=== PATIENT | female | born 1965 | race Caucasian/White ===

== ENCOUNTER 2020-12-26 08:47 | Outpatient (REF) | payer BC, SELFPAY ==
[2020-12-26 11:05] LABS: MANUAL DIFF FLAG NO
[2020-12-26 11:07] LABS: Basophils Percent Auto 0.5 % (0-2); Eosinophils Absolute Auto 0.1 X10*3/uL (0.0-0.4); Eosinophils Percent Auto 2.3 % (0-4); Hematocrit 38.7 % (37-47); Hemoglobin 12.5 g/dl (12.0-16.0); Imm Gran Abs Auto 0.02 X10*3/uL (0.00-0.03); Imm Gran Pct Auto 0.4 % (0.0-0.4); Lymphocytes Percent Auto 18.1 % (20-40); Mean Corpuscular HGB Conc 32.3 g/dl (31.0-35.0); Mean Corpuscular Hemoglobin 27.5 pg (27.0-33.0); Mean Corpuscular Volume 85.1 fL (80-98); Mean Platelet Volume 12.6 fL (9.4-12.3); Monocytes Absolute Auto 0.4 X10*3/uL (0.1-1.2); Monocytes Percent Auto 6.3 % (2-11); Neutrophils Absolute Auto 4.1 X10*3/uL (2.0-8.3); Neutrophils Percent Auto 72.4 % (45-73); Platelet Count 118 X10*3/uL (160-400); Red Blood Count 4.55 X10*6/uL (4.20-5.50); Red Cell Distribution Width 14.3 % (11.0-16.0); White Blood Count 5.6 X10*3/uL (4.8-10.8)
[2020-12-26 11:56] LABS: Alanine Aminotransferase 27 U/L (0-31); Albumin Level 4.2 g/dL (3.5-5.0); Alkaline Phosphatase 103 U/L (39-117); Anion Gap 14 (12-20); Aspartate Amino Transferase 22 U/L (5-31); Bilirubin Total 0.4 mg/dL (0.0-1.0); Blood Urea Nitrogen 12 mg/dL (9-16); Calcium 9.2 mg/dL (8.4-10.2); Carbon Dioxide 25 mmol/L (22-29); Chloride 108 mmol/L (96-108); Cholesterol 205 mg/dL; Estimated Glomerular Filt Rate > 60; Glucose Fasting 101 mg/dL (60-99); HDL Cholesterol 54 mg/dL; LDL Cholesterol Calculated 126 mg/dl; Potassium 4.3 mmol/L (3.3-5.1); Sodium 143 mmol/L (135-145); Triglycerides 126 mg/dL
== END 2020-12-26 08:48 | disposition home or self-care (01) ==
LOC: HO.MANLDS 08:47
PROVIDERS: PCP Internal Medicine; Visit Provider Physician Assistant
DX: I10 Essential (primary) hypertension (principal)
CPT/HCPCS: 36415; 80053; 80061; 85025

== ENCOUNTER 2023-10-05 10:31 | Outpatient (REF) | payer BC, SELFPAY ==
[2023-10-05 13:17] LABS: MANUAL DIFF FLAG NO
[2023-10-05 13:38] LABS: Basophils Percent Auto 0.3 % (0-2); Eosinophils Absolute Auto 0.1 X10*3/uL (0.0-0.4); Eosinophils Percent Auto 1.2 % (0-4); Hematocrit 41.2 % (37.0-47.0); Hemoglobin 13.3 g/dl (12.0-16.0); Imm Gran Abs Auto 0.05 X10*3/uL (0.00-0.03); Imm Gran Pct Auto 0.8 % (0.0-0.4); Lymphocytes Absolute Auto 0.8 X10*3/uL (1.2-4.9); Lymphocytes Percent Auto 13.4 % (20-40); Mean Corpuscular HGB Conc 32.3 g/dl (31.0-35.0); Mean Corpuscular Hemoglobin 29.5 pg (27.0-33.0); Mean Corpuscular Volume 91.4 fL (80.0-98.0); Mean Platelet Volume 13.7 fL (9.4-12.3); Monocytes Absolute Auto 0.3 X10*3/uL (0.1-1.2); Monocytes Percent Auto 4.8 % (2-11); Neutrophils Absolute Auto 4.8 x10*3/uL (2.0-8.3); Neutrophils Percent Auto 79.5 % (45-73); Red Blood Count 4.51 X10*6/uL (4.20-5.50); Red Cell Distribution Width 14.3 % (11.0-16.0); White Blood Count 6.1 X10*3/uL (4.8-10.8)
[2023-10-05 13:43] LABS: Estimated Average Glucose 128 mg/dL; Hemoglobin A1c % 6.1 % (<6.0)
[2023-10-05 14:05] LABS: Platelet Count 87 X10*3/uL (160-400)
[2023-10-05 14:08] LABS: Appearance Urine Clear; Color Urine Yellow; Glucose Urine UA Negative (Negative); Leukocyte Esterase Urine Negative (Negative); Nitrite Urine Negative (Negative); PH 6.5 (5.0-9.0); Specific Gravity - Urine <= 1.005 (1.005-1.025); Urine Blood Negative (Negative); Urine Ketones Negative (Negative); Urine Protein Negative (Neg-Trace)
[2023-10-05 14:13] LABS: Alanine Aminotransferase 24 U/L (0-31); Albumin Level 4.2 g/dL (3.5-5.0); Alkaline Phosphatase 117 U/L (39-117); Anion Gap 10 (12-20); Aspartate Amino Transferase 22 U/L (5-31); Bilirubin Total 0.3 mg/dL (0.0-1.0); Blood Urea Nitrogen 12 mg/dL (9-16); C Reactive Protein 0.49 mg/dL (< or = 0.50); Calcium 9.7 mg/dL (8.4-10.2); Carbon Dioxide 27 mmol/L (22-29); Chloride 110 mmol/L (96-108); Estimated Glomerular Filt Rate > 60; Glucose Random 142 mg/dL (60-115); Potassium 4.4 mmol/L (3.3-5.1); Sodium 143 mmol/L (135-145); Total Protein 7.2 g/dL (6.5-8.0)
[2023-10-05 14:18] LABS: Erythrocyte Sedimentation Rate 23 MM/HR (0-20)
[2023-10-05 14:33] LABS: Free T4 (Free Thyroxine) 0.93 ng/dL (0.71-1.85); Thyroid Stimulating Hormone 1.13 uIU/mL (0.32-4.0)
[2023-10-11 18:48] LABS: Aldosterone/Renin Ratio 5.8 Ratio (0.9-28.9); Plasma Renin Activity 1.03 ng/mL/h (0.25-5.82)
== END 2023-10-05 10:32 | disposition home or self-care (01) ==
LOC: HO.MANLDS 10:31
PROVIDERS: Visit Provider Physician Assistant
DX: I16.0 Hypertensive urgency (principal)
CPT/HCPCS: 36415; 80053; 81003; 82088; 83036; 84439; 84443; 85025; 85652; 86140

== ENCOUNTER 2023-11-01 15:40 | Outpatient (REF) | payer BC, SELFPAY ==
[2023-11-01 18:06] LABS: Appearance Urine Turbid; Color Urine Yellow; Glucose Urine UA Negative (Negative); Leukocyte Esterase Urine Trace (Negative); Nitrite Urine Negative (Negative); PH 5.5 (5.0-9.0); Specific Gravity - Urine 1.025 (1.005-1.025); UMIC TRIGGER UACC YES; Urine Blood Negative (Negative); Urine Ketones Trace mg/dL (Negative); Urine Protein Negative (Neg-Trace)
[2023-11-01 18:48] LABS: Bacteria Urine 1+ (None Seen); Calcium Oxalate Crystals Urine Present; Hyaline Casts Urine 0-2 /LPF (0-2); RBC Urine 0-2 /HPF (0-2); WBC Urine 0-5 /HPF (0-5)
== END 2023-11-01 15:41 | disposition home or self-care (01) ==
LOC: HO.MANLNP 15:40
PROVIDERS: Internal Medicine; Visit Provider Physician Assistant
DX: R30.0 Dysuria (principal)
CPT/HCPCS: 81001

== ENCOUNTER 2024-03-16 13:05 | Outpatient (REF) | payer BC, SELFPAY ==
[2024-03-16 18:14] LABS: INTERNATIONAL NORM RATIO 4.7 (0.9-1.1); Prothrombin Time 55.5 SEC (10.9-12.4)
== END 2024-03-16 13:06 | disposition home or self-care (01) ==
LOC: HO.MANLDS 13:05
PROVIDERS: Visit Provider Internal Medicine
DX: D68.61 Antiphospholipid syndrome (principal)
CPT/HCPCS: 36415; 85610

== ENCOUNTER 2024-03-23 12:16 | Outpatient (REF) | payer BC, SELFPAY ==
[2024-03-23 18:22] LABS: INTERNATIONAL NORM RATIO 1.6 (0.9-1.1); Prothrombin Time 19.1 SEC (10.9-12.4)
== END 2024-03-23 12:17 | disposition home or self-care (01) ==
LOC: HO.MANLDS 12:16
PROVIDERS: Visit Provider Internal Medicine
DX: D68.61 Antiphospholipid syndrome (principal)
CPT/HCPCS: 36415; 85610

== ENCOUNTER 2024-06-19 10:26 | Outpatient (REF) | payer BC, SELFPAY ==
[2024-06-19 15:11] LABS: Urine Cytology See Pathology rpt
== END 2024-06-19 10:27 | disposition home or self-care (01) ==
LOC: HO.LNP 10:26
PROVIDERS: PCP Internal Medicine; Visit Provider Nurse Practitioner Family
DX: Z13.9 Encounter for screening, unspecified (principal); R39.9 Unspecified symptoms and signs involving the genitourinary system; N39.0 Urinary tract infection, site not specified; N39.46 Mixed incontinence
CPT/HCPCS: 51798; 81003; 88112

== ENCOUNTER 2024-06-19 10:26 | Outpatient (AMB) | payer BC, SELFPAY ==
--- NOTE | 2024-06-19 10:28 | A.OFFVIS_ITS ---
Intake Visit Reasons: recurrent UTI Intake Note: New Patient presents for initial visit for recurrent uti Urology Medications: none Blood Thinner: aspirin PVR: 62ml's Transmission Worker Required: No Accompanied by: Self / Same As Patient Allergies No Known Allergies Allergy (Verified 06/20/24 15:21) Medication List - Last Reconciled 06/20/24 by BRADY Perez-KARLA azathioprine mg PO carvedilol 3.125 mg PO BID lisinopril 40 mg PO DAILY lorazepam mg PO pyridostigmine bromide 60 mg PO TID rosuvastatin 20 mg PO BEDTIME warfarin 2.5 mg PO DAILY HPI Comments Details: Sindi is a very pleasant 59-year-old female patient of . She has a past medical history of cerebrovascular accident, depression, hypertension, MS, obesity, and TIAs. She presents to the office today as a new patient for ongoing lower urinary tract symptoms. In discussion with the patient today she reports having recently had a stroke and has noted ongoing issues with recurrent urinary tract infections as well as urinary urgency, urinary frequency, and mixed urinary incontinence. When asked she does report a previous history of 2 vaginal births and having had a partial hysterectomy approximately 20 years ago. She reports utilizing 2-3 Margarita pads per day. She otherwise denies hematuria, dysuria, foul smelling urine, changes to urinary stream, flank pain, fever, and or chills. In office urinalysis results reviewed with the patient today. PVR 62 mL. We discussed at length potential causes of lower urinary tract symptoms patient was experiencing as well as further workup and treatment options of these lower urinary tract symptoms. She currently denies any UTI like symptoms. She otherwise offers no other issues or concerns at this time. [facility] Medical History CVA (cerebral vascular accident) Depression Hypertension Myasthenia gravis Obesity, class 1 Severe obesity (BMI 35.0-39.9) with comorbidity TIA (transient ischemic attack) Review of Systems Const All systems reviewed & are unremarkable except as noted in HPI and below Physical Exam Const General: cooperative, healthy appearing, comfortable, no acute distress, well developed, alert and awake Orientation/consciousness: patient oriented x3 Limitations: no limitations HEENT Head: Yes normal to inspection, Yes normocephalic and Yes atraumatic Ears: hearing grossly normal bilaterally Eyes General: appearance normal, both eyes and all related structures Neck Neck: Yes normal visual inspection and Yes trachea midline Chest Chest palpation & inspection: normal inspection of the chest Resp Effort & Inspection: normal respiratory effort and able to speak in complete sentences Cardio Rate: regular rate GI Inspection: Yes normal to inspection General: Yes no CVA tenderness Back/Spine/Pelvis Back: no CVA tenderness Skin General skin exam: no rashes or lesions noted Neuro General: patient oriented x3 Extrem General: Yes normal to inspection Psych Appearance: grossly normal and well kempt Mental Status: mental status grossly normal Speech and movement: Normal speech and movement present and Clear speech present Affect: normal affect Attitude: cooperative Thought process: Normal thought process present Thought content: Normal thought content present Insight: Fair insight present (Psych) Judgement: Fair judgement present (Psych) Office Procedures Post Void Residual Post Residual Void Post Void Residual (PVR): 62 [id number] Void Residual by ultrasound Results AMB Urinalysis, Automated UA Leukoctes 0 Rain/uL Last Edit by [employer]trees[employer] Mishra on 06/19/24 11:09 UA Nitrite Last Edit by [employer]treescar[employer] Mishra on 06/19/24 11:09 UA Urobilinogen 0.2 mg/dL Last Edit by [employer] SilvinaMaiyet on 06/19/24 11:09 UA Protein 0 mg/dL Last Edit by [employer] on 06/19/24 11:09 UA pH 7.5 Last Edit by [employer] on 06/19/24 11:09 UA Blood 80 Naif/uL Last Edit by [employer] on 06/19/24 11:09 UA Specific [place] 1.015 Last Edit by [employer] on 06/19/24 11:09 UA Ketone Last Edit by [employer] on 06/19/24 11:09 UA Bilirubin 0 mg/dL Last Edit by [employer] on 06/19/24 11:09 UA Glucose 0 mg/dL Last Edit by Josefina Mishra on 06/19/24 11:09 Results Reviewed Results Reviewed: Laboratory Last Values Urine pH (Auto) 7.5 06/19/24 11:07 Specific [place] (Auto) 1.015 06/19/24 11:07 Urine Protein (Auto) 0 mg/dL 06/19/24 11:07 Glucose (UA)(Auto) 0 mg/dL 06/19/24 11:07 Urine Blood (Auto) 80 Naif/uL 06/19/24 11:07 Urine Bilirubin (Auto) 0 mg/dL 06/19/24 11:07 Urine Urobilinogen (Auto) 0.2 mg/dL 06/19/24 11:07 Leukocyte Esterase (Auto) 0 Rain/uL 06/19/24 11:07 Assessment & Plan Assessment & Plan (1) Lower urinary tract symptoms: Code(s): R39.9 - Unspecified symptoms and signs involving the genitourinary system Category: Medical (2) Recurrent urinary tract infection: Code(s): N39.0 - Urinary tract infection, site not specified Category: Medical (3) Urinary incontinence, mixed: Code(s): N39.46 - Mixed incontinence Category: Medical Plan In office urinalysis results reviewed with the patient today; as noted above. PVR 62 mL. Information provided regarding pelvic floor exercises. We discussed bladder triggers/irritants. We discussed at length further treatment options of lower urinary tract symptoms patient is experiencing as well as risks and benefits of these treatment options. We discussed possible near future in office cystoscopy and or urodynamics for further assessment evaluation. Patient currently denies any UTI like symptoms. Will obtain retroperitoneal ultrasound for further assessment evaluation. Will refer to pelvic floor therapy for further assessment evaluation. Discussed UTI prevention with D mannose supplement, vitamin-C, increasing fluid intake, behavioral therapy with timed voiding, perineal hygiene and postcoital voiding, and management of constipation with stool softeners and increased fiber intake. Follow-up in 1-3 months with imaging to be completed prior; or sooner with any issues, concerns, and or questions. Orders: Orders AMB Urinalysis Automated 06/19/24 Z13.9 - Encounter for screening, unspecified US retroperitoneal comp 06/19/24 N39.0 - Urinary tract infection, site not specified, R39.9 - Unspecified symptoms and signs involving the genitourinary system PT Evaluation and Treatment 06/19/24 N39.0 - Urinary tract infection, site not specified, R39.9 - Unspecified symptoms and signs involving the genitourinary system AMB Post Void Residual by ultrasound 06/19/24 Z13.9 - Encounter for screening, unspecified Urine Cytology 06/19/24 Z13.9 - Encounter for screening, unspecified Patient Instructions: The patient had an opportunity to ask questions regarding the treatment plan. All questions were answered. Physical exam, labs, and imaging were discussed and reviewed in detail. As well as risks, benefits, and discussion of treatment choices. No major barriers to understanding were identified. The patient expressed understanding and agreement with the above treatment plan. The patient was made aware they should contact our office by phone for worsening of their current condition, the appearance of new symptoms, or with any questions or concerns. Compliance is encouraged with any medications and follow up testing that is ordered. It is a privilege to be allowed the opportunity to participate in? your urological care.? Again, if you have any questions or concerns If you have any questions or concerns please do not hesitate to contact me. The office is [phone]. This note is constructed using voice recognition software. While every effort has been made to ensure accuracy correctional guard errors may have been included. Yours sincerely, ZORAN Perez Coding Level of Care Code New Pt Level 3 (70984) Diagnoses Lower urinary tract symptoms R39.9 Recurrent urinary tract infection N39.0 Urinary incontinence, mixed N39.46 CPT Codes Post Residual Void - PVR CPT Code: 97930-Vogp Void Residual by ultrasound ([id number])
== END 2024-06-19 11:14 | disposition home or self-care (01) ==
PROVIDERS: PCP Internal Medicine; Visit Provider Nurse Practitioner Family
DX: Z13.9 Encounter for screening, unspecified (principal)
CPT/HCPCS: 99203

== ENCOUNTER 2024-08-08 10:03 | Outpatient (REF) | payer BC, SELFPAY ==
--- NOTE | ~2024-08-08 | US_ITS ---
CLINICAL HISTORY: R39.9 - Unspecified symptoms and signs involving the genitourinary system US Renal Comparison: None Findings: Horseshoe kidney Right kidney normal echotexture, 12.4 cm length. Left kidney normal echotexture, 8.8 cm length. No hydronephrosis or renal mass lesion. Urinary bladder is unremarkable. Prevoid volume 183 mL. Postvoid volume 36 mL. Bilateral ureteral jets are visualized. IMPRESSION: Horseshoe kidneys without hydronephrosis. This document has been electronically signed by: Caitlin De Los Santos MD on 08/09/2024 10:39:44
--- OUTSIDE RECORDS SUMMARY | 2024-08-08 10:32 | XMS_ITS | Data Portability ---
Author Organization [facility] Service Address [address] [place] [address] Assessment Encounter Date Assessment Date Assessment LastModified by Organization Details LastModified Time 07/07/2022 07/07/2022 Patient agreed and verbally consents to this audio and video Telehealth appt via a secure platform [email or web address] Not available 07/07/2022 13:34:39 11/26/2022 11/26/2022 The patient denies little pleasure in activities they find enjoyable, feeling depressed, difficulties sleeping, feeling tired or having little energy, change in appetite, feeling guilty, overwhelmed or unmotivated. The patient denies suicidal ideation, thoughts of hurting themselves or others. Their mood is appropriate, they show good judgement and clear understanding of the conversation. They are orientated to time, place and person. They are not expressing any concerning thoughts or actions that would need further investigation and treatment for mental health. [email or web address] Not available 11/26/2022 11:07:03 05/09/2023 05/09/2023 Patient agreed and verbally consents to this audio and video Telehealth appt via a secure platform [email or web address] Not available 05/09/2023 13:59:44 Plan of Treatment Reminders Order Date Submit Date Provider Last Modified By Organization Details Last Modified Time Details Appointments FOLLOW UP 15 2024 09:30A M MIKHAIL SARKAR Not available Not available Not available Lab lipid panel, serum 2023 024 [facility], [address] [place] [address], [place], [address], 11/30/2023 09:52:29 urinalysi s complete, reflex culture 2023 024 [facility], [address] [place] [address], [address], 11/01/2023 15:26:55 CMP, serum or plasma 2022 023 [facility], [address] [place] [address], [address], 11/26/2022 11:05:15 CBC w/ auto diff 2022 023 [facility], [address] [place] [address], [address], 11/26/2022 11:05:16 lipid panel, blood 2022 023 [facility], [address] [place] [address], [address], 11/26/2022 11:05:15 vitamin D, 25-hydrox y, total, serum 2022 023 [facility], [address] [place] [address], [address], 11/26/2022 11:05:16 TSH + free T4, serum 2022 023 [facility], [address] [place] [address], [address], 11/26/2022 11:05:16 hemoglobi n A1c, QN, blood 2022 023 [facility], [address] [place] [address], [address], 11/26/2022 11:05:16 vitamin B12 + folate, serum or blood 2022 023 [facility], [address] [place] [address], [address], 11/26/2022 11:05:15 Referral physical therapist referral 2023 024 [facility], [address] [place], [address], 12/05/2023 09:08:18 gastroent erologist referral [email or web address] [place] [address] Gastroenterol ogy, [address] [place], [address], 12/24/2022 13:25:02 Procedures None recorded. Surgeries None recorded. Imaging XR, hand, 3 or more view 2023 024 [facility], [address] [place], [address], 12/02/2023 19:51:02 XR, humerus, 2 or more view 2023 024 [facility], [address] [place], [address], 12/02/2023 16:21:57 XR, shoulder, 2 or more view 2023 024 [facility], [address], [address], 12/07/2023 08:34:26 MAMMO, screening , digital, bilateral 2022 023 [facility], [address], [place], [address], 12/10/2022 09:26:43 US, echocardi ogram 2022 023 [facility], [address], [address], 12/10/2022 09:26:43 CT, coronary calcium score 2022 023 [facility], [address], [address], 12/15/2022 08:35:58 Medication Orders atorvasta tin 80 mg tablet 2023 024 [facility][id number], [address], [place], [id number], 11/30/2023 09:35:08 lisinopri l 10 mg tablet 2023 024 [facility] #98633, [address], [place], [id number], 12/12/2023 13:35:57 Bactrim DS 800 mg-160 mg tablet [address] [facility]75803, [address], [place], [id number], 11/30/2023 09:20:57 amoxicill in 875 mg-potass ium clavulana te 125 mg tablet 2022 023 [facility] #72422, [address], [place], [id number], 10/05/2023 10:02:47 Medrol (Krishan) 4 mg tablets in a dose pack 2022 023 [facility], [address], [place], [id number], 10/05/2023 10:02:55 phentermi ne 37.5 mg capsule 2022 023 [facility], [address], [place], [id number], 10/05/2023 10:03:04 topiramat e 50 mg tablet [address] [facility]81203, [address], [place], [id number], 11/30/2023 09:21:07 Zithromax Z-Krishan 250 mg tablet 2022 023 [facility] #19461, [address], [place], [id number], 11/26/2022 10:52:45 Medrol (Krishan) 4 mg tablets in a dose pack 2022 023 [facility]8570, [address], [place], [id number], 10/05/2023 10:02:55 Patient TargetsNo targets recorded. Patient InstructionsNo instructions recorded. Reason for Referral Knuckler Referral for Screening for malignant neoplasm of colon needs routine colonoscopy; overdue Referring Physician: Mary Pate, Internal Medicine, Encounter Date: 11/26/2022 Physical Therapist Referral for Myasthenia gravis transfer from at home PT/OT to outpatient PT/OT Referring Physician: Mary Pate, Internal Medicine, Encounter Date: 11/30/2023 Results Created Date Observation Date Name Description Value Unit Range Abnormal Flag Note LastModifiedBy Organization Detail LastModifiedTime 06/10/20 23 06/10/2023 MAMMO , scree alan, digit al, bilat eral No observ ation record ed. [facility] [address] [place], [address], 06/10/2023 11:30:35 06/24/19 24 06/24/2023 MAMMO , scree alan, digit al, bilat eral No observ ation record ed. [facility] [address] [place], [address], 06/25/2023 08:54:30 12/02/19 24 12/02/2023 XR, elizabeth flor, 2 or more view No observ ation record ed. [facility] [address] [facility] [address], [place], [address], 12/02/2023 15:53:18 12/02/19 24 12/02/2023 XR, humer us, 2 or more view No observ ation record ed. [facility] [address] [facility] [address], [place], [address], 12/02/2023 16:31:17 12/02/19 24 12/02/2023 XR, hand, 3 or more view No observ ation record ed. [email or web address] [address] [facility] [address], [place], [address], 12/05/2023 09:45:27 12/30/19 24 12/30/2023 MAMMO , scree alan, digit al, bilat eral No observ ation record ed. [facility] [address], [place], [address], 12/30/2023 14:02:48 01/05/20 24 12/30/2023 , carlos sadler No observ ation record ed. [facility] [address] [facility], [place], [address], 01/06/2024 12:13:59 01/05/20 24 01/05/2024 MAMMO , scree alan, digit al, bilat eral No observ ation record ed. [facility] [address] [facility] [address], [place], [address], 01/06/2024 12:14:00 01/05/20 24 01/05/2024 US, carlos t No observ ation record ed. [facility] [address] [facility] [address], [place], [address], 01/06/2024 12:14:00 01/10/20 24 01/05/2024 biops y of carlos sadler; soumya robles us, needl e core, using imagi julita joyce (PROC ) No observ ation record ed. [facility] [address] [facility] [address], [place], [address], 01/10/2024 12:25:03 Result Notes None recorded. Problems Name Problem SNOMED Code Status Onset Date Resolution Date Notes Provider Name and Address Organization Details Recorded Time Environme ntal allergy 423246018 [facility] 8 16:36:54 Obesity 886488248 [facility] 16:37:21 History of human papilloma virus infection 585123686047 102 Active 2017 [facility] 8 16:40:59 Myastheni a gravis 69718449 Active 2020 Evelyneusebio Claudio [facility] 1 09:23:22 COVID-19 931735538 Active 2020 Evelyneusebio Claudio [facility] 1 09:23:33 Overweigh t 628191029 Active 2021 MIKHAIL SARKAR [address] [place] [address], [address], [facility] 2 14:44:17 Essential hypertens ion 33268617 Active 2021 MIKHAIL SARKAR [address] [place], [address], [facility] 2 14:48:07 Acute sinusitis 90238892 Active 2022 MIKHAIL SARKAR [address] [place] [address], [address], [facility] 3 13:35:05 Dyspnea 288731929 Active 2022 MIKHAIL SARKAR [address] [place], [address], [facility] 3 11:01:25 Acute right otitis media 784692570 Active 2022 MIKHAIL SARKAR [address] [place], [address], [facility] 3 13:59:32 Panic disorder 102790738 Active 2023 MIKHAIL SARKAR [address] [place], [address], [facility] 4 10:02:38 Hypertens giselle urgency 792609900 Active 2023 MIKHAIL SARKAR [address] [place] [address], [address], [facility] 4 10:08:53 Dysuria 38317887 Active 2023 MIKHAIL SARKAR [address] [place] [address], [address], [facility] 4 15:24:06 Cerebrova scular accident 828040241 Active 2023 MIKHAIL SARKAR [address] [place] [address], [address], [facility] 4 15:24:28 Transient cerebral ischemia 009751147 Active 2023 MIKHAIL SARKAR [address] [place] [address], [address], [facility] 4 14:27:33 Pain of left hand 550230644525 103 Active 2023 MIKHAIL SARKAR [address] [place] [address], [address], [facility] 4 09:35:48 Pain in left arm 551527145 Active 2023 MIKHAIL SARKAR [address] [place] [address], [address], [facility] 4 09:36:00 Hyperlipi demia 08930087 Active 2023 MIKHAIL SARKAR [address] [place] [address], [address], [facility] 4 09:51:05 Acute urinary tract infection 100337818 Active 2023 MIKHAIL SARKAR [address] [place] [address], [address], [facility] 4 14:36:41 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 Procedures Surgical History Date Name Laterality Status Provider Name and Address Organization Details Recorded Time Partial Hysterectomy completed Jessi Rodriguez NP, S [address] [place] [address], [address], [facility] 04/28/2018 10:35:33 Imaging Results Imaging Date Name Status LastModified by [facility] Details LastModified Time 06/10/2023 MAMMO, screening, digital, bilateral completed [facility] [address] [place], [address], 06/10/2023 11:30:35 06/24/2023 MAMMO, screening, digital, bilateral completed [facility] [address] [place], [address], 06/25/2023 08:54:30 12/02/2023 XR, shoulder, 2 or more view completed [facility] [address] [facility] [address], [place], [address], 12/02/2023 15:53:18 12/02/2023 XR, humerus, 2 or more view completed [facility] [address] [facility] [address], [place], [address], 12/02/2023 16:31:17 12/02/2023 XR, hand, 3 or more view completed [email or web address] [facility] [address] [facility] [address], [place], [address], 12/05/2023 09:45:27 12/30/2023 MAMMO, screening, digital, bilateral completed [facility] [address] [place], [address], 12/30/2023 14:02:48 12/30/2023 US, breast completed [facility] [address] [place], [address], 01/06/2024 12:13:59 01/05/2024 MAMMO, screening, digital, bilateral completed [facility] [address] [facility] [address], [place], [address], 01/06/2024 12:14:00 01/05/2024 US, breast completed [facility] [address] [facility] [address], [place], [address], 01/06/2024 12:14:00 01/05/2024 biopsy of breast; percutaneous, needle core, using imaging guidance (PROC) completed [facility] [address] [facility] [address], [place], [address], 01/10/2024 12:25:03 Procedure Notes None recorded. Medical Equipment None Reported. Allergies No known drug allergies Medications Name Sig Start Date Stop Date Status Note LastModified by Organization Details LastModified Time atorvastati n 80 mg tablet TAKE 1 TABLET BY MOUTH EVERY DAY DIRECTED active Not Available Not Available No t Available carvedilol 6.25 mg tablet TAKE 1 TABLET BY MOUTH TWICE DAILY active Not Available Not Available No t Available azithromyci n 250 mg tablet TAKE 2 TABLETS (500 MG) BY ORAL ROUTE ONCE DAILY FOR 1 DAY THEN 1 TABLET (250 MG) BY ORAL ROUTE ONCE DAILY FOR 4 DAYS 11/26 completed Not Available Not Available Not Available benzonatate 200 mg capsule TAKE 1 CAPSULE BY MOUTH THREE TIMES DAILY FOR 14 DAYS 07/07 completed Not Available Not Available Not Available warfarin 7.5 mg tablet TAKE 1 TABLET BY MOUTH EVERY DAY active Not Available Not Available No t Available lisinopril 20 mg tablet TAKE 1 AND 1/2 TABLETS BY MOUTH EVERY DAY active Not Available Not Available No t Available phentermine 15 mg capsule TAKE 1 CAPSULE BY MOUTH EVERY DAY 10/04 completed Not Available Not Available Not Available warfarin 2.5 mg tablet 1 po qd 2024 active Not Available Not Available Not Avai lable topiramate 25 mg tablet TAKE 1 TABLET BY MOUTH EVERY DAY 03/03 completed Not Available Not Available Not Available azathioprin e 50 mg tablet TAKE 3 TABLETS BY MOUTH DAILY active Not Available Not Available No t Available clopidogrel 75 mg tablet TAKE 1 TABLET BY MOUTH DAILY active Not Available Not Available No t Available ciprofloxac in 500 mg tablet TAKE 1 TABLET BY MOUTH EVERY 12 HOURS FOR 7 DAYS active Not Available Not Available No t Available sulfamethox azole 800 mg-trimetho prim 160 mg tablet TAKE 1 TABLET BY MOUTH EVERY 12 HOURS FOR 7 DAYS active Not Available Not Available No t Available aspirin 81 mg tablet,reggie yed release TAKE 1 TABLET BY MOUTH DAILY active Not Available Not Available No t Available amoxicillin 500 mg tablet TAKE 2 TABLETS BY MOUTH STAT THEN TAKE 1 TABLET THREE TIMES DAILY FOR 1 WEEK 10/04 completed Not Available Not Available Not Available carvedilol 3.125 mg tablet TAKE 1 TABLET BY MOUTH TWICE DAILY. CALL IF ANY SIGNIFICA NT LIGHTHEAD EDNESS active Not Available Not Available No t Available lorazepam 0.5 mg tablet TAKE 1 TABLET BY MOUTH TWICE DAILY NEEDED 11/29 completed Not Available Not Available Not Available baclofen 10 mg tablet TAKE 1 TABLET BY MOUTH DAILY AT BEDTIME NEEDED FOR SPASM 11/29 completed Not Available Not Available Not Available cephalexin 500 mg capsule 04/28 completed Not Available Not Available Not Available pyridostigm ine bromide 60 mg tablet TAKE 1 TABLET BY MOUTH EVERY MORNING active Not Available Not Available No t Available lisinopril 10 mg tablet TAKE 1 TABLET BY MOUTH EVERY DAY 12/11 completed Not Available Not Available Not Available warfarin 5 mg tablet TAKE 1 TABLET BY MOUTH EVERY DAY AT 4 PM active Not Available Not Available No t Available methylpredn isolone 4 mg tablets in a dose pack FOLLOW PACKAGE DIRECTION S 10/04 completed Not Available Not Available Not Available lisinopril 40 mg tablet TAKE 1 TABLET BY MOUTH DAILY active Not Available Not Available No t Available phentermine 37.5 mg capsule TAKE 1 CAPSULE BY MOUTH EVERY DAY 10/04 completed Not Available Not Available Not Available amoxicillin 875 mg-potassiu m clavulanate 125 mg tablet TAKE 1 TABLET BY MOUTH EVERY 12 HOURS FOR 3 DAYS 10/04 completed Not Available Not Available Not Available cholecalcif isabelle (vitamin D3) 25 mcg (1,000 unit) capsule TAKE 1 CAPSULE BY MOUTH DAILY active Not Available Not Available No t Available rosuvastati n 20 mg tablet TAKE 1 TABLET BY MOUTH DAILY active Not Available Not Available No t Available topiramate 50 mg tablet TAKE 1 TABLET BY MOUTH EVERY DAY 11/29 completed Not Available Not Available Not Available nitrofurant oin monohydrate /macrocryst als 100 mg capsule TAKE 1 CAPSULE BY MOUTH EVERY 12 HOURS FOR 7 DAYS active Not Available Not Available No t Available multivitami n 10/31 completed Not Available Not Available Not Available Vitals Date Recorded Body height Body mass index (BMI) Body weight Oxygen saturation Oxygen saturation in Arterial blood by Pulse oximetry Heart rate Systolic blood pressure Diastolic blood pressure Provider Name and Address Organization Details Last Updated DateTime 3 152.4 cm 37.1 kg/m2 15578.5 5 g 97 % 97 % 69 /min 128 mm[Hg] 78 mm[Hg] Reyna Conn [facility] 3 10:55:53 Date Recorded Body height Body mass index (BMI) Body weight Heart rate Oxygen saturation Oxygen saturation in Arterial blood by Pulse oximetry Systolic blood pressure Diastolic blood pressure Provider Name and Address Organization Details Last Updated DateTime 4 152.4 cm 34.5 kg/m2 97591.7 7 g 84 /min 98 % 98 % 126 mm[Hg] 80 mm[Hg] Johana Camacho [facility] 4 14:58:43 Date Recorded Body height Body mass index (BMI) Body weight Heart rate Oxygen saturation Oxygen saturation in Arterial blood by Pulse oximetry Systolic blood pressure Diastolic blood pressure Provider Name and Address Organization Details Last Updated DateTime 4 152.4 cm 34.4 kg/m2 95112.2 6 g 84 /min 97 % 97 % 124 mm[Hg] 70 mm[Hg] Reyna Marx [facility] 4 09:22:43 Social History Question Answer Notes LastModified by [facility] ion Details LastModified Time Tobacco Smoking Status Never Smoker Not Available [facility] 04/22/2020 03:36:24 What Was The Date Of Your Most Recent Tobacco Screening? 11/30/2023 [email or web address] Information not available 11/30/2023 Do You Or Have You Ever Used Any Other Forms Of Tobacco Or Nicotine? No [email or web address] Information not available 11/26/2022 Sex: Unknown Functional Status None recorded. Mental Status None recorded. Family History Relationship Description Onset Age of this Age Resolved Age Notes LastModified by Organization Details LastModified Time Father Hypertensive disorder 49 ? brain aneury sm chioma Not available 04/28/2018 10:34:54 Mother Hypertensive disorder NIDDM chioma Not available 2017 10:34:54 Medical History Condition Response Coronary Artery Disease N Gout N Kidney Stones N Blood Diseases N Hyperthyroidism N Breast Cancer N Blood Transfusion N Lung Disease N Depression N COPD N Hypothyroidism N Defects or Inherited Disease Y Difficulty Swallowing N Anesthesia Complications N Anxiety Disorder Y Arthritis N Cancer Y Stroke N Bladder or Kidney Problems N High Cholesterol N Liver Disease N Fibromyalgia N Headaches Y Kidney Disease N Allergies/Hayfever Y Hospitalizations N Thyroid Problems N GI Problems N Eating Disorder N Anemia N Constipation N Diabetes N Ovarian Cancer N Seizures/Epilepsy N Tuberculosis N Congestive Heart Failure (CHF) N Eczema Y Abuse/Domestic Violence N Diverticulitis N Asthma N Reflux/GERD N Hepatitis N Heart Disease N Pulmonary Embolism N Chronic Ear Infections Y Hypertension Y Chicken Pox Y Autism Spectrum Disorder (ASD) N Gynecological History Statement/Question Response If Post Menopausal, Age at Menopause Current Control Method Hysterectom y Age at Menarche 15 Age at First Child 36 Obstetrics History GPAL:G 3 P 2 0 1 0 Type Value Full Term 2 Spontaneous 1 Total 3 Immunizations Vaccine Type Date Status Note Provider Nam e and Address Organization Details Recorded Time COVID-19 vaccine, vector-nr, rS-ChAdOx1, PF, 0.5 mL 09/22/2020 completed Amada campoverde [facility] 12/02/2020 10:20:35 Past Encounters Encounter ID Performer Location Encounter Start Date Encounter Closed Date Diagnosis/Indication Diagnosis SNOMED-CT Code Diagnosis ICD10 Code Diagnosis Note [id number] Jessi Rodriguez NP, S [facility] [address] [facility] [address] 04/28/2018 10:16:06 04/28/2018 12:51:08 Adult health examination 828415130 Z00.01 Active or passive immunization 467132213 Z23 Essential hypertension 09046403 I10 Screening procedure 2012 5006 Z13.9 [id number] MIKHAIL SARKAR [facility] [address] [facility],[place] [address] 12/09/2020 09:58:28 12/09/2020 10:49:23 Essential hypertension 48369185 I10 BP elevatedwi ll start on lisinopril and fu in a moalso needs BW done Myasthenia gravis 626701 04 G70.00 stable [id number] MIKHAIL SARKAR [facility] [address] [facility] [address],[place] [address] 01/07/2021 09:13:49 01/07/2021 09:37:52 Essential hypertension 93241414 I10 BP much improved with lisinopril will continue on the same dose for now and fu in 3 mowill see if it needs to be titrated at that time [id number] MIKHAIL SARKAR [facility] [address] [facility] [address],[place] [address] 04/08/2021 08:50:44 04/08/2021 09:31:08 Overweight 459919376 E66.3 will trial phentermin e 15 mg capsulewil l call with an update in a month to tell me her progress Essential hypertension 21929959 I10 BP much improved with lisinopril will continue on the same dose for now and fu in 3 mowill see if it needs to be titrated at that time [id number] MIKHAIL SARKAR [facility] [address] [facility], [place] [address] 06/15/2021 10:01:23 06/15/2021 14:50:08 Acute laryngitis 1205653 J04.0 increase fluids, take lozenges Otalgia 53331375 H92.03 possible referred pain Pain in throat 428520512 R07.0 take APAP or ibu PRN for pain relief and inflammati on Acute sinusitis 36031435 J01.01 will treat with abx Cough 38447742 R05.1 will treat cough [id number] MIKHAIL SARKAR [facility] [address] [facility] [place] [address] 02/05/2022 13:31:15 02/05/2022 15:23:44 Overweight 288193153 E66.3 will trial phentermin e 15 mg capsule in combo with 50 mg of topimaxwil l call with an update in a month to tell me her progress Essential hypertension 80506058 I10 BP much improved with lisinopril [id number] MIKHAIL SARKAR [facility] [address] [facility], [place] [address] 07/07/2022 09:59:55 07/07/2022 16:04:24 Acute sinusitis 94650083 J01.01 will treat with abx/medrol [id number] MIKHAIL SARKAR [facility] [address] [place] [address] [address] 11/26/2022 10:46:00 11/26/2022 11:22:06 Myasthenia gravis 21851510 G70.00 stable Adult heal examination 860306387 Z00.00 agreed to full panel lab workneurol ogy wanted it Screening for malignant neoplasm of colon 278922456 Z12.11 will print referral for patient since she didn't go last time Dyspnea [id number] R06.02 Overweight [id number] E66 .3 will trial phentermin e 15 mg capsule in combo with 50 mg of topimaxwil l call with an update in a month to tell me her progress Screening mammography [id number] Z12.31 agreed to MM; due for it [id number] MIKHAIL SARKAR [facility] [address] [facility] [address],[place] [address] 05/09/2023 09:27:32 05/09/2023 16:08:27 Acute right otitis media [id number] H65.04 will start on augmentin and medrol for possible combinatio n ear and sinus infection Acute sinusitis [id number] J01.01 will treat with abx/medrol comboconti nue on APAP for discomfort as needed [id number] MIKHAIL SARKAR [facility] [address] [facility],[place] [address] 11/01/2023 14:44:12 11/02/2023 08:46:50 Depression screening [id number] Z13.31 stable Dysuria 29425113 R30.0 will set up with recheck urine Cerebrovas cular accident [id number] I63.331 doing welldiscus sed side effects to look out for for the new medication s she is on Myasthenia gravis 578608 04 G70.00 anjelll be following with her doctor out in [place] and neuro who works with her doctor [id number] MIKHAIL SARKAR [facility] [address] [facility],[place] [address] 11/30/2023 09:14:12 11/30/2023 14:54:16 Depression screening [id number] Z13.31 stable Transient cerebral ischemia 768932177 G45.9 stableneed s refill of the atorvastat in Essential hypertension 97487451 I10 BP much improved with lisinopril Pain of left hand 364185 6601 93024 M79.642 will set up with XR's Pain in left arm 6458905 00 M79.602 will set up with XR per PT/OT Myasthenia gravis 745970 04 G70.00 john be following with her doctor out in [place] and neuro who works with her doctor waiting on placard to go through Hyperlipidemia 36709243 E78.5 Health Concerns Section Related Observation LastModified by Organization Detai ls LastModified Time None Recorded Concern Status LastModified by Organization Details LastModified Time None Recorded Advance Directives Directive None Recorded Payers Encounter Date Sequence Insurance Name Policy Number Policy Reed Covered Member ID Reed Member ID Guarantor Name 07/07/2022 1 [place] [id number] Sindi A Fernando [id number] Sindi A Fernando 11/26/2022 1 [place] [id number] Sindi A Fernando [id number] Sindi A Fernando 05/09/2023 1 [place] [id number] Sindi A Fernando [id number] Sindi A Fernando 11/01/2023 1 [place] [id number] Sindi A Fernando [id number] Sindi A Fernando 11/30/2023 1 [place] [id number] Sindi A Fernando [id number] Sindi A Fernando Notes Date Note Type Note Provider Name a nd Address Organization Details Recorded Time 07/07/2022 text/html c/o sinus/chest congestion, cough tele-med phone callpatient consents to phone call the patient is currently taking mucinexprone to sinus infection/bronchit ishad the same thing last yearneg COVID test nasal congestion, green sputum, chest congestion, laryngitis, coughno fever no chills MIKHAIL SARKAR [address] [facility], [place], [address], [facility] 07/07/2022 13:37:15 11/26/2022 text/html medication check MG: follows with neurology; wanted bw from this officewill set her up for bw and fax results to neurology adult cpe: lab work ordered, patient overdue; wanted full work up for her energy level and possible genetic conditions agreed to screening colonoscopy she is overdue (never went with prior referral) needs refill of her phentermine needs cardio work up for evaluation for dyspnea and general concern due to family hxalso due to hx of MG MIKHAIL SARKAR [address] [place], [address], [facility] 11/26/2022 11:12:21 05/09/2023 text/html c/o sick, upper resp infection telemedicine phone call apptpatient consents to phone call R ear pain radiating into the jaw and sore throatswollen glands, nasal congestion and dry nose causing nose bleeds the patient reports her son is sick, has either bronchitis or pna, lives with herhaving hard time swallowing, is painful the patient does not see any puss or white spots the patient reports that general malaise, feels run down start on abx medrol combo, probably combo of ear and sinus infection MIKHAIL SARKAR [address] [place], [address], [facility] 05/09/2023 14:03:27 11/01/2023 text/html hospital d/c patient was admitted to the ER for stroke protocolthe patient reports that she was feeling off for a few weekscalled about her high, increased her BP med told to call back with update after lab work and ended up going to the ER due to worsening symptoms and loss of function on her left side MRI indicated two previous strokes and recent on in her hugo (R) the patient has OT and PT coming to the house about twice per week has weakness on the left side of the body, currently using a walker the patient reports that she is still having some urinary symptomswill have her recheck her urine has f/u with neuro in a week as well as a neurologist her MS doctor wants her to see out in [place] the patient is otherwise doing wellworking with neuro will also send out urine for culturestill has leuks and now blood MIKHAIL SARKAR [address] [place], [address], [facility] 11/01/2023 16:01:55 11/30/2023 text/html 1 mos f/u depression screening 0doing really well TIA/CVA: the patient reports she is doing really well with PTcurrently only using the a cane instead of a walker needs refills PT suggested XRs of her entire left arm otherwise doing really well seeing the stroke specialist in [place] on 12/14/23the patient already had the neuro f/u as well from [place], adjusted some of her meds can continue the ASA and the vitamin Dthe patient breathing is good, suggested melatonin for sleep will send results to the OT MIKHAIL SARKAR [address] [place] [address], [place], [address], [facility] 11/30/2023 09:52:24 OBGyn Episode No OBEpisode recorded.
== END 2024-08-08 10:04 | disposition home or self-care (01) ==
LOC: HO.US 10:03
PROVIDERS: PCP Internal Medicine; Visit Provider Nurse Practitioner Family
DX: R39.9 Unspecified symptoms and signs involving the genitourinary system (principal); N39.0 Urinary tract infection, site not specified
CPT/HCPCS: 76770

== ENCOUNTER → 2024-08-08 10:04 | Outpatient (BNV) | payer BC, SELFPAY | PROVIDERS: PCP Internal Medicine; Visit Provider Radiology Diagnostic Radiology | DX: N39.0 Urinary tract infection, site not specified (principal); Q63.1 Lobulated, fused and horseshoe kidney | CPT/HCPCS: 76770 ==

== ENCOUNTER 2024-08-23 11:48 | Outpatient (AMB) | payer BC, SELFPAY ==
--- NOTE | 2024-08-23 11:49 | MHC.OFFVIS ---
Intake Visit Reasons: US follow up(set) Allergies No Known Allergies Allergy (Verified 06/20/24 15:21) Medication List - Last Reconciled 08/23/24 by BRADY Perez-KARLA azathioprine mg PO carvedilol 3.125 mg PO BID lisinopril 40 mg PO DAILY pyridostigmine bromide 60 mg PO TID rosuvastatin 20 mg PO BEDTIME [testosterone topical] warfarin 2.5 mg PO DAILY HPI Comments Details: Sindi is a very pleasant 59-year-old female patient of . She has a past medical history of cerebrovascular accident, depression, hypertension, MS, obesity, and TIAs. She is being followed up on today via video telehealth. Of note, patient was seen approximately 3 months ago as a new patient for ongoing lower urinary tract symptoms she had been experiencing at which time a retroperitoneal ultrasound was ordered for further assessment evaluation. These results were reviewed with the patient today. 08/14 bilateral kidneys are normal in echotexture. No hydronephrosis or renal lesions noted. Bilateral horseshoe kidneys. Urinary bladder is unremarkable. In discussion with the patient today she reports to be doing and feeling well. She reports having started her own pelvic floor exercises at home and has found this somewhat helpful however continues to await call from physical therapy to initiate in-person pelvic floor therapy. She does continue to report episodes of urinary urgency, urinary frequency, and mixed urinary incontinence. She does have a previous history of 2 vaginal births and having had a partial hysterectomy and having had a partial hysterectomy approximately 20 years ago. She reports utilizing 2-3 Margarita pads per day. She otherwise denies hematuria, dysuria, foul smelling urine, changes to urinary stream, flank pain, fever, and or chills. She discusses her upcoming appointment in November for her 1st colonoscopy. We discussed at length potential causes of lower urinary tract symptoms patient is experiencing as well as further treatment options and risks and benefits of these treatment options. She currently denies any UTI like symptoms. She otherwise offers no other issues or concerns at this time. [facility] Medical History CVA (cerebral vascular accident) Depression Hypertension Myasthenia gravis Obesity, class 1 Severe obesity (BMI 35.0-39.9) with comorbidity TIA (transient ischemic attack) Review of Systems Const All systems reviewed & are unremarkable except as noted in HPI and below Physical Exam Const General: cooperative, healthy appearing, comfortable, no acute distress, well developed, alert and awake Orientation/consciousness: oriented to person Resp Effort & Inspection: normal respiratory effort and able to speak in complete sentences Neuro General: oriented to person Psych Appearance: grossly normal and well kempt Mental Status: mental status grossly normal Speech and movement: Clear speech present Affect: normal affect Attitude: cooperative Thought process: Normal thought process present Thought content: Normal thought content present Insight: Fair insight present (Psych) Judgement: Fair judgement present (Psych) Telehealth Telehealth Telehealth Platform: Telephone Location of provider rendering services: practice address Location of patient: address on file Patient Identification confirmed using: Name, : Yes Telehealth method: video Patient verbally consented to treatment: Yes Patient verbally consented to billing insurance company: Yes Patient informed of any privacy concerns related to visit: Yes Minutes spent on Phone/Video with Pt.: 15 Results Reviewed Results Reviewed: Date of Service: 08/08/24 CLINICAL HISTORY: R39.9 - Unspecified symptoms and signs involving the genitourinary system US Renal Comparison: None Findings: Horseshoe kidney Right kidney normal echotexture, 12.4 cm length. Left kidney normal echotexture, 8.8 cm length. No hydronephrosis or renal mass lesion. Urinary bladder is unremarkable. Prevoid volume 183 mL. Postvoid volume 36 mL. Bilateral ureteral jets are visualized. IMPRESSION: Horseshoe kidneys without hydronephrosis. Assessment & Plan Assessment & Plan (1) Horseshoe kidney: Code(s): Q63.1 - Lobulated, fused and horseshoe kidney Category: Medical (2) Urinary incontinence, mixed: Code(s): N39.46 - Mixed incontinence Category: Medical (3) Recurrent urinary tract infection: Code(s): N39.0 - Urinary tract infection, site not specified Category: Medical (4) Lower urinary tract symptoms: Code(s): R39.9 - Unspecified symptoms and signs involving the genitourinary system Category: Medical Plan Recent retroperitoneal ultrasound results with the patient today; as noted above. Continue pelvic floor exercises. We discussed at length further treatment options of lower urinary tract symptoms patient is experiencing as well as risks and benefits of these treatment options. We discussed possible near future in office cystoscopy and or urodynamics for further assessment evaluation. Patient currently denies any UTI like symptoms. Information provided regarding pelvic floor therapy through physical therapy. Follow-up in 4 months with imaging to be completed prior; or sooner with any issues, concerns, and or questions. Patient Instructions: The patient had an opportunity to ask questions regarding the treatment plan. All questions were answered. Physical exam, labs, and imaging were discussed and reviewed in detail. As well as risks, benefits, and discussion of treatment choices. No major barriers to understanding were identified. The patient expressed understanding and agreement with the above treatment plan. The patient was made aware they should contact our office by phone for worsening of their current condition, the appearance of new symptoms, or with any questions or concerns. Compliance is encouraged with any medications and follow up testing that is ordered. It is a privilege to be allowed the opportunity to participate in? your urological care.? Again, if you have any questions or concerns If you have any questions or concerns please do not hesitate to contact me. The office is [phone]. This note is constructed using voice recognition software. While every effort has been made to ensure accuracy rugby league footballer errors may have been included. Yours sincerely, ZORAN Perez Coding Level of Care Code Tele Est Pt Level 3 (27709) Diagnoses Horseshoe kidney Q63.1 Urinary incontinence, mixed N39.46 Recurrent urinary tract infection N39.0 Lower urinary tract symptoms R39.9
--- OUTSIDE RECORDS SUMMARY | 2024-08-23 14:27 | XMS_ITS | Data Portability ---
Author Organization [facility] Home Service Address [address] [place] [address] Assessment Encounter Date Assessment Date Assessment LastModified [...] Organization Details Last Modified Time Details Appointments None recorded. Lab lipid panel, serum 2023 024 [facility], [address] [place] [address], [place], [address], 09:52:29 urinalysis complete, reflex culture 2023 024 [facility], [address] [place] [address], [address], 4 15:26:55 CMP, serum or plasma 2022 023 [facility], [address] [place] [address], [address], 3 11:05:15 CBC w/ auto diff 2022 023 [facility], [address] [place] [address], [address], 3 11:05:16 lipid panel, blood 2022 023 [facility], [address] [place] [address], [address], 3 11:05:15 vitamin D, 25-hydroxy , total, serum 2022 023 [facility], [address] [place] [address], [address], 3 11:05:16 TSH + free T4, serum 2022 023 [facility], [address] [place] [address], [address], 3 11:05:16 hemoglobin A1c, QN, blood 2022 023 [facility], [address] [place] [address], [address], 3 11:05:16 vitamin B12 + folate, serum or blood 2022 023 [facility], [address] [place] [address], [address], 3 11:05:15 Referral physical therapist referral 2023 024 [facility], [address] [place], [address], 4 09:08:18 gastroente rologist referral 2022 023 [email or web address] [facility], [address] [place], [address], 3 13:25:02 Procedures None recorded. Surgeries None recorded. Imaging XR, hand, 3 or more view 2023 024 [facility], [address] [place], [address], 4 19:51:02 XR, humerus, 2 or more view 2023 024 [facility], [address] [place], [address], 4 16:21:57 XR, shoulder, 2 or more view 2023 024 [facility], [address] [place], [address], 4 08:34:26 MAMMO, screening, digital, bilateral 2022 023 [facility], [address] [facility], [place], [address], 3 09:26:43 US, echocardio gram 2022 023 [facility], [address] [place], [address], 3 09:26:43 CT, coronary calcium score 2022 023 [facility], [address] [place], [address], 3 08:35:58 Medication Orders atorvastat in 80 mg tablet 2023 024 [id number], [address], [place], [id number], 4 09:35:08 lisinopril 10 mg tablet 2023 024 [facility] #54082, [address], [place], [id number], 4 13:35:57 Bactrim DS 800 mg-160 mg tablet [address] [facility] #54073, [address], [place], [id number], 4 09:20:57 amoxicilli n 875 mg-potassi um clavulanat e 125 mg tablet 2022 023 [facility] [employer] [facility] #25836, [address], [place], [id number], 4 10:02:47 Medrol (Krishan) 4 mg tablets in a dose pack 2022 023 [facility] [employer] [facility] #16189, [address], [place], [id number], 4 10:02:55 phentermin e 37.5 mg capsule 2022 023 [facility] [employer] [facility] #77410, [address], [place], [id number], 4 10:03:04 topiramate 50 mg tablet [address] [employer] [facility] #68279, [address], [place], [id number], 4 09:21:07 Zithromax Z-Krishan 250 mg tablet [address] [facility] #15727, [address], [place], [id number], 3 10:52:45 Medrol (Krishan) 4 mg tablets in a dose pack 2022 023 [facility] #30531, [address], [place], [id number], 4 10:02:55 Patient TargetsNo targets recorded. Patient InstructionsNo instructions recorded. Reason for Referral [employer] Referral for Screening for malignant neoplasm of [...] bilat eral No observ ation record ed. [facility] [address] [place], [address], 06/10/2023 11:30:35 06/24/19 24 06/24/2023 MAMMO , scree alan, digit al, bilat eral No observ ation record ed. [facility] [address] [place], [address], 06/25/2023 08:54:30 12/02/19 24 12/02/2023 XR, shonita flor, 2 or more view No observ ation record ed. [facility] [address] [facility] [address], [place], [address], 12/02/2023 15:53:18 12/02/19 24 12/02/2023 XR, cara cerda, 2 or more view No observ ation record ed. [facility] [address] [facility] [address], [place], [address], 12/02/2023 16:31:17 12/02/19 24 12/02/2023 XR, hand, 3 or more view No observ ation record ed. [email or web address] [facility] [address] [facility] [address], [place], [address], 12/05/2023 09:45:27 12/30/19 24 12/30/2023 MAMMO , scree alan, digit al, bilat eral No observ ation record ed. [facility] [address], [place], [address], 12/30/2023 14:02:48 01/05/20 24 12/30/2023 carlos CERDA No observ ation record ed. [facility] [address], [place], [address], 01/06/2024 12:13:59 01/05/20 24 01/05/2024 MAMMO , scree alan, digit al, bilat eral No observ ation record ed. [facility] [address] [facility] [address], [place], [address], 01/06/2024 12:14:00 01/05/20 24 01/05/2024 carlos CERDA No observ ation record ed. [facility] [address] [facility] [address], [place], [address], 01/06/2024 12:14:00 01/10/20 24 01/05/2024 biops y of carlos sadler; soumya robles , needl e core, using dakota joyce (PROC ) No observ ation record ed. [facility] [address] [facility] [address], [place], [address], 01/10/2024 12:25:03 08/09/19 25 08/08/2024 US, retro perit oneum , compl ete No observ ation record ed. [email or web address] [facility] (Medical Records) [address] [facility], [place], [address], 08/10/2024 08:24:33 08/14/1908/14/2024 US, breas t, unila teral , limit ed No observ ation record ed. [email or web address] [facility] [address] [facility] [address], [place], [address], 08/14/2024 16:49:18 08/17/1908/14/2024 MAMMO , scree alan, digit al, bilat eral No observ ation record ed. [email or web address] Not Available 2024 14:57:06 Result Notes None recorded. Problems Name Problem SNOMED Code Status Onset Date Resolution Date Notes Provider Name and Address Organization Details Recorded Time Environme ntal allergy 989249613 Active 2017 Evelyn campoverde [facility] 8 16:36:54 Obesity 246722023 Active 2017 Evelyn campoverde [facility] 8 16:37:21 History of human papilloma virus infection 872550779611 102 Active 2017 Evelyn campoverde [facility] 8 16:40:59 Myastheni a gravis 38263529 Active 2020 Evelyn campoverde [facility] 1 09:23:22 COVID-19 656102744 Active 2020 Evelyn campoverde [facility] 1 09:23:33 Overweigh t 442849006 Active 2021 MIKHAIL SARKAR [address] [facility], [place], [address], [facility] [place] 2 14:44:17 Essential hypertens ion 07824317 Active 2021 MIKHAIL SARKAR [address] [place] [address], [address], [facility] [place] 2 14:48:07 Acute sinusitis 70685900 Active 2022 MIKHAIL SARKAR [address] [place] [address], [address], [facility] [place] 3 13:35:05 Dyspnea 363864230 Active 2022 MIKHAIL SARKAR [address] [place] [address], [address], [facility] [place] 3 11:01:25 Acute right otitis media 019064851 Active 2022 MIKHAIL SARKAR [address] [place] [address], [address], [facility] [place] 3 13:59:32 Panic disorder 411343486 Active 2023 MIKHAIL SARKAR [address] [place] [address], [address], [facility] [place] 4 10:02:38 Hypertens giselle urgency 519990589 Active 2023 MIKHAIL SARKAR [address] [place] [address], [address], [facility] [place] 4 10:08:53 Dysuria 75850018 Active 2023 MIKHAIL SARKAR [address] [place] [address], [address], [facility] [place] 4 15:24:06 Cerebrova scular accident 697399340 Active 2023 MIKHAIL SARKAR [address] [place] [address], [address], [facility] [place] 4 15:24:28 Transient cerebral ischemia 172644723 Active 2023 MIKHAIL SARKAR [address] [place] [address], [address], [facility] [place] 4 14:27:33 Pain of left hand 547935749335 103 Active 2023 MIKHAIL SARKAR [address] [place] [address], [address], [facility] 4 09:35:48 Pain in left arm 240976178 Active 2023 MIKHAIL SARKAR [address] [place] [address], [address], [facility] [place] 4 09:36:00 Hyperlipi demia 71696247 Active 2023 MIKAHIL SARKAR [address] [place] [address], [address], [facility] 4 09:51:05 Acute urinary tract infection 705475563 Active 2023 MIKHAIL SARKAR [address] [place] [address], [address], [facility] [place] 4 14:36:41 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 Avel Henson DO [address] [place] [address], [address], [facility] 4 16:48:00 Vertigo 723413275 Active 2023 MIKHAIL SARKAR [address] [place] [address], [address], [facility] [place] 4 14:37:24 Recurrent urinary tract infection 788517579 Active 2023 Avel Henson DO [address] [place] [address], [address], [facility] [place] 4 20:55:54 Dermoid cyst of head 270519117 Active 2024 MIKHAIL SARKAR [address] [place] [address], [address], [facility] [place] 5 15:50:45 Problem Notes None recorded. Procedures Surgical History Date Name Laterality Status Provider Name and Address Organization Details Recorded Time Partial Hysterectomy completed Jessi Rodriguez, OSWALDO, S [address] [facility], [place], [address], [facility] [place] 04/28/2018 10:35:33 Imaging Results Imaging Date Name Status LastModified by Organiz ation Details LastModified Time 06/10/2023 MAMMO, screening, digital, bilateral completed [facility] [address] [facility] [facility] [place], [address], 06/10/2023 11:30:35 06/24/2023 MAMMO, screening, digital, bilateral completed [facility] [address] [facility] [place], [address], 06/25/2023 08:54:30 12/02/2023 XR, shoulder, 2 or more view completed [facility] [address] [facility] [address], [place], [address], 12/02/2023 15:53:18 12/02/2023 XR, humerus, 2 or more view completed [facility] [address] [facility] [address], [place], [address], 12/02/2023 16:31:17 12/02/2023 XR, hand, 3 or more view completed [email or web address] [facility] [address] [facility] [address], [place], [address], 12/05/2023 09:45:27 12/30/2023 MAMMO, screening, digital, bilateral completed [facility] [address] [facility] [facility], [address], 12/30/2023 14:02:48 12/30/2023 US, breast completed [facility] & [facility] [address] [place], [address], 01/06/2024 12:13:59 01/05/2024 MAMMO, screening, digital, bilateral [facility] [address] [facility] [address], [place], [address], 01/06/2024 12:14:00 01/05/2024 US, breast completed [facility] [address] [facility] [address], [place], [address], 01/06/2024 12:14:00 01/05/2024 biopsy of breast; percutaneous, needle core, using imaging guidance (PROC) completed [facility] [address] [facility] [address], [place], [address], 01/10/2024 12:25:03 08/08/2024 US, retroperitoneu m, complete completed [email or web address] [facility] (Medical Records) [address] [facility], [place], [address], 08/10/2024 08:24:33 08/14/2024 US, breast, unilateral, limited completed [email or web address] [facility] [address] [facility] [address], [place], [address], 08/14/2024 16:49:18 08/14/2024 MAMMO, screening, digital, bilateral completed [email or web address] Information not available 08/17/2024 14:57:06 Procedure Notes None recorded. Medical Equipment None [...] Available Not Available warfarin 2.5 mg tablet TAKE 1 TABLET BY MOUTH EVERY DAY 2024 active Not Available Not Available Not [...] Not Available Not Available No t Available doxycycline hyclate 100 mg tablet TAKE 1 TABLET BY MOUTH TWICE DAILY active Not Available Not Available No t Available phentermine 37.5 mg capsule TAKE 1 CAPSULE BY MOUTH EVERY DAY 10/04 completed Not Available Not Available Not Available amoxicillin 875 mg-dannihumberto bernabe clavulanate 125 mg tablet TAKE 1 TABLET [...] Updated DateTime 3 152.4 cm 37.1 kg/m2 89464.5 5 g 97 % 97 % 69 /min 128 mm[Hg] 78 mm[Hg] Reyna Marx [facility] 3 10:55:53 Date Recorded Body height Body mass index (BMI) Body weight Heart rate Oxygen saturation Oxygen saturation in Arterial blood by Pulse oximetry Systolic blood pressure Diastolic blood pressure Provider Name and Address Organization Details Last Updated DateTime 4 152.4 cm 34.5 kg/m2 75883.7 7 g 84 /min 98 % 98 % 126 mm[Hg] 80 mm[Hg] Johana Camacho [facility] 4 14:58:43 Date Recorded Body height Body mass index (BMI) Body weight Heart rate Oxygen saturation Oxygen saturation in Arterial blood by Pulse oximetry Systolic blood pressure Diastolic blood pressure Provider Name and Address Organization Details Last Updated DateTime 4 152.4 cm 34.4 kg/m2 62113.2 6 g 84 /min 97 % 97 % 124 mm[Hg] 70 mm[Hg] Reyna Marx [place] Josh [facility] 09:22:43 Social History Question Answer Notes LastModified by Organizat ion Details LastModified Time Tobacco Smoking Status Never Smoker Not Available [facility] 04/22/2020 03:36:24 What Was The Date Of Your Most Recent Tobacco Screening? 11/30/2023 [email or web address] Information not available 11/30/2023 Do You Or Have You Ever Used Any Other Forms Of Tobacco Or Nicotine? No [email or web address] Information not available 11/26/2022 Sex: Unknown Functional Status None recorded. Mental Status None recorded. Family History Relationship Description Onset Age of this Age Resolved Age Notes LastModified by Organization Details LastModified Time Father Hypertensive disorder 49 ? brain aneury sm chioma Not available 04/28/2018 10:34:54 Mother Hypertensive disorder NIDDM chioam Not available 2017 10:34:54 Medical History Condition Response Coronary Artery Disease N Gout N Kidney Stones N Blood Diseases N Hyperthyroidism N Breast Cancer N Blood Transfusion N Hypothyroidism N COPD N Depression N Lung Disease N Defects or Inherited Disease Y Difficulty [...] vector-nr, rS-ChAdOx1, PF, 0.5 mL 09/22/2020 completed [facility] 12/02/2020 10:20:35 Past Encounters Encounter ID Performer Location Encounter Start Date Encounter Closed Date Diagnosis/Indication Diagnosis SNOMED-CT Code Diagnosis ICD10 Code Diagnosis Note [id number] Jessi Rodriguez NP, S [facility] [address] [facility] [address] [address] 04/28/2018 10:16:06 04/28/2018 12:51:08 Adult health examination 748909490 Z00.01 Active or passive immunization 555771645 Z23 Essential hypertension 85382983 I10 Screening procedure 2012 5006 Z13.9 [id number] MIKHAIL SARKAR [facility] [address] [facility] [address] [address] 12/09/2020 09:58:28 12/09/2020 10:49:23 Essential hypertension 00206946 I10 BP elevatedwi ll start on lisinopril and fu in a moalso needs BW done Myasthenia gravis 137439 04 G70.00 stable [id number] MIKHAIL SARKAR [facility] [address] [facility] [address] [address] 01/07/2021 09:13:49 01/07/2021 09:37:52 Essential hypertension 36130227 I10 BP much improved with lisinopril will continue on the same dose for now and fu in 3 mowill see if it needs to be titrated at that time [id number] MIKHAIL SARKAR [facility] [address] [facility] [address] [address] 04/08/2021 08:50:44 04/08/2021 09:31:08 [facility] 865031469 E66.3 will trial phentermin e 15 mg capsulewil l call with an update in a month to tell me her progress Essential hypertension 62183346 I10 BP much improved with lisinopril will continue on the same dose for now and fu in 3 mowill see if it needs to be titrated at that time [id number] MIKHAIL SARKAR [facility] [address] [facility] [address] [address] 06/15/2021 10:01:23 06/15/2021 14:50:08 Acute laryngitis 2106199 J04.0 increase fluids, take lozenges Otalgia 42775457 H92.03 possible referred pain Pain in throat 959252904 R07.0 take APAP or ibu PRN for pain relief and inflammati on Acute sinusitis 10559220 J01.01 will treat with abx Cough 63057164 R05.1 will treat cough [id number] MIKHAIL SARKAR [facility] [address] [facility] [address] [address] 02/05/2022 13:31:15 02/05/2022 15:23:44 Overweight 812115022 E66.3 will trial phentermin e 15 mg capsule in combo with 50 mg of topimaxwil l call with an update in a month to tell me her progress Essential hypertension 51561283 I10 BP much improved with lisinopril [id number] MIKHAIL SARKAR [facility] [address] [facility] [address] 07/07/2022 09:59:55 07/07/2022 16:04:24 Acute sinusitis 19477495 J01.01 will treat with abx/medrol [id number] MIKHAIL SARKAR [facility] [address] [facility] [address] [address] 11/26/2022 10:46:00 11/26/2022 11:22:06 Myasthenia gravis 71150899 G70.00 stable Adult heal th examination 772054369 Z00.00 agreed to full panel lab workneurol deb wanted it Screening for malignant neoplasm of colon 843815157 Z12.11 will print referral for patient since she didn't go last time Dyspnea 091235788 R06.02 Overweight 521654100 E66 .3 will trial phentermin e 15 mg capsule in combo with 50 mg of topimaxwil l call with an update in a month to tell me her progress Screening mammography 24 790278 Z12.31 agreed to MM; [place] [id number] MIKHAIL SARKAR [facility] [address] [facility] [address] [address] 05/09/2023 09:27:32 05/09/2023 16:08:27 Acute right otitis media 318643659 H65.04 will start on augmentin and medrol for possible combinatio n ear and sinus infection Acute sinusitis 36956593 J01.01 will treat with abx/medrol comboconti nue on APAP for discomfort as needed [id number] MIKHAIL SARKAR [facility] [address] [facility], [place] [address] 11/01/2023 14:44:12 11/02/2023 08:46:50 Depression screening 046908620 Z13.31 stable Dysuria 26591327 R30.0 will set up with recheck urine Cerebrovas cular accident 285884407 I63.331 doing welldiscus sed side effects to look out for for the new medication s she is on Myasthenia gravis 555791 04 G70.00 stablewill be following with her doctor out in [place] and neuro who works with her doctor [id number] MIKHAIL SARKAR [facility] [address] [facility] [address] [address] 11/30/2023 09:14:12 11/30/2023 14:54:16 Depression screening 134787933 Z13.31 stable Transient cerebral ischemia 656637010 G45.9 stableneed s refill of the atorvastat in Essential hypertension 73945022 I10 BP much improved with lisinopril Pain of left hand 495204 3868 23151 M79.642 will set up with XR's Pain in left arm 9891757 00 M79.602 will set up with XR per PT/OT Myasthenia gravis 027498 04 G70.00 stablewill be following with her doctor out in [place] and neuro who works with her doctor waiting on placard to go through Hyperlipidemia 97685716 E78.5 Health Concerns Section Related Observation LastModified by Organization Detai ls LastModified Time None Recorded Concern Status LastModified by Organization Details LastModified Time None Recorded Advance Directives Directive None Recorded Payers Encounter Date Sequence Insurance Name Policy Number Policy Reed Covered Member ID Reed Member ID Guarantor Name 07/07/2022 1 [place] [id number] Sindi King [id number] Sindi King 11/26/2022 1 [place] [id number] Sindi King [id number] Sindi King 05/09/2023 1 [place] [id number] Sindi King [id number] Sindi King 11/01/2023 1 [place] [id number] Sindi King [id number] Sindi King 11/30/2023 1 [place] [id number] Sindi King [id number] Sindi King Notes Date Note Type Note Provider Name a nd Address Organization Details Recorded Time 07/07/2022 text/html c/o sinus/chest congestion, cough tele-med phone callpatient consents to phone call the patient is currently taking mucinexprone to sinus infection/bronchit ishad the same thing last yearneg COVID test nasal congestion, green sputum, chest congestion, laryngitis, coughno fever no chills MIKHAIL SARKAR [address] [place], [address], [facility] [place] 07/07/2022 13:37:15 11/26/2022 text/html medication [...] to hx of MG MIKHAIL SARKAR [address] [place], [address], [facility] [place] 11/26/2022 11:12:21 05/09/2023 text/html c/o [...] ear and sinus infection MIKHAIL SARKAR [address] [place], [address], [facility] [place] 05/09/2023 14:03:27 11/01/2023 text/html hospital [...] doctor wants her to see out in [place] the patient is otherwise doing wellworking with neuro will also send out urine for culturestill has leuks and now blood MIKHAIL SARKAR [address] [place], [address], [facility] [place] 11/01/2023 16:01:55 11/30/2023 text/html 1 mos f/u depression screening 0doing really well TIA/CVA: the patient reports she is doing really well with PTcurrently only using the a cane instead of a walker needs refills PT suggested XRs of her entire left arm otherwise doing really well seeing the stroke specialist in [place] on 12/14/23the patient already had the neuro f/u as well from [place], adjusted some of her meds can continue the ASA and the vitamin Dthe patient breathing is good, suggested melatonin for sleep will send results to the OT MIKHAIL SARKAR [address] [place], [address], [facility], [place], operated by [facility] 11/30/2023 09:52:24 OBGyn Episode No OBEpisode recorded.
== END 2024-08-23 13:13 | disposition home or self-care (01) ==
LOC: HO.HUSH 11:48
PROVIDERS: PCP Internal Medicine; Visit Provider Nurse Practitioner Family
DX: Q63.1 Lobulated, fused and horseshoe kidney (principal); N39.46 Mixed incontinence; N39.0 Urinary tract infection, site not specified; R39.9 Unspecified symptoms and signs involving the genitourinary system
CPT/HCPCS: 99213

== ENCOUNTER → 2024-08-23 11:48 | Outpatient (BNVA) | payer BC, SELFPAY | PROVIDERS: PCP Internal Medicine; Visit Provider Nurse Practitioner Family ==

== ENCOUNTER 2025-03-04 14:27 | Outpatient (REF) | payer BC, SELFPAY | END 2025-03-04 14:28 | disposition home or self-care (01) | LOC: HO.LAB 14:27 | PROVIDERS: PCP Internal Medicine; Visit Provider Nurse Practitioner Family | DX: N30.10 Interstitial cystitis (chronic) without hematuria (principal); N32.81 Overactive bladder; N39.46 Mixed incontinence; Q63.1 Lobulated, fused and horseshoe kidney; Z13.89 Encounter for screening for other disorder | CPT/HCPCS: 51798; 81003; 88112 ==

== ENCOUNTER 2025-03-04 14:27 | Outpatient (AMB) | payer BC, SELFPAY ==
--- OUTSIDE RECORDS SUMMARY | 2025-03-01 08:00 | XMS_ITS | Encounter Summary ---
Author Organization [facility] Address [address] [facility] [address] [place] [phone] Phone Care Team Providers Care Grinder Setup Operator Name Role Phone Avel Henson DO Unavailable Mary Pate Primary Care Provider [phone] Reason for Visit * Physical Therapy (Within 3 days (urgent)) - Authorized Specialty Diagnoses / Procedures Referred By Contgovind t Referred To Contact Physical Therapy Diagnoses Encounter for rehabilitation Mary Pate PA [address] [place] [address] Phone: tel: fax: [facility] [address] [place] [address] Phone: tel: Referral ID Status Reason Start Date Expiration Date V isits Requested Visits Authorized [id number] Authorized 02/22/2025 06/19/2025 100 100 Encounter Details Date Type Department Care Team (Latest Contact Info) Description 03/01/2025 8:00 AM EDT Office Visit [facility] [address] [place] [address] Mary Pate PA [address] [place] [address] Elian Horne, PT [address] [place] [address] [email or web address] Vertigo (Primary Dx) Social History Tobacco Use Types Packs/Day Years Used Date Smoking Tobacco: Never Assessed Education Answer Date Recorded Are you interested in more education? Not on jaci e 10/15/2022 Are you concerned about learning? Not on file 10/15/2022 No 10/15/2022 No 10/15/2022 Digital Access Answer Date Recorded No 11/10/2022 No 11/10/2022 Reliable internet access at home? Not on file 11/10/2022 Device with a working camera? Not on file Comments Unknown Sex and Gender Information Value Date Recorded Sex Assigned at Not on file Legal Sex Female 9:40 PM EDT Gender Identity Not on file Sexual Orientation Not on file documented as of this encounter Progress Notes * Elian Horne, PT - 03/01/2025 8:00 AM EDT Physical Therapy Evaluation PHYSICAL THERAPY INITIAL EVALUATION Subject Line: Evaluation Visit: 1 Patient Name: Sindi King Date of : 1965 Referring MD: Mary Pate PA [address] [facility] [place] [address] Evaluation Date: 03/01/2025 Diagnosis: Vertigo [R42] Visit: 1 HPI: Last week rolled over in bed and the room was spinning. Called [address] [facility]. CT scanwas negative. Got dizzy leaning forward. Was also having right side posterior ear discomfort BP 220/115 prior to going to hospital. Hasn't had any vertigo again INR were 6.7 HEARING LOSS: Tinnitus:chronic Aural Fullness: yes Hearing Loss : no RELEVANT PMH: Started taking zepbound for wt loss -stopped taking after this hospitalization Would like to refine my walking and strengthen right side more Feels stiff. Feels like she needs help with her HEP. September 2023- started walking funny and feeling weird , couldn't get out of car when she got to work,BP 185/113 when took BP. Left side numbness weakness. [facility] for a mos. At worst couldn't move left arm, couldn't walk , left leg was flaccid. Nowwalking with no device. Has afo at home- hasn't been using it Cerebrovascular accident (CVA)- had dizziness at the time APS (antiphospholipid syndrome) Myasthenia gravis without (acute) exacerbation- if I get too tired and if I don't rest I feel my body get weak - dx in 2015 (brother has it as well) Hypertensive disorder Wt gain since March- has since changed diet. Eating more vegetables. I have a blood clotting disease Functional Status: Recently started going to gym again Car [employer] in [place] Objective: See encounter report for additional details MUSCULOSKELETAL EXAM Posture: slightly forward bent Cervical AROM: normal POSTURAL VITAL SIGNS Sitting baseline 123/79, 69- after Redqy029/90- after 5 min [id number]/86 OCULOMOTOR CONTROL Spontaneous Nystagmus: No Gaze Evoked Nystagmus: No End Range Nystagmus: No Smooth Pursuit - Horizontal: normal Smooth Pursuit - Vertical: normal Saccades: normal VESTIBULAR FUNCTION Head Thrust: negative POSITIONAL TESTING Right Clover-Hallpike: right rotational and upbeating nystagmus- brisk < 30 sec (perspiring afterwards) BALANCE: Baseline stroke related balance issues (has had 2 episodes of PT for it) Patient/Caregiver Education: Symptom Monitoring Patient Level of Understanding: Good Assessment: Sindi King is a 59 y.o. female who presents to Physical Therapy with a chief complaint of vertigo. She presented to the ER last week as she has a history of stroke. CT reportedly ruled out neuro event and she started taking her anti-hypertensive meds which stabilized her BP. Exam today is consistent with right sided posterior canalisthesis. The Finn was performed and she did not exhibit nystagmus or symptoms after that. She will return next week for a reassessment and educationregarding self finn. Prognosis: Excellent OUTCOME (Orthopedics Teacher): 1.Roll over in bed/get out of bed with no dizziness or sense of instability 2.Consistently negative Hallpike test Patient Stated Goal: Resolution of vertigo PLAN Frequency and Duration: Patient will be seen 1 times per week for 4 weeks.- as needed only AUTOMOTIVE PARTS INTERPRETER maneuvers Habituation/balance ex as needed Is the Patient/Family in agreement with the Treatment plan? yes The patient/family has been informed of all evaluation findings and treatment plans and agrees to participate in Physical Therapy services and plans as outlined, including the given HEP. documented in this encounter Plan of Treatment Upcoming Encounters Date Type Department Care Team (Late st Contact Info) Description 03/08/2025 12:45 PM EDT Office Visit [facility] [address] [place] [address] Mary Pate PA [address] [facility] [place] [address] Elian Horne, PT [address] [place] [address] [email or web address] Scheduled Referrals Name Type Priority Associated Diagnoses Orde r Schedule Ambulatory referral to [facility] Physical Therapy Outpatient Referral Routine Encounter for rehabilitation Ordered: 02/22/2025 documented as of this encounter Visit Diagnoses Diagnosis Vertigo- Primary Dizziness and giddiness documented in this encounter Care Teams Grinder Setup Operator Relationship Specialty Start Date End Date Mary Pate PA [address] [place] [address] PCP - General Physician Multilith Operator 12/09/23 Avel Henson DO [address] [place] [id number] [email or web address] Insurance Assigned Provider 09/24/23 documented as of this encounter Additional Source Comments The information contained in this document represents components of the legal health record. It is not the complete legal health record.[facility]
--- NOTE | 2025-03-04 14:51 | MHC.OFFVIS ---
Intake Visit Reasons: Follow up/PVR Intake Note: patient presents today for: follow up/PVR urology medications: testosterone blood thinners: warfarin today's PVR: 58mls Digital Marketing Project Manager Required: No Accompanied by: Self / Same As Patient Allergies No Known Allergies Allergy (Verified 03/04/25 15:32) Medication List - Last Reconciled 03/04/25 by BRADY Perez- azathioprine mg PO carvedilol 3.125 mg PO BID lisinopril 40 mg PO DAILY oxybutynin chloride ER 10 mg PO DAILY 30 days pyridostigmine bromide 60 mg PO TID rosuvastatin 20 mg PO BEDTIME [testosterone topical] warfarin 2.5 mg PO DAILY HPI Comments Details: Sindi is a very pleasant 59-year-old female patient of Dr. Henson. She has a past medical history of cerebrovascular accident, depression, hypertension, MS, obesity, and TIAs. She presents to the office today for follow-up of her mixed urinary incontinence and lower urinary tract symptoms. In discussion with the patient today she continues to report episodes of urinary urgency, urinary frequency, and mixed urinary incontinence. Send she reports having tried performing pelvic floor exercises at home and has not found this helpful. She continues to utilize 2-3 Margarita pads per day. She is enquiring further intervention as she does feel lower urinary tract symptoms are bothersome. Previous workup has included a retroperitoneal ultrasound 08/14 noting bilateral kidneys are normal in echotexture. No hydronephrosis or renal lesions noted. Bilateral horseshoe kidneys. Urinary bladder is unremarkable. She does have a previous history of 2 vaginal births and having had a partial hysterectomy and having had a partial hysterectomy approximately 20 years ago. She otherwise denies hematuria, dysuria, foul smelling urine, changes to urinary stream, flank pain, fever, and or chills. We discussed at length potential causes of lower urinary tract symptoms, mixed urinary incontinence, and microscopic hematuria. We did discussed further treatment options and risks and benefits of these treatment options. Referral submitted during last office visit for pelvic floor therapy will resubmit as patient would like to attend in-person pelvic floor therapy. She otherwise offers no other issues or concerns at this time. [facility] Medical History CVA (cerebral vascular accident) Depression Hypertension Myasthenia gravis Obesity, class 1 Severe obesity (BMI 35.0-39.9) with comorbidity TIA (transient ischemic attack) Review of Systems Const All systems reviewed & are unremarkable except as noted in HPI and below Physical Exam Const General: cooperative, healthy appearing, comfortable, no acute distress, well developed, alert and awake Orientation/consciousness: oriented to person Limitations: no limitations HEENT Head: Yes normal to inspection, Yes normocephalic and Yes atraumatic Ears: hearing grossly normal bilaterally Eyes General: appearance normal, both eyes and all related structures Neck Neck: Yes normal visual inspection and Yes trachea midline Chest Chest palpation & inspection: normal inspection of the chest Resp Effort & Inspection: normal respiratory effort and able to speak in complete sentences Cardio Rate: regular rate GI Inspection: Yes normal to inspection General: Yes no CVA tenderness Back/Spine/Pelvis Back: no CVA tenderness Skin General skin exam: no rashes or lesions noted Neuro General: oriented to person Extrem General: Yes normal to inspection Psych Appearance: grossly normal and well kempt Mental Status: mental status grossly normal Speech and movement: Clear speech present Affect: normal affect Attitude: cooperative Thought process: Normal thought process present Thought content: Normal thought content present Insight: Fair insight present (Psych) Judgement: Fair judgement present (Psych) Office Procedures Post Void Residual Post Residual Void Post Void Residual (PVR): 58 10014-Tbaq Void Residual by ultrasound Results AMB Urinalysis, Automated UA Leukoctes 0 Rain/uL Last Edit by BRODIE Vergara on 03/04/25 15:16 UA Nitrite Negative Last Edit by BRODIE Vergara on 03/04/25 15:16 UA Urobilinogen 0.2 mg/dL Last Edit by BRODIE Vergara on 03/04/25 15:16 UA Protein 15 mg/dL Last Edit by BRODIE Vergara on 03/04/25 15:16 UA pH 6.0 Last Edit by BRODIE Vergara on 03/04/25 15:16 UA Blood 80 Naif/uL Last Edit by BRODIE Vergara on 03/04/25 15:16 UA Specific White Bird 1.025 Last Edit by BRODIE Vergara on 03/04/25 15:16 UA Ketone Negative Last Edit by BRODIE Vergara on 03/04/25 15:16 UA Bilirubin 0 mg/dL Last Edit by BRODIE Vergara on 03/04/25 15:16 UA Glucose 0 mg/dL Last Edit by BRODIE Vergara on 03/04/25 15:16 Results Reviewed Results Reviewed: Laboratory Last Values Urine pH (Auto) 6.0 03/04/25 15:16 Specific White Bird (Auto) 1.025 03/04/25 15:16 Urine Protein (Auto) 15 mg/dL 03/04/25 15:16 Glucose (UA)(Auto) 0 mg/dL 03/04/25 15:16 Urine Ketones (Auto) Negative 03/04/25 15:16 Urine Blood (Auto) 80 Naif/uL 03/04/25 15:16 Urine Nitrite (Auto) Negative 03/04/25 15:16 Urine Bilirubin (Auto) 0 mg/dL 03/04/25 15:16 Urine Urobilinogen (Auto) 0.2 mg/dL 03/04/25 15:16 Leukocyte Esterase (Auto) 0 Rain/uL 03/04/25 15:16 Assessment & Plan Assessment & Plan (1) Microscopic hematuria: Code(s): R31.29 - Other microscopic hematuria Category: Medical (2) Horseshoe kidney: Code(s): Q63.1 - Lobulated, fused and horseshoe kidney Category: Medical (3) Lower urinary tract symptoms: Code(s): R39.9 - Unspecified symptoms and signs involving the genitourinary system Category: Medical (4) Urinary incontinence, mixed: Code(s): N39.46 - Mixed incontinence Category: Medical (5) Recurrent urinary tract infection: Code(s): N39.0 - Urinary tract infection, site not specified Category: Medical Plan In office urinalysis results reviewed with the patient today; as noted above; will send for urine cytology. PVR 58 mLs Will resubmit for referral for in-person pelvic floor therapy. Start Myrbetriq as discussed and prescribed. We discussed at length further treatment options of lower urinary tract symptoms patient is experiencing as well as risks and benefits of these treatment options. We discussed possible near future in office cystoscopy and or urodynamics for further assessment evaluation. Follow-up in 3 months with imaging to be completed prior; or sooner with any issues, concerns, and or questions. Orders: Orders AMB Post Void Residual by ultrasound Today N39.46 - Mixed incontinence AMB Urinalysis Automated Today Z13.9 - Encounter for screening, unspecified Urine Cytology Today R31.29 - Other microscopic hematuria Medications: New mirabegron ER (Myrbetriq) 25 mg PO DAILY 30 tabs 3RF 30 days N30.10 - Interstitial cystitis (chronic) without hematuria, N32.81 - Overactive bladder, R35.1 - Nocturia, R39.15 - Urgency of urination Patient Instructions: The patient had an opportunity to ask questions regarding the treatment plan. All questions were answered. Physical exam, labs, and imaging were discussed and reviewed in detail. As well as risks, benefits, and discussion of treatment choices. No major barriers to understanding were identified. The patient expressed understanding and agreement with the above treatment plan. The patient was made aware they should contact our office by phone for worsening of their current condition, the appearance of new symptoms, or with any questions or concerns. Compliance is encouraged with any medications and follow up testing that is ordered. It is a privilege to be allowed the opportunity to participate in? your urological care.? Again, if you have any questions or concerns If you have any questions or concerns please do not hesitate to contact me. The office is [phone]. This note is constructed using voice recognition software. While every effort has been made to ensure accuracy registered medical transcriptionist errors may have been included. Yours sincerely, ZORAN Perez Coding Level of Care Code Est Pt Level 4 (81826) Diagnoses Microscopic hematuria R31.29 Horseshoe kidney Q63.1 Lower urinary tract symptoms R39.9 Urinary incontinence, mixed N39.46 Recurrent urinary tract infection N39.0 CPT Codes Post Residual Void - PVR CPT Code: 00248-Dski Void Residual by ultrasound ([id number])
--- OUTSIDE RECORDS SUMMARY | 2025-03-04 19:55 | XMS_ITS | Encounter Summary ---
Author Organization [facility] Address [address] [facility] [address] [place] [phone] Phone Care Team Providers Care Sales Order Processor Name Role Phone Avel Henson DO Unavailable Mary Pate Primary Care Provider Encounter Details Date Type Department Care Team (Late Contact Info) Description 09/21/2024 Transcribe Orders [facility] [address] [place] [address] Mary Pate PA [address] [facility] [place] [address] Social History Tobacco Use Types Packs/Day Years [...] on file documented as of this encounter Plan of Treatment Upcoming Encounters Date Type Department Care Team (Late Contact Info) Description 03/08/2025 12:45 PM EDT Office Visit [facility] [address] [place] [address] Mary Pate PA [address] [facility] [place] [address] Elian Horne, PT [address] [place] [address] [email or web address] documented as of this encounter Visit Diagnoses Not on filedocumented in this encounter Care Teams Sales Order Processor Relationship Specialty Start Date End Date Mary Pate PA [address] [facility] [place] [address] PCP - General Physician Entertainment Dancer 12/09/23 Avel Henson DO [address] [place] [id number] [email or web address] Insurance Assigned Provider 09/24/23 documented as of this encounter Additional Source Comments The information contained in this document represents components of the legal health record. It is not the complete legal health record.[facility]
--- OUTSIDE RECORDS SUMMARY | 2025-03-04 19:55 | XMS_ITS | Encounter Summary ---
Author Organization [facility] Address [address] [facility] [address] [place] [phone] Phone Care Team Providers Care Silk Screen Printer Name Role Phone Avel Henson DO Unavailable Mary Pate Primary Care Provider Encounter Details Date Type Department Care Team (Late st Contact Info) Description 09/21/2024 Ancillary Orders [facility], X-Ray - [facility] [address] [place] [address] Mary Pate PA [address] [facility] [place] [address] [place] [address] Pain in joints (Primary Dx); Pain Social History Tobacco Use Types Packs/Day Years [...] Description 03/08/2025 12:45 PM EDT Office Visit [facility] Services [address] [place] [address] Mary Pate PA [address] [address] [place] [address] Elian Horne, PT 8 [place] [address] [email or web address] documented as of this encounter Results * XR HIPS 2+ VW EA BILAT PLUS PELVIS (09/21/2024 3:31 PM EDT) Anatomical Region Laterality Modality Hip, Pelvis Computed Radiogr aphy 09/22/2024 9:53 AM EDT Impressions 09/22/2024 9:54 AM EDT Mild hip osteoarthritis bilaterally. Prominent lateral acetabular marginal spurring/bony proliferative change, left worse than right. Narrative 09/22/2024 9:54 AM EDT XR HIPS 2+ VW EA BILAT PLUS PELVIS Referring clinician's provided indication for this examination in Epic: Pain REQUESTED INDICATION: Pain COMPARISON: None FINDINGS: PELVIS: Pelvic ring intact. No displaced fracture. Degenerative changes of the lower lumbar spine, sacroiliac joints, and pubic symphysis. RIGHT HIP: Mild hip joint space narrowing. Prominent lateral acetabular spurring. LEFT HIP: Mild hip joint space narrowing. Prominent lateral acetabular bony proliferative change. Procedure Note Parmjit Rivas MD - 09/22/2024 XR HIPS 2+ VW EA BILAT PLUS PELVIS Referring clinician's provided indication for this examination in Epic:Pain REQUESTED INDICATION: Pain COMPARISON: None FINDINGS: PELVIS: Pelvic ring intact. No displaced fracture. Degenerative changes ofthe lower lumbar spine, sacroiliac joints, and pubic symphysis. RIGHT HIP: Mild hip joint space narrowing. Prominent lateral acetabularspurring. LEFT HIP: Mild hip joint space narrowing. Prominent lateral acetabularbony proliferative change. IMPRESSION: Mild hip osteoarthritis bilaterally. Prominent lateral acetabular marginal spurring/bony proliferative change,left worse than right. us Mary ELIZONDO IMG XR PELVIS Final Resul t * XR ANKLE 3 OR MORE VIEWS (LEFT) (09/21/2024 3:31 PM EDT) Anatomical Region Laterality Modality Ankle Left Computed Radiogr aphy 09/22/2024 9:51 AM EDT Impressions 09/22/2024 9:53 AM EDT Bilateral Achilles calcific enthesopathy. No acute osseous abnormality or significant degenerative change. Narrative 09/22/2024 9:53 AM EDT XR ANKLE 3 OR MORE VIEWS (RIGHT), XR ANKLE 3 OR MORE VIEWS (LEFT) Referring clinician's provided indication for this examination in Epic: Pain COMPARISON: None FINDINGS: RIGHT ANKLE: No acute fracture or dislocation. Ankle mortise symmetric. No regional soft tissue swelling. Joint spaces preserved. Thickening of the distal Achilles tendon with calcific enthesopathy. LEFT ANKLE: No acute fracture or dislocation. Ankle mortise symmetric. No regional soft tissue swelling. Joint spaces preserved. Thickening of the distal Achilles tendon with calcific enthesopathy. Procedure Note Parmjit Rivas MD - 09/22/2024 XR ANKLE 3 OR MORE VIEWS (RIGHT), XR ANKLE 3 OR MORE VIEWS (LEFT) Referring clinician's provided indication for this examination in Epic:Pain COMPARISON: None FINDINGS: RIGHT ANKLE: No acute fracture or dislocation. Ankle mortise symmetric. Noregional soft tissue swelling. Joint spaces preserved. Thickening of thedistal Achilles tendon with calcific enthesopathy. LEFT ANKLE: No acute fracture or dislocation. Ankle mortise symmetric. Noregional soft tissue swelling. Joint spaces preserved. Thickening of thedistal Achilles tendon with calcific enthesopathy. IMPRESSION: Bilateral Achilles calcific enthesopathy. No acute osseous abnormality or significant degenerative change. Mary ELIZONDO IMG XR LOWER EXTREMITY Macrina l Result * XR ANKLE 3 OR MORE VIEWS (RIGHT) (09/21/2024 3:30 PM EDT) Anatomical Region Laterality Modality Ankle Right Computed Radiogr aphy 09/22/2024 9:51 AM EDT Impressions 09/22/2024 9:53 AM EDT Bilateral Achilles calcific enthesopathy. No acute osseous abnormality or significant degenerative change. Narrative 09/22/2024 9:53 AM EDT XR ANKLE 3 OR MORE VIEWS (RIGHT), XR ANKLE 3 OR MORE VIEWS (LEFT) Referring clinician's provided indication for this examination in Epic: Pain COMPARISON: None FINDINGS: RIGHT ANKLE: No acute fracture or dislocation. Ankle mortise symmetric. No regional soft tissue swelling. Joint spaces preserved. Thickening of the distal Achilles tendon with calcific enthesopathy. LEFT ANKLE: No acute fracture or dislocation. Ankle mortise symmetric. No regional soft tissue swelling. Joint spaces preserved. Thickening of the distal Achilles tendon with calcific enthesopathy. Procedure Note Parmjit Rivas MD - 09/22/2024 XR ANKLE 3 OR MORE VIEWS (RIGHT), XR ANKLE 3 OR MORE VIEWS (LEFT) Referring clinician's provided indication for this examination in Epic:Pain COMPARISON: None FINDINGS: RIGHT ANKLE: No acute fracture or dislocation. Ankle mortise symmetric. Noregional soft tissue swelling. Joint spaces preserved. Thickening of thedistal Achilles tendon with calcific enthesopathy. LEFT ANKLE: No acute fracture or dislocation. Ankle mortise symmetric. Noregional soft tissue swelling. Joint spaces preserved. Thickening of thedistal Achilles tendon with calcific enthesopathy. IMPRESSION: Bilateral Achilles calcific enthesopathy. No acute osseous abnormality or significant degenerative change. Mary ELIZONDO IMG XR LOWER EXTREMITY Macrina l Result * XR KNEE 4 OR MORE VIEWS (BILATERAL) (09/21/2024 3:29 PM EDT) Anatomical Region Laterality Modality Knee Bilateral, Knee Right, Knee Left Computed Radiography 09/22/2024 9:49 AM EDT Impressions 09/22/2024 9:51 AM EDT Moderate to severe right knee patellofemoral osteoarthritis. Mild left knee patellofemoral degenerative change. Narrative 09/22/2024 9:51 AM EDT XR KNEE 4 OR MORE VIEWS (BILATERAL) Referring clinician's provided indication for this examination in Epic: Pain COMPARISON: None FINDINGS: RIGHT KNEE: Knee joint space narrowing with subchondral sclerosis, cystic change, and marginal osteophytes is moderate to severe in the patellofemoral compartment. Medial and lateral compartment joint spaces preserved. Small joint effusion. No acute fracture or dislocation. LEFT KNEE: Knee joint space narrowing with subchondral sclerosis and marginal osteophytes is mild in the patellofemoral compartment. Medial and lateral compartment joint spaces preserved. No joint effusion. No acute fracture or dislocation. Procedure Note Parmjit Rivas MD - 09/22/2024 XR KNEE 4 OR MORE VIEWS (BILATERAL) Referring clinician's provided indication for this examination in Epic:Pain COMPARISON: None FINDINGS: RIGHT KNEE: Knee joint space narrowing with subchondral sclerosis, cysticchange, and marginal osteophytes is moderate to severe in thepatellofemoral compartment. Medial and lateral compartment joint spacespreserved. Small joint effusion. No acute fracture or dislocation. LEFT KNEE: Knee joint space narrowing with subchondral sclerosis andmarginal osteophytes is mild in the patellofemoral compartment. Medial andlateral compartment joint spaces preserved. No joint effusion. No acutefracture or dislocation. IMPRESSION: Moderate to severe right knee patellofemoral osteoarthritis. Mild left knee patellofemoral degenerative change. Mary ELIZONDO IMG XR LOWER EXTREMITY Macrina l Result documented in this encounter Visit Diagnoses Diagnosis Pain in joints- Primary Pain in joint, multiple sites Pain Generalized pain Pain Generalized pain Pain Generalized pain Pain Generalized pain Pain in joints Pain in joint, multiple sites documented in this encounter Care Teams Silk Screen Printer Relationship Specialty Start Date End Date Mary Pate PA [address] [place] [address] [place] [address] PCP - General Physician Rubber Stamp Die Inspector 12/09/23 Avel Henson DO [address] [place] [address] [place] [address] [email or web address] Insurance Assigned Provider 09/24/23 documented as of this encounter Additional Source Comments The information contained in this document represents components of the legal health record. It is not the complete legal health record.[facility]
--- OUTSIDE RECORDS SUMMARY | 2025-03-04 19:55 | XMS_ITS | Encounter Summary ---
Author Organization [facility] Address [address] [facility] [address] [place] [phone] Phone Care Team Providers Care Certified Nurse Name Role Phone Unknown, Unknown Primary Care Provider Avel Swenson DO Unavailable Mary Pate Primary Care Provider [phone] Encounter Details Date Type Department Care Team (Late st Contact Info) Description 04/22/2017 Transcribe Orders [facility] [address] [place] [address] Forest Guido MD [address] [place] [phone] Myasthenia gravis without exacerbation (Primary Dx) Social History Tobacco Use Types Packs/Day Years Used Date Smoking Tobacco: Never Assessed Comments Unknown Sex and Gender Information Value Date Recorded Sex Assigned at Not on file Legal Sex Female 9:40 PM EDT Gender Identity Not on file Sexual Orientation Not on file documented as of this encounter Plan of Treatment Upcoming Encounters Date Type Department Care Team (Late st Contact Info) Description 03/08/2025 12:45 PM EDT Office Visit [facility] Rehabilitation Services [address] [place] [address] Mary Pate PA [address] [facility] [place] [address] Elian Horne, PT [address] [place] [address] documented as of this encounter Results * LFTs (hepatic panel) (04/22/2017 8:21 AM EDT) ALKALINE PHOSPHATASE 99 39 - 117 U/L [facility] TOTAL BILIRUBIN 0.4 0 - 1.2 mg/dL [facility] DIRECT BILIRUBIN <0.2 0 - 0.3 mg/dL [facility] Bilirubin (Indirect) NOT CALCULATED 0 - 1.5 mg/dL [facility] AST 20 0 - 37 U/L [facility] ALT 28 0 - 40 U/L [facility] TOTAL PROTEIN 6.7 6.5 - 8.0 g/dL [facility] ALBUMIN 4.1 3.9 - 4.8 g/dL [facility] GLOBULIN 2.6 1 - 4.8 g/dL [facility] A/G Ratio 1.58 1.00 - 4.80 RATIO [facility] Blood 04/22/2017 8:21 AM EDT 04/22/2017 1:53 PM EDT us Forest Guido MD LAB BLOOD ORDERABLES Edite d Result - Final [facility] [address] [place], [place] [id number] * Basic metabolic panel (04/22/2017 8:21 AM EDT) SODIUM 142 133 - 146 mmol/L [facility] CHLORIDE 103 96 - 108 mmol/L [facility] POTASSIUM 4.7 3.3 - 5.1 mmol/L [facility] CO2 30 21 - 35 mmol/L [facility] BUN 15 6 - 19 mg/dL [facility] CREATININE 0.50 0.5 - 1.5 mg/dL [facility] GLUCOSE 92 70 - 99 mg/dL [facility] CALCIUM 9.3 8.4 - 10.3 mg/dL [facility] EGFR >60 60 - 1000 mL/min/1.7 3m2 [facility] Comment:Abnormal if <60. If patient is -[place], multiply the result by 1.21. ANION GAP 14 10 - 20 mmol/L [facility] Blood 04/22/2017 8:21 AM EDT 04/22/2017 1:53 PM EDT us Forest Guido MD LAB BLOOD ORDERABLES Final Result [facility] [address] [place] [address] * CBC and differential (04/22/2017 8:21 AM EDT) WBC 4.98 3.40 - 11.20 K/uL [facility] RBC 4.34 3.80 - 4.80 M/uL [facility] HGB 12.2 12.0 - 15.0 g/dL [facility] HCT 36.9 36.0 - 46.0 % [facility] PLT 141 130 - 400 K/uL [facility] MCV 85.0 79.0 - 98.0 fL [facility] MCH 28.1 27.0 - 34.8 pg [facility] MCHC 33.1 31.5 - 36.0 g/dL [facility] RDW 13.9 10.8 - 14.6 % [facility] MPV 11.4 9.4 - 12.4 fl [facility] NRBC 0.00 /100 WBCs [facility] ABSOLUTE NRBC 0.00 K/uL [facility] DIFF METHOD Auto [facility] NEUTS 66.9 45.30 - 77.70 % [facility] LYMPHS 22.7 12.30 - 39.70 % [facility] MONOS 7.4 4.10 - 12.80 % [facility] EOS 2.0 0 - 7.2 % [facility] BASOS 0.6 0 - 2.80 % [facility] Granulocytes, immature (%) 0.4 0.0 - 0.9 % [facility] ABSOLUTE NEUTS 3.33 1.40 - 7.70 K/uL [facility] ABSOLUTE LYMPHS 1.13 0.60 - 3.20 K/uL [facility] ABSOLUTE MONOS 0.37 0.11 - 0.59 K/uL [facility] ABSOLUTE EOS 0.10 0.01 - 0.50 K/uL [facility] ABSOLUTE BASOS 0.03 0.00 - 0.08 K/uL [facility] Granulocytes, immature 0.02 0.00 - 0.05 K/uL [facility] Blood 04/22/2017 8:21 AM EDT 04/22/2017 1:53 PM EDT us Forest Guido MD LAB BLOOD ORDERABLES Final Result [facility] [address] [place] [address] documented in this encounter Visit Diagnoses Diagnosis Myasthenia gravis without exacerbation- Primary documented in this encounter Care Teams Certified Nurse Relationship Specialty Start Date End Date Unknown, Unknown, MD PCP - General 04/22/17 12/08/23 Mary Pate PA [address] [place] [address] [place] [address] PCP - General Physician Employment Adjudicator 12/09/23 Avel Henson DO [address] [place] [phone] [email or web address] Insurance Assigned Provider 09/24/23 documented as of this encounter Additional Source Comments The information contained in this document represents components of the legal health record. It is not the complete legal health record.[facility]
--- OUTSIDE RECORDS SUMMARY | 2025-03-04 19:55 | XMS_ITS | Clinical Summary ---
Author Organization [facility] Address [address] [facility] [address] [place] [address] Phone Care Team Providers Care Order Administrator Name Role Phone Avel Henson DO Unavailable Mary Pate Primary Care Provider +- [phone] Allergies No known active allergies Medications aspirin 81 MG EC tablet Take 81 mg by mouth daily. Active atorvastatin (LIPITOR) 80 MG tablet Take 80 mg by mouth daily. Active azaTHIOprine (IMURAN) 50 mg tablet Take 50 mg by mouth daily. Take 3 tablets daily Active carvedilol (COREG) 3.125 MG tablet Take 3.125 mg by mouth 2 (two) times a day with meals. Active cholecalciferol (VITAMIN D3) 25 MCG (1,000 unit) tablet Take 1,000 Units by mouth daily. Active lisinopril (PRINIVIL,ZESTR IL) 20 MG tablet Take 20 mg by mouth daily. Take 1.5 tablets daily Active pyRIDostigmine (MESTINON) 60 mg tablet Take 60 mg by mouth daily. Active rosuvastatin (CRESTOR) 20 MG tablet Take 20 mg by mouth daily. Active warfarin (COUMADIN) 7.5 MG tablet Take 7.5 mg by mouth daily. Maintenance plan:5 mg every Sun, Leah; 2.5 mg all other days Active warfarin (COUMADIN) 2.5 MG tablet Take 2.5 mg by mouth daily. Maintenance plan:5 mg every Sun, Leah; 2.5 mg all other days Active tirzepatide 2.5 mg/0.1 mL Syrg Inject 2.5 mg under the skin once a week. Active Active Problems Problem Noted Date Diagnosed Date Chronic anticoagulation 04/10/2024 TIA (transient ischemic attack) 03/26/2024 Class 1 obesity 03/26/2024 Depression 03/26/2024 Vertigo 03/19/2024 APS (antiphospholipid syndrome) 03/07/2024 Hyperlipidemia 11/30/2023 Transient ischemic attack 11/28/2023 Cerebrovascular accident (CVA) 11/01/2023 Hypertensive urgency 10/05/2023 Panic disorder 10/05/2023 Acute right otitis media 05/09/2023 Acute sinusitis 07/07/2022 Essential hypertension 02/05/2022 COVID-19 07/25/2020 Overview (03/26/2024): 07/22/20 Myasthenia gravis 07/25/2020 Encounters Date Type Department Care Team Description 03/04/2025 Telephone Anticoagulation Clinic [address] [place] [phone] Ayah Clemente RN 03/01/2025 8:00 AM EDT Office Visit [facility] Rehabilitation Services [address] [place] [address] Mary Pate PA Bell, Ross, PT Vertigo (Primary Dx) 02/22/2025 Transcribe Orders [address] [address] Mary Pate PA Encounter for rehabilitation (Primary Dx) 02/04/2025 8:15 AM EDT - 02/04/2025 11:59 PM EDT Hospital Encounter [facility] [address] [place] [address] Mary Pate PA Discharge Disposition: Home or Self Care 02/04/2025 Telephone Anticoagulation Clinic [address] [place] [address] Ayah Clemente RN INR Check (/) 01/22/2025 8:21 AM EDT - 01/22/2025 11:59 PM EDT Hospital Encounter [facility] [address] [place] [address] Mary Pate PA Discharge Disposition: Home or Self Care 01/22/2025 Telephone Anticoagulation Clinic [address] [place] [address] Ayah Clemente RN INR Check (/) 01/21/2025 Documentation Anticoagulation Clinic [address] [place] [address] Ayah Clemente RN 01/14/2025 7:39 AM EDT - 01/14/2025 11:59 PM EDT Hospital Encounter [facility] [address] [place] [address] Mary Pate PA Discharge Disposition: Home or Self Care 01/14/2025 Telephone Anticoagulation Clinic [address] [place] [phone] Ayah Clemente RN INR Check (/) 01/04/2025 10:40 AM EDT - 01/04/2025 11:59 PM EDT Hospital Encounter [facility] [address] [place] [address] Mary Pate PA Discharge Disposition: Home or Self Care 01/04/2025 Telephone Anticoagulation Clinic [address] [place] [address] Ayah Clemente RN INR Check (/) 01/04/2025 Telephone Anticoagulation Clinic [address] [place] [phone] Ayah Clemente RN 01/01/2025 8:24 AM EDT - 01/01/2025 11:59 PM EDT Hospital Encounter [facility] [address] [place] [address] Mary Pate PA Discharge Disposition: Home or Self Care 01/01/2025 Telephone Anticoagulation Clinic [address] [place] [address] Ayah Clemente RN INR Check (/) 12/27/2024 8:35 AM EDT - 12/27/2024 11:59 PM EDT Hospital Encounter [facility] [address] [place] [address] Mary Pate PA Discharge Disposition: Home or Self Care 12/27/2024 Telephone Anticoagulation Clinic [address] [place] [address] Severo Toscano, [facility] Anticoagulation; INR Check 12/20/2024 9:54 AM EDT - 12/20/2024 11:59 PM EDT Hospital Encounter [facility] [address] [place] [address] Mary Pate PA Discharge Disposition: Home or Self Care 12/20/2024 Telephone [facility] [address] [place] [address] Keyana Aguilar, INTELLIGENCE OFFICER BASIC INR Check 12/20/2024 Orders Only [facility] [address] [place] [address] Radha Mora Cerebrovascular accident (CVA); APS (antiphospholipid syndrome); Chronic anticoagulation 12/14/2024 8:06 AM EDT - 12/14/2024 11:59 PM EDT Hospital Encounter [facility] [address] [place] [address] Mary Pate PA Discharge Disposition: Home or Self Care 12/14/2024 Telephone [facility] [address] [place] [address] Keyana Aguilar, INTELLIGENCE OFFICER BASIC INR Check 12/03/2024 Telephone Anticoagulation Clinic [address] [place] [address] Ayah Clemente RN INR Check (/) from Last 3 Months Social History Tobacco Use Types Packs/Day Years [...] on file Sexual Orientation Not on file Plan of Treatment Upcoming Encounters Date Type Department Care Team (Late st Contact Info) Description 03/08/2025 12:45 PM EDT Office Visit [facility] [address] [place] [address] Mary Pate PA [address] [place] [address] [place] [address] Elian Horne, PT 8 [place] [address] [email or web address] Health Maintenance Due Date Last Done Comments Adult Td,Tdap Booster 1966 BLOOD PRESSURE 1966 DEPRESSION SCREENING 1978 SMOKING Hx and SMOKELESS TOBACCO SCREENING 1979 HEPATITIS C SCREENING 1984 HIV ONE-TIME SCREENING (18-65 YEARS) 1984 PNEUMOCOCCAL VACCINES (50+ years) (1 of 2 - PCV) 1985 ZOSTER VACCINES (1 of 2) 1985 PAP SMEAR 1987 MAMMOGRAM 2006 COLOGUARD 2011 COLONOSCOPY 2011 COLORECTAL CANCER SCREENING 2011 FIT TEST 2011 FOBT 2011 SIGMOIDOSCOPY 2011 VIRTUAL COLONOSCOPY 2011 COVID-19 VACCINE (2 - Moderna risk series) 06/08/2021 05/11/2021 INFLUENZA VACCINE (#1) 2025 ALKALINE PHOSPHATASE LEVEL 09/17/202509/17, 03/27/2019, 08/18/2018, Additional history exists CREATININE LEVEL 09/17/2025 09/17/2024, 01/2019, 08/18/2018, Additional history exists POTASSIUM LEVEL 09/17/2025 09/17/2024, 01/2019, 08/18/2018, Additional history exists HEPATITIS A VACCINES Aged Out No long er eligible based on patient's age to complete this topic HIB VACCINES Aged Out No longer eligi ble based on patient's age to complete this topic MENINGOCOCCAL VACCINES (ACWY) Aged Out No longer eligible based on patient's age to complete this topic MENINGOCOCCAL VACCINES (B) Aged Out N o longer eligible based on patient's age to complete this topic Medical Devices Not on file Procedures Procedure Name Priority Date/Time Associated Diagnosis Comments PT-INR Routine 02/04/2025 8:15 AM EDT Cerebrovascular accident (CVA) APS (antiphospholipid syndrome) Chronic anticoagulation PT-INR Routine 01/22/2025 8:22 AM EDT Cerebrovascular accident (CVA) APS (antiphospholipid syndrome) Chronic anticoagulation PT-INR Routine 01/14/2025 7:39 AM EDT Cerebrovascular accident (CVA) APS (antiphospholipid syndrome) Chronic anticoagulation PT-INR STAT 01/04/2025 11:06 AM EDT APS (antiphospholipid syndrome) Chronic anticoagulation PT-INR Routine 01/01/2025 8:24 AM EDT Cerebrovascular accident (CVA) APS (antiphospholipid syndrome) Chronic anticoagulation PT-INR Routine 12/27/2024 8:35 AM EDT Cerebrovascular accident (CVA) APS (antiphospholipid syndrome) Chronic anticoagulation PT-INR Routine 12/20/2024 9:54 AM EDT Cerebrovascular accident (CVA) APS (antiphospholipid syndrome) Chronic anticoagulation PT-INR Routine 12/14/2024 8:06 AM EDT Cerebrovascular accident (CVA) APS (antiphospholipid syndrome) Chronic anticoagulation COMPREHENSIVE METABOLIC PANEL Routine 09/17/2024 8:20 AM EDT Essential (primary) hypertension Transient cerebral ischemia, unspecified type Other fatigue from Last 3 Months or Most Recently Relevant to Health Maintenance Results * (ABNORMAL) PT-INR (02/04/2025 8:15 AM EDT) Only the most recent of8 resultswithin the time period is included. PT 33.9(H) 10.2 - 12.9 sec [facility] INR 2.7(H) 0.9 - 1.1 [facility] Comment:Therapeutic range fo r oral Vitamin K antagonists: 2.0-3.5 Blood 02/04/2025 8:15 AM EDT 02/04/2025 8:18 AM EDT us Mary ELIZONDO LAB BLOOD ORDERABLES Final Result [address] [address] * (ABNORMAL) Comprehensive metabolic panel (09/17/2024 8:20 AM EDT) SODIUM 141 133 - 146 mmol/L [facility] POTASSIUM 3.9 3.3 - 5.1 mmol/L [facility] CHLORIDE 103 96 - 108 mmol/L [facility] CO2 28 21 - 35 mmol/L [facility] BUN 17 6 - 19 mg/dL [facility] CREATININE 0.60 0.5 - 1.5 mg/dL [facility] GLUCOSE 139(H) 70 - 99 mg/dL [facility] ALBUMIN 4.6 3.9 - 4.8 g/dL [facility] TOTAL PROTEIN 7.8 6.5 - 8.0 g/dL [facility] CALCIUM 9.8 8.4 - 10.3 mg/dL [facility] ALKALINE PHOSPHATASE 99 39 - 117 U/L [facility] TOTAL BILIRUBIN 0.4 0.0 - 1.2 mg/dL [facility] AST 25 0 - 37 U/L [facility] ALT 24 0 - 40 U/L [facility] GLOBULIN 3.2 1 - 4.8 g/dL [facility] EGFR 104 >59 mL/min/1.7 3m2 [facility] Comment:Estimated glomerular filtration rate calculated using the CKD-EPI refit equation. ANION GAP 14 10 - 20 mmol/L [facility] Blood 09/17/2024 8:20 AM EDT 09/17/2024 8:23 AM EDT us Mary ELIZONDO LAB BLOOD ORDERABLES Final Result [address] [address] from Last 3 Months or Most Recently Relevant to Health Maintenance Insurance [facility] PPO EPO [facility] PPO EPO [facility] PPO EPO [facility] PPO [facility]PO [facility] PPO EPO [facility] PPO EPO [facility] PPO EPO [facility] PPO EPO [facility] PPO EPO Care Teams Order Administrator Relationship Specialty Start Date End Date Mary Pate PA [address] [place] [address] [place] [address] PCP - General Physician Poultry Offal Icer 12/09/23 Avel Henson DO [address] [place] [phone] (work) [email or web address] Insurance Assigned Provider 09/24/23 Additional Source Comments The information contained in this document represents components of the legal health record. It is not the complete legal health record.[facility]
--- OUTSIDE RECORDS SUMMARY | 2025-03-04 19:55 | XMS_ITS | Encounter Summary ---
Author Organization [facility] Address [address] [facility] [address] [place] [address] Phone Care Team Providers Care Central Sterile Technician Name Role Phone Avel Henson DO Unavailable Mary Pate Primary Care Provider [phone]- [phone] Encounter Details Date Type Department Care Team (Late st Contact Info) Description 03/04/2025 Telephone Anticoagulation Clinic [address] [place], [place] [phone] Ayah Clemente RN 30 [place] [address] [email or web address] Social History Tobacco Use Types Packs/Day Years [...] as of this encounter Progress Notes * Ayah Clemente, RN - 03/04/2025 1:15 PM EDT Phone call from Carmen. She waited in line for over an hour this morning and had to leave to go to work. She will test tomorrow. However, Carmen reported she was at [facility] over the weekend for lightheadedness. Her INR there was 6.7 and 4.5. she reported she was given vitamin k but not instructed to hold warfarin. Carmen took warfarin this morning. I have instructed her to hold warfarin tomorrow morning until after we get result. documented in this encounter Plan of Treatment Upcoming Encounters Date Type Department Care Team (Late st Contact Info) Description 03/08/2025 12:45 PM EDT Office Visit [facility] Rehabilitation Services [address] [place] [address] Mary Pate PA 6 [place] [address] Elian Horne, PT 8 [place] [address] documented as of this encounter Visit Diagnoses Diagnosis Cerebrovascular accident (CVA)- Primary APS (antiphospholipid syndrome) Primary hypercoagulable state Chronic anticoagulation Encounter for long-term (current) use of anticoagulants documented in this encounter Care Teams Central Sterile Technician Relationship Specialty Start Date End Date Mary Pate PA [address] [place] [address] PCP - General Physician Bilingual Receptionist 12/09/23 Avel Henson DO [address] [place] [phone] Insurance Assigned Provider 09/24/23 documented as of this encounter Additional Source Comments The information contained in this document represents components of the legal health record. It is not the complete legal health record.[facility]
--- OUTSIDE RECORDS SUMMARY | 2025-03-04 19:55 | XMS_ITS | Encounter Summary ---
Author Organization [facility] Address [address] [facility] [address] [place] [address] Phone Care Team Providers Care Trust Manager Name Role Phone Unknown, Unknown Primary Care Provider Avel Swenson DO Unavailable Mary Pate Primary Care Provider Encounter Details Date Type Department Care Team (Late st Contact Info) Description 06/17/2017 Transcribe Orders [facility] [address] [place] [address] Forest Guido MD [address] [place] [phone] Myasthenia gravis without exacerbation (Primary Dx) Social [...] Description 03/08/2025 12:45 PM EDT Office Visit [facility] Rehabilitation Services 8 [place] [address] Mary Pate PA [address] [place] [address] [place] [address] Elian Horne, PT 8 [place] [address] documented as of this encounter Results * (ABNORMAL) LFTs (hepatic panel) (06/17/2017 7:51 AM EST) ALKALINE PHOSPHATASE 120(H) 39 - 117 U/L [facility] TOTAL BILIRUBIN 0.4 0 - 1.2 mg/dL [facility] DIRECT BILIRUBIN <0.2 0 - 0.3 mg/dL [facility] Bilirubin (Indirect) NOT CALCULATED 0 - 1.5 mg/dL [facility] AST 22 0 - 37 U/L [facility] ALT 16 0 - 40 U/L [facility] TOTAL PROTEIN 6.6 6.5 - 8.0 g/dL [facility] ALBUMIN 3.7(L) 3.9 - 4.8 g/dL [facility] GLOBULIN 2.9 1 - 4.8 g/dL [facility] A/G Ratio 1.28 1.00 - 4.80 RATIO [facility] Blood 06/17/2017 7:51 AM EST 06/17/2017 8:54 AM EST us Forest Guido MD LAB BLOOD ORDERABLES Final Result Performing Organization Address City/State/[facility] Co de Phone Number [facility] [address] [place] [address] * Basic metabolic panel (06/17/2017 7:51 AM EST) SODIUM 137 133 - 146 mmol/L [facility] CHLORIDE 101 96 - 108 mmol/L [facility] POTASSIUM 4.7 3.3 - 5.1 mmol/L [facility] CO2 28 21 - 35 mmol/L [facility] BUN 9 6 - 19 mg/dL [facility] CREATININE 0.50 0.5 - 1.5 mg/dL [facility] GLUCOSE 89 70 - 99 mg/dL [facility] CALCIUM 8.6 8.4 - 10.3 mg/dL [facility] EGFR >60 60 - 1000 mL/min/1.7 3m2 [facility] Comment:Abnormal if <60. If patient is -Romanian, multiply the result by 1.21. ANION GAP 13 10 - 20 mmol/L [facility] Blood 06/17/2017 7:51 AM EST 06/17/2017 8:54 AM EST us Forest Guido MD LAB BLOOD ORDERABLES Final Result [facility] [address] [place] [address] * CBC and differential (06/17/2017 7:51 AM EST) WBC 6.77 3.40 - 11.20 K/uL [facility] RBC 4.32 3.80 - 4.80 M/uL [facility] HGB 12.5 12.0 - 15.0 g/dL [facility] HCT 37.1 36.0 - 46.0 % [facility] PLT 172 130 - 400 K/uL [facility] MCV 85.9 79.0 - 98.0 fL [facility] MCH 28.9 27.0 - 34.8 pg [facility] MCHC 33.7 31.5 - 36.0 g/dL [facility] RDW 14.5 10.8 - 14.6 % [facility] MPV 12.0 9.4 - 12.4 fl [facility] NRBC 0.00 /100 WBCs [facility] ABSOLUTE NRBC 0.00 K/uL [facility] DIFF METHOD Auto [facility] NEUTS 75.5 45.30 - 77.70 % [facility] LYMPHS 16.0 12.30 - 39.70 % [facility] MONOS 6.1 4.10 - 12.80 % [facility] EOS 1.2 0 - 7.2 % [facility] BASOS 0.6 0 - 2.80 % [facility] Granulocytes, immature (%) 0.6 0.0 - 0.9 % [facility] ABSOLUTE NEUTS 5.12 1.40 - 7.70 K/uL [facility] ABSOLUTE LYMPHS 1.08 0.60 - 3.20 K/uL [facility] ABSOLUTE MONOS 0.41 0.11 - 0.59 K/uL [facility] ABSOLUTE EOS 0.08 0.01 - 0.50 K/uL [facility] ABSOLUTE BASOS 0.04 0.00 - 0.08 K/uL [facility] Granulocytes, immature 0.04 0.00 - 0.05 K/uL [facility] Blood 06/17/2017 7:51 AM EST 06/17/2017 8:54 AM EST us Forest Guido MD LAB BLOOD ORDERABLES Final Result [facility] [address] [place] [address] documented in this encounter Visit Diagnoses Diagnosis Myasthenia gravis without exacerbation- Primary documented in this encounter Care Teams Trust Manager Relationship Specialty Start Date End Date Unknown, Unknown, PCP - General 04/22/17 12/08/23 Mary Pate PA [address] [place] [address] [place] [address] PCP - General Physician Supervisor Title 12/09/23 Avel Henson DO [address] [place] [address] [email or web address] Insurance Assigned Provider 09/24/23 documented as of this encounter Additional Source Comments The information contained in this document represents components of the legal health record. It is not the complete legal health record.[facility]
== END 2025-03-04 15:41 | disposition home or self-care (01) ==
LOC: HO.HUSH 14:28
PROVIDERS: PCP Internal Medicine; Visit Provider Nurse Practitioner Family
DX: R31.29 Other microscopic hematuria (principal); Q63.1 Lobulated, fused and horseshoe kidney; R39.9 Unspecified symptoms and signs involving the genitourinary system; N39.46 Mixed incontinence; N39.0 Urinary tract infection, site not specified; Z13.9 Encounter for screening, unspecified
CPT/HCPCS: 99214

== ENCOUNTER 2025-03-08 08:46 | Outpatient (REF) | payer BC, SELFPAY ==
--- OUTSIDE RECORDS SUMMARY | 2025-03-05 07:24 | XMS_ITS | Encounter Summary ---
Author Organization [facility] Address [address] [facility] [address] [place] [address] Phone Care Team Providers Care Chemical Radiation Technician Name Role Phone Avel Henson DO Unavailable Mary Pate Primary Care Provider [phone]- [phone] Encounter Details Date Type Department Care Team (Latest Contact Info) Description 03/05/2025 7:24 AM EDT - 03/05/2025 11:59 PM EDT Hospital Encounter [facility] [address] [place] [address] Mary Pate PA [address] [place] [address] Discharge Disposition: Home or Self Care Social History Tobacco Use Types Packs/Day Years [...] on file documented as of this encounter Medications at Time of Discharge aspirin 81 MG EC tablet Take 81 mg by mouth daily. atorvastatin (LIPITOR) 80 MG tablet Take 80 mg by mouth daily. azaTHIOprine (IMURAN) 50 mg tablet Take 50 mg by mouth daily. Take 3 tablets daily carvedilol (COREG) 3.125 MG tablet Take 3.125 mg by mouth 2 (two) times a day with meals. cholecalciferol (VITAMIN D3) 25 MCG (1,000 unit) tablet Take 1,000 Units by mouth daily. lisinopril (PRINIVIL,ZESTRI L) 20 MG tablet Take 20 mg by mouth daily. Take 1.5 tablets daily pyRIDostigmine (MESTINON) 60 mg tablet Take 60 mg by mouth daily. rosuvastatin (CRESTOR) 20 MG tablet Take 20 mg by mouth daily. tirzepatide 2.5 mg/0.1 mL Syrg Inject 2.5 mg under the skin once a week. warfarin (COUMADIN) 2.5 MG tablet Take 2.5 mg by mouth daily. Maintenance plan:5 mg every Sun, Leah; 2.5 mg all other days warfarin (COUMADIN) 7.5 MG tablet Take 7.5 mg by mouth daily. Maintenance plan:5 mg every Sun, Leah; 2.5 mg all other days documented as of this encounter Plan of Treatment Upcoming Encounters Date Type Department Care Team (Late st Contact Info) Description 2025 8:00 AM EDT Office Visit [facility] Rehabilitation Services 8 [place] [address] Mary Pate PA 6 [facility] [place] [address] Elian Horne, PT 8 [place] [address] [email or web address] documented as of this encounter Procedures Procedure Name Priority Date/Time Associated Diagnosis Comments PT-INR Routine 03/05/2025 7:51 AM EDT Cerebrovascular accident (CVA) APS (antiphospholipid syndrome) Chronic anticoagulation documented in this encounter Results * (ABNORMAL) PT-INR (03/05/2025 7:51 AM EDT) PT 58.2(H) 10.2 - 12.9 sec [facility] INR 4.6(H) 0.9 - 1.1 [facility] Comment:Therapeutic range fo r oral Vitamin K antagonists: 2.0-3.5 Blood 03/05/2025 7:51 AM EDT 03/05/2025 7:55 AM EDT us Mary ELIZONDO LAB BLOOD ORDERABLES Final Result [facility] [address] [place] [address] documented in this encounter Visit Diagnoses Diagnosis Cerebrovascular accident (CVA) APS (antiphospholipid syndrome) Primary hypercoagulable state Chronic anticoagulation Encounter for long-term (current) use of anticoagulants documented in this encounter Care Teams Chemical Radiation Technician Relationship Specialty Start Date End Date Mary Pate PA [address] [place] [address] [place] [phone] PCP - General Physician Chemical Engineering Intern 12/09/23 Avel Henson DO [address] [place] [address] [email or web address] Insurance Assigned Provider 09/24/23 documented as of this encounter Additional Source Comments The information contained in this document represents components of the legal health record. It is not the complete legal health record.[facility]
--- OUTSIDE RECORDS SUMMARY | 2025-03-07 07:26 | XMS_ITS | Encounter Summary ---
Author Organization [facility] Address [address] [facility] [address] [place] [address] Phone Care Team Providers Care Airplane Flight Attendant Name Role Phone Avel Henson DO Unavailable Mary Pate Primary Care Provider [phone] Encounter Details Date Type Department Care Team (Latest Contact Info) Description 03/07/2025 7:26 AM EDT - 03/07/2025 11:59 PM EDT Hospital Encounter [facility] 30 [place] [address] Mary Pate PA [address] [place] [address] Discharge Disposition: Home or Self Care Social [...] Description 2025 8:00 AM EDT Office Visit [facility] Services 8 [place] [address] Mary Pate PA 6 [facility] [place] [address] Elian Horne, PT 8 [place] [address] [email or web address] documented as of this encounter Procedures Procedure Name Priority Date/Time Associated Diagnosis Comments PT-INR Routine 03/07/2025 8:09 AM EDT Cerebrovascular accident (CVA) APS (antiphospholipid syndrome) Chronic anticoagulation documented in this encounter Results * (ABNORMAL) PT-INR (03/07/2025 8:09 AM EDT) PT 27.6(H) 10.2 - 12.9 sec [facility] INR 2.2(H) 0.9 - 1.1 [facility] Comment:Therapeutic range fo r oral Vitamin K antagonists: 2.0-3.5 Blood 03/07/2025 8:09 AM EDT 03/07/2025 8:12 AM EDT us Mary ELIZONDO LAB BLOOD ORDERABLES Final Result [facility] 30 [place] [address] documented in this encounter Visit Diagnoses Diagnosis Cerebrovascular accident (CVA) APS (antiphospholipid syndrome) Primary hypercoagulable state Chronic anticoagulation Encounter for long-term (current) use of anticoagulants documented in this encounter Care Teams Airplane Flight Attendant Relationship Specialty Start Date End Date Mary Pate PA [address] [place] [address] [place] [address] PCP - General Physician Dust Collector 12/09/23 Avel Henson DO [address] [place] [id number] [email or web address] Insurance Assigned Provider 09/24/23 documented as of this encounter Additional Source Comments The information contained in this document represents components of the legal health record. It is not the complete legal health record.[facility]
[2025-03-08 09:02] LABS: MANUAL DIFF FLAG NO
--- OUTSIDE RECORDS SUMMARY | 2025-03-08 09:25 | XMS_ITS | Encounter Summary ---
Author Organization [facility] Address [address] [facility] [address] [place] [address] Phone Care Team Providers Care Crisis Mental Health Therapist Name Role Phone Avel Henson DO Unavailable Mary Pate Primary Care Provider [phone] Encounter Details Date Type Department Care Team (Late st Contact Info) Description 09/21/2024 Ancillary Orders [facility], X-Ray - [address] [address] Mary Pate PA 6 [facility] [place] [address] Pain in joints (Primary Dx); Pain Social [...] Description 2025 8:00 AM EDT Office Visit [facility] Rehabilitation Services [address] [place] [address] Mary Pate PA [address] [place] [address] Elian Horne, PT 8 [place] [address] [email or web address] documented as of this encounter Results * [...] sites documented in this encounter Care Teams Crisis Mental Health Therapist Relationship Specialty Start Date End Date Mary Pate PA [address] [place] [address] [place] [address] PCP - General Physician Billet Assembler 12/09/23 Avel Henson DO [address] [place] [address] [place] [address] [email or web address] Insurance Assigned Provider 09/24/23 documented as of this encounter Additional Source Comments The information contained in this document represents components of the legal health record. It is not the complete legal health record.[facility]
--- OUTSIDE RECORDS SUMMARY | 2025-03-08 09:25 | XMS_ITS | Encounter Summary ---
Author Organization [facility] Address [address] [facility] [address] [place] [address] Phone Care Team Providers Care Child Development Instructor Name Role Phone Unknown, Unknown Primary Care Provider Avel Swenson DO Unavailable Mary Pate Primary Care Provider [phone] Encounter Details Date Type Department Care Team (Late st Contact Info) Description 04/22/2017 Transcribe Orders [facility] Laboratory 30 [place] [address] Forest Guido MD [address] [place] [phone] Myasthenia gravis without exacerbation (Primary Dx) Social [...] Description 2025 8:00 AM EDT Office Visit [facility] Rehabilitation Services 8 [place] [address] Mary Pate PA 6 [facility] [place] [address] Elian Horne, PT 8 [place] [address] documented as of this encounter Results * LFTs (hepatic panel) (04/22/2017 8:21 AM EDT) ALKALINE PHOSPHATASE 99 39 - 117 U/L [facility] TOTAL BILIRUBIN 0.4 0 - 1.2 mg/dL [facility] DIRECT BILIRUBIN <0.2 0 - 0.3 mg/dL [facility] Bilirubin (Indirect) NOT CALCULATED 0 - 1.5 mg/dL [facility] AST 20 0 - 37 U/L [facility] ALT 28 0 - 40 U/L [facility] TOTAL PROTEIN 6.7 6.5 - 8.0 g/dL [facility] ALBUMIN 4.1 3.9 - 4.8 g/dL [facility] GLOBULIN 2.6 1 - 4.8 g/dL [facility] A/G Ratio 1.58 1.00 - 4.80 RATIO [facility] Blood 04/22/2017 8:21 AM EDT 04/22/2017 1:53 PM EDT us Forest Guido MD LAB BLOOD ORDERABLES Edite d Result - Final [facility] 30 [place], [place] [id number] * Basic metabolic panel (04/22/2017 8:21 AM EDT) SODIUM 142 133 - 146 mmol/L [facility] CHLORIDE 103 96 - 108 mmol/L [facility] POTASSIUM 4.7 3.3 - 5.1 mmol/L [facility] CO2 30 21 - 35 mmol/L [facility] BUN 15 6 - 19 mg/dL [facility] CREATININE 0.50 0.5 - 1.5 mg/dL [facility] GLUCOSE 92 70 - 99 mg/dL [facility] CALCIUM 9.3 8.4 - 10.3 mg/dL [facility] EGFR >60 60 - 1000 mL/min/1.7 3m2 [facility] Comment:Abnormal if <60. If patient is -Lao, multiply the result by 1.21. ANION GAP 14 10 - 20 mmol/L [facility] Blood 04/22/2017 8:21 AM EDT 04/22/2017 1:53 PM EDT us Forest Guido MD LAB BLOOD ORDERABLES Final Result [facility] 30 [place] [address] * CBC and differential (04/22/2017 8:21 AM EDT) WBC 4.98 3.40 - 11.20 K/uL [facility] RBC 4.34 3.80 - 4.80 M/uL [facility] HGB 12.2 12.0 - 15.0 g/dL [facility] HCT 36.9 36.0 - 46.0 % [facility] PLT 141 130 - 400 K/uL [facility] MCV 85.0 79.0 - 98.0 fL [facility] MCH 28.1 27.0 - 34.8 pg [facility] MCHC 33.1 31.5 - 36.0 g/dL [facility] RDW 13.9 10.8 - 14.6 % [facility] MPV 11.4 9.4 - 12.4 fl [facility] NRBC 0.00 /100 WBCs [facility] ABSOLUTE NRBC 0.00 K/uL [facility] DIFF METHOD Auto [facility] NEUTS 66.9 45.30 - 77.70 % [facility] LYMPHS 22.7 12.30 - 39.70 % [facility] MONOS 7.4 4.10 - 12.80 % [facility] EOS 2.0 0 - 7.2 % [facility] BASOS 0.6 0 - 2.80 % [facility] Granulocytes, immature (%) 0.4 0.0 - 0.9 % [facility] ABSOLUTE NEUTS 3.33 1.40 - 7.70 K/uL [facility] ABSOLUTE LYMPHS 1.13 0.60 - 3.20 K/uL [facility] ABSOLUTE MONOS 0.37 0.11 - 0.59 K/uL [facility] ABSOLUTE EOS 0.10 0.01 - 0.50 K/uL [facility] ABSOLUTE BASOS 0.03 0.00 - 0.08 K/uL [facility] Granulocytes, immature 0.02 0.00 - 0.05 K/uL [facility] Blood 04/22/2017 8:21 AM EDT 04/22/2017 1:53 PM EDT us Forest Guido MD LAB BLOOD ORDERABLES Final Result [facility] 30 [place] [address] documented in this encounter Visit Diagnoses Diagnosis Myasthenia gravis without exacerbation- Primary documented in this encounter Care Teams Child Development Instructor Relationship Specialty Start Date End Date Unknown, Unknown, MD PCP - General 04/22/17 12/08/23 Mary Pate PA [address] [place] [address] [place] [address] PCP - General Physician Furnace Helper 12/09/23 Avel Henson DO [address] [place] [address] [email or web address] Insurance Assigned Provider 09/24/23 documented as of this encounter Additional Source Comments The information contained in this document represents components of the legal health record. It is not the complete legal health record.[facility]
--- OUTSIDE RECORDS SUMMARY | 2025-03-08 09:25 | XMS_ITS | Clinical Summary ---
Author Organization [facility] Address [address] [facility] [address] [place] [address] Phone Care Team Providers Care Activities Specialist Name Role Phone Avel Henson DO Unavailable Mary Pate Primary Care Provider [phone] Allergies No known active allergies Medications aspirin [...] Encounters Date Type Department Care Team Description 03/07/2025 7:26 AM EDT - 03/07/2025 11:59 PM EDT Hospital Encounter [facility] Laboratory 30 [place] [address] Mary Pate PA Discharge Disposition: Home or Self Care 03/07/2025 Telephone Anticoagulation Clinic 30 [place] [address] Ayah Clemente RN 03/05/2025 7:24 AM EDT - 03/05/2025 11:59 PM EDT Hospital Encounter [facility] Laboratory [address] [place] [address] Mary Pate PA Discharge Disposition: Home or Self Care 03/05/2025 Telephone Anticoagulation Clinic [address] [place] [address] Ayah Clemente, RN INR Check (/) 03/04/2025 Telephone Anticoagulation Clinic [address] [place] [address] Ayah Clemente, RN 03/01/2025 8:00 AM EDT Office Visit [address] [place] [address] Mary Pate PA Bell, Ross, PT Vertigo (Primary Dx) 02/22/2025 Transcribe Orders [address] [place] [address] Mary Pate PA Encounter for rehabilitation (Primary Dx) 02/04/2025 8:15 AM EDT - 02/04/2025 11:59 PM EDT Hospital Encounter [facility] [address] [place] [address] Mary Pate PA Discharge Disposition: Home or Self Care 02/04/2025 Telephone Anticoagulation Clinic [address] [place] [address] Ayah Clemente RN INR Check (/) 01/22/2025 8:21 AM EDT - 01/22/2025 11:59 PM EDT Hospital Encounter [facility] [address] [place] [address] Mary Pate PA Discharge Disposition: Home or Self Care 01/22/2025 Telephone Anticoagulation Clinic [address] [place] [address] Ayah Clemente RN INR Check (/) 01/21/2025 Documentation Anticoagulation Clinic [address] [place] [address] Ayah Clemente RN 01/14/2025 7:39 AM EDT - 01/14/2025 11:59 PM EDT Hospital Encounter [facility] [address] [place] [address] Mary Pate PA Discharge Disposition: Home or Self Care 01/14/2025 Telephone Anticoagulation Clinic [address] [place] [address] Ayah Clemente RN INR Check (/) 01/04/2025 10:40 AM EDT - 01/04/2025 11:59 PM EDT Hospital Encounter [facility] Laboratory [address] [place] [address] Mary Pate PA Discharge Disposition: Home or Self Care 01/04/2025 Telephone Anticoagulation Clinic [address] [place] [address] Ayah Clemente RN INR Check (/) 01/04/2025 Telephone Anticoagulation Clinic [address] [place] [address] Ayah Clemente RN 01/01/2025 8:24 AM EDT - 01/01/2025 11:59 PM EDT Hospital Encounter [facility] [address] [place] [address] Mary Pate PA Discharge Disposition: Home or Self Care 01/01/2025 Telephone Anticoagulation Clinic [address] [place] [address] Ayah Clemente RN INR Check (/) 12/27/2024 8:35 AM EDT - 12/27/2024 11:59 PM EDT Hospital Encounter [facility] [address] [place] [address] Mary Pate PA Discharge Disposition: Home or Self Care 12/27/2024 Telephone Anticoagulation Clinic [address] [place] [address] Severo Toscano, [facility] Anticoagulation; INR Check 12/20/2024 9:54 AM EDT - 12/20/2024 11:59 PM EDT Hospital Encounter [facility] [address] [place] [address] Mary Pate PA Discharge Disposition: Home or Self Care 12/20/2024 Telephone [facility] [address] [place] [address] Keyana Aguilar CNP INR Check 12/20/2024 Orders Only [facility] [address] [place] [address] Radha Mora Cerebrovascular accident (CVA); APS (antiphospholipid syndrome); Chronic anticoagulation 12/14/2024 8:06 AM EDT - 12/14/2024 11:59 PM EDT Hospital Encounter [facility] [address] [place] [address] Mary Pate PA Discharge Disposition: Home or Self Care 12/14/2024 Telephone [facility] [address] [facility] [address] [place] [address] Keyana Aguilar CNP INR Check from Last 3 Months Social History Tobacco [...] Description 2025 8:00 AM EDT Office Visit [facility] Rehabilitation Services 8 [place] [address] Mary Pate PA 6 [facility] [place] [address] Elian Horne, PT 8 [place] [address] [email or web address] Health Maintenance Due Date Last Done Comments [...] Additional history exists POTASSIUM LEVEL 09/17/2025 09/17/2024, 10/0 01/2019, 08/18/2018, Additional history exists HEPATITIS A [...] APS (antiphospholipid syndrome) Chronic anticoagulation PT-INR Routine 03/05/2025 7:51 AM EDT Cerebrovascular accident (CVA) APS (antiphospholipid syndrome) Chronic anticoagulation PT-INR Routine 02/04/2025 8:15 AM EDT Cerebrovascular [...] to Health Maintenance Results * (ABNORMAL) PT-INR (03/07/2025 8:09 AM EDT) Only the most recent of10 resultswithin the time period is included. PT 27.6(H) 10.2 - 12.9 sec [facility] INR 2.2(H) 0.9 - 1.1 [facility] Comment:Therapeutic range fo r oral Vitamin K antagonists: 2.0-3.5 Blood 03/07/2025 8:09 AM EDT 03/07/2025 8:12 AM EDT us Mary ELIZONDO LAB BLOOD ORDERABLES Final Result [address] [address] * (ABNORMAL) Comprehensive metabolic panel (09/17/2024 8:20 AM EDT) SODIUM 141 133 - 146 mmol/L [facility] POTASSIUM 3.9 3.3 - 5.1 mmol/L [facility] CHLORIDE 103 96 - 108 mmol/L [facility] CO2 28 21 - 35 mmol/L [facility] BUN 17 6 - 19 mg/dL [facility] CREATININE 0.60 0.5 - 1.5 mg/dL [facility] GLUCOSE 139(H) 70 - 99 mg/dL [facility] ALBUMIN 4.6 3.9 - 4.8 g/dL [facility] TOTAL PROTEIN 7.8 6.5 - 8.0 g/dL [facility] CALCIUM 9.8 8.4 - 10.3 mg/dL [facility] ALKALINE PHOSPHATASE 99 39 - 117 U/L [facility] TOTAL BILIRUBIN 0.4 0.0 - 1.2 mg/dL [facility] AST 25 0 - 37 U/L [facility] ALT 24 0 - 40 U/L [facility] GLOBULIN 3.2 1 - 4.8 g/dL [facility] EGFR 104 >59 mL/min/1.7 3m2 [facility] Comment:Estimated glomerular filtration rate calculated using the CKD-EPI refit equation. ANION GAP 14 10 - 20 mmol/L [facility] Blood 09/17/2024 8:20 AM EDT 09/17/2024 8:23 AM EDT Mary ELIZONDO LAB BLOOD ORDERABLES Final Result [facility] 30 [place] [address] from Last 3 Months or Most Recently Relevant to Health Maintenance Insurance [facility] PPO EPO [facility] PPO EPO [facility] PPO [facility]PO [facility] PPO EPO [facility] PPO EPO [facility] PPO [facility]PO [facility] PPO EPO [facility] PPO EPO [facility] PPO EPO Care Teams Activities Specialist Relationship Specialty Start Date End Date Mary Pate PA [address] [place] [address] [place] [address] PCP - General Physician Pile Driving Technician 12/09/23 Avel Henson DO [address] [place] [address] [place] [address] [email or web address] Insurance Assigned Provider 09/24/23 Additional Source Comments The information contained in this document represents components of the legal health record. It is not the complete legal health record.[facility]
--- OUTSIDE RECORDS SUMMARY | 2025-03-08 09:25 | XMS_ITS | Encounter Summary ---
Author Organization [facility] Address [address] [facility] [address] [place] [address] Phone Care Team Providers Care Learning Disabilities Resource Teacher Name Role Phone Avel Henson DO Unavailable Mary Pate Primary Care Provider Encounter Details Date Type Department Care Team (Late Contact Info) Description 09/21/2024 Transcribe Orders [facility] Laboratory 30 [place] [address] Mary Pate PA 6 [facility] [place] [address] Social History Tobacco Use Types Packs/Day Years [...] Department Care Team (Late Contact Info) Description 2025 8:00 AM EDT Office Visit [facility] Rehabilitation Services [address] [place] [address] Mary Pate PA 6 [facility] [place] [address] Elian Horne, PT 8 [place] [address] [email or web address] documented as of this encounter Visit Diagnoses Not on filedocumented in this encounter Care Teams Learning Disabilities Resource Teacher Relationship Specialty Start Date End Date Mary Pate PA 6 [facility] [place] [address] PCP - General Physician Director Export 12/09/23 Avel Henson DO [address] [place] [address] [email or web address] Insurance Assigned Provider 09/24/23 documented as of this encounter Additional Source Comments The information contained in this document represents components of the legal health record. It is not the complete legal health record.[facility]
--- OUTSIDE RECORDS SUMMARY | 2025-03-08 09:25 | XMS_ITS | Encounter Summary ---
Author Organization [facility] Address [address] [facility] [address] [place] [address] Phone Care Team Providers Care Wheel Inspector Name Role Phone Avel Henson DO Unavailable Mary Pate Primary Care Provider [phone] Encounter Details Date Type Department Care Team (Late st Contact Info) Description 03/04/2025 Telephone Anticoagulation Clinic 30 [place], [place] [phone] Ayah Clemente RN 30 [place] [address] [email or web address] Social History Tobacco Use Types Packs/Day Years [...] tomorrow. However, Carmen reported she was at [facility] over the weekend for lightheadedness. Her [...] Description 2025 8:00 AM EDT Office Visit [facility] Rehabilitation Services 8 [place] [address] Mary Pate PA 6 [place] [address] Elian Horne, PT 8 [place] [address] documented as of this encounter Visit Diagnoses Diagnosis Cerebrovascular accident (CVA)- Primary APS (antiphospholipid syndrome) Primary hypercoagulable state Chronic anticoagulation Encounter for long-term (current) use of anticoagulants documented in this encounter Care Teams Wheel Inspector Relationship Specialty Start Date End Date Mary Pate PA [address] [place] [address] PCP - General Physician Dj Instructor 12/09/23 Avel Henson DO [address] [place] [phone] Insurance Assigned Provider 09/24/23 documented as of this encounter Additional Source Comments The information contained in this document represents components of the legal health record. It is not the complete legal health record.[facility]
--- OUTSIDE RECORDS SUMMARY | 2025-03-08 09:25 | XMS_ITS | Encounter Summary ---
Author Organization [facility] Address [address] [facility] [address] [place] [address] Phone Care Team Providers Care Equipment Maintenance Superintendent Name Role Phone Unknown, Unknown Primary Care Provider Avel Swenson DO Unavailable Mary Pate Primary Care Provider Encounter Details Date Type Department Care Team (Late st Contact Info) Description 06/17/2017 Transcribe Orders [facility] [address] [place] [address] Forest Guido MD [address] [place] [address] [phone] Myasthenia gravis without exacerbation (Primary Dx) Social [...] Description 2025 8:00 AM EDT Office Visit [facility] 8 [place] [address] Mary Pate PA [address] [place] [address] [place] [address] Elian Horne, PT 8 [place] [address] documented as of this encounter Results * (ABNORMAL) LFTs (hepatic panel) (06/17/2017 7:51 AM EST) ALKALINE PHOSPHATASE 120(H) 39 - 117 U/L [facility] TOTAL BILIRUBIN 0.4 0 - 1.2 mg/dL [facility] DIRECT BILIRUBIN <0.2 0 - 0.3 mg/dL [facility] Bilirubin (Indirect) NOT CALCULATED 0 - 1.5 mg/dL [facility] AST 22 0 - 37 U/L [facility] ALT 16 0 - 40 U/L [facility] TOTAL PROTEIN 6.6 6.5 - 8.0 g/dL [facility] ALBUMIN 3.7(L) 3.9 - 4.8 g/dL [facility] GLOBULIN 2.9 1 - 4.8 g/dL [facility] A/G Ratio 1.28 1.00 - 4.80 RATIO [facility] Blood 06/17/2017 7:51 AM EST 06/17/2017 8:54 AM EST us Forest Guido MD LAB BLOOD ORDERABLES Final Result Performing Organization Address City/State/[facility] Co de Phone Number [facility] [address] [place] [address] * Basic metabolic panel (06/17/2017 7:51 AM EST) SODIUM 137 133 - 146 mmol/L [facility] CHLORIDE 101 96 - 108 mmol/L [facility] POTASSIUM 4.7 3.3 - 5.1 mmol/L [facility] CO2 28 21 - 35 mmol/L [facility] BUN 9 6 - 19 mg/dL [facility] CREATININE 0.50 0.5 - 1.5 mg/dL [facility] GLUCOSE 89 70 - 99 mg/dL [facility] CALCIUM 8.6 8.4 - 10.3 mg/dL [facility] EGFR >60 60 - 1000 mL/min/1.7 3m2 [facility] Comment:Abnormal if <60. If patient is -Tristanian, multiply the result by 1.21. ANION GAP 13 10 - 20 mmol/L [facility] Blood 06/17/2017 7:51 AM EST 06/17/2017 8:54 AM EST us Forest Guido MD LAB BLOOD ORDERABLES Final Result [facility] [address] [place] [address] * CBC and differential (06/17/2017 7:51 AM EST) WBC 6.77 3.40 - 11.20 K/uL [facility] RBC 4.32 3.80 - 4.80 M/uL [facility] HGB 12.5 12.0 - 15.0 g/dL [facility] HCT 37.1 36.0 - 46.0 % [facility] PLT 172 130 - 400 K/uL [facility] MCV 85.9 79.0 - 98.0 fL [facility] MCH 28.9 27.0 - 34.8 pg [facility] MCHC 33.7 31.5 - 36.0 g/dL [facility] RDW 14.5 10.8 - 14.6 % [facility] MPV 12.0 9.4 - 12.4 fl [facility] NRBC 0.00 /100 WBCs [facility] ABSOLUTE NRBC 0.00 K/uL [facility] DIFF METHOD Auto [facility] NEUTS 75.5 45.30 - 77.70 % [facility] LYMPHS 16.0 12.30 - 39.70 % [facility] MONOS 6.1 4.10 - 12.80 % [facility] EOS 1.2 0 - 7.2 % [facility] BASOS 0.6 0 - 2.80 % [facility] Granulocytes, immature (%) 0.6 0.0 - 0.9 % [facility] ABSOLUTE NEUTS 5.12 1.40 - 7.70 K/uL [facility] ABSOLUTE LYMPHS 1.08 0.60 - 3.20 K/uL [facility] ABSOLUTE MONOS 0.41 0.11 - 0.59 K/uL [facility] ABSOLUTE EOS 0.08 0.01 - 0.50 K/uL [facility] ABSOLUTE BASOS 0.04 0.00 - 0.08 K/uL [facility] Granulocytes, immature 0.04 0.00 - 0.05 K/uL [facility] Blood 06/17/2017 7:51 AM EST 06/17/2017 8:54 AM EST us Forest Guido MD LAB BLOOD ORDERABLES Final Result [facility] [address] [place] [address] documented in this encounter Visit Diagnoses Diagnosis Myasthenia gravis without exacerbation- Primary documented in this encounter Care Teams Equipment Maintenance Superintendent Relationship Specialty Start Date End Date Unknown, Unknown, PCP - General 04/22/17 12/08/23 Mary Pate PA [address] [place] [address] [place] [address] PCP - General Physician Botany Teacher 12/09/23 Avel Henson DO [address] [place] [address] [email or web address] Insurance Assigned Provider 09/24/23 documented as of this encounter Additional Source Comments The information contained in this document represents components of the legal health record. It is not the complete legal health record.[facility]
--- OUTSIDE RECORDS SUMMARY | 2025-03-08 09:25 | XMS_ITS | Encounter Summary ---
Author Organization [facility] Address [address] [facility] [address] [place] [address] Phone Care Team Providers Care Coin Machine Assembler Name Role Phone Avel Henson DO Unavailable Mary Pate Primary Care Provider [phone]- [phone] Reason for Visit * Reason Onset Date Comments INR Check 03/05/2025 Encounter Details Date Type Department Care Team (Late st Contact Info) Description 03/05/2025 Telephone Anticoagulation Clinic [address] [place] [address] Ayah Clemente, RN 30 [place] [address] INR Check (/) Social History Tobacco Use Types Packs/Day Years [...] Progress Notes * Ayah Clemente, RN - 03/05/2025 10:21 AM EDT INR result received from [facility] Lab. To recap: Carmen reported yesterday she was at [facility] with elevated INRs. She did receive vitamin k. She was not told to hold warfarin when she was discharged, so she did take it yesterday. INR is still elevated, 4.6. I will hold the warfarin x 3 doses. Next test 03/07/25. Carmen will bring her warfarin with her on 03/07/25 to work in case she will be resuming it. Instructions reviewed with Carmen by phone. She repeated them back to me correctly. Carmen also reported she has been told to stop Zepbound. documented in this encounter Plan of Treatment Upcoming Encounters Date Type Department Care Team (Late st Contact Info) Description 2025 8:00 AM EDT Office Visit [facility] Rehabilitation Services [address] [place] [address] Mary Pate PA 6 [place] [address] Elian Horne, MICHELINE 8 [place] [address] [email or web address] Scheduled Orders Name Type Priority Associated Diagnoses Orde r Schedule PT-INR Lab Routine Cerebrovascular accident (CVA) APS (antiphospholipid syndrome) Chronic anticoagulation Weekly for 55 Occurrences starting 03/05/2025 until 03/05/2026 documented as of this encounter Visit Diagnoses Diagnosis Cerebrovascular accident (CVA)- Primary APS (antiphospholipid syndrome) Primary hypercoagulable state Chronic anticoagulation Encounter for long-term (current) use of anticoagulants documented in this encounter Care Teams Coin Machine Assembler Relationship Specialty Start Date End Date Mary Pate PA [address] [facility] [place] [address] PCP - General Physician Local Truck Driver 12/09/23 Avel Henson DO [address] [place] [address] [place] [address] Insurance Assigned Provider 09/24/23 documented as of this encounter Additional Source Comments The information contained in this document represents components of the legal health record. It is not the complete legal health record.[facility]
--- OUTSIDE RECORDS SUMMARY | 2025-03-08 09:25 | XMS_ITS | Encounter Summary ---
Author Organization [facility] Address [address] [facility] [address] [place] [address] Phone Care Team Providers Care Dry Kiln Loader Name Role Phone Avel Henson DO Unavailable Mary Pate Primary Care Provider [phone] Encounter Details Date Type Department Care Team (Late st Contact Info) Description 03/07/2025 Telephone Anticoagulation Clinic [address] [place] [address] Ayah Clemente RN 30 [place] [address] [email or web address] Social History Tobacco Use Types Packs/Day Years [...] Progress Notes * Ayah Clemente, RN - 03/07/2025 11:55 AM EDT INR result received from [facility] lab is in range at 2.2. Phone call to Carmen. She had no issues with elevated INR. Carmen will resume warfarin today at 30mg/week. Next test in 10 days. Instructions reviewed with Carmen. She wrote them down and repeated them back to me correctly. 03/07/2025 Anticoagulation Monitoring INR Goal 2.0-3.0 Assoc. INR Date 03/07/2025 Associated INR 2.2 Pt. deviation No Tuesday dose 5 mg Tuesday dose 2.5 mg Tuesday dose 5 mg Tuesday dose 5 mg dose 5 mg Tuesday dose 2.5 mg Tuesday dose 5 mg Weekly dose PRESCRIBED 30 mg Return date 03/18/2025 Visit Report documented in this encounter Plan of Treatment Upcoming Encounters Date Type Department Care Team (Late st Contact Info) Description 2025 8:00 AM EDT Office Visit [facility] Rehabilitation Services 8 [place] [address] Mary Pate PA 6 [place] [address] Elian Horne, PT 8 [place] [address] [email or web address] documented as of this encounter Visit Diagnoses Diagnosis Cerebrovascular accident (CVA)- Primary APS (antiphospholipid syndrome) Primary hypercoagulable state Chronic anticoagulation Encounter for long-term (current) use of anticoagulants documented in this encounter Care Teams Dry Kiln Loader Relationship Specialty Start Date End Date Mary Pate PA 6 [place] [address] PCP - General Physician Financial Risk Manager 12/09/23 Avel Henson DO [address] [place] [address] [email or web address] Insurance Assigned Provider 09/24/23 documented as of this encounter Additional Source Comments The information contained in this document represents components of the legal health record. It is not the complete legal health record.[facility]
[2025-03-08 09:41] LABS: Hematocrit 38.5 % (37.0-47.0); Hemoglobin 12.7 g/dl (12.0-16.0); Imm Gran Abs Auto 0.03 X10*3/uL (0.00-0.03); Imm Gran Pct Auto 0.6 % (0.0-0.4); Lymphocytes Absolute Auto 0.8 X10*3/uL (1.2-4.9); Mean Corpuscular HGB Conc 33.0 g/dl (31.0-35.0); Mean Corpuscular Hemoglobin 27.8 pg (27.0-33.0); Mean Corpuscular Volume 84.2 fL (80.0-98.0); NRBC Abs Auto 0.020 X10*3/uL (0.0-0.012); NRBC Pct Auto 0.4 /100WBC (0.0-0.2); Red Blood Count 4.57 X10*6/uL (4.20-5.50); White Blood Count 5.4 X10*3/uL (4.8-10.8)
[2025-03-08 09:45] LABS: Platelet Count 75 X10*3/uL (160-400)
[2025-03-08 10:18] LABS: Hemoglobin A1C 153.1156 umol/L; Total Hemoglobin (HGBA1C) 3415.1623 umol/L
[2025-03-08 10:20] LABS: Alanine Aminotransferase 26 U/L (0-31); Albumin Level 4.4 g/dL (3.5-5.0); Alkaline Phosphatase 78 U/L (39-117); Anion Gap 12 (12-20); Aspartate Amino Transferase 22 U/L (5-31); Blood Urea Nitrogen 12 mg/dL (9-16); Calcium 9.3 mg/dL (8.4-10.2); Carbon Dioxide 28 mmol/L (22-29); Chloride 108 mmol/L (96-108); Estimated Glomerular Filt Rate > 60; Iron 75 mcg/dL (30-160); Percent Iron Saturation 28 % (15-50); Potassium 3.9 mmol/L (3.3-5.1); Sodium 144 mmol/L (135-145); Total Iron Binding Capacity 265 mcg/dL (228-428); Total Protein 7.0 g/dL (6.5-8.0); Unsaturated Iron Binding 190 ug/dL
[2025-03-08 10:38] LABS: Ferritin 151 ng/mL (10-250)
[2025-03-08 10:53] LABS: Folate 15.5 ng/mL (> or = 4.0); Vitamin B12 > 2000 pg/mL (200-900)
== END 2025-03-08 08:47 | disposition home or self-care (01) ==
LOC: HO.LAB 08:46
PROVIDERS: PCP Physician Assistant; Visit Provider Physician Assistant
DX: G70.00 Myasthenia gravis without (acute) exacerbation (principal); R53.83 Other fatigue; Z13.1 Encounter for screening for diabetes mellitus
CPT/HCPCS: 36415; 80053; 82306; 82607; 82728; 82746; 83036; 83540; 84443; 85025; 85652; 86140

== ENCOUNTER 2025-04-10 07:13 | Outpatient (REF) | payer BC, SELFPAY ==
--- OUTSIDE RECORDS SUMMARY | 2025-04-10 07:17 | XMS_ITS | Encounter Summary ---
Author Organization [facility] Address [address] [place] [address] Phone Care Team Providers Care Financial Specialist Name Role Phone Unknown, Unknown Primary Care Provider Avel Swenson DO Unavailable Mary Pate Primary Care Provider [phone] Ayah Clemente RN Unavailable [phone] Encounter Details Date Type Department Care Team (Late st Contact Info) Description 06/17/2017 Transcribe Orders [facility] [address] [place] [address] Forest Guido MD [address] [place] [phone] Myasthenia gravis without exacerbation (Primary Dx) Social [...] Care Team (Late st Contact Info) Description 04/19/2025 10:00 AM EDT Office Visit [facility] 10 [place], [place] [phone] Unknown, Unknown, Mary Wilkinson, DOCTOR NATUROPATHIC [address] [place], [place] [phone] documented as of this encounter Results * (ABNORMAL) LFTs (hepatic panel) (06/17/2017 7:51 AM EST) ALKALINE PHOSPHATASE 120(H) 39 - 117 U/L [facility] TOTAL BILIRUBIN 0.4 0 - 1.2 mg/dL [facility] DIRECT BILIRUBIN <0.2 0 - 0.3 mg/dL [facility] Bilirubin (Indirect) NOT CALCULATED 0 - 1.5 mg/dL [facility] AST 22 0 - 37 U/L [facility] ALT 16 0 - 40 U/L [facility] TOTAL PROTEIN 6.6 6.5 - 8.0 g/dL [facility] ALBUMIN 3.7(L) 3.9 - 4.8 g/dL [facility] GLOBULIN 2.9 1 - 4.8 g/dL [facility] A/G Ratio 1.28 1.00 - 4.80 RATIO [facility] Blood 06/17/2017 7:51 AM EST 06/17/2017 8:54 AM EST us Forest Guido MD LAB BLOOD ORDERABLES Final Result Performing Organization Address City/State/[facility] Co de Phone Number [address] [address] * Basic metabolic panel (06/17/2017 7:51 AM EST) SODIUM 137 133 - 146 mmol/L [facility] CHLORIDE 101 96 - 108 mmol/L [facility] POTASSIUM 4.7 3.3 - 5.1 mmol/L [facility] CO2 28 21 - 35 mmol/L [facility] BUN 9 6 - 19 mg/dL [facility] CREATININE 0.50 0.5 - 1.5 mg/dL [facility] GLUCOSE 89 70 - 99 mg/dL [facility] CALCIUM 8.6 8.4 - 10.3 mg/dL [facility] EGFR >60 60 - 1000 mL/min/1.7 3m2 [facility] Comment:Abnormal if <60. If patient is -Danish, multiply the result by 1.21. ANION GAP 13 10 - 20 mmol/L [facility] Blood 06/17/2017 7:51 AM EST 06/17/2017 8:54 AM EST us Forest Guido MD LAB BLOOD ORDERABLES Final Result [facility] [address] [place] [address] * CBC and differential (06/17/2017 7:51 AM EST) WBC 6.77 3.40 - 11.20 K/uL [facility] RBC 4.32 3.80 - 4.80 M/uL [facility] HGB 12.5 12.0 - 15.0 g/dL [facility] HCT 37.1 36.0 - 46.0 % [facility] PLT 172 130 - 400 K/uL [facility] MCV 85.9 79.0 - 98.0 fL [facility] MCH 28.9 27.0 - 34.8 pg [facility] MCHC 33.7 31.5 - 36.0 g/dL [facility] RDW 14.5 10.8 - 14.6 % [facility] MPV 12.0 9.4 - 12.4 fl [facility] NRBC 0.00 /100 WBCs [facility] ABSOLUTE NRBC 0.00 K/uL [facility] DIFF METHOD Auto [facility] NEUTS 75.5 45.30 - 77.70 % [facility] LYMPHS 16.0 12.30 - 39.70 % [facility] MONOS 6.1 4.10 - 12.80 % [facility] EOS 1.2 0 - 7.2 % [facility] BASOS 0.6 0 - 2.80 % [facility] Granulocytes, immature (%) 0.6 0.0 - 0.9 % [facility] ABSOLUTE NEUTS 5.12 1.40 - 7.70 K/uL [facility] ABSOLUTE LYMPHS 1.08 0.60 - 3.20 K/uL [facility] ABSOLUTE MONOS 0.41 0.11 - 0.59 K/uL [facility] ABSOLUTE EOS 0.08 0.01 - 0.50 K/uL [facility] ABSOLUTE BASOS 0.04 0.00 - 0.08 K/uL [facility] Granulocytes, immature 0.04 0.00 - 0.05 K/uL [facility] Blood 06/17/2017 7:51 AM EST 06/17/2017 8:54 AM EST us Forest Guido MD LAB BLOOD ORDERABLES Final Result [facility] [address] [place] [address] documented in this encounter Visit Diagnoses Diagnosis Myasthenia gravis without exacerbation- Primary documented in this encounter Care Teams Financial Specialist Relationship Specialty Start Date End Date Unknown, Unknown, MD PCP - General 04/22/17 12/08/23 Mary Pate PA 6 [facility] [place] [address] PCP - General Physician Web Content Writer 12/09/23 Avel Henson DO [address] [facility] [place] [address] [email or web address] Insurance Assigned Provider 09/24/23 Ayah Clemente RN 30 [place] [address] Registered Nurse 03/19/25 documented as of this encounter Additional Source Comments The information contained in this document represents components of the legal health record. It is not the complete legal health record.[facility]
--- OUTSIDE RECORDS SUMMARY | 2025-04-10 07:17 | XMS_ITS | Clinical Summary ---
Author Organization [facility] Address [address] [address] Phone Care Team Providers Care Student Assistant Name Role Phone Avel Henson DO Unavailable Mary Pate Primary Care Provider [phone] Ayah Clemente RN Unavailable [phone] Allergies No known active allergies Medications aspirin [...] Encounters Date Type Department Care Team Description 03/21/2025 Transcribe Orders Anticoagulation Clinic [address] [place] [address] Ayah Clemente RN CVA (cerebral vascular accident) (Primary Dx); APS (antiphospholipid syndrome); Chronic anticoagulation 03/19/2025 7:21 AM EDT - 03/19/2025 11:59 PM EDT Hospital Encounter [facility] [address] [place] [address] Mary Pate PA Discharge Disposition: Home or Self Care 03/19/2025 Telephone Anticoagulation Clinic [address] [place] [address] Ayah Clemente RN INR Check (/) 03/07/2025 7:26 AM EDT - 03/07/2025 11:59 PM EDT Hospital Encounter [facility] [address] [place] [address] Mary Pate PA Discharge Disposition: Home or Self Care 03/07/2025 Telephone Anticoagulation Clinic [address] [place] [address] Ayah Clemente RN 03/05/2025 7:24 AM EDT - 03/05/2025 11:59 PM EDT Hospital Encounter [facility] [address] [place] [address] Mary Pate PA Discharge Disposition: Home or Self Care 03/05/2025 Telephone Anticoagulation Clinic [address] [place] [address] Ayah Clemente RN INR Check (/) 03/04/2025 Telephone Anticoagulation Clinic [address] [place] [address] Ayah Clemente, SONNY 03/01/2025 8:00 AM EDT Office Visit [facility] Rehabilitation Services [address] [place] [address] Mary Pate PA Bell, Ross, PT Vertigo (Primary Dx) 02/22/2025 Transcribe Orders [address] [address] Mary Pate PA Encounter for rehabilitation (Primary Dx) 02/04/2025 8:15 AM EDT - 02/04/2025 11:59 PM EDT Hospital Encounter [facility] [address] [place] [address] Mary Pate PA Discharge Disposition: Home or Self Care 02/04/2025 Telephone Anticoagulation Clinic [address] [place] [address] Ayah Clemente RN INR Check (/) 01/22/2025 8:21 AM EDT - 01/22/2025 11:59 PM EDT Hospital Encounter [facility] [address] [place] [address] Mary Pate PA Discharge Disposition: Home or Self Care 01/22/2025 Telephone Anticoagulation Clinic [address] [place] [address] Ayah Clemente, RN INR Check (/) 01/21/2025 Documentation Anticoagulation Clinic [address] [place] [address] Ayah Clemente, SONNY 01/14/2025 7:39 AM EDT - 01/14/2025 11:59 PM EDT Hospital Encounter [facility] [address] [place] [address] Mary Juan PA Discharge Disposition: Home or Self Care 01/14/2025 Telephone Anticoagulation Clinic [address] [place] [address] Ayah Clemente, RN INR Check (/) from Last 3 [...] Description 04/19/2025 10:00 AM EDT Office Visit [facility] Gastroenterology Clinic [address] [place] [address] Unknown, Unknown, Mary Wilkinson, BREAKER UP MACHINE OPERATOR 10 [place] [address] [email or web address] Health Maintenance Due Date Last Done Comments [...] FOBT 2011 SIGMOIDOSCOPY 2011 VIRTUAL COLONOSCOPY 2011 RSV VACCINE (1 - Risk 50-74 years 1-dose series) 2016 COVID-19 VACCINE (2 - Moderna risk series) [...] Priority Date/Time Associated Diagnosis Comments PT-INR Routine 03/19/2025 7:24 AM EDT Cerebrovascular accident (CVA) APS (antiphospholipid syndrome) Chronic anticoagulation PT-INR Routine 03/07/2025 8:09 AM EDT Cerebrovascular [...] to Health Maintenance Results * (ABNORMAL) PT-INR (03/19/2025 7:24 AM EDT) Only the most recent of6 resultswithin the time period is included. PT 33.2(H) 10.2 - 12.9 sec [facility] INR 2.7(H) 0.9 - 1.1 [facility] Comment:Therapeutic range fo r oral Vitamin K antagonists: 2.0-3.5 Blood 03/19/2025 7:24 AM EDT 03/19/2025 7:26 AM EDT us Mary ELIZONDO LAB BLOOD ORDERABLES Final Result [address] [address] * (ABNORMAL) Comprehensive metabolic panel (09/17/2024 8:20 AM EDT) SODIUM 141 133 - 146 mmol/L [facility] POTASSIUM 3.9 3.3 - 5.1 mmol/L [facility] CHLORIDE 103 96 - 108 mmol/L [facility] CO2 28 21 - 35 mmol/L [facility] BUN 17 6 - 19 mg/dL [facility] CREATININE 0.60 0.5 - 1.5 mg/dL [facility] GLUCOSE 139(H) 70 - 99 mg/dL [facility] ALBUMIN 4.6 3.9 - 4.8 g/dL [facility] TOTAL PROTEIN 7.8 6.5 - 8.0 g/dL [facility] CALCIUM 9.8 8.4 - 10.3 mg/dL [facility] ALKALINE PHOSPHATASE 99 39 - 117 U/L [facility] TOTAL BILIRUBIN 0.4 0.0 - 1.2 mg/dL [facility] AST 25 0 - 37 U/L [facility] ALT 24 0 - 40 U/L [facility] GLOBULIN 3.2 1 - 4.8 g/dL [facility] EGFR 104 >59 mL/min/1.7 3m2 [facility] Comment:Estimated glomerular filtration rate calculated using the CKD-EPI refit equation. ANION GAP 14 10 - 20 mmol/L [facility] Blood 09/17/2024 8:20 AM EDT 09/17/2024 8:23 AM EDT us Mary ELIZONDO LAB BLOOD ORDERABLES Final Result [facility] [address] [place] [address] from Last 3 Months or Most Recently Relevant to Health Maintenance Insurance [facility] PPO EPO [facility] PPO EPO [employer] PPO EPO DARIEN [facility] PPO EPO DARIEN [facility] PPO EPO [employer]AR[employer] [facility] PPO EPO Member Subscriber Plan / Payer (Ef fective 2018-Present) Name:Sindi King Relation to Subscriber:Self Name:Sindi King Payer ID:[id number] ([facility]) Type:PPO Address: [address] [place] [address] [facility] PPO EPO [facility] PPO EPO Member Subscriber Plan / Payer (Ef fective 2018-Present) Name:Sindi King Relation to Subscriber:Self Name:Sindi King Payer ID:[id number] ([facility]) Type:PPO Address: [address] [place] [address] [employer] [facility] PPO EPO Care Teams Student Assistant Relationship Specialty Start Date End Date Mary Pate PA [address] [facility] [place] [address] PCP - General Physician Office Support Associate 12/09/23 Avel Henson DO [address] [facility] [place] [address] [email or web address] Insurance Assigned Provider 09/24/23 Ayah Clemente, RN 30 [place] [address] [email or web address] Registered Nurse 03/19/25 Additional Source Comments The information contained in this document represents components of the legal health record. It is not the complete legal health record.[facility]
--- OUTSIDE RECORDS SUMMARY | 2025-04-10 07:17 | XMS_ITS | Encounter Summary ---
Author Organization [facility] Address [address] [facility] [address] [place] [address] Phone Care Team Providers Care Primary Care Nurse Practitioner Name Role Phone Avel Henson DO Unavailable Mary Pate Primary Care Provider Ayah Clemente RN Unavailable [phone] Encounter Details Date Type Department Care Team (Late st Contact Info) Description 09/21/2024 Ancillary Orders [facility], X-Ray - [facility] [address] [place] [address] Mary Pate PA [address] [place], [place] [phone] Pain in joints (Primary Dx); Pain Social [...] Description 04/19/2025 10:00 AM EDT Office Visit [facility] Gastroenterology Clinic [address] [place] [address] Unknown, Unknown, Mary Wilkinson, DATA WAREHOUSE SPECIALIST 10 [place] [address] [email or web address] documented as of this encounter Results * [...] marginal spurring/bony proliferative change,left worse than right. Mary ELIZONDO IMG XR PELVIS Final Resul [...] sites documented in this encounter Care Teams Primary Care Nurse Practitioner Relationship Specialty Start Date End Date Mary Pate PA 6 [facility] [place] [address] PCP - General Physician Orthopedic Physician Assistant 12/09/23 Avel Henson DO [address] [facility] [place] [address] [email or web address] Insurance Assigned Provider 09/24/23 Ayah Clemente, RN 30 [place] [address] Registered Nurse 03/19/25 documented as of this encounter Additional Source Comments The information contained in this document represents components of the legal health record. It is not the complete legal health record.[facility]
--- OUTSIDE RECORDS SUMMARY | 2025-04-10 07:17 | XMS_ITS | Encounter Summary ---
Author Organization [facility] Address [address] [facility] [address] [place] [phone] Phone Care Team Providers Care Yarn Mercerizer Operator Name Role Phone Avel Henson DO Unavailable Mary Pate Primary Care Provider [phone] Ayah Clemente RN Unavailable [phone] Encounter Details Date Type Department Care Team (Late st Contact Info) Description 09/21/2024 Transcribe Orders [facility] [address] [place] [address] Mary Pate PA [address] [place] [address] Social History Tobacco Use Types Packs/Day Years [...] Department Care Team (Late Contact Info) Description 04/19/2025 10:00 AM EDT Office Visit [facility] [address] [place] [address] Unknown, Unknown, Mary Wilkinson, KATIE [address] [place] [id number] [email or web address] documented as of this encounter Visit Diagnoses Not on filedocumented in this encounter Care Teams Yarn Mercerizer Operator Relationship Specialty Start Date End Date Mary Pate PA [address] [place] [address] [place] [address] PCP - General Physician Excavating Supervisor 12/09/23 Avel Henson DO [address] [place] [id number] Insurance Assigned Provider 09/24/23 Ayah Clemente, RN [address] [place] [id number] Registered Nurse 03/19/25 documented as of this encounter Additional Source Comments The information contained in this document represents components of the legal health record. It is not the complete legal health record.[facility]
--- OUTSIDE RECORDS SUMMARY | 2025-04-10 07:17 | XMS_ITS | Data Portability ---
Author Organization [facility], Telehealth Patient Home Address [address] [place] [address] Assessment Encounter Date Assessment Date Assessment LastModified by Organization Details LastModified Time 05/09/2023 05/09/2023 Patient agreed and verbally consents to this audio and video Telehealth appt via a secure platform [email or web address] Not available 05/09/2023 13:59:44 Plan of Treatment Reminders Order Date Submit Date Provider Last Modified By Organization Details Last Modified Time Details Appointments None recorded. Lab CMP, serum or plasma 2024 025 [facility], [address] [place] [address], [address], 5 12:06:55 CBC w/ auto diff 2024 025 [facility], [address] [place] [address], [address], 5 11:16:15 ESR (erythrocy te sedimentat ion rate), blood 2024 025 [facility], [address] [place] [address], [place], [address], 5 11:16:16 C-reactive protein, quantitati ve, serum or plasma 2024 025 [facility], [address] [place] [address], [address], 5 11:16:15 vitamin D, 25-hydroxy , total, serum 2024 025 [facility], [address] [place] [address], [address], 5 11:16:16 vitamin B12 + folate, serum or blood 2024 025 [facility], [address] [place] [address], [address], 5 11:16:16 iron + TIBC + ferritin, serum 2024 025 [facility], [address] [place] [address], [address], 5 11:16:15 TSH + free T4, serum 2024 025 [facility], [address] [place] [address], [address], 5 11:16:16 hemoglobin A1c, QN, blood 2024 025 [facility], [address] [place] [address], [address], 5 11:16:16 urinalysis complete, reflex culture 2024 025 [facility], [place], [address], 5 18:52:05 estradiol, serum 2024 025 [facility], [place], [address], 5 09:44:30 lh + FSH, serum 2024 025 [facility], [place], [address], 5 10:22:57 progestero ne, serum 2024 025 [facility], [place], [address], 5 10:22:57 prolactin, serum 2024 [facility], [place], [address], 5 10:22:57 testostero ne, total, serum 2024 [facility], [place], [address], 5 10:22:57 rf (rheumatoi d factor), serum 2024 [facility], [place], [address], 5 10:22:58 ESR (erythrocy te sedimentat ion rate), blood 2024 [facility], [place], [address], 5 10:22:58 JIA (antinucle ar antibodies ) screen, serum 2024 [facility], [place], [address], 5 16:49:22 C-reactive protein, quantitati ve, serum or plasma 2024 025 [facility], [place], [address], 5 10:22:57 uric acid, serum or plasma 2024 025 [facility], [place], [address], 5 10:22:57 ccp (cyclic citrullina dony peptide) igg, serum 2024 025 [facility], [place], [address], 5 12:08:57 lyme disease igg+igm, serum, reflex western blot 2024 025 [facility], [place], [address], 5 13:44:38 dsDNA Ab, serum 2024 025 [facility], [place], [address], 5 15:51:47 sjogren antibody panel (ssa, ssb, ro, la), serum 2024 025 [facility], [place], [address], 5 14:53:16 lipid panel, serum 2023 024 [facility], [address] [place] [address], [place], [address], 4 09:52:29 urinalysis complete, reflex culture 2023 024 [facility], [address] [place] [address], [place], [address], 4 15:26:55 Referral otolaryngo logist referral 2024 025 [facility], [address] [place] [address], [address], 5 08:52:09 physical therapist referral 2023 024 [facility], [address] [place], [address], 4 09:08:18 Procedures None recorded. Surgeries None recorded. Imaging XR, hip + pelvis, bilateral 2024 025 [facility], [address] [place] [address], [address], 5 10:01:43 XR, ankle, 3 or more view 2024 025 [facility], [address] [place] [address], [address], 5 09:40:40 XR, knee, 3 view 2024 025 [facility], [address] [place] [address], [address], 5 09:56:54 XR, ankle, 3 or more view 2024 025 [facility], [address] [place] [address], [address], 5 09:40:20 XR, hand, 3 or more view 2023 024 [facility], [address] [place], [address], 4 19:51:02 XR, humerus, 2 or more view 2023 024 [facility], [address] [place], [address], 4 16:21:57 XR, shoulder, 2 or more view 2023 024 [facility], [address] [place], [address], 4 08:34:26 Medication Orders Zepbound 2.5 mg/0.5 mL subcutaneo us pen injector 2024 025 [facility]959, [address] [place] [address], [id number], 5 16:23:45 atorvastat in 80 mg tablet 2023 025 [facility]20241, [address] [place], [place], [id number], 5 10:22:44 lisinopril 10 mg tablet 2023 024 [facility]29653, [address] [place], [place], [id number], 4 13:35:57 Bactrim DS 800 mg-160 mg tablet 2023 024 [facility] #51135, [address] [place], [place], [id number], 5 10:22:47 amoxicilli n 875 mg-potassi um clavulanat e 125 mg tablet 2022 023 [facility] #56449, [address] [place], [place], [id number], 4 10:02:47 Medrol (Krishan) 4 mg tablets in a dose pack 2022 023 [facility] #78134, [address] [place], [place], [id number], 4 10:02:55 Patient TargetsNo targets recorded. Patient InstructionsNo instructions recorded. 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 [facility] [place] [address] [place], [address], 06/10/2023 11:30:35 06/24/19 24 06/24/2023 MAMMO , scree alan, digit al, bilat eral No observ ation record ed. [facility] [place] [address] [place], [address], 06/25/2023 08:54:30 12/02/19 24 12/02/2023 XR, shoul flor, 2 or more view No observ ation record ed. [facility] [address] [facility] [address], [place], [address], 09/21/2024 10:09:43 12/02/19 24 12/02/2023 XR, humer us, 2 or more view No observ ation record ed. [facility] [address] [facility] [address], [place], [address], 09/21/2024 10:09:43 12/02/19 24 12/02/2023 XR, hand, 3 or more view No observ ation record ed. [facility] [address] [facility] [address], [place], [address], 09/21/2024 10:09:43 12/30/19 24 12/30/2023 MAMMO , scree alan, digit al, bilat eral No observ ation record ed. [facility] [place] [address] [place], [address], 09/21/2024 10:09:43 01/05/20 24 12/30/2023 US, breas t No observ ation record ed. [facility] [address], [place], [address], 09/21/2024 10:09:43 01/05/20 24 01/05/2024 MAMMO , scree alan, digit al, bilat eral No observ ation record ed. [facility] [address] [facility] [address], [place], [address], 09/21/2024 10:09:43 01/05/20 24 01/05/2024 US, brekrzysztof t No observ ation record ed. [facility] [address] [facility] [address], [place], [address], 09/21/2024 10:09:43 01/10/20 24 01/05/2024 biops y of carlos sadler; soumya robles us, needl e core, using imagi ng helen nce (PROC ) No observ ation record ed. [facility] [address] [facility] [address], [place], [address], 09/21/2024 10:09:43 08/09/19 25 08/08/2024 US, retro perit oneum , compl ete No observ ation record ed. [facility] (Medical Records) [address] [facility], [place], [address], 09/21/2024 10:09:42 08/14/19 25 08/14/2024 US, breas t, unila teral , limit ed No observ ation record ed. [facility] [address] [facility] [address], [place], [address], 09/21/2024 10:09:42 08/17/19 25 08/14/2024 MAMMO , scree alan, digit al, bilat eral No observ ation record ed. [facility] Not Available 2024 10:09:42 09/23/19 25 09/21/2024 XR, knee, 3 view No observ ation record ed. [address], [address], 09/24/2024 10:09:04 09/23/19 25 09/21/2024 XR, ankle , 3 or more view No observ ation record ed. [facility] [address] [place] [address], [address], 09/24/2024 10:09:04 09/23/19 25 09/21/2024 XR, ankle , 3 or more view No observ ation record ed. [facility] [address] [place] [address], [address], 09/24/2024 10:09:04 09/23/19 25 09/21/2024 XR, hip + pelvi s, bilat eral No observ ation record ed. [address], [address], 09/24/2024 10:09:05 Result Notes None recorded. Problems Name Problem SNOMED Code Status Onset Date Resolution Date Notes Provider Name and Address Organization Details Recorded Time Environme ntal allergy 157904567 Active 2017 Evelyn campoverde [facility] 8 16:36:54 Obesity 932847156 Active 2017 Evelyn campovrede [facility] 8 16:37:21 History of human papilloma virus infection 247237762253 102 Active 2017 Evelyn campoverde [facility] 8 16:40:59 Myastheni a gravis 53632897 Active 2020 Evelyn campoverde [facility] 09:23:22 COVID-19 757320462 Active 2020 Evelyn campoverde [facility] 09:23:33 Overweigh t 081872656 Active 2021 MIKHAIL SARKAR [address] [place] [address], [address], [facility] 2 14:44:17 Essential hypertens ion 30073658 Active 2021 MIKHAIL SARKAR [address] [place] [address], [address], [facility] 2 14:48:07 Acute sinusitis 48736938 Active 2022 MIKHAIL SARKAR [address] [place] [address], [address], [facility] 3 13:35:05 Dyspnea 799082508 Active 2022 MIKHAIL SARKAR [address] [place] [address], [address], [facility] 3 11:01:25 Acute right otitis media 741954547 Active 2022 MIKHAIL SARKAR [address] [place] [address], [address], [facility] 3 13:59:32 Panic disorder 004047418 Active 2023 MIKHAIL SARKAR [address] [place] [address], [address], [facility] 4 10:02:38 Hypertens giselle urgency 005300687 Active 2023 MIKHAIL SARKAR [address] [place] [address], [address], [facility] 4 10:08:53 Dysuria 10359583 Active 2023 MIKHAIL SARKAR [address] [place] [address], [address], [facility] 4 15:24:06 Cerebrova scular accident 900643872 Active 2023 MIKHAIL SARKAR [address] [place] [address], [address], [facility] 4 15:24:28 Transient cerebral ischemia 549060521 Active 2023 MIKHAIL SARKAR [address] [place] [address], [address], [facility] 4 14:27:33 Pain of left hand 618244815513 103 Active 2023 MIKHAIL SARKAR [address] [place] [address], [address], [facility] 4 09:35:48 Pain in left arm 296192203 Active 2023 MIKHAIL SARKAR [address] [place] [address], [address], [facility] 4 09:36:00 Hyperlipi demia 88534442 Active 2023 MIKHAIL SARKAR [address] [place] [address], [address], [facility] 4 09:51:05 Acute urinary tract infection 553069237 Active 2023 MIKHAIL SARKAR [address] [place] [address], [address], [facility] 4 14:36:41 Antiphosp holipid syndrome 48683785 Active 2023 Avel Henson DO [address] [place] [address], [address], [facility] 4 16:48:00 Vertigo 535853514 Active 2023 MIKHAIL SARKAR [address] [place] [address], [address], [facility] 5 14:00:55 Recurrent urinary tract infection 533414773 Active 2023 Avel Henson, [address] [place] [address], [address], [facility] 4 20:55:54 Dermoid cyst of head 873132335 Active 2024 MIKHAIL SARKAR [address] [place], [address], [facility] 5 15:50:45 Fatigue 70100700 Active 2024 MIKHAIL SARKAR [address] [place], [address], [facility] 5 11:08:48 Pain of multiple joints 31783633 Active 2024 MIKHAIL SARKAR [address] [place], [address], [facility] 5 10:11:48 Menopause Active 2024 MIKHAIL SARKAR [address] [place] [address], [address], [facility] 5 10:14:36 Biju hematuria 207664638 Active 2024 MIKHAIL SARKAR [address] [place] [address], [address], [facility] 5 10:27:05 Osteoarth ritis of knee 199566963 Active 2024 MIKHAIL SARKAR [address] [place] [address], [address], [facility] 5 10:09:33 Anti-nucl ear factor detected 637481940 Active 2024 MIKHAIL SARKAR [address] [place], [address], [facility] 5 09:25:44 Otalgia of right ear 3781027531 Active 2024 MIKHAIL SARKAR [address] [place], [address], [facility] 5 15:28:16 Chronic pansinusi tis 92827065 Active 2024 MIKHAIL SARKAR [address] [place], [address], [facility] 5 11:07:05 Mixed hyperlipi demia 513475332 Active 2024 MIKHAIL SARKAR [address] [place], [address], [facility] 5 14:07:21 Impaired fasting glycemia 225776591 Active 2024 MIKHAIL SARKAR [address] [place], [address], [facility] 5 15:32:12 Problem Notes None recorded. Procedures Surgical History Date Name Laterality Status Provider Name and Address Organization Details Recorded Time Partial Hysterectomy completed Jessi Rodriguez NP, [address] [place], [address], [facility] 04/28/2018 10:35:33 Imaging Results None recorded. Procedure Notes None recorded. Medical Equipment None Reported. Allergies No known drug allergies Medications Name Sig Start Date Stop Date Status Note LastModified by Organization Details LastModified Time Prescriptio n - Prior Authorizati on Request active Not Available Not Available N ot Available atorvastati n 80 mg tablet TAKE 1 TABLET BY MOUTH EVERY DAY DIRECTED 09/21 completed Not Available Not Available Not Available carvedilol 6.25 mg tablet TAKE 1 [...] AND 1/2 TABLETS BY MOUTH EVERY DAY 03/04 completed Not Available Not Available Not Available phentermine 15 mg capsule TAKE 1 CAPSULE BY MOUTH EVERY DAY 10/04 completed Not Available Not Available Not Available warfarin 2.5 mg tablet TAKE 1 TABLET BY MOUTH EVERY DAY active Not Available Not Available No t Available topiramate 25 mg tablet TAKE 1 TABLET [...] MOUTH EVERY 12 HOURS FOR 7 DAYS 09/21 completed Not Available Not Available Not Available sulfamethox azole 800 mg-trimetho prim 160 mg tablet TAKE 1 TABLET BY MOUTH EVERY 12 HOURS FOR 7 DAYS 09/21 completed Not Available Not Available Not Available aspirin 81 mg tablet,reggie yed release [...] TAKE 1 TABLET BY MOUTH TWICE DAILY 09/21 completed Not Available Not Available Not Available phentermine 37.5 mg capsule TAKE 1 [...] MOUTH EVERY 12 HOURS FOR 7 DAYS 03/04 completed Not Available Not Available Not Available multivitami n 10/31 completed Not Available Not Available Not Available Zepbound 5 mg/0.5 mL subcutaneou s pen injector ADMINISTE R 5 MG UNDER THE SKIN EVERY WEEK 03/04 completed Not Available Not Available Not Available Zepbound 2.5 mg/0.5 mL subcutaneou s pen injector ADMINISTE R 2.5 MG UNDER THE SKIN EVERY WEEK active Not Available Not Available No t Available Vitals Date Recorded Body height Body mass index (BMI) Body weight Provider Name and Address Organization Details Last Updated DateTime 09/21/2024 152.4 cm 34.4 kg/m2 11003.26 g Reyna Marx [facility] 09/21/2024 10:07:16 Date Recorded Body height Body mass index (BMI) Body weight Heart rate Oxygen saturation Oxygen saturation in Arterial blood by Pulse oximetry Systolic And Diastolic Provider Name and Address Organization Details Last Updated DateTime 4 152.4 cm 34.5 kg/m2 84709.7 7 g 84 /min 98 % 98 % 126/80 mm[Hg] Johana Camacho [facility] 4 14:58:43 Date Recorded Body height Body mass index (BMI) Body weight Heart rate Oxygen saturation Oxygen saturation in Arterial blood by Pulse oximetry Systolic And Diastolic Provider Name and Address Organization Details Last Updated DateTime 4 152.4 cm 34.4 kg/m2 47621.2 6 g 84 /min 97 % 97 % 124/70 mm[Hg] Reyna Marx [facility] 4 09:22:43 Date Recorded Body height Body mass index (BMI) Body weight Heart rate Oxygen saturation Oxygen saturation in Arterial blood by Pulse oximetry Systolic And Diastolic Provider Name and Address Organization Details Last Updated DateTime 5 152.4 cm 34.4 kg/m2 64096.2 6 g 80 /min 99 % 99 % 124/80 mm[Hg] [facility] 5 10:47:35 Social History Question Answer Notes LastModified by Organizat ion Details LastModified Time Tobacco Smoking Status Never Smoker Not Available [facility] 04/22/2020 03:36:24 What Was The Date Of Your Most Recent Tobacco Screening? 03/04/2025 [email or web address] Information not available 03/04/2025 Sex: Unknown Functional Status Question Answer Note LastModified by Organization D etails LastModified Time Do you or have you ever used any other forms of tobacco or nicotine? No [email or web address] Information not available 11/26/2022 Mental Status None recorded. Family History Relationship [...] Cancer N Blood Transfusion N Hypothyroidism N Lung Disease N COPD N Depression N Defects or Inherited Disease Y Difficulty Swallowing N Anesthesia Complications N Anxiety Disorder Y Arthritis N Cancer Y Stroke N Bladder or Kidney Problems N High Cholesterol N Liver Disease N Fibromyalgia N Headaches Y Kidney Disease N Allergies/Hayfever Y Hospitalizations N Thyroid Problems N GI Problems N Eating Disorder N Anemia N Constipation N Ovarian Cancer N Diabetes N Seizures/Epilepsy N Tuberculosis N Congestive Heart Failure (CHF) N Eczema Y Diverticulitis N Abuse/Domestic Violence N Asthma N Reflux/GERD N Hepatitis N [...] rS-ChAdOx1, PF, 0.5 mL 09/22/2020 completed Amada Noel [facility] [place], [facility] 12/02/2020 10:20:35 Past Encounters Encounter ID Performer Location Encounter Start Date Encounter Closed Date Diagnosis/Indication Diagnosis SNOMED-CT Code Diagnosis ICD10 Code Diagnosis IMO Codes Diagnosis Note [id number] Avel Henson [facility] [address] [facility],[place] [address] 04/28/2018 10:16:06 04/28/2018 12:51:08 Adult health examination 130498180 Z00.01 Active or passive immunization 630994899 Z23 Essential hypertension 89621184 I10 Screening procedure 2012 5006 Z13.9 [id number] Avel Henson [facility] [address] [facility],[place] [address] 12/09/2020 09:58:28 12/09/2020 10:49:23 Essential hypertension 05118513 I10 BP elevatedwi ll start on lisinopril and fu in a moalso needs BW done Myasthenia gravis 171740 04 G70.00 stable [id number] Avel Henson [address],[place] [address] 01/07/2021 09:13:49 01/07/2021 09:37:52 Essential hypertension 90873841 I10 BP much improved with lisinopril will continue on the same dose for now and fu in 3 mowill see if it needs to be titrated at that time [id number] Avel Henson [facility] [address] [facility],[place] [address] 04/08/2021 08:50:44 04/08/2021 09:31:08 Overweight 572072656 E66.3 will trial phentermin e 15 mg capsulewil l call with an update in a month to tell me her progress Essential hypertension 29186747 I10 BP much improved with lisinopril will continue on the same dose for now and fu in 3 mowill see if it needs to be titrated at that time [id number] Avel Henson [facility] [address] [facility],[place] [address] 06/15/2021 10:01:23 06/15/2021 14:50:08 Acute laryngitis 6764683 J04.0 increase fluids, take lozenges Otalgia 02901662 H92.03 possible referred pain Pain in throat 478657269 R07.0 take APAP or ibu PRN for pain relief and inflammati on Acute sinusitis 87109466 J01.01 will treat with abx Cough 03691990 R05.1 will treat cough [id number] MIKHAIL SARKAR [facility] [address] [facility] [address] [address] 02/05/2022 13:31:15 02/05/2022 15:23:44 Overweight 529147798 E66.3 will trial phentermin e 15 mg capsule in combo with 50 mg of topimaxwil l call with an update in a month to tell me her progress Essential hypertension 86531097 I10 BP much improved with lisinopril [id number] Avel Henson [facility] [address] [facility] [address] [address] 07/07/2022 09:59:55 07/07/2022 16:04:24 Acute sinusitis 79608182 J01.01 will treat with abx/medrol [id number] Avel Henson [facility] [address] [facility] [address] 11/26/2022 10:46:00 11/26/2022 11:22:06 Myasthenia gravis 52027154 G70.00 stable Adult heal th examination 891799338 Z00.00 agreed to full panel lab workneurol oguna wanted it Screening for malignant neoplasm of colon 376041267 Z12.11 will print referral for patient since she didn't go last time Dyspnea 301077063 R06.02 Overweight 833835331 E66 .3 will trial phentermin e 15 mg capsule in combo with 50 mg of topimaxwil l call with an update in a month to tell me her progress Screening mammography 24 369313 Z12.31 agreed to MM; due for it [id number] Avel Henson [facility] [address] [facility] [address] [address] 05/09/2023 09:27:32 05/09/2023 16:08:27 Acute right otitis media 609172292 H65.04 will start on augmentin and medrol for possible combinatio n ear and sinus infection Acute sinusitis 21847031 J01.01 will treat with abx/medrol comboconti nue on APAP for discomfort as needed [id number] Avel Henson [facility] [address] [facility],[place] [address] 11/01/2023 14:44:12 11/02/2023 08:46:50 Depression screening 578143018 Z13.31 stable Dysuria 29122081 R30.0 will set up with recheck urine Cerebrovas cular accident 838654627 I63.331 doing welldiscus sed side effects to look out for for the new medication s she is on Myasthenia gravis 399696 04 G70.00 john be following with her doctor out in [place] and neuro who works with her doctor [id number] Avel Henson [facility] Internal Medicine [address] [facility] [address] [place] [address] 11/30/2023 09:14:12 11/30/2023 14:54:16 Depression screening [id number] Z13.31 stable Transient cerebral ischemia 900509255 G45.9 stableneed s refill of the atorvastat in Essential hypertension 99288377 I10 BP much improved with lisinopril Pain of left hand 668329 5218 39554 M79.642 will set up with XR's Pain in left arm 1672402 00 M79.602 will set up with XR per PT/OT Myasthenia gravis 097313 04 G70.00 john be following with her doctor out in [place] and neuro who works with her doctor waiting on placard to go through Hyperlipidemia 21890832 E78.5 [id number] Avel Henson [facility] Internal Medicine [address] [facility] [address],[place] [address] 09/21/2024 10:00:28 09/21/2024 10:36:53 Pain of multiple joints 78158087 M25.50 ? psoriatic arthritis vs RA Antiphosph olipid syndrome 79863990 D68.61 stable Menopause 726927665 N95. 1 recheck levels Body mass index 30+ - obesity 150197560 Z68.34 trial zepbound Biju hematuria 64519600 5 R31.0 will set up with urine Myasthenia gravis 118975 04 G70.00 john be following with her doctor out in [place] and neuro who works with her doctor waiting on placard to go through Obesity 584498258 E66.9 Transient cerebral ischemia 466114429 G45.9 stableneed s [place] the atorvastat in [id number] Avel Henson DO [facility] Internal Medicine [address] [facility] [address],[place] [address] 03/04/2025 10:30:42 03/04/2025 16:16:23 Essential hypertension 48848416 I10 BP much improved with lisinopril restarting Hypertensive urgency 443 374637 I16.0 resolved, BP is stable Antiphosph olipid syndrome 05774450 D68.61 stable Myasthenia gravis 405268 04 G70.00 stable Chronic pansinusitis 888 41301 J32.4 2468 change ENT to [place] per pt Fatigue 46594635 R53.83 [id number] will set up with lab work Health Concerns Section Related Observation LastModified by Organization Detai ls LastModified Time None Recorded Concern Status LastModified by Organization Details LastModified Time None Recorded Advance Directives Directive None Recorded Payers Insurance Date Sequence Insurance Name Policy Number Policy Reed Covered Member ID Reed Member ID Guarantor Name 03/01/2025 1 AUGIE (PPO) [id number] Sindi King [id number] Sindi King 09/21/2024 1 [employer] (POS) Sindi King [id number] Sindi King Notes Date Note Type Note Provider Name a nd Address Organization Details Recorded Time 05/09/2023 text/html ROS as noted in the HPI c/o sick, upper resp infection telemedicine phone [...] ear and sinus infection MIKHAIL SARKAR [address] [place], [address], [facility] Internal Medicine 05/09/2023 14:03:27 11/01/2023 text/html ROS as noted in the HPI hospital d/c patient was admitted to the [...] previous strokes and recent on in her huog (R) the patient has OT and PT [...] doctor wants her to see out in [place] the patient is otherwise doing wellworking with neuro will also send out urine for culturestill has leuks and now blood MIKHAIL SARKAR [address] [place], [address], [facility] 11/01/2023 16:01:55 11/30/2023 text/html ROS as noted in the HPI 1 mos f/u depression screening 0doing really well TIA/CVA: the patient reports she is doing really well with PTcurrently only using the a cane instead of a walker needs refills PT suggested XRs of her entire left arm otherwise doing really well seeing the stroke specialist in [place] on 12/14/23the patient already had the neuro f/u as well from [place], adjusted some of her meds can continue the ASA and the vitamin Dthe patient breathing is good, suggested melatonin for sleep will send results to the OT MIKHAIL SARKAR [address] [place], [address], [facility] 11/30/2023 09:52:24 09/21/2024 text/html ROS as noted in the HPI c/o muscle pain multiple joint pain: the patient reports sig joint painmostly in ankles, hips, joints bilaterallyhx of psoriasis, recommended rheum referral by hem, not sure if they placed a referral for her recommended additional work up for the patient will rheum markersand XR, hasn't had any XRs done recentlyneed imaging as well to determine if she has sig OA vs immune arthritis the 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 management specialist, started her on T gel, recommended hormone screeningthe patient reports that she feels fatigued and more joint pain which can also be symptoms additional from menopause also vit d def, will have pt start 2000 units with calcium will try to see if the zepbound will be covered under obesity, HTN having blood in her urine from [facility]; wanted repeat urine to check for continue hematuria f/u after work up MIKHAIL SARKAR [address] [place], [address], [facility] Medicine 09/21/2024 12:23:55 03/04/2025 text/html ROS as noted in the HPI hospital d/c the patient with hx of MG was admitted for observation and treatment of uncontrolled hypertension (hypertensive emergency) and r/o TIA the patient noted her BP had been running high, ran out of her prescription of lisinopril and did not get around to refilling it she developed acute onset severe dizziness and headache her INR on check (pt currently on warfarin) was supra-therapeutic at 6.5patient goes to the coumadin clinic weekly for assessment and adjustment of her warfarin dosing (? lisinopril causes hyperkalemia, abscence of it in her system may have caused the increase in warfarin in her system if her dose wasn't adjusted due to this; unsure of the coumadin clinic was aware of the d/c of medication by the patient) CT head and brain was negative, no acute findings, patient admitted for observation and f/u MRI brain, though the patient was stable on the next day due to re-initiation of lisinopril (40 mg QD PO) and the MRI was cancelled patient discharged stable, symptoms resolved completely with restarting her BP medication the patient and I discussed her hospital stayhas been taking her med as prescribed set up with lab work for patient for recheck levels has uro appt todayhas neuro appt already for routine appts MIKHAIL SARKAR [address] [place] [address], [place], [address], [facility] 03/04/2025 11:14:06 OBGyn Episode No OBEpisode recorded.
--- OUTSIDE RECORDS SUMMARY | 2025-04-10 07:17 | XMS_ITS | Encounter Summary ---
Author Organization [facility] Address [address] [place] [address] Phone Care Team Providers Care Curator [employer]icultural [employer] Name Role Phone Unknown, Unknown Primary Care Provider Avel Swenson DO Unavailable Mary Pate Primary Care Provider [phone] Ayah Clemente RN Unavailable [phone] Encounter Details Date Type Department Care Team (Late st Contact Info) Description 04/22/2017 Transcribe Orders [facility] [address] [place] [address] Forest Guido MD [address] [place] [phone] Myasthenia gravis without exacerbation (Primary Dx) [...] Description 04/19/2025 10:00 AM EDT Office Visit [facility] Gastroenterology Clinic [address] [place] [address] [phone] Unknown, Unknown, Mary Wilkinson, WANIGAN CLERK [address] [place], [place] [phone] documented as of this encounter Results * LFTs (hepatic panel) (04/22/2017 8:21 AM EDT) ALKALINE PHOSPHATASE 99 39 - 117 U/L [facility] TOTAL BILIRUBIN 0.4 0 - 1.2 mg/dL [facility] DIRECT BILIRUBIN <0.2 0 - 0.3 mg/dL [facility] Bilirubin (Indirect) NOT CALCULATED 0 - 1.5 mg/dL [facility] AST 20 0 - 37 U/L [facility] ALT 28 0 - 40 U/L [facility] TOTAL PROTEIN 6.7 6.5 - 8.0 g/dL [facility] ALBUMIN 4.1 3.9 - 4.8 g/dL [facility] GLOBULIN 2.6 1 - 4.8 g/dL [facility] A/G Ratio 1.58 1.00 - 4.[address] [facility] Blood 04/22/2017 8:21 AM EDT 04/22/2017 1:53 PM EDT us Forest Guido MD LAB BLOOD ORDERABLES Edite d Result - Final [address] [address] * Basic metabolic panel (04/22/2017 8:21 AM EDT) SODIUM 142 133 - 146 mmol/L [facility] CHLORIDE 103 96 - 108 mmol/L [facility] POTASSIUM 4.7 3.3 - 5.1 mmol/L [facility] CO2 30 21 - 35 mmol/L [facility] BUN 15 6 - 19 mg/dL [facility] CREATININE 0.50 0.5 - 1.5 mg/dL [facility] GLUCOSE 92 70 - 99 mg/dL [facility] CALCIUM 9.3 8.4 - 10.3 mg/dL [facility] EGFR >60 60 - 1000 mL/min/1.[address] [facility] Comment:Abnormal if <60. If patient is -Niuean, multiply the result by 1.21. ANION GAP 14 10 - 20 mmol/L [facility] Blood 04/22/2017 8:21 AM EDT 04/22/2017 1:53 PM EDT us Forest Guido MD LAB BLOOD ORDERABLES Final Result [facility] [address] [place] [address] * CBC and differential (04/22/2017 8:21 AM EDT) WBC 4.98 3.40 - 11.20 K/uL [facility] RBC 4.34 3.80 - 4.80 M/uL [facility] HGB 12.2 12.0 - 15.0 g/dL [facility] HCT 36.9 36.0 - 46.0 % [facility] PLT 141 130 - 400 K/uL [facility] MCV 85.0 79.0 - 98.[address] [facility] MCH 28.1 27.0 - 34.[address] [facility] MCHC 33.1 31.5 - 36.0 g/dL [facility] RDW 13.9 10.8 - 14.6 % [facility] MPV 11.4 9.4 - 12.[address] [facility] NRBC 0.00 /[address] [facility] ABSOLUTE NRBC 0.00 K/uL [facility] DIFF METHOD Auto [facility] NEUTS 66.9 45.30 - 77.70 % [facility] LYMPHS 22.7 12.30 - 39.70 % [facility] MONOS 7.4 4.10 - 12.80 % [facility] EOS 2.0 0 - 7.2 % [facility] BASOS 0.6 0 - 2.80 % [facility] Granulocytes, immature (%) 0.4 0.0 - 0.9 % [facility] ABSOLUTE NEUTS 3.33 1.40 - 7.70 K/uL [facility] ABSOLUTE LYMPHS 1.13 0.60 - 3.20 K/uL [facility] ABSOLUTE MONOS 0.37 0.11 - 0.59 K/uL [facility] ABSOLUTE EOS 0.10 0.01 - 0.50 K/uL [facility] ABSOLUTE BASOS 0.03 0.00 - 0.08 K/uL [facility] Granulocytes, immature 0.02 0.00 - 0.05 K/uL [facility] Blood 04/22/2017 8:21 AM EDT 04/22/2017 1:53 PM EDT us Forest Guido MD LAB BLOOD ORDERABLES Final Result [facility] [address] [place] [address] documented in this encounter Visit Diagnoses Diagnosis Myasthenia gravis without exacerbation- Primary documented in this encounter Care Teams Curator [employer]icultural [employer] Relationship Specialty Start Date End Date Unknown, Unknown, MD PCP - General 04/22/17 12/08/23 Mary Pate PA [address] [place] [address] [place] [address] PCP - General Physician Senior Coldfusion Developer 12/09/23 Avel Henson DO [address] [place] [address] [email or web address] Insurance Assigned Provider 09/24/23 Ayah Clemente RN [address] [place] [address] Registered Nurse 03/19/25 documented as of this encounter Additional Source Comments The information contained in this document represents components of the legal health record. It is not the complete legal health record.[facility]
[2025-04-10 08:49] LABS: Alanine Aminotransferase 24 U/L (0-31); Albumin Level 4.5 g/dL (3.5-5.0); Alkaline Phosphatase 87 U/L (39-117); Anion Gap 11 (12-20); Aspartate Amino Transferase 22 U/L (5-31); Blood Urea Nitrogen 17 mg/dL (9-16); Calcium 9.1 mg/dL (8.4-10.2); Carbon Dioxide 26 mmol/L (22-29); Chloride 110 mmol/L (96-108); Estimated Glomerular Filt Rate > 60; Potassium 4.2 mmol/L (3.3-5.1); Sodium 143 mmol/L (135-145); Total Protein 7.1 g/dL (6.5-8.0)
== END 2025-04-10 07:14 | disposition home or self-care (01) ==
LOC: HO.LAB 07:13
PROVIDERS: PCP Internal Medicine; Visit Provider Physician Assistant
DX: R73.01 Impaired fasting glucose (principal)
CPT/HCPCS: 36415; 80053; 83036

== ENCOUNTER 2025-05-17 07:15 | Outpatient (REF) | payer BC, SELFPAY ==
--- OUTSIDE RECORDS SUMMARY | 2025-05-17 07:17 | XMS_ITS | Encounter Summary ---
Author Organization [facility] Address [address] [facility] [address] [place] [address] Phone Care Team Providers Care Analysis Mgr Name Role Phone Avel Henson DO Unavailable Mary Pate Primary Care Provider Ayah Clemente RN Unavailable [phone] Encounter Details Date Type Department Care Team (Late Contact Info) Description 09/21/2024 Transcribe Orders [facility] Phleb Main [address] [place] [address] Mary Pate PA [address] [place], [place] [id number] Social History Tobacco Use Types Packs/Day Years [...] Department Care Team (Late Contact Info) Description 06/07/2025 10:00 AM EST Office Visit [facility] Rheumatology [address] [place] [address] Ondina Barbour MD [address] [facility], [address] [place] [address] 06/19/2025 3:15 PM EST Evaluation [facility] Otolaryngology [address] [facility]2 [place] [address] Dianna Dhillon, AuD [address] [place] [address] [email or web address] 07/29/2025 1:30 PM EST Office Visit [facility] Gastroenterology Clinic [address] [place] [address] Mary Mcnally CNP [address] [place] [address] Scheduled Procedures Name Priority Associated Diagnoses Date/Ti me COLONOSCOPY Abnormal bowel habits documented as of this encounter Visit Diagnoses Not on filedocumented in this encounter Care Teams Analysis Mgr Relationship Specialty Start Date End Date Mary Pate PA [address] [place] [address] [place] [address] PCP - General Physician Staff Internist Office Based Only 12/09/23 Avel Henson DO [address] [place] [address] [place] [address] Insurance Assigned Provider 09/24/23 Ayah Clemente, RN [address] [place] [address] Registered Nurse 03/19/25 documented as of this encounter Additional Source Comments The information contained in this document represents components of the legal health record. It is not the complete legal health record.[facility]
--- OUTSIDE RECORDS SUMMARY | 2025-05-17 07:17 | XMS_ITS | Clinical Summary ---
Author Organization [facility] Address [address] [place] [address] Phone Care Team Providers Care Mobile Marketing Specialist Name Role Phone Avel Henson DO Unavailable Mary Pate Primary Care Provider [phone] Ayah Clemente RN Unavailable [phone] Allergies No known active allergies Medications atorvastatin (LIPITOR) 80 MG tablet Take 80 mg by mouth daily. Active azaTHIOprine (IMURAN) 50 mg tablet Take 50 mg by mouth daily. Take 3 tablets daily Active carvedilol (COREG) 3.125 MG tablet Take 3.125 mg by mouth 2 (two) times a day with meals. Active cholecalcifero l (VITAMIN D3) 25 MCG (1,000 unit) tablet Take 1,000 Units by mouth daily. Active lisinopril (PRINIVIL,ZEST RIL) 20 MG tablet Take 20 mg by [...] under the skin once a week. Active rosuvastatin (CRESTOR) 5 MG tablet Take 5 mg by mouth daily. Active bisacodyl (DULCOLAX) 5 mg Tab tablet Take 4 tablets at once per prep instructions 4 tablet 04/19/20 Active aspirin 81 MG EC tablet Take 81 mg by mouth daily. 025 Discontinu ed(No longer taking) polyethylene glycol (GOLYTELY) 236-22.74-6.74 -5.86 gram solution Take 4,000 mL by mouth once for 1 dose. 1 mL 04/19/20 25 025 Active Problems Problem Noted Date Diagnosed Date [...] Encounters Date Type Department Care Team Description 05/02/2025 Documentation Anticoagulation Clinic [address] [place] [address] Ayah Clemente RN INR Check 05/01/2025 Telephone [facility] Anti Coag Clinic [address] [place] [address] [place] [address] Ayah Clemente RN 04/19/2025 10:00 AM EDT Office Visit [facility] Gastroenterology Clinic [address] [place] [address] [phone] Unknown, Unknown, Mary Wilkinson CNP Abnormal bowel habits (Primary Dx); Rectal bleeding; Anticoagulated 04/19/2025 Telephone [facility] Gastroenterology Clinic [address] [place] [address] [phone] Blanca Koch MA Lovenox bridge 04/18/2025 6:55 AM EDT - 04/18/2025 11:59 PM EDT Hospital Encounter [facility] Main [address] [place] [address] Mary Pate PA Discharge Disposition: Home or Self Care 04/18/2025 Telephone Anticoagulation Clinic [address] [place] [address] Ayah Clemente, SONNY INR Check (/) 04/17/2025 Telephone [facility] Anti Coag Clinic [address] [place] [address] [place] [address] Ayah Clemente RN 04/16/2025 Telephone Anticoagulation Clinic [address] [place] [address] Ayah Clemente RN 03/21/2025 Transcribe Orders Anticoagulation Clinic [address] [place] [address] Ayah Clemente, RN CVA (cerebral vascular accident) (Primary Dx); APS (antiphospholipid syndrome); Chronic anticoagulation 03/19/2025 7:21 AM EDT - 03/19/2025 11:59 PM EDT Hospital Encounter [facility] Main [address] [place] [address] Mary Pate PA Discharge Disposition: Home or Self Care 03/19/2025 Telephone Anticoagulation Clinic [address] [place] [address] Ayah Clemente, RN INR Check (/) 03/07/2025 7:26 AM EDT - 03/07/2025 11:59 PM EDT Hospital Encounter [facility] Main [address] [place] [address] Mary Pate PA Discharge Disposition: Home or Self Care 03/07/2025 Telephone Anticoagulation Clinic [address] [place] [address] Ayah Clemente RN 03/05/2025 7:24 AM EDT - 03/05/2025 11:59 PM EDT Hospital Encounter [facility] Phle[facility] Main [address] [place] [address] Mary Pate PA Discharge Disposition: Home or Self Care 03/05/2025 Telephone Anticoagulation Clinic 30 [place] [address] Ayah Clemente, RN INR Check (/) 03/04/2025 Telephone Anticoagulation Clinic [address] [place] [address] Ayah Clemente RN 03/01/2025 8:00 AM EDT Office Visit [facility] Rehabilitation Services [address] [place] [address] Mary Pate PA Bell, Ross, PT Vertigo (Primary Dx) 02/22/2025 Transcribe Orders [facility] [address] [place] [address] Mary Pate PA Encounter for rehabilitation (Primary Dx) from Last 3 Months Social History Tobacco Use Types Packs/Day Years Used Date Smoking Tobacco: Never Smokeless Tobacco: Never Tobacco Cessation:Counseling Given: Not Answered Education Answer Date Recorded Are you interested [...] on file Sexual Orientation Not on file Last Filed Vital Signs Vital Sign Reading Time Taken Comments Blood Pressure 103/74 04/19/2025 9:41 AM EDT Pulse - - Temperature - - Respiratory Rate - - Oxygen Saturation - - Inhaled Oxygen Concentration - - Weight 90.7 kg (200 lb) 04/19/2025 9:41 AM EDT Height 152.4 cm (5') 04/19/2025 9:41 AM EDT Body Mass Index 39.06 04/19/2025 9:41 AM EDT Plan of Treatment Upcoming Encounters Date Type Department Care Team (Late st Contact Info) Description 06/07/2025 10:00 AM EST Office Visit [facility] Rheumatology [address] [place] [address] Ondina Barbour MD [address] [facility], [address] [place] [address] 06/19/2025 3:15 PM EST Evaluation [facility] Otolaryngology [address] [facility]2 [place] [address] Dianna Dhillon, Richar 75 [place] [address] [email or web address] 07/29/2025 1:30 PM EST Office Visit [facility] Gastroenterology Clinic [address] [place] [address] Mary Mcnally, KATIE 10 [place] [address] [email or web address] Scheduled Procedures Name Priority Associated Diagnoses Date/Ti me COLONOSCOPY Abnormal bowel habits Health Maintenance Due Date Last Done Comments Adult Td,Tdap Booster 1966 DEPRESSION SCREENING 1978 HEPATITIS C SCREENING 1984 HIV ONE-TIME SCREENING [...] 09/17/2025 09/17/2024, 01/2019, 08/18/2018, Additional history exists BLOOD PRESSURE 10/17/2025 04/19/2025 SCREENING FOR DIABETES 09/18/2027 09/17/2024, 2018 SMOKING STATUS SCREENING (Once After 26 Yrs) Completed 04/19/2025 HEPATITIS A VACCINES Aged Out No long er eligible based on patient's age to complete this topic HIB VACCINES Aged Out No longer eligi ble based on patient's age to complete this topic IPV VACCINES Aged Out No longer eligi ble based on patient's age to complete this topic MENINGOCOCCAL VACCINES (ACWY) Aged Out No longer eligible based on patient's age to complete this topic MENINGOCOCCAL VACCINES (B) Aged Out N o longer eligible based on patient's age to complete this topic Medical Devices Not on file Procedures Procedure Name Priority Date/Time Associated Diagnosis Comments PT-INR Routine 05/02/2025 7:09 AM EST Cerebrovascular accident (CVA) APS (antiphospholipid syndrome) Chronic anticoagulation PT-INR Routine 04/18/2025 7:04 AM EDT Cerebrovascular accident (CVA) APS (antiphospholipid syndrome) Chronic anticoagulation PT-INR Routine 03/19/2025 7:24 AM EDT Cerebrovascular accident (CVA) APS (antiphospholipid syndrome) Chronic anticoagulation PT-INR Routine 03/07/2025 8:09 AM EDT Cerebrovascular accident (CVA) APS (antiphospholipid syndrome) Chronic anticoagulation PT-INR Routine 03/05/2025 7:51 AM EDT Cerebrovascular accident (CVA) APS (antiphospholipid syndrome) Chronic anticoagulation COMPREHENSIVE METABOLIC PANEL (CMP) Routine 09/17/2024 8:20 AM EDT Essential (primary) hypertension Transient cerebral ischemia, unspecified type Other fatigue from Last 3 Months or Most Recently Relevant to Health Maintenance Results * (ABNORMAL) PT-INR (05/02/2025 7:09 AM EST) Only the most recent of5 resultswithin the time period is included. PT 27.7(H) 10.0 - 13.0 sec 05/02/2025 8:34 AM EST [facility] INR 2.2(H) 0.9 - 1.1 05/02/2025 8:34 AM EST [facility] Comment:Therapeutic Range 2. 0 - 3.5 Blood 05/02/2025 7:09 AM EST 05/02/2025 7:44 AM EST us Mary ELIZONDO LAB BLOOD BKR ORDERABLES Fi nal Result [address] [address] * (ABNORMAL) Comprehensive metabolic panel (09/17/2024 8:20 AM EDT) SODIUM 141 133 - 146 mmol/L [facility] POTASSIUM 3.9 3.3 - 5.1 mmol/L [facility] CHLORIDE 103 96 - 108 mmol/L [facility] CO2 28 21 - 35 mmol/L [facility] BUN 17 6 - 19 mg/dL [facility] CREATININE 0.60 0.5 - 1.5 mg/dL [facility] GLUCOSE 139(H) 70 - 99 mg/dL [facility] ALBUMIN 4.6 3.9 - 4.8 g/dL [facility] TOTAL PROTEIN 7.8 6.5 - 8.0 g/dL [facility] CALCIUM 9.8 8.4 - 10.3 mg/dL [facility] ALKALINE PHOSPHATASE 99 39 - 117 U/L [facility] TOTAL BILIRUBIN 0.4 0.0 - 1.2 mg/dL [facility] AST 25 0 - 37 U/L [facility] ALT 24 0 - 40 U/L [facility] GLOBULIN 3.2 1 - 4.8 g/dL [facility] EGFR 104 >59 mL/min/1.7 3m2 [facility] Comment:Estimated glomerular filtration rate calculated using the CKD-EPI refit equation. ANION GAP 14 10 - 20 mmol/L [facility] Blood 09/17/2024 8:20 AM EDT 09/17/2024 8:23 AM EDT Mary ELIZONDO LAB BLOOD BKR ORDERABLES Fi nal Result [facility] [address] [place] [address] from Last 3 Months or Most Recently Relevant to Health Maintenance Insurance [facility] PPO EPO [facility] PPO EPO [facility] PPO [facility]PO [facility] PPO EPO [facility] PPO EPO [facility] PPO [facility]PO [facility] PPO EPO [facility] PPO EPO [facility] PPO EPO Care Teams Mobile Marketing Specialist Relationship Specialty Start Date End Date Mary Pate PA [address] [facility] [place] [address] PCP - General Physician Child Support Agent 12/09/23 Avel Henson DO [address] [place] [address] [place] [address] [email or web address] Insurance Assigned Provider 09/24/23 Ayah Clemente, RN [address] [place] [address] Registered Nurse 03/19/25 Additional Source Comments The information contained in this document represents components of the legal health record. It is not the complete legal health record.[facility]
--- OUTSIDE RECORDS SUMMARY | 2025-05-17 07:17 | XMS_ITS | Encounter Summary ---
Author Organization [facility] Address [address] [facility] [address] [place] [address] Phone Care Team Providers Care Dinkey Operator Name Role Phone Unknown, Unknown Primary Care Provider Avel Swenson DO Unavailable Mary Pate Primary Care Provider Ayah Clemente RN Unavailable [phone] Encounter Details Date Type Department Care Team (Late st Contact Info) Description 06/17/2017 Transcribe Orders [address] [address] Forest Guido MD [address] [place] [id number] Myasthenia gravis without exacerbation (Primary Dx) [...] Visit [facility] Rheumatology [address] [place] [address] Ondina Barbour MD [address] [facility], [address] [place], [place] [id number] 06/19/2025 3:15 PM EST Evaluation [facility] Otolaryngology [address] [facility] [address] [place] [address] Dianna Dhillon AuD [address] [place] [address] [email or web address] 07/29/2025 1:30 PM EST Office Visit [facility] Gastroenterology Clinic 10 [place] [address] Mary Mcnally, FRONT END DEVELOPER DESIGNER 10 [place] [address] [email or web address] Scheduled Procedures Name Priority Associated Diagnoses Date/Ti me COLONOSCOPY Abnormal bowel habits documented as of this encounter Results * (ABNORMAL) LFTs (hepatic panel) (06/17/2017 7:51 AM EST) ALKALINE PHOSPHATASE 120(H) 39 - 117 U/L [facility] TOTAL BILIRUBIN 0.4 0 - 1.2 mg/dL [facility] DIRECT BILIRUBIN <0.2 0 - 0.3 mg/dL [facility] Bilirubin (Indirect) NOT CALCULATED 0 - 1.5 mg/dL [facility] AST 22 0 - 37 U/L [facility] ALT 16 0 - 40 U/L [facility] TOTAL PROTEIN 6.6 6.5 - 8.0 g/dL [facility] ALBUMIN 3.7(L) 3.9 - 4.8 g/dL [facility] GLOBULIN 2.9 1 - 4.8 g/dL [facility] A/G Ratio 1.28 1.00 - 4.80 RATIO [facility] Blood 06/17/2017 7:51 AM EST 06/17/2017 8:54 AM EST us Forest Guido MD LAB BLOOD BKR ORDERABLES F inal Result [facility] [address] [place] [address] * Basic metabolic panel (06/17/2017 7:51 AM EST) SODIUM 137 133 - 146 mmol/L [facility] CHLORIDE 101 96 - 108 mmol/L [facility] POTASSIUM 4.7 3.3 - 5.1 mmol/L [facility] CO2 28 21 - 35 mmol/L [facility] BUN 9 6 - 19 mg/dL [facility] CREATININE 0.50 0.5 - 1.5 mg/dL [facility] GLUCOSE 89 70 - 99 mg/dL [facility] CALCIUM 8.6 8.4 - 10.3 mg/dL [facility] EGFR >60 60 - 1000 mL/min/1.7 3m2 [facility] Comment:Abnormal if <60. If patient is -Puerto Rican, multiply the result by 1.21. ANION GAP 13 10 - 20 mmol/L [facility] Blood 06/17/2017 7:51 AM EST 06/17/2017 8:54 AM EST us Forest Guido MD LAB BLOOD BKR ORDERABLES F inal Result [facility] [address] [place], [place] [id number] * CBC and differential (06/17/2017 7:51 AM EST) WBC 6.77 3.40 - 11.20 K/uL [facility] RBC 4.32 3.80 - 4.80 M/uL [facility] HGB 12.5 12.0 - 15.0 g/dL [facility] HCT 37.1 36.0 - 46.0 % [facility] PLT 172 130 - 400 K/uL [facility] MCV 85.9 79.0 - 98.0 fL [facility] MCH 28.9 27.0 - 34.8 pg [facility] MCHC 33.7 31.5 - 36.0 g/dL [facility] RDW 14.5 10.8 - 14.6 % [facility] MPV 12.0 9.4 - 12.4 fl [facility] NRBC 0.00 /100 WBCs [facility] ABSOLUTE NRBC 0.00 K/uL [facility] DIFF METHOD Auto [facility] NEUTS 75.5 45.30 - 77.70 % [facility] LYMPHS 16.0 12.30 - 39.70 % [facility] MONOS 6.1 4.10 - 12.80 % [facility] EOS 1.2 0 - 7.2 % [facility] BASOS 0.6 0 - 2.80 % [facility] Granulocytes, immature (%) 0.6 0.0 - 0.9 % [facility] ABSOLUTE NEUTS 5.12 1.40 - 7.70 K/uL [facility] ABSOLUTE LYMPHS 1.08 0.60 - 3.20 K/uL [facility] ABSOLUTE MONOS 0.41 0.11 - 0.59 K/uL [facility] ABSOLUTE EOS 0.08 0.01 - 0.50 K/uL [facility] ABSOLUTE BASOS 0.04 0.00 - 0.08 K/uL [facility] Granulocytes, immature 0.04 0.00 - 0.05 K/uL [facility] Blood 06/17/2017 7:51 AM EST 06/17/2017 8:54 AM EST us Forest Guido MD LAB BLOOD BKR ORDERABLES F inal Result Performing Organization Address City/State/[facility] Co de Phone Number [facility] [address] [place] [address] documented in this encounter Visit Diagnoses Diagnosis Myasthenia gravis without exacerbation- Primary documented in this encounter Care Teams Dinkey Operator Relationship Specialty Start Date End Date Unknown, Unknown, MD PCP - General 04/22/17 12/08/23 Mary Pate PA [address] [place] [address] [place] [address] PCP - General Physician Metallurgical Specialist 12/09/23 Avel Henson DO [address] [place] [address] [email or web address] Insurance Assigned Provider 09/24/23 Ayah Clemente, RN [address] [place] [address] Registered Nurse 03/19/25 documented as of this encounter Additional Source Comments The information contained in this document represents components of the legal health record. It is not the complete legal health record.[facility]
--- OUTSIDE RECORDS SUMMARY | 2025-05-17 07:17 | XMS_ITS | Continuity of Care Document ---
Author Organization [facility] Address [address] [facility] [place] [address] [place] [address] Assessment No assessment recorded. Plan of Treatment Reminders Order Date Submit Date Provider Last Modified By Organization Details Last Modified Time Details Appointments None recorded. Lab CMP, serum or plasma 2024 025 [facility], [address] [place] [address], [address], 5 12:06:55 CBC w/ auto diff 2024 025 [facility], [address] [place] [address], [address], 5 11:16:15 ESR (erythrocy te sedimentat ion rate), blood 2024 025 [facility], [address] [place] [address], [address], 5 11:16:16 C-reactive protein, quantitati ve, serum or plasma 2024 025 [facility], [address] [place] [address], [address], 5 11:16:15 vitamin D, 25-hydroxy , total, serum 2024 025 [facility], [address] [place] [address], [address], 5 11:16:16 vitamin B12 + folate, serum or blood 2024 025 [facility], [address] [place] [address], [address], 5 11:16:16 iron + TIBC + ferritin, serum 2024 025 [facility], [address] [place] [address], [address], 5 11:16:15 TSH + free T4, serum 2024 025 [facility], [address] [place] [address], [address], 5 11:16:16 hemoglobin A1c, QN, blood 2024 025 [facility], [address] [place] [address], [address], 5 11:16:16 Referral otolaryngo logist referral 2024 025 [facility], [address] [place] [address], [address], 08:52:09 Procedures None recorded. Surgeries None recorded. Imaging None recorded. Medication Orders None recorded. Patient TargetsNo targets recorded. Patient InstructionsNo instructions recorded. 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 [email or web address] [facility] Internal Medicine [address] [facility] [address], [place], [address], 04/22/2025 10:34:13 Result Notes None recorded. Problems Name Problem SNOMED Code Status Onset Date Resolution Date Notes Provider Name and Address Organization Details Recorded Time Environme ntal allergy 754917297 [facility] 8 16:36:54 Obesity 080622022 Active 2017 Evelyn campoverde [facility] 8 16:37:21 History of human papilloma virus infection 783810505876 102 Active 2017 [facility] 8 16:40:59 Myastheni a gravis 34680449 Active 2020 [facility] 1 09:23:22 COVID-19 969621611 Active 2020 [facility] 1 09:23:33 Overweigh t 922590396 Active 2021 MIKHAIL SARKAR [address] [place] [address], [address], [facility] 2 14:44:17 Essential hypertens ion 52051654 Active 2021 MIKHAIL SARKAR [address] [place], [address], [facility] [place] 2 14:48:07 Acute sinusitis 67571775 Active 2022 MIKHAIL SARKAR [address] [place], [address], [facility] [place] 3 13:35:05 Dyspnea 650772972 Active 2022 MIKHAIL SARKAR [address] [place], [address], [facility] [place] 3 11:01:25 Acute right otitis media 202911532 Active 2022 MIKHAIL SARKAR [address] [place] [address], [address], [facility] [place] 3 13:59:32 Panic disorder 952843865 Active 2023 MIKHAIL SARKAR [address] [place] [address], [address], [facility] [place] 4 10:02:38 Hypertens giselle urgency 395820892 Active 2023 MIKHAIL SARKAR [address] [place] [address], [address], [facility] [place] 4 10:08:53 Dysuria 31478330 Active 2023 MIKHAIL SARKAR [address] [place] [address], [address], [facility] [place] 4 15:24:06 Cerebrova scular accident 160657772 Active 2023 MIKHAIL SARKAR [address] [place] [address], [address], [facility] [place] 4 15:24:28 Transient cerebral ischemia 513109184 Active 2023 MIKHAIL SARKAR [address] [place] [address], [address], [facility] [place] 4 14:27:33 Pain of left hand 399857234133 103 Active 2023 MIKHAIL SARKAR [address] [place] [address], [address], [facility] [place] 4 09:35:48 Pain in left arm 676049775 Active 2023 MIKHAIL SARKAR [address] [place] [address], [address], [facility] [place] 4 09:36:00 Hyperlipi demia 51632315 Active 2023 MIKHAIL SARKAR [address] [place] [address], [address], [facility] [place] 4 09:51:05 Acute urinary tract infection 371040198 Active 2023 MIKHAIL SARKAR [address] [place], [address], [facility] [place] 4 14:36:41 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 2023 Avel Henson, DO [address] [place] [address], [address], [facility] [place] 4 16:48:00 Vertigo 801449073 Active 2023 MIKHAIL SARKAR [address] [place] [address], [address], [facility] [place] 5 14:00:55 Recurrent urinary tract infection 260086497 Active 2023 Avel Henson, DO [address] [place] [address], [address], [facility] [place] 4 20:55:54 Dermoid cyst of head 872789426 Active 2024 MIKHAIL SARKAR [address] [place] [address], [address], [facility] [place] 5 15:50:45 Fatigue 47099869 Active 2024 MIKHAIL SARKAR [address] [place] [address], [address], [facility] [place] 5 11:08:48 Pain of multiple joints 81579679 Active 2024 MIKHAIL SARKAR [address] [place] [address], [address], [facility] [place] 5 10:11:48 Menopause Active 2024 MIKHAIL SARKAR [address] [place] [address], [address], [facility] [place] 5 10:14:36 Biju hematuria 038176868 Active 2024 MIKHAIL SARKAR [address] [place] [address], [address], [facility] [place] 5 10:27:05 Osteoarth ritis of knee 178616126 Active 2024 MIKHAIL SARKAR [address] [place] [address], [address], [facility] [place] 5 10:09:33 Anti-nucl ear factor detected 714671854 Active 2024 MIKHAIL SARKAR [address] [place] [address], [address], [facility] [place] 5 09:25:44 Otalgia of right ear 5233931689 Active 2024 MIKHAIL SARKAR [address] [place] [address], [address], [facility] [place] 5 15:28:16 Chronic pansinusi tis 33466589 Active 2024 MIKHAIL SARKAR [address] [place] [address], [address], [facility] [place] 5 11:07:05 Mixed hyperlipi demia 950354460 Active 2024 MIKHAIL SARKAR [address] [place] [address], [address], [facility] [place] 08:31:15 Impaired fasting glycemia 587374769 Active 2024 MIKHAIL SARKAR [address] [place] [address], [address], [facility] [place] 5 15:32:12 Atypical chest pain 401348690 Active 2024 MIKHAIL SARKAR [address] [place] [address], [address], [facility] [place] 5 08:32:15 Pain of right knee joint 106361071345 100 Active 2024 MIKHAIL SARKAR [address] [place] [address], [address], [facility] [place] 5 12:45:38 Problem Notes None recorded. Procedures Surgical History Date Name Laterality Status Provider Name and Address Organization Details Recorded Time Partial Hysterectomy completed Jessi oRdriguez NP, S [address] [facility], [place], [address], [facility] [place] 04/28/2018 10:35:33 Imaging Results None [...] Not Available Not Available Not Avai lable lisinopril 20 mg tablet TAKE 1 AND [...] BY MOUTH EVERY DAY AT 4 PM 2024 active Not Available Not Available Not Avai lable methylpredn isolone 4 mg tablets in a [...] (BMI) Body weight Heart rate Oxygen saturation Systolic And Diastolic Provider Name and Address Organization Details Last Updated DateTime 152.4 cm 34.4 kg/m2 86391.2 6 g 80 /min 99 % 124/80 mm[Hg] [facility] 5 10:47:35 Social History Question Answer Notes LastModified by Organizat ion Details LastModified Time Tobacco Smoking Status Never Smoker Not Available [facility]/22/2020 03:36:24 What Was The Date Of Your Most Recent Tobacco Screening? 03/04/2025 [email or web address] Information not available 03/04/2025 Sex: Unknown Functional Status Question Answer Note LastModified by Organization D etails LastModified Time Do you or have you ever used any other forms of tobacco or nicotine? No [email or web address] Information not available 11/26/2022 Mental Status None [...] N High Cholesterol N Liver Disease N Headaches Y Fibromyalgia N Kidney Disease N Allergies/Hayfever Y Hospitalizations N [...] PF, 0.5 mL 09/22/[address] [facility] Internal Medicine 12/02/2020 10:20:35 Past Encounters Encounter ID Performer Location Encounter Start Date Encounter Closed Date Diagnosis/Indication Diagnosis SNOMED-CT Code Diagnosis ICD10 Code Diagnosis IMO Codes Diagnosis Note [id number] Avel Henson DO [facility] Internal Medicine [address] [facility],[place] [address] 03/04/2025 10:30:42 03/04/2025 16:16:23 Essential hypertension 82414581 I10 BP much improved with lisinopril restarting Hypertensive urgency 443 897122 I16.0 resolved, BP is stable Antiphosph olipid syndrome 95349028 D68.61 stable Myasthenia gravis 326559 04 G70.00 stable Chronic pansinusitis 888 41234 J32.4 2468 change ENT to [place] per pt Fatigue 72494449 R53.83 [id number] will set up with lab work Health Concerns Section Related Observation LastModified by Organization Detai ls LastModified Time None Recorded Concern Status LastModified by Organization Details LastModified Time None Recorded Payers Encounter Date Sequence Insurance Name Policy Number Policy Reed Covered Member ID Reed Member ID Guarantor Name 03/04/2025 1 AUGIE (PPO) [id number] Sindi King [id number] Sindi King Notes Date Note Type Note Provider Name a nd Address Organization Details Recorded Time 03/04/2025 text/html [facility] with hx of [...] appt already for routine appts MIKHAIL SARKAR [address] [facility], [place], [address], [place] [facility] 03/04/2025 11:14:06 OBGyn Episode No OBEpisode recorded.
--- OUTSIDE RECORDS SUMMARY | 2025-05-17 07:17 | XMS_ITS | Encounter Summary ---
Author Organization [facility] Address [address] [facility] [address] [place] [address] Phone Care Team Providers Care Fha Underwriter Name Role Phone Avel Henson DO Unavailable Mary Pate Primary Care Provider Ayah Clemente RN Unavailable [phone] Encounter Details Date Type Department Care Team (Late st Contact Info) Description 09/21/2024 Ancillary Orders [facility], X-Ray - [facility] [address] [place] [address] Mary Pate PA [address] [place], [place] [phone] Pain in joints (Primary Dx); Pain Social [...] Description 06/07/2025 10:00 AM EST Office Visit [facility] Rheumatology [address] [place] [address] Ondina Barbour MD [address] [facility], [address] [place] [address] 06/19/2025 3:15 PM EST Evaluation [facility] Otolaryngology [address] [facility] [address] [place] [address] MiamiDianna, AuD [address] [place] [address] [email or web address] 07/29/2025 1:30 PM EST Office Visit [facility] Gastroenterology Clinic [address] [place] [address] Mary Mcnally CNP [address] [place] [address] [email or web address] Scheduled Procedures Name Priority Associated Diagnoses Date/Ti [...] clinician's provided indication for this examination in [facility]:Pain REQUESTED INDICATION: Pain COMPARISON: None FINDINGS: PELVIS: [...] acute osseous abnormality or significant degenerative change. us Mary ELIZONDO IMG XR LOWER EXTREMITY Macrina [...] clinician's provided indication for this examination in [facility]:Pain COMPARISON: None FINDINGS: RIGHT KNEE: Knee joint [...] sites documented in this encounter Care Teams Fha Underwriter Relationship Specialty Start Date End Date Mary Pate PA [address] [place] [address] [place] [address] PCP - General Physician Child Care Worker 12/09/23 Avel Henson DO [address] [place] [address] Insurance Assigned Provider 09/24/23 Ayah Clemente, SONNY [address] [place] [address] Registered Nurse 03/19/25 documented as of this encounter Additional Source Comments The information contained in this document represents components of the legal health record. It is not the complete legal health record.[facility]
--- OUTSIDE RECORDS SUMMARY | 2025-05-17 07:17 | XMS_ITS | Data Portability ---
Author Organization [facility], Telehealth Patient Home Address [address] [place] [address] Assessment Encounter Date Assessment Date Assessment LastModified by Organization Details LastModified Time 05/09/2023 05/09/2023 Patient agreed and verbally consents to this audio and video Telehealth appt via a secure platform [email or web address] Not available 05/09/2023 13:59:44 Plan of Treatment Reminders Order Date Submit Date Provider Last Modified By Organization Details Last Modified Time Details Appointments None recorded. Lab CMP, serum or plasma 2024 025 [facility], [address] [place] [address], [address], 5 12:06:55 CBC w/ auto diff 2024 025 [facility], [address] [place] [address], [address], 5 11:16:15 ESR (erythrocy te sedimentat ion rate), blood 2024 025 [facility], [address] [place] [address], [place], [address], 5 11:16:16 C-reactive protein, quantitati ve, serum or plasma 2024 025 [facility], [address] [place] [address], [address], 5 11:16:15 vitamin D, 25-hydroxy , total, serum 2024 025 [facility], [address] [place] [address], [address], 5 11:16:16 vitamin B12 + folate, serum or blood 2024 025 [facility], [address] [place] [address], [address], 5 11:16:16 iron + TIBC + ferritin, serum 2024 025 [facility], [address] [place] [address], [address], 5 11:16:15 TSH + free T4, serum 2024 025 [facility], [address] [place] [address], [address], 5 11:16:16 hemoglobin A1c, QN, blood 2024 025 [facility], [address] [place] [address], [address], 5 11:16:16 urinalysis complete, reflex culture 2024 025 [facility], [place], [address], 5 18:52:05 estradiol, serum 2024 025 [facility], [place], [address], 5 09:44:30 lh + FSH, serum 2024 025 [email or web address], [place], [address], 5 10:22:57 progestero ne, serum 2024 025 [facility], [place], [address], 5 10:22:57 prolactin, serum 2024 [facility], [place], [address], 5 10:22:57 testostero ne, total, serum 2024 [facility], [place], [address], 5 10:22:57 rf (rheumatoi d factor), serum 2024 [facility], [place], [address], 5 10:22:58 ESR (erythrocy te sedimentat ion rate), blood 2024 [facility], [place], [address], 5 10:22:58 JIA (antinucle ar antibodies ) screen, serum 2024 [email or web address], [place], [address], 5 16:49:22 C-reactive protein, quantitati ve, serum or plasma 2024 025 [facility], [place], [address], 5 10:22:57 uric acid, serum or plasma 2024 025 [facility], [place], [address], 5 10:22:57 ccp (cyclic citrullina dony peptide) igg, serum 2024 025 [facility], [place], [address], 5 12:08:57 lyme disease igg+igm, serum, reflex western blot 2024 025 [facility], [place], [address], 5 13:44:38 dsDNA Ab, serum 2024 025 [facility], [place], [address], 5 15:51:47 sjogren antibody panel (ssa, ssb, ro, la), serum 2024 025 [facility], [place], [address], 5 14:53:16 lipid panel, serum 2023 024 [facility], [address] [place] [address], [place], [address], 4 09:52:29 urinalysis complete, reflex culture 2023 024 [facility], [address] [place] [address], [place], [address], 4 15:26:55 Referral otolaryngo logist referral 2024 025 [facility], [address] [place] [address], [address], 5 08:52:09 physical therapist referral 2023 024 [facility], [address] [place], [address], 4 09:08:18 Procedures None recorded. Surgeries None recorded. Imaging XR, hip + pelvis, bilateral 2024 025 [facility], [address] [place] [address], [address], 5 10:01:43 XR, ankle, 3 or more view 2024 025 [facility], [address] [place] [address], [address], 5 09:40:40 XR, knee, 3 view 2024 025 [facility], [address] [place] [address], [address], 5 09:56:54 XR, ankle, 3 or more view 2024 025 [facility], [address] [place] [address], [address], 5 09:40:20 XR, hand, 3 or more view 2023 024 [facility], [address] [place], [address], 4 19:51:02 XR, humerus, 2 or more view 2023 024 [facility], [address] [place], [address], 4 16:21:57 XR, shoulder, 2 or more view 2023 024 [facility], [address] [place], [address], 4 08:34:26 Medication Orders Zepbound 2.5 mg/0.5 mL subcutaneo us pen injector 2024 025 [facility], [address] [place] [address], [id number], 5 16:23:45 atorvastat in 80 mg tablet 2023 025 [facility]61573, [address], [place], [id number], 5 10:22:44 lisinopril 10 mg tablet 2023 024 [facility]12772, [address], [place], [id number], 4 13:35:57 Bactrim DS 800 mg-160 mg tablet 2023 024 [facility] #77173, [address], [place], [id number], 5 10:22:47 amoxicilli n 875 mg-potassi um clavulanat e 125 mg tablet 2022 023 [facility] #45753, [address], [place], [id number], 4 10:02:47 Medrol (Krishan) 4 mg tablets in a dose pack 2022 023 [facility] #82927, [address], [place], [id number], 4 10:02:55 Patient TargetsNo targets recorded. Patient InstructionsNo instructions recorded. 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 [facility] [address] [place], [address], 06/10/2023 11:30:35 06/24/19 24 06/24/2023 MAMMO , scree alan, digit al, bilat eral No observ ation record ed. [facility] [address] [place], [address], 06/25/2023 08:54:30 12/02/19 24 12/02/2023 XR, shoul flor, 2 or more view No observ ation record ed. [facility] [address], [place], [address], 09/21/2024 10:09:43 12/02/19 24 12/02/2023 XR, humer us, 2 or more view No observ ation record ed. [facility] [address] [facility] [address], [place], [address], 09/21/2024 10:09:43 12/02/19 24 12/02/2023 XR, hand, 3 or more view No observ ation record ed. [facility] [address] [facility] [address], [place], [address], 09/21/2024 10:09:43 12/30/19 24 12/30/2023 MAMMO , scree alan, digit al, bilat eral No observ ation record ed. [facility] [address] [place], [address], 09/21/2024 10:09:43 01/05/20 24 12/30/2023 US, breas t No observ ation record ed. [facility] [address], [place], [address], 09/21/2024 10:09:43 01/05/20 24 01/05/2024 MAMMO , scree alan, digit al, bilat eral No observ ation record ed. [facility] [address] [facility] [address], [place], [address], 09/21/2024 10:09:43 01/05/20 24 01/05/2024 US, brekrzysztof t No observ ation record ed. [facility] [address], [place], [address], 09/21/2024 10:09:43 01/10/20 24 01/05/2024 biops y of carlos sadler; soumya robles us, needl e core, using imagi ng helen nce (PROC ) No observ ation record ed. [facility] [address] [facility] [address], [place], [address], 09/21/2024 10:09:43 08/09/19 25 08/08/2024 US, retro perit oneum , compl ete No observ ation record ed. [facility] (Medical Records) [address] [facility], [place], [address], 09/21/2024 10:09:42 08/14/19 25 08/14/2024 US, breas t, unila teral , limit ed No observ ation record ed. [facility] [address] [facility] [address], [place], [address], 09/21/2024 10:09:42 08/17/19 25 08/14/2024 MAMMO , scree alan, digit al, bilat eral No observ ation record ed. [email or web address] Not Available 2024 10:09:42 09/23/19 25 09/21/2024 XR, knee, 3 view No observ ation record ed. [address], [address], 09/24/2024 10:09:04 09/23/19 25 09/21/2024 XR, ankle , 3 or more view No observ ation record ed. [facility] [address] [place] [address], [address], 09/24/2024 10:09:04 09/23/19 25 09/21/2024 XR, ankle , 3 or more view No observ ation record ed. [facility] [address] [place] [address], [address], 09/24/2024 10:09:04 09/23/19 25 09/21/2024 XR, hip + pelvi s, bilat eral No observ ation record ed. [address], [address], 09/24/2024 10:09:05 04/19/2004/18/2025 CT, heart , w/o contr ast, w/ coron roland calci um score No observ ation record ed. [email or web address] [facility] [address] [facility] [address], [place], [address], 04/22/2025 10:34:13 Result Notes None recorded. Problems Name Problem SNOMED Code Status Onset Date Resolution Date Notes Provider Name and Address Organization Details Recorded Time Environme ntal allergy 316699579 Active 2017 Evelyn campoverde [facility] 8 16:36:54 Obesity 204114062 Active 2017 Evelyn campoverde [facility] 8 16:37:21 History of human papilloma virus infection 384416790781 102 Active 2017 Evelyn campoverde [facility] 8 16:40:59 Myastheni a gravis 59859915 Active 2020 Evelyn Guallpajae gilles, [facility] 1 09:23:22 COVID-19 370160570 Active 2020 Evelyn Guallpaildefonsostephen campoverde, [facility] 1 09:23:33 Overweigh t 485577004 Active 2021 MIKHAIL SARKAR [address] [place], [address], [facility] 2 14:44:17 Essential hypertens ion 02901742 Active 2021 MIKHAIL SARKAR [address] [place], [address], [facility] 2 14:48:07 Acute sinusitis 97402621 Active 2022 MIKHAIL SARKAR [address] [place], [address], [facility] 3 13:35:05 Dyspnea 421461513 Active 2022 MIKHAIL SARKAR [address] [place], [address], [facility] 3 11:01:25 Acute right otitis media 161154934 Active 2022 MIKHAIL SARKAR [address] [place], [address], [facility] 3 13:59:32 Panic disorder 410537161 Active 2023 MIKHAIL SARKAR [address] [place], [address], [facility] 4 10:02:38 Hypertens giselle urgency 849961345 Active 2023 MIKHAIL SARKAR [address] [place], [address], [facility] 4 10:08:53 Dysuria 32403900 Active 2023 MIKHAIL SARKAR [address] [place], [address], [facility] 4 15:24:06 Cerebrova scular accident 416566865 Active 2023 MIKHAIL SARKAR [address] [place] [address], [address], [facility] 4 15:24:28 Transient cerebral ischemia 822372463 Active 2023 MIKHAIL SARKAR [address] [place] [address], [address], [facility] 4 14:27:33 Pain of left hand 573205491185 103 Active 2023 MIKHAIL SARKAR [address] [place] [address], [address], [facility] 4 09:35:48 Pain in left arm 430882749 Active 2023 MIKHAIL SARKAR [address] [place] [address], [address], [facility] 4 09:36:00 Hyperlipi demia 24850694 Active 2023 MIKHAIL SARKAR [address] [place] [address], [address], [facility] 4 09:51:05 Acute urinary tract infection 243299034 Active 2023 MIKHAIL SARKAR [address] [place] [address], [address], 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 4 16:48:00 Vertigo 871366949 Active 2023 MIKHAIL SARKAR [address] [place] [address], [address], [facility] 5 14:00:55 Recurrent urinary tract infection 399424981 Active 2023 Avel Henson, [address] [place], [address], [facility] 4 20:55:54 Dermoid cyst of head 608751953 Active 2024 MIKHAIL SARKAR [address] [place] [address], [address], [facility] 5 15:50:45 Fatigue 59243140 Active 2024 MIKHAIL SARKAR [address] [place] [address], [address], [facility] 5 11:08:48 Pain of multiple joints 39512431 Active 2024 MIKHAIL SARKAR [address] [place] [address], [address], [facility] 5 10:11:48 Menopause Active 2024 MIKHAIL SARKAR [address] [place] [address], [address], [facility] 5 10:14:36 Biju hematuria 775081783 Active 2024 MIKHAIL SARKAR [address] [place] [address], [address], [facility] 5 10:27:05 Osteoarth ritis of knee 072101028 Active 2024 MIKHAIL SARKAR [address] [place] [address], [address], [facility] 5 10:09:33 Anti-nucl ear factor detected 487000667 Active 2024 MIKHAIL SARKAR [address] [place] [address], [address], [facility] 5 09:25:44 Otalgia of right ear 5667753516 Active 2024 MIKHAIL SARKAR [address] [place] [address], [address], [facility] 5 15:28:16 Chronic pansinusi tis 50414752 Active 2024 MIKHAIL SARKAR [address] [place], [address], [facility] 5 11:07:05 Mixed hyperlipi demia 112502137 Active 2024 MIKHAIL SARKAR [address] [place] [address], [address], [facility] 5 08:31:15 Impaired fasting glycemia 391278987 Active 2024 MIKHAIL SARKAR [address] [place] [address], [address], [facility] 5 15:32:12 Atypical chest pain 378509663 Active 2024 MIKHAIL SARKAR [address] [place] [address], [address], [facility] 5 08:32:15 Pain of right knee joint 062364758084 100 Active 2024 MIKHAIL SARKAR [address] [place] [address], [address], [facility] 5 12:45:38 Problem Notes None recorded. Procedures Surgical History Date Name Laterality Status Provider Name and Address Organization Details Recorded Time Partial Hysterectomy completed Jessi Rodriguez NP, S [address] [place] [address], [address], [facility] 04/28/2018 10:35:33 Imaging Results [...] Updated DateTime 09/21/2024 152.4 cm 34.4 kg/m2 65194.26 g [facility] 09/21/2024 10:07:16 Date Recorded Body height Body mass index (BMI) Body weight Heart rate Oxygen saturation Systolic And Diastolic Provider Name and Address Organization Details Last Updated DateTime 4 152.4 cm 34.5 kg/m2 38329.7 7 g 84 /min 98 % 126/80 mm[Hg] Johana Camacho [facility] 4 14:58:43 Date Recorded Body height Body mass index (BMI) Body weight Heart rate Oxygen saturation Systolic And Diastolic Provider Name and Address Organization Details Last Updated DateTime 4 152.4 cm 34.4 kg/m2 83033.2 6 g 84 /min 97 % 124/70 mm[Hg] Reyna Francisco J [facility] 4 09:22:43 Date Recorded Body height Body mass index (BMI) Body weight Heart rate Oxygen saturation Systolic And Diastolic Provider Name and Address Organization Details Last Updated DateTime 5 152.4 cm 34.4 kg/m2 47139.2 6 g 80 /min 99 % 124/80 mm[Hg] Reynaolu Avendanomond [facility] 5 10:47:35 Social History Question Answer Notes LastModified by Organizat ion Details LastModified Time Tobacco Smoking Status Never Smoker Not Available [facility] 04/22/2020 03:36:24 What Was The Date Of Your Most Recent Tobacco Screening? 03/04/2025 Information not available 03/04/2025 Sex: Unknown Functional Status Question Answer Note LastModified by Organization D etails LastModified Time Do you or have you ever used any other forms of tobacco or nicotine? No [email or web address] Information not available 11/26/2022 Mental Status None recorded. Family History Relationship Description Onset Age of this Age Resolved Age Notes LastModified by Organization Details LastModified Time Father Hypertensive disorder 49 ? brain aneury sm chioma Not available 04/28/2018 10:34:54 Mother Hypertensive disorder NIDDM chioma Not available 2017 10:34:54 Medical History Condition Response Coronary Artery Disease N Gout N Blood Diseases N Kidney Stones N Hyperthyroidism N Blood Transfusion N Breast Cancer N Depression N COPD N Hypothyroidism N Lung Disease N Defects or Inherited [...] N Heart Disease N Pulmonary Embolism N Hypertension Y Chronic Ear Infections Y Chicken Pox Y Autism Spectrum Disorder [...] PF, 0.5 mL 09/22/2020 completed Amada Noel [facility] 12/02/2020 10:20:35 Past Encounters Encounter ID Performer Location Encounter Start Date Encounter Closed Date Diagnosis/Indication Diagnosis SNOMED-CT Code Diagnosis ICD10 Code Diagnosis IMO Codes Diagnosis Note [id number] Avel Henson [facility] [address] [facility] [place] [address] 04/28/2018 10:16:06 04/28/2018 12:51:08 Adult health examination 587252124 Z00.01 Active or passive immunization 718807577 Z23 Essential hypertension 11381674 I10 Screening procedure 2012 5006 Z13.9 [id number] Avel Henson [facility] [address] [facility] [place] [address] 12/09/2020 09:58:28 12/09/2020 10:49:23 Essential hypertension 94568390 I10 BP elevatedwi ll start on lisinopril and fu in a moalso needs BW done Myasthenia gravis 405448 04 G70.00 stable [id number] Avel Henson [facility] [address] [facility], [place] [address] 01/07/2021 09:13:49 01/07/2021 09:37:52 Essential hypertension 84750223 I10 BP much improved with lisinopril will continue on the same dose for now and fu in 3 mowill see if it needs to be titrated at that time [id number] Avel Henson DO [facility] [address] [facility] [address] 04/08/2021 08:50:44 04/08/2021 09:31:08 Overweight 011788430 E66.3 will trial phentermin e 15 mg capsulewil l call with an update in a month to tell me her progress Essential hypertension 43827763 I10 BP much improved with lisinopril will continue on the same dose for now and fu in 3 mowill see if it needs to be titrated at that time [id number] Avel Henson DO [facility] [address] [facility] [address] 06/15/2021 10:01:23 06/15/2021 14:50:08 Acute laryngitis 9731587 J04.0 increase fluids, take lozenges Otalgia 97512439 H92.03 possible referred pain Pain in throat 844770375 R07.0 take APAP or ibu PRN for pain relief and inflammati on Acute sinusitis 10181721 J01.01 will treat with abx Cough 98750992 R05.1 will treat cough [id number] MIKHAIL SARKAR [facility] [address] [facility] [address] 02/05/2022 13:31:15 02/05/2022 15:23:44 Overweight 917327384 E66.3 will trial phentermin e 15 mg capsule in combo with 50 mg of topimaxwil l call with an update in a month to tell me her progress Essential hypertension 54635053 I10 BP much improved with lisinopril [id number] Avel Henson DO [facility] [address] [facility] [address] 07/07/2022 09:59:55 07/07/2022 16:04:24 Acute sinusitis 25544076 J01.01 will treat with abx/medrol [id number] Avel Henson [facility] [address] [facility] [address] [address] 11/26/2022 10:46:00 11/26/2022 11:22:06 Myasthenia gravis 42423619 G70.00 stable Adult heal th examination 027781396 Z00.00 agreed to full panel lab workneurol deb wanted it Screening for malignant neoplasm of colon 261718229 Z12.11 will print referral for patient since she didn't go last time Dyspnea 588100562 R06.02 Overweight 134214848 E66 .3 will trial phentermin e 15 mg capsule in combo with 50 mg of topimaxwil l call with an update in a month to tell me her progress Screening mammography 24 623324 Z12.31 agreed to MM; due for it [id number] Avel Henson [facility] [address] [facility] [address] 05/09/2023 09:27:32 05/09/2023 16:08:27 Acute right otitis media 888251147 H65.04 will start on augmentin and medrol for possible combinatio n ear and sinus infection Acute sinusitis 28173835 J01.01 will treat with abx/medrol comboconti nue on APAP for discomfort as needed [id number] Avel Henson [facility] [address] [facility] [address] 11/01/2023 14:44:12 11/02/2023 08:46:50 Depression screening 357805346 Z13.31 stable Dysuria 62303704 R30.0 will set up with recheck urine Cerebrovas cular accident 206809608 I63.331 doing welldiscus sed side effects to look out for for the new medication s she is on Myasthenia gravis 327338 04 G70.00 stablewill be following with her doctor out in [place] and neuro who works with her doctor [id number] Avel Henson [facility] [address] [facility] [address],[place] [address] 11/30/2023 09:14:12 11/30/2023 14:54:16 Depression screening 371356681 Z13.31 stable Transient cerebral ischemia 438214990 G45.9 stableneed s refill of the atorvastat in Essential hypertension 09022593 I10 BP much improved with lisinopril Pain of left hand 053877 4295 97766 M79.642 will set up with XR's Pain in left arm 1045385 00 M79.602 will set up with XR per PT/OT Myasthenia gravis 825664 04 G70.00 john be following with her doctor out in [place] and neuro who works with her doctor waiting on placard to go through Hyperlipidemia 16205367 E78.5 [id number] Avel Henson [facility] Medicine [address] [facility],[place] [address] 09/21/2024 10:00:28 09/21/2024 10:36:53 Pain of multiple joints 87924599 M25.50 ? psoriatic arthritis vs RA Antiphosph olipid syndrome 29273055 D68.61 stable Menopause 331629330 N95. 1 recheck levels Body mass index 30+ - obesity 260255788 Z68.34 trial zepbound Biju hematuria 90194216 5 R31.0 will set up with urine Myasthenia gravis 730828 04 G70.00 john be following with her doctor out in [place] and neuro who works with her doctor waiting on placard to go through Obesity 418160224 E66.9 Transient cerebral ischemia 035308430 G45.9 stableneed s [place] the ator[place] in 170088 Avel Henson [facility] Internal Medicine [address] [facility],[place] [address] 03/04/2025 10:30:42 03/04/2025 16:16:23 Essential hypertension 30791573 I10 BP much improved with lisinopril restarting Hypertensive urgency 443 103747 I16.0 resolved, BP is stable Antiphosph olipid syndrome 22116458 D68.61 stable Myasthenia gravis 087663 04 G70.00 stable Chronic pansinusitis 888 08167 J32.4 2468 change ENT to [place] per pt Fatigue 65112065 R53.83 [id number] will set up with lab work Health Concerns Section Related Observation LastModified by Organization Detai ls LastModified Time None Recorded Concern Status LastModified by Organization Details LastModified Time None Recorded Advance Directives Directive None Recorded Payers Insurance Date Sequence Insurance Name Policy Number Policy Reed Covered Member ID Reed Member ID Guarantor Name 03/01/2025 1 [place] [id number] Sindi iKng [id number] Sindi King 09/21/2024 1 [employer] (POS) Sindi King [id number] Sindi King Notes Date Note Type Note Provider Name a nd Address Organization Details Recorded Time 05/09/2023 text/html ROS as noted in the [facility] c/o sick, upper resp infection telemedicine phone [...] of ear and sinus infection MIKHAIL SARKAR [address] [place] [address], [place], [address], [facility] 05/09/2023 14:03:27 11/01/2023 text/html ROS [...] doctor wants her to see out in [place] the patient is otherwise doing wellworking with neuro will also send out urine for culturestill has leuks and now blood MIKHAIL SARKAR [address] [place], [address], [facility] 11/01/2023 16:01:55 11/30/2023 text/html ROS as noted in the HPI 1 mos f/u depression screening 0doing really well TIA/CVA: the patient reports she is doing really well with PTcurrently only using the a cane instead of a walker needs refills PT suggested XRs of her entire left arm otherwise doing really well seeing the stroke specialist in [place] on 12/14/23the patient already had the neuro f/u as well from [place], adjusted some of her meds can continue the ASA and the vitamin Dthe patient breathing is good, suggested melatonin for sleep will send results to the OT MIKHAIL SARKAR [address] [place], [address], [facility] 11/30/2023 09:52:24 09/21/2024 text/html [...] vs immune arthritis the patient did see mixer diamond powder, started her on T gel, recommended hormone screeningthe patient reports that she feels fatigued and more joint pain which can also be symptoms additional from menopause also vit d def, will have pt start 2000 units with calcium will try to see if the zepbound will be covered under obesity, HTN having blood in her urine from [employer]; wanted repeat urine to check for continue hematuria f/u after work up MKIHAIL SARKAR [address] [place], [address], [facility] 09/21/2024 12:23:55 03/04/2025 text/html [...] already for routine appts MIKHAIL SARKAR [address] [facility], [place], [address], [facility] 03/04/2025 11:14:06 OBGyn Episode No OBEpisode recorded.
--- OUTSIDE RECORDS SUMMARY | 2025-05-17 07:17 | XMS_ITS | Encounter Summary ---
Author Organization [facility] Address [address] [facility] [address] [place] [address] Phone Care Team Providers Care Flight Teacher Name Role Phone Unknown, Unknown Primary Care Provider Avel Swenson DO Unavailable Mary Pate Primary Care Provider [phone] Ayah Clemente RN Unavailable [phone] Encounter Details Date Type Department Care Team (Late st Contact Info) Description 04/22/2017 Transcribe Orders [facility] Lab Main 30 [place] [address] Forest Guido MD [address] [place] [id number] Myasthenia gravis without exacerbation (Primary Dx) [...] 06/07/2025 10:00 AM EST Office Visit [facility] Rheumatology 22 [place] [address] Ondina Barbour MD [address] [facility], [address] [place], [place] [phone] 06/19/2025 3:[address] [facility] Otolaryngology [address] [facility] ASB2-2 [place] [address] Dianna Dhillon AuD 75 [place] [address] [email or web address] 07/29/2025 1:30 PM EST Office Visit [facility] Gastroenterology Clinic 10 [place] [address] Mary Mcnally, KATIE 10 [place] [address] [email or web address] Scheduled Procedures Name Priority Associated Diagnoses Date/Ti me COLONOSCOPY Abnormal bowel habits documented as of this encounter Results * LFTs (hepatic panel) (04/22/2017 8:21 AM EDT) ALKALINE PHOSPHATASE 99 39 - 117 U/L [facility] TOTAL BILIRUBIN 0.4 0 - 1.2 mg/dL [facility] DIRECT BILIRUBIN <0.2 0 - 0.3 mg/dL [facility] Bilirubin (Indirect) NOT CALCULATED 0 - 1.5 mg/dL [facility] AST 20 0 - 37 U/L [facility] ALT 28 0 - 40 U/L [facility] TOTAL PROTEIN 6.7 6.5 - 8.0 g/dL [facility] ALBUMIN 4.1 3.9 - 4.8 g/dL [facility] GLOBULIN 2.6 1 - 4.8 g/dL [facility] A/G Ratio 1.58 1.00 - 4.80 RATIO [facility] Blood 04/22/2017 8:21 AM EDT 04/22/2017 1:53 PM EDT us Forest Guido MD LAB BLOOD BKR ORDERABLES E dited Result - Final [facility] [address] [place] [address] * Basic metabolic panel (04/22/2017 8:21 AM EDT) SODIUM 142 133 - 146 mmol/L [facility] CHLORIDE 103 96 - 108 mmol/L [facility] POTASSIUM 4.7 3.3 - 5.1 mmol/L [facility] CO2 30 21 - 35 mmol/L [facility] BUN 15 6 - 19 mg/dL [facility] CREATININE 0.50 0.5 - 1.5 mg/dL [facility] GLUCOSE 92 70 - 99 mg/dL [facility] CALCIUM 9.3 8.4 - 10.3 mg/dL [facility] EGFR >60 60 - 1000 mL/min/1.7 3m2 [facility] Comment:Abnormal if <60. If patient is -Norwegian, multiply the result by 1.21. ANION GAP 14 10 - 20 mmol/L [facility] Blood 04/22/2017 8:21 AM EDT 04/22/2017 1:53 PM EDT us Forest Guido MD LAB BLOOD BKR ORDERABLES F inal Result [facility] [address] [place], [place] [id number] * CBC and differential (04/22/2017 8:21 AM EDT) WBC 4.98 3.40 - 11.20 K/uL [facility] RBC 4.34 3.80 - 4.80 M/uL [facility] HGB 12.2 12.0 - 15.0 g/dL [facility] HCT 36.9 36.0 - 46.0 % [facility] PLT 141 130 - 400 K/uL [facility] MCV 85.0 79.0 - 98.0 fL [facility] MCH 28.1 27.0 - 34.8 pg [facility] MCHC 33.1 31.5 - 36.0 g/dL [facility] RDW 13.9 10.8 - 14.6 % [facility] MPV 11.4 9.4 - 12.4 [facility] NRBC 0.00 /100 WBCs [facility] ABSOLUTE NRBC 0.00 K/uL [facility] DIFF METHOD Auto [facility] NEUTS 66.9 45.30 - 77.70 % [facility] LYMPHS 22.7 12.30 - 39.70 % [facility] MONOS 7.4 4.10 - 12.80 % [facility] EOS 2.0 0 - 7.2 % [facility] BASOS 0.6 0 - 2.80 % [facility] Granulocytes, immature (%) 0.4 0.0 - 0.9 % [facility] ABSOLUTE NEUTS 3.33 1.40 - 7.70 K/uL [facility] ABSOLUTE LYMPHS 1.13 0.60 - 3.20 K/uL [facility] ABSOLUTE MONOS 0.37 0.11 - 0.59 K/uL [facility] ABSOLUTE EOS 0.10 0.01 - 0.50 K/uL [facility] ABSOLUTE BASOS 0.03 0.00 - 0.08 K/uL [facility] Granulocytes, immature 0.02 0.00 - 0.05 K/uL [facility] Blood 04/22/2017 8:21 AM EDT 04/22/2017 1:53 PM EDT us Forest Guido MD LAB BLOOD BKR ORDERABLES F inal Result Performing Organization Address City/State/[facility] Co de Phone Number [facility] [address] [place] [address] documented in this encounter Visit Diagnoses Diagnosis Myasthenia gravis without exacerbation- Primary documented in this encounter Care Teams Flight Teacher Relationship Specialty Start Date End Date Unknown, Unknown, MD PCP - General 04/22/17 12/08/23 Mary Pate PA [address] [place] [address] [place] [address] PCP - General Physician Heat Treating Operator 12/09/23 Avel Henson DO [address] [place] [address] [email or web address] Insurance Assigned Provider 09/24/23 Ayah Clemente RN 30 [place] [address] Registered Nurse 03/19/25 documented as of this encounter Additional Source Comments The information contained in this document represents components of the legal health record. It is not the complete legal health record.[facility]
[2025-05-22 21:33] LABS: Cortisol, Free 0.44 mcg/dL
== END 2025-05-17 07:16 | disposition home or self-care (01) ==
LOC: HO.LAB 07:15
PROVIDERS: Visit Provider Physician Assistant
DX: R53.83 Other fatigue (principal)
CPT/HCPCS: 36415; 82530

== ENCOUNTER 2025-05-20 09:07 | Outpatient (REF) | payer BC, SELFPAY ==
--- NOTE | ~2025-05-20 | US_ITS ---
CLINICAL HISTORY: N39.0 - Urinary tract infection, site not specified Ultrasound kidneys. COMPARISON: US renal dated 08/08/24 at 10:37 EST Technique: Real time sonographic imaging, including color-flow imaging, was performed by the salesperson florist supplies. Multiple security representative static images were saved for review. FINDINGS: Horseshoe kidney. Right renal moiety: Cortical medullary differentiation is maintained. Normal color flow by Doppler. No calculus or focal parenchymal abnormality identified. No hydronephrosis. Right moiety size: 13.0 x 4.0 x 5.6 cm Left kidney: Cortical medullary differentiation is maintained. Normal color flow by Doppler. No calculus or focal parenchymal abnormality identified. No hydronephrosis. Left renal moiety: 10.3 x 4.8 x 6.6 cm The urinary bladder is unremarkable. Ureteral jets were visualized bilaterally. Prevoid volume: 172 mL Postvoid volume: 40 mL IMPRESSION: 1. No evidence of renal obstruction. 2. Horseshoe kidney. This document has been electronically signed by: Mohinder Herrera MD on 05/20/2025 14:13:09
--- OUTSIDE RECORDS SUMMARY | 2025-05-20 10:37 | XMS_ITS | Encounter Summary ---
Author Organization [facility] Address [address] [facility] [address] [place] [address] Phone Care Team Providers Care Director Of Retail Operations Name Role Phone Unknown, Unknown Primary Care Provider Avel Swenson DO Unavailable Mary Pate Primary Care Provider [phone] Ayah Clemente RN Unavailable [phone] Encounter Details Date Type Department Care Team (Late st Contact Info) Description 04/22/2017 Transcribe Orders [facility] Lab Main 30 [place] [address] Forest Guido MD [address] [place] [phone] Myasthenia gravis without exacerbation (Primary Dx) [...] 06/07/2025 10:00 AM EST Office Visit [facility] Rheumatology 22 [place] [address] Ondina Barbour MD 22 [facility], [address] [place], [place] [phone] 06/19/2025 3:15 PM EST Evaluation [facility] Otolaryngology 45 [facility] ASB2-2 [place] [address] Dianna Dhillon AuD 75 [place] [address] [email or web address] 07/29/2025 1:30 PM EST Office Visit [facility] Gastroenterology Clinic 10 [place] [address] Mary Mcnally, KATIE 10 [place] [address] [email or web address] Scheduled Procedures Name Priority Associated Diagnoses Date/Ti me COLONOSCOPY Abnormal bowel habits documented as of this encounter Results * LFTs (hepatic panel) (04/22/2017 8:21 AM EDT) ALKALINE PHOSPHATASE 99 39 - 117 U/L [facility] TOTAL BILIRUBIN 0.4 0 - 1.2 mg/dL [facility] DIRECT BILIRUBIN <0.2 0 - 0.3 mg/dL [facility] Bilirubin (Indirect) NOT CALCULATED 0 - 1.5 mg/dL [facility] AST 20 0 - 37 U/L [facility] ALT 28 0 - 40 U/L [facility] TOTAL PROTEIN 6.7 6.5 - 8.0 g/dL [facility] ALBUMIN 4.1 3.9 - 4.8 g/dL [facility] GLOBULIN 2.6 1 - 4.8 g/dL [facility] A/G Ratio 1.58 1.00 - 4.80 RATIO [facility] Blood 04/22/2017 8:21 AM EDT 04/22/2017 1:53 PM EDT us Forest Guido MD LAB BLOOD BKR ORDERABLES E dited Result - Final [facility] [address] [place] [address] * Basic metabolic panel (04/22/2017 8:21 AM EDT) SODIUM 142 133 - 146 mmol/L [facility] CHLORIDE 103 96 - 108 mmol/L [facility] POTASSIUM 4.7 3.3 - 5.1 mmol/L [facility] CO2 30 21 - 35 mmol/L [facility] BUN 15 6 - 19 mg/dL [facility] CREATININE 0.50 0.5 - 1.5 mg/dL [facility] GLUCOSE 92 70 - 99 mg/dL [facility] CALCIUM 9.3 8.4 - 10.3 mg/dL [facility] EGFR >60 60 - 1000 mL/min/1.7 3m2 [facility] Comment:Abnormal if <60. If patient is -Mongolian, multiply the result by 1.21. ANION GAP 14 10 - 20 mmol/L [facility] Blood 04/22/2017 8:21 AM EDT 04/22/2017 1:53 PM EDT us Forest Guido MD LAB BLOOD BKR ORDERABLES F inal Result [facility] [address] [place], [place] [id number] * CBC and differential (04/22/2017 8:21 AM EDT) WBC 4.98 3.40 - 11.20 K/uL [facility] RBC 4.34 3.80 - 4.80 M/uL [facility] HGB 12.2 12.0 - 15.0 g/dL [facility] HCT 36.9 36.0 - 46.0 % [facility] PLT 141 130 - 400 K/uL [facility] MCV 85.0 79.0 - 98.0 fL [facility] MCH 28.1 27.0 - 34.8 pg [facility] MCHC 33.1 31.5 - 36.0 g/dL [facility] RDW 13.9 10.8 - 14.6 % [facility] MPV 11.4 9.4 - 12.4 [facility] NRBC 0.00 /100 WBCs [facility] ABSOLUTE NRBC 0.00 K/uL [facility] DIFF METHOD Auto [facility] NEUTS 66.9 45.30 - 77.70 % [facility] LYMPHS 22.7 12.30 - 39.70 % [facility] MONOS 7.4 4.10 - 12.80 % [facility] EOS 2.0 0 - 7.2 % [facility] BASOS 0.6 0 - 2.80 % [facility] Granulocytes, immature (%) 0.4 0.0 - 0.9 % [facility] ABSOLUTE NEUTS 3.33 1.40 - 7.70 K/uL [facility] ABSOLUTE LYMPHS 1.13 0.60 - 3.20 K/uL [facility] ABSOLUTE MONOS 0.37 0.11 - 0.59 K/uL [facility] ABSOLUTE EOS 0.10 0.01 - 0.50 K/uL [facility] ABSOLUTE BASOS 0.03 0.00 - 0.08 K/uL [facility] Granulocytes, immature 0.02 0.00 - 0.05 K/uL [facility] Blood 04/22/2017 8:21 AM EDT 04/22/2017 1:53 PM EDT us Forest Guido MD LAB BLOOD BKR ORDERABLES F inal Result Performing Organization Address City/State/[facility] Co de Phone Number [facility] [address] [place] [address] documented in this encounter Visit Diagnoses Diagnosis Myasthenia gravis without exacerbation- Primary documented in this encounter Care Teams Director Of Retail Operations Relationship Specialty Start Date End Date Unknown, Unknown, MD PCP - General 04/22/17 12/08/23 Mary Pate PA [address] [place] [address] [place] [address] PCP - General Physician Strategy Execution Consultant 12/09/23 Avel Henson DO [address] [place] [address] [email or web address] Insurance Assigned Provider 09/24/23 Ayah Clemente RN 30 [place] [address] Registered Nurse 03/19/25 documented as of this encounter Additional Source Comments The information contained in this document represents components of the legal health record. It is not the complete legal health record.[facility]
--- OUTSIDE RECORDS SUMMARY | 2025-05-20 10:37 | XMS_ITS | Encounter Summary ---
Author Organization [facility] Address [address] [facility] [address] [place] [address] Phone Care Team Providers Care Swamper Name Role Phone Avel Henson DO Unavailable Mary Pate Primary Care Provider Ayah Clemente RN Unavailable [phone] Encounter Details Date Type Department Care Team (Late st Contact Info) Description 09/21/2024 Ancillary Orders [facility], X-Ray - [facility] 30 [place] [address] Mary Pate PA [address] [place], [place] [id number] Pain in joints (Primary Dx); Pain Social [...] Description 06/07/2025 10:00 AM EST Office Visit [facility] Rheumatology [address] [place] [address] Ondina Barbour MD [address] [facility], [address] [place] [address] 06/19/2025 3:15 PM EST Evaluation [facility] Otolaryngology 45 [facility] ASB2-2 [place] [address] [place] SpringsDianna, AuD 75 [place] [address] [email or web address] 07/29/2025 1:30 PM EST Office Visit [facility] Gastroenterology Clinic [address] [place] [address] Mary Mcnally CNP 10 [place] [address] [email or web address] Scheduled Procedures Name Priority Associated Diagnoses [...] clinician's provided indication for this examination in [facility]:Pain REQUESTED INDICATION: Pain COMPARISON: None FINDINGS: PELVIS: [...] clinician's provided indication for this examination in [facility]:Pain COMPARISON: None FINDINGS: RIGHT KNEE: Knee joint [...] sites documented in this encounter Care Teams Swamper Relationship Specialty Start Date End Date Mary Pate PA [address] [place] [address] [place] [address] PCP - General Physician Credit Risk Manager 12/09/23 Avel Henson DO [address] [place] [phone] Insurance Assigned Provider 09/24/23 Ayah Clemente, SONNY 30 [place] [address] Registered Nurse 03/19/25 documented as of this encounter Additional Source Comments The information contained in this document represents components of the legal health record. It is not the complete legal health record.[facility]
--- OUTSIDE RECORDS SUMMARY | 2025-05-20 10:37 | XMS_ITS | Clinical Summary ---
Author Organization [facility] Address [address] [place] [address] Phone Care Team Providers Care Floor Specialist Name Role Phone Avel Henson DO Unavailable Mary Pate Primary Care Provider [phone] Ayah Clemente RN Unavailable [phone] Allergies No known active allergies Medications atorvastatin [...] at once per prep instructions 4 tablet Active Active Problems Problem Noted Date Diagnosed [...] Care Team Description 05/02/2025 Documentation Anticoagulation Clinic [address] [place] [address] Ayah Clemente, RN INR Check 05/01/[address] [facility] Anti Coag Clinic [address] [place] [address] [place] [address] Ayah Clemente, RN 04/19/2025 10:00 AM EDT Office Visit [facility] Gastroenterology Clinic [address] [place] [address] Unknown, Unknown, Mary Wilkinson CNP Abnormal bowel habits (Primary Dx); Rectal bleeding; Anticoagulated 04/19/2025 Telephone [facility] Gastroenterology Clinic [address] [place] [address] Blanca Koch MA Lovenox bridge 04/18/2025 6:55 AM EDT - 04/18/2025 11:59 PM EDT Hospital Encounter [facility] Phleb [address] [address] Mary Pate PA Discharge Disposition: Home or Self Care 04/18/2025 Telephone Anticoagulation Clinic [address] [place] [address] Ayah Clemente, RN INR Check (/) 04/17/2025 Telephone [facility] Anti Coag Clinic [address] [place] [address] [place] [address] Ayah Clemente, SONNY 04/16/2025 Telephone Anticoagulation Clinic [address] [place] [address] Ayah Clemente RN 03/21/2025 Transcribe Orders [facility]tico[facility] [address] [place] [address] Ayah Clemente RN CVA (cerebral vascular accident) (Primary Dx); APS (antiphospholipid syndrome); Chronic anticoagulation 03/19/2025 7:21 AM EDT - 03/19/2025 11:59 PM EDT Hospital Encounter [facility] Phleb Main [address] [place] [address] Mary Pate PA Discharge Disposition: Home or Self Care 03/19/2025 Telephone Anticoagulation Clinic [address] [place] [address] Ayah Clemente RN INR Check (/) 03/07/2025 7:26 AM EDT - 03/07/2025 11:59 PM EDT Hospital Encounter [facility] Phleb Main [address] [place] [address] Mary Pate PA Discharge Disposition: Home or Self Care 03/07/2025 Telephone Anticoagulation Clinic [address] [place] [address] Ayah Clemente RN 03/05/2025 7:24 AM EDT - 03/05/2025 11:59 PM EDT Hospital Encounter [facility] Phleb Main [address] [place] [address] Mary Pate PA Discharge Disposition: Home or Self Care 03/05/2025 Telephone Anticoagulation Clinic [address] [place] [address] Ayah Clemente, RN INR Check (/) 03/04/2025 Telephone Anticoagulation Clinic [address] [place] [address] Ayah Clemente RN 03/01/2025 8:00 AM EDT Office Visit [facility] Services [address] [place] [address] Mary Pate PA Bell, Ross, PT Vertigo (Primary Dx) 02/22/2025 Transcribe Orders [facility] Services [address] [place] [address] Mary Pate PA Encounter for rehabilitation (Primary [...] Description 06/07/2025 10:00 AM EST Office Visit [facility] Rheumatology [address] [place] [address] Ondina Barbour MD [address] [facility], [address] [place] [address] 06/19/2025 3:15 PM EST Evaluation [facility] Otolaryngology 45 [facility] ASB2-2 [place] [address] Dianna Dhillon AuD 75 [place] [address] [email or web address] 07/29/2025 1:30 PM EST Office Visit [facility] Gastroenterology Clinic 10 [place] [address] Mary Mcnally, GREEN CHAIN MARKER 10 [place] [address] Scheduled Procedures Name Priority Associated Diagnoses Date/Ti [...] Additional history exists POTASSIUM LEVEL 09/17/2025 09/17/2024, 1001/2019, 08/18/2018, Additional history exists BLOOD PRESSURE 10/17/2025 [...] - 13.0 sec 05/02/2025 8:34 AM EST [facility] INR 2.2(H) 0.9 - 1.1 05/02/2025 8:34 AM EST [facility] Comment:Therapeutic Range 2. 0 - 3.5 Blood 05/02/2025 7:09 AM EST 05/02/2025 7:44 AM EST us Mary ELIZONDO LAB BLOOD BKR ORDERABLES Fi nal Result [address] [address] * (ABNORMAL) Comprehensive metabolic panel (09/17/2024 8:20 AM EDT) SODIUM 141 133 - 146 mmol/L [facility] POTASSIUM 3.9 3.3 - 5.1 mmol/L [facility] CHLORIDE 103 96 - 108 mmol/L [facility] CO2 28 21 - 35 mmol/L [facility] BUN 17 6 - 19 mg/dL [facility] CREATININE 0.60 0.5 - 1.5 mg/dL [facility] GLUCOSE 139(H) 70 - 99 mg/dL [facility] ALBUMIN 4.6 3.9 - 4.8 g/dL [facility] TOTAL PROTEIN 7.8 6.5 - 8.0 g/dL [facility] CALCIUM 9.8 8.4 - 10.3 mg/dL [facility] ALKALINE PHOSPHATASE 99 39 - 117 U/L [facility] TOTAL BILIRUBIN 0.4 0.0 - 1.2 mg/dL [facility] AST 25 0 - 37 U/L [facility] ALT 24 0 - 40 U/L [facility] GLOBULIN 3.2 1 - 4.8 g/dL [facility] EGFR 104 >59 mL/min/1.7 3m2 [facility] Comment:Estimated glomerular filtration rate calculated using the CKD-EPI refit equation. ANION GAP 14 10 - 20 mmol/L [facility] Blood 09/17/2024 8:20 AM EDT 09/17/2024 8:23 AM EDT us Mary ELIZONDO LAB BLOOD BKR ORDERABLES Fi nal Result [address] [address] from Last 3 Months or Most Recently Relevant to Health Maintenance Insurance [facility] PPO EPO [facility] PPO EPO [facility]PO EPO [facility]PO EPO [facility]PO EPO [facility]PO EPO [facility] PPO EPO [facility] PPO EPO [facility] PPO EPO Care Teams Floor Specialist Relationship Specialty Start Date End Date Mary Pate PA [address] [place] [address] [place] [address] PCP - General Physician Nurse Transition 12/09/23 Avel Henson DO [address] [place] [address] [email or web address] Insurance Assigned Provider 09/24/23 Ayah Clemente, RN 30 [place] [address] [email or web address] Registered Nurse 03/19/25 Additional Source Comments The information contained in this document represents components of the legal health record. It is not the complete legal health record.[facility]
--- OUTSIDE RECORDS SUMMARY | 2025-05-20 10:37 | XMS_ITS | Encounter Summary ---
Author Organization [facility] Address [address] [facility] [address] [place] [address] Phone Care Team Providers Care Motor Assembler Name Role Phone Avel Henson DO Unavailable Mary Pate Primary Care Provider [phone] Ayah Clemente RN Unavailable [phone] Encounter Details Date Type Department Care Team (Late Contact Info) Description 09/21/2024 Transcribe Orders [facility] Phleb Main [address] [place] [address] Mary Pate PA [address] [place], [place] [id number] Social History Tobacco Use Types Packs/Day Years [...] Visit [facility] Rheumatology [address] [place] [address] Ondina Barbour MD [address] [facility], [address] [place] [address] 06/19/2025 3:15 PM EST Evaluation [facility] Otolaryngology 45 [facility]2 [place] [address] Dianna Dhillon, AuD [address] [place] [address] [email or web address] 07/29/2025 1:30 PM EST Office Visit [facility] Gastroenterology Clinic 10 [place] [address] Mary Mcnally CNP 10 [place] [address] Scheduled Procedures Name Priority Associated Diagnoses Date/Ti me COLONOSCOPY Abnormal bowel habits documented as of this encounter Visit Diagnoses Not on filedocumented in this encounter Care Teams Motor Assembler Relationship Specialty Start Date End Date Mary Pate PA [address] [place] [address] [place] [address] PCP - General Physician Bronc Breaker 12/09/23 Avel Henson DO [address] [place] [address] [place] [address] Insurance Assigned Provider 09/24/23 Ayah Clemente, RN 30 [place] [address] Registered Nurse 03/19/25 documented as of this encounter Additional Source Comments The information contained in this document represents components of the legal health record. It is not the complete legal health record.[facility]
--- OUTSIDE RECORDS SUMMARY | 2025-05-20 10:37 | XMS_ITS | Encounter Summary ---
Author Organization [facility] Address [address] [facility] [address] [place] [address] Phone Care Team Providers Care Dock Operator Name Role Phone Unknown, Unknown Primary Care Provider Avel Swenson DO Unavailable Mary Pate Primary Care Provider [phone] Ayah Clemente RN Unavailable [phone] Encounter Details Date Type Department Care Team (Late st Contact Info) Description 06/17/2017 Transcribe Orders [address] [address] Forest Guido MD [address] [place] [phone] Myasthenia gravis without exacerbation (Primary Dx) [...] Visit [facility] Rheumatology [address] [place] [address] Ondina Barbour MD 22 [facility], [address] [place], [place] [phone] 06/19/2025 3:15 PM EST Evaluation [facility] Otolaryngology 45 [facility] [address] [place] [address] Dianna Dhillon AuD 75 [place] [address] [email or web address] 07/29/2025 1:30 PM EST Office Visit [facility] Gastroenterology Clinic 10 [place] [address] Mary Mcnally, GLOBAL SALES DIRECTOR 10 [place] [address] [email or web address] Scheduled Procedures Name Priority Associated Diagnoses Date/Ti me COLONOSCOPY Abnormal bowel habits documented as of this encounter Results * (ABNORMAL) LFTs (hepatic panel) (06/17/2017 7:51 AM EST) ALKALINE PHOSPHATASE 120(H) 39 - 117 U/L [facility] TOTAL BILIRUBIN 0.4 0 - 1.2 mg/dL [facility] DIRECT BILIRUBIN <0.2 0 - 0.3 mg/dL [facility] Bilirubin (Indirect) NOT CALCULATED 0 - 1.5 mg/dL [facility] AST 22 0 - 37 U/L [facility] ALT 16 0 - 40 U/L [facility] TOTAL PROTEIN 6.6 6.5 - 8.0 g/dL [facility] ALBUMIN 3.7(L) 3.9 - 4.8 g/dL [facility] GLOBULIN 2.9 1 - 4.8 g/dL [facility] A/G Ratio 1.28 1.00 - 4.80 RATIO [facility] Blood 06/17/2017 7:51 AM EST 06/17/2017 8:54 AM EST us Forest Guido MD LAB BLOOD BKR ORDERABLES F inal Result [facility] [address] [place] [address] * Basic metabolic panel (06/17/2017 7:51 AM EST) SODIUM 137 133 - 146 mmol/L [facility] CHLORIDE 101 96 - 108 mmol/L [facility] POTASSIUM 4.7 3.3 - 5.1 mmol/L [facility] CO2 28 21 - 35 mmol/L [facility] BUN 9 6 - 19 mg/dL [facility] CREATININE 0.50 0.5 - 1.5 mg/dL [facility] GLUCOSE 89 70 - 99 mg/dL [facility] CALCIUM 8.6 8.4 - 10.3 mg/dL [facility] EGFR >60 60 - 1000 mL/min/1.7 3m2 [facility] Comment:Abnormal if <60. If patient is -[place], multiply the result by 1.21. ANION GAP 13 10 - 20 mmol/L [facility] Blood 06/17/2017 7:51 AM EST 06/17/2017 8:54 AM EST us Forest Guido MD LAB BLOOD BKR ORDERABLES F inal Result [facility] [address] [place], [place] [id number] * CBC and differential (06/17/2017 7:51 AM EST) WBC 6.77 3.40 - 11.20 K/uL [facility] RBC 4.32 3.80 - 4.80 M/uL [facility] HGB 12.5 12.0 - 15.0 g/dL [facility] HCT 37.1 36.0 - 46.0 % [facility] PLT 172 130 - 400 K/uL [facility] MCV 85.9 79.0 - 98.0 fL [facility] MCH 28.9 27.0 - 34.8 pg [facility] MCHC 33.7 31.5 - 36.0 g/dL [facility] RDW 14.5 10.8 - 14.6 % [facility] MPV 12.0 9.4 - 12.4 fl [facility] NRBC 0.00 /100 WBCs [facility] ABSOLUTE NRBC 0.00 K/uL [facility] DIFF METHOD Auto [facility] NEUTS 75.5 45.30 - 77.70 % [facility] LYMPHS 16.0 12.30 - 39.70 % [facility] MONOS 6.1 4.10 - 12.80 % [facility] EOS 1.2 0 - 7.2 % [facility] BASOS 0.6 0 - 2.80 % [facility] Granulocytes, immature (%) 0.6 0.0 - 0.9 % [facility] ABSOLUTE NEUTS 5.12 1.40 - 7.70 K/uL [facility] ABSOLUTE LYMPHS 1.08 0.60 - 3.20 K/uL [facility] ABSOLUTE MONOS 0.41 0.11 - 0.59 K/uL [facility] ABSOLUTE EOS 0.08 0.01 - 0.50 K/uL [facility] ABSOLUTE BASOS 0.04 0.00 - 0.08 K/uL [facility] Granulocytes, immature 0.04 0.00 - 0.05 K/uL [facility] Blood 06/17/2017 7:51 AM EST 06/17/2017 8:54 AM EST us Forest Guido MD LAB BLOOD BKR ORDERABLES F inal Result Performing Organization Address City/State/[facility] Co de Phone Number [facility] [address] [place] [address] documented in this encounter Visit Diagnoses Diagnosis Myasthenia gravis without exacerbation- Primary documented in this encounter Care Teams Dock Operator Relationship Specialty Start Date End Date Unknown, Unknown, MD PCP - General 04/22/17 12/08/23 Mary Pate PA [address] [place] [address] [place] [address] PCP - General Physician Copy Reader 12/09/23 Avel Henson DO [address] [place] [address] [email or web address] Insurance Assigned Provider 09/24/23 Ayah Clemente, RN [address] [place] [address] Registered Nurse 03/19/25 documented as of this encounter Additional Source Comments The information contained in this document represents components of the legal health record. It is not the complete legal health record.[facility]
--- OUTSIDE RECORDS SUMMARY | 2025-05-20 10:37 | XMS_ITS | Continuity of Care Document ---
Author Organization [facility] Address [address] [facility] [place] [address] [place] [address] Assessment No assessment recorded. Plan of Treatment Reminders Order Date Submit Date Provider Last Modified By Organization Details Last Modified Time Details Appointments None recorded. Lab CMP, serum or plasma 2024 025 [facility], [address] [place] [address], [address], 5 12:06:55 CBC w/ auto diff 2024 025 [facility], [address] [place] [address], [address], 5 11:16:15 ESR (erythrocy te sedimentat ion rate), blood 2024 025 [facility], [address] [place] [address], [address], 5 11:16:16 C-reactive protein, quantitati ve, serum or plasma 2024 025 [facility], [address] [place] [address], [address], 5 11:16:15 vitamin D, 25-hydroxy , total, serum 2024 025 [facility], [address] [place] [address], [address], 5 11:16:16 vitamin B12 + folate, serum or blood 2024 025 [facility], [address] [place] [address], [address], 5 11:16:16 iron + TIBC + ferritin, serum 2024 025 [facility], [address] [place] [address], [address], 5 11:16:15 TSH + free T4, serum 2024 025 [facility], [address] [place] [address], [address], 5 11:16:16 hemoglobin A1c, QN, blood 2024 025 [facility], [address] [place] [address], [address], 5 11:16:16 Referral otolaryngo logist referral 2024 025 [facility], [address] [place] [address], [address], 08:52:09 Procedures None recorded. Surgeries None recorded. Imaging None recorded. Medication Orders None recorded. Patient TargetsNo targets recorded. Patient InstructionsNo instructions recorded. 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 [email or web address] [facility] Internal Medicine [address] [facility] [address], [place], [address], 04/22/2025 10:34:13 Result Notes None recorded. Problems Name Problem SNOMED Code Status Onset Date Resolution Date Notes Provider Name and Address Organization Details Recorded Time Environme ntal allergy 958538218 [facility] 8 16:36:54 Obesity 864936738 Active 2017 Evelyn campoverde [facility] 8 16:37:21 History of human papilloma virus infection 177757597089 102 [facility] 2017 [facility] 16:40:59 Myastheni a gravis 79821489 Active 2020 [facility] 1 09:23:22 COVID-19 874454399 Active 2020 [facility] 1 09:23:33 Overweigh t 383783124 Active 2021 MIKHAIL SARKAR [address] [place] [address], [address], [facility] 2 14:44:17 Essential hypertens ion 60543395 Active 2021 MIKHAIL SARKAR [address] [place], [address], [facility] Internal [facility] 2 14:48:07 Acute sinusitis 37155556 Active 2022 MIKHAIL SARKAR [address] [place], [address], [facility] 3 13:35:05 Dyspnea 240869374 Active 2022 MIKHAIL SARKAR [address] [place], [address], [facility] 3 11:01:25 Acute right otitis media 657113099 Active 2022 MIKHAIL SARKAR [address] [place] [address], [address], [facility] 3 13:59:32 Panic disorder 521115347 Active 2023 MIKHAIL SARKAR [address] [place] [address], [address], [facility] 4 10:02:38 Hypertens giselle urgency 382793582 Active 2023 MIKHAIL SARKAR [address] [place] [address], [address], [facility] 4 10:08:53 Dysuria 89469262 Active 2023 MIKHAIL SARKAR [address] [place] [address], [address], [facility] 4 15:24:06 Cerebrova scular accident 849151154 Active 2023 MIKHAIL SARKAR [address] [place] [address], [address], [facility] 4 15:24:28 Transient cerebral ischemia 094044135 Active 2023 MIKHAIL SARKAR [address] [place] [address], [address], [facility] 4 14:27:33 Pain of left hand 821191155513 103 Active 2023 MIKHAIL SARKAR [address] [place] [address], [address], [facility] 4 09:35:48 Pain in left arm 286097593 Active 2023 MIKHAIL SARKAR [address] [place] [address], [address], [facility] 4 09:36:00 Hyperlipi demia 18908867 Active 2023 MIKHAIL SARKAR [address] [place] [address], [address], [facility] 4 09:51:05 Acute urinary tract infection 138912415 Active 2023 MIKHAIL SARKAR [address] [place], [address], [facility] 4 14:36:41 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 Avel Henson, DO [address] [place] [address], [address], [facility] 4 16:48:00 Vertigo 183529886 Active 2023 MIKHAIL SARKAR [address] [place] [address], [address], [facility] 5 14:00:55 Recurrent urinary tract infection 123553594 Active 2023 Avel Henson, DO [address] [place] [address], [address], [facility] 4 20:55:54 Dermoid cyst of head 023907847 Active 2024 MIKHAIL SARKAR [address] [place] [address], [address], [facility] 5 15:50:45 Fatigue 00954059 Active 2024 MIKHAIL SARKAR [address] [place] [address], [address], [facility] 5 11:08:48 Pain of multiple joints 23307299 Active 2024 MIKHAIL SARKAR [address] [place] [address], [address], [facility] 5 10:11:48 Menopause Active 2024 MIKHAIL SARKAR [address] [place] [address], [address], [facility] 5 10:14:36 Biju hematuria 590563514 Active 2024 MIKHAIL SARKAR [address] [place] [address], [address], [facility] 5 10:27:05 Osteoarth ritis of knee 702089654 Active 2024 MIKHAIL SARKAR [address] [place] [address], [address], [facility] 5 10:09:33 Anti-nucl ear factor detected 438142387 Active 2024 MIKHAIL SARKAR [address] [place] [address], [address], [facility] 5 09:25:44 Otalgia of right ear 0617559731 Active 2024 MIKHAIL SARKAR [address] [place] [address], [address], [facility] 5 15:28:16 Chronic pansinusi tis 19343235 Active 2024 MIKHAIL SARKAR [address] [place] [address], [address], [facility] 5 11:07:05 Mixed hyperlipi demia 009607747 Active 2024 MIKHAIL SARKAR [address] [place] [address], [address], [facility] 08:31:15 Impaired fasting glycemia 169907245 Active 2024 MIKHAIL SARKAR [address] [place] [address], [address], [facility] 5 15:32:12 Atypical chest pain 810866746 Active 2024 MIKHAIL SARKAR [address] [place] [address], [address], [facility] 5 08:32:15 Pain of right knee joint 038574768444 100 Active 2024 MIKHAIL SARKAR [address] [place] [address], [address], [facility] 5 12:45:38 Problem Notes None recorded. Procedures Surgical History Date Name Laterality Status Provider Name and Address Organization Details Recorded Time Partial Hysterectomy completed Jessi Rodriguez NP, [address] [facility], [place], [address], [facility] 04/28/2018 10:35:33 Imaging Results [...] Last Updated DateTime 152.4 cm 34.4 kg/m2 49709.2 6 g 80 /min 99 % 124/80 mm[Hg] [facility] 5 10:47:35 Social History Question Answer Notes LastModified by Organizat ion Details LastModified Time Tobacco Smoking Status Never Smoker Not [facility]2020 03:36:24 What Was The Date Of Your Most Recent Tobacco Screening? 03/04/2025 [email or web address] Information not available 03/04/2025 Sex: Unknown Functional Status Question Answer Note LastModified by Organization D etails LastModified Time Do you or have you ever used any other forms of tobacco or nicotine? No [email or web address] Information not available 11/26/2022 Mental Status None [...] PF, 0.5 mL 09/22/2020 completed Amada campoverde [facility] 12/02/2020 10:20:35 Past Encounters Encounter ID Performer Location Encounter Start Date Encounter Closed Date Diagnosis/Indication Diagnosis SNOMED-CT Code Diagnosis ICD10 Code Diagnosis IMO Codes Diagnosis Note [id number] Avel Henson DO [facility] Internal [facility] [address] [facility],[place] [address] 03/04/2025 10:30:42 03/04/2025 16:16:23 Essential hypertension 22042349 I10 BP much improved with lisinopril restarting Hypertensive urgency 443 216549 I16.0 resolved, BP is stable Antiphosph olipid syndrome 42831934 D68.61 stable Myasthenia gravis 802055 04 G70.00 stable Chronic pansinusitis 888 59289 J32.4 2468 change ENT to [place] per pt Fatigue 70209598 R53.83 [id number] will set up with lab work Health Concerns Section Related Observation LastModified by Organization Detai ls LastModified Time None Recorded Concern Status LastModified by Organization Details LastModified Time None Recorded Payers Encounter Date Sequence Insurance Name Policy Number Policy Reed Covered Member ID Reed Member ID Guarantor Name 03/04/2025 1 AUGIE (PPO) [id number] Sindi King [id number] Sindi King Notes Date Note Type Note Provider Name a nd Address Organization Details Recorded Time 03/04/2025 text/html ROS as noted in the [facility] hospital d/c the patient with hx [...] already for routine appts MIKHAIL SARKAR [address] [facility], [place], [address], [place] [facility] 03/04/2025 11:14:06 OBGyn Episode No OBEpisode recorded.
--- OUTSIDE RECORDS SUMMARY | 2025-05-20 10:37 | XMS_ITS | Data Portability ---
Author Organization [facility], Telehealth Patient Home Address [address] [place] [address] Assessment Encounter Date Assessment Date Assessment LastModified [...] CMP, serum or plasma 2024 025 [facility], [address] [place] [address], [address], 5 12:06:55 CBC w/ auto diff 2024 025 [facility], [address] [place] [address], [address], 5 11:16:15 ESR (erythrocy te sedimentat ion rate), blood 2024 025 [facility], [address] [place] [address], [place], [address], 5 11:16:16 C-reactive protein, quantitati ve, serum or plasma 2024 025 [facility], [address] [place] [address], [address], 5 11:16:15 vitamin D, 25-hydroxy , total, serum 2024 025 [facility], [address] [place] [address], [address], 5 11:16:16 vitamin B12 + folate, serum or blood 2024 025 [facility], [address] [place] [address], [address], 5 11:16:16 iron + TIBC + ferritin, serum 2024 025 [facility], [address] [place] [address], [address], 5 11:16:15 TSH + free T4, serum 2024 025 [facility], [address] [place] [address], [address], 5 11:16:16 hemoglobin A1c, QN, blood 2024 025 [facility], [address] [place] [address], [address], 5 11:16:16 urinalysis complete, reflex culture 2024 025 [facility], [place], [address], 5 18:52:05 estradiol, serum 2024 025 [facility], [place], [address], 5 09:44:30 lh + FSH, serum 2024 025 [facility], [place], [address], 5 10:22:57 progestero ne, serum 2024 025 [facility], [place], [address], 5 10:22:57 prolactin, serum 2024 [facility], [place], [address], 5 10:22:57 testostero ne, total, serum 2024 [facility], [place], [address], 5 10:22:57 rf (rheumatoi d factor), serum 2024 [facility], [place], [address], 5 10:22:58 ESR (erythrocy te sedimentat ion rate), blood 2024 [facility], [place], [address], 5 10:22:58 JIA (antinucle ar antibodies ) screen, serum 2024 [facility], [place], [address], 5 16:49:22 C-reactive protein, quantitati ve, serum or plasma 2024 025 [facility], [place], [address], 5 10:22:57 uric acid, serum or plasma 2024 025 [facility], [place], [address], 5 10:22:57 ccp (cyclic citrullina dony peptide) igg, serum 2024 025 [facility], [place], [address], 5 12:08:57 lyme disease igg+igm, serum, reflex western blot 2024 025 [facility], [place], [address], 5 13:44:38 dsDNA Ab, serum 2024 025 [facility], [place], [address], 5 15:51:47 sjogren antibody panel (ssa, ssb, ro, la), serum 2024 025 [facility], [place], [address], 5 14:53:16 lipid panel, serum 2023 024 [facility], [address] [place] [address], [place], [address], 4 09:52:29 urinalysis complete, reflex culture 2023 024 [facility], [address] [place] [address], [place], [address], 4 15:26:55 Referral otolaryngo logist referral 2024 025 [facility], [address] [place] [address], [address], 5 08:52:09 physical therapist referral 2023 024 [facility], [address] [place], [address], 4 09:08:18 Procedures None recorded. Surgeries None recorded. Imaging XR, hip + pelvis, bilateral 2024 025 [facility], [address] [place] [address], [address], 5 10:01:43 XR, ankle, 3 or more view 2024 025 [facility], [address] [place] [address], [address], 5 09:40:40 XR, knee, 3 view 2024 025 [facility], [address] [place] [address], [address], 5 09:56:54 XR, ankle, 3 or more view 2024 025 [facility], [address] [place] [address], [address], 5 09:40:20 XR, hand, 3 or more view 2023 024 [facility], [address] [place], [address], 4 19:51:02 XR, humerus, 2 or more view 2023 024 [facility], [address] [place], [address], 4 16:21:57 XR, shoulder, 2 or more view 2023 024 [facility], [address] [place], [address], 4 08:34:26 Medication Orders Zepbound 2.5 mg/0.5 mL subcutaneo us pen injector 2024 025 [id number], [address] [place] [address], [id number], 5 16:23:45 atorvastat in 80 mg tablet 2023 025 [facility][id number], [address] [place], [place], [id number], 5 10:22:44 lisinopril 10 mg tablet 2023 024 [facility]13093, [address] [place], [place], [id number], 4 13:35:57 Bactrim DS 800 mg-160 mg tablet 2023 024 [facility]53845, [address] [place], [place], [id number], 5 10:22:47 amoxicilli n 875 mg-potassi um clavulanat e 125 mg tablet 2022 023 [facility], [address] [place], [place], [id number], 4 10:02:47 Medrol (Krishan) 4 mg tablets in a dose pack 2022 023 [facility], [address] [place], [place], [id number], 4 10:02:55 Patient TargetsNo targets recorded. Patient InstructionsNo instructions recorded. Reason for Referral Physical Therapist Referral for Myasthenia gravis transfer from at home PT/OT to outpatient PT/OT Referring Physician: Mary Pate, Internal Medicine, Encounter Date: 11/30/2023 Sales Department Supervisor Referral fo r Chronic pansinusitis hx of MG with chronic sinusititis Referring Physician: Mary Pate, Internal Medicine, Encounter Date: 03/04/2025 Results Created Date Observation Date Name Description Value Unit Range Abnormal Flag Note LastModifiedBy Organization Detail LastModifiedTime 06/10/20 23 06/10/2023 MAMMO , scree alan, digit al, bilat eral No observ ation record ed. [facility] [place] [address] [place], [address], 06/10/2023 11:30:35 06/24/19 24 06/24/2023 MAMMO , scree alan, digit al, bilat eral No observ ation record ed. [facility] [place] [address] [place], [address], 06/25/2023 08:54:30 12/02/19 24 12/02/2023 XR, shoul flor, 2 or more view No observ ation record ed. [facility] [address] [facility] [address], [place], [address], 09/21/2024 10:09:43 12/02/19 24 12/02/2023 XR, humer us, 2 or more view No observ ation record ed. [facility] [address] [facility] [address], [place], [address], 09/21/2024 10:09:43 12/02/19 24 12/02/2023 XR, hand, 3 or more view No observ ation record ed. [facility] [address] [facility] [address], [place], [address], 09/21/2024 10:09:43 12/30/19 24 12/30/2023 MAMMO , scree alan, digit al, bilat eral No observ ation record ed. [facility] [place] [address] [place], [address], 09/21/2024 10:09:43 01/05/20 24 12/30/2023 US, breas t No observ ation record ed. [facility] [address], [place], [address], 09/21/2024 10:09:43 01/05/20 24 01/05/2024 MAMMO , scree alan, digit al, bilat eral No observ ation record ed. [facility] [address] [facility] [address], [place], [address], 09/21/2024 10:09:43 01/05/20 24 01/05/2024 US, brekrzysztof t No observ ation record ed. [facility] [address] [facility] [address], [place], [address], 09/21/2024 10:09:43 01/10/20 24 01/05/2024 biops y of carlos sadler; soumya robles us, needl e core, using imagi ng helen nce (PROC ) No observ ation record ed. [facility] [address] [facility] [address], [place], [address], 09/21/2024 10:09:43 08/09/19 25 08/08/2024 US, retro perit oneum , compl ete No observ ation record ed. [facility] (Medical Records) [address] [facility], [place], [address], 09/21/2024 10:09:42 08/14/19 25 08/14/2024 US, breas t, unila teral , limit ed No observ ation record ed. [facility] [address] [facility] [address], [place], [address], 09/21/2024 10:09:42 08/17/19 25 08/14/2024 MAMMO , scree alan, digit al, bilat eral No observ ation record ed. [facility] Not Available 2024 10:09:42 09/23/19 25 09/21/2024 XR, knee, 3 view No observ ation record ed. [address], [address], 09/24/2024 10:09:04 09/23/19 25 09/21/2024 XR, ankle , 3 or more view No observ ation record ed. [facility] [address] [place] [address], [address], 09/24/2024 10:09:04 09/23/19 25 09/21/2024 XR, ankle , 3 or more view No observ ation record ed. [facility] [address] [place] [address], [address], 09/24/2024 10:09:04 09/23/19 25 09/21/2024 XR, hip + pelvi s, bilat eral No observ ation record ed. [address], [address], 09/24/2024 10:09:05 04/19/2004/18/2025 CT, heart , w/o contr ast, w/ coron roland calci um score No observ ation record ed. [email or web address] [facility] [address] [facility] [address], [place], [address], 04/22/2025 10:34:13 Result Notes None recorded. Problems Name Problem SNOMED Code Status Onset Date Resolution Date Notes Provider Name and Address Organization Details Recorded Time Environme ntal allergy 390876381 Active 2017 Evelyn campoverde [facility] 8 16:36:54 Obesity 838581172 Active 2017 Evelyn campoverde [facility] 8 16:37:21 History of human papilloma virus infection 773421459203 102 Active 2017 Evelyn campoverde [facility] 8 16:40:59 Myastheni a gravis 32243541 Active 2020 Evelyn Guallpajae gilles, [facility] Internal [facility] 1 09:23:22 COVID-19 939955312 Active 2020 Evelyn Guallpaildefonsostephen campoverde, [facility] 1 09:23:33 Overweigh t 724967606 Active 2021 MIKHAIL SARKAR [address] [place], [address], [facility] 2 14:44:17 Essential hypertens ion 25071267 Active 2021 MIKHAIL SARKAR [address] [place], [address], [facility] 2 14:48:07 Acute sinusitis 86190205 Active 2022 MIKHAIL SARKAR [address] [place], [address], [facility] 3 13:35:05 Dyspnea 758011173 Active 2022 MIKHAIL SARKAR [address] [place], [address], [facility] 3 11:01:25 Acute right otitis media 338211323 Active 2022 MIKHAIL SARKAR [address] [place], [address], [facility] 3 13:59:32 Panic disorder 023115330 Active 2023 MIKHAIL SARKAR [address] [place], [address], [facility] 4 10:02:38 Hypertens giselle urgency 417325719 Active 2023 MIKHAIL SARKAR [address] [place], [address], [facility] 4 10:08:53 Dysuria 07551373 Active 2023 MIKHAIL SARKAR [address] [place], [address], [facility] 4 15:24:06 Cerebrova scular accident 861627367 Active 2023 MIKHAIL SARKAR [address] [place] [address], [address], [facility] 4 15:24:28 Transient cerebral ischemia 595341649 Active 2023 MIKHAIL SARKAR [address] [place] [address], [address], [facility] 4 14:27:33 Pain of left hand 840666138150 103 Active 2023 MIKHAIL SARKAR [address] [place] [address], [address], [facility] 4 09:35:48 Pain in left arm 918738188 Active 2023 MIKHAIL SARKAR [address] [place] [address], [address], [facility] 4 09:36:00 Hyperlipi demia 49711715 Active 2023 MIKHAIL SARKAR [address] [place] [address], [address], [facility] 4 09:51:05 Acute urinary tract infection 398993700 Active 2023 MIKHAIL SARKAR [address] [place] [address], [address], [facility] 4 14:36:41 Antiphosp holipid syndrome 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 Active 2023 Avel Henson DO [address] [place] [address], [address], [facility] 4 16:48:00 Vertigo 793642228 Active 2023 MIKHAIL SARKAR [address] [place] [address], [address], [facility] 5 14:00:55 Recurrent urinary tract infection 746266398 Active 2023 Avel Henson, [address] [place], [address], [facility] 4 20:55:54 Dermoid cyst of head 720879836 Active 2024 MIKHAIL SARKAR [address] [place] [address], [address], [facility] 5 15:50:45 Fatigue 52013048 Active 2024 MIKHAIL SARKAR [address] [place] [address], [address], [facility] 5 11:08:48 Pain of multiple joints 15998968 Active 2024 MIKHAIL SARKAR [address] [place] [address], [address], [facility] 5 10:11:48 Menopause Active 2024 MIKHAIL SARKAR [address] [place] [address], [address], [facility] 5 10:14:36 Biju hematuria 573478486 Active 2024 MIKHAIL SARKAR [address] [place] [address], [address], [facility] 5 10:27:05 Osteoarth ritis of knee 184321614 Active 2024 MIKHAIL SARKAR [address] [place] [address], [address], [facility] 5 10:09:33 Anti-nucl ear factor detected 949658615 Active 2024 MIKHAIL SARKAR [address] [place] [address], [address], [facility] 5 09:25:44 Otalgia of right ear 6241460076 Active 2024 MIKHAIL SARKAR [address] [place] [address], [address], [facility] 5 15:28:16 Chronic pansinusi tis 63934801 Active 2024 MIKHAIL SARKAR [address] [place], [address], [facility] 5 11:07:05 Mixed hyperlipi demia 007707599 Active 2024 MIKHAIL SARKAR [address] [place] [address], [address], [facility] 5 08:31:15 Impaired fasting glycemia 795790245 Active 2024 MIKHAIL SARKAR [address] [place] [address], [address], [facility] 5 15:32:12 Atypical chest pain 210889381 Active 2024 MIKHAIL SARKAR [address] [place] [address], [address], [facility] 5 08:32:15 Pain of right knee joint 911648876903 100 Active 2024 MIKHAIL SARKAR [address] [place] [address], [address], [facility] 5 12:45:38 Problem Notes None recorded. Procedures Surgical History Date Name Laterality Status Provider Name and Address Organization Details Recorded Time Partial Hysterectomy completed Jessi Rodriguez NP, [address] [place] [address], [address], [facility] 04/28/2018 10:35:33 Imaging Results [...] Updated DateTime 09/21/2024 152.4 cm 34.4 kg/m2 75949.26 g [facility] 09/21/2024 10:07:16 Date Recorded Body height Body mass index (BMI) Body weight Heart rate Oxygen saturation Systolic And Diastolic Provider Name and Address Organization Details Last Updated DateTime 4 152.4 cm 34.5 kg/m2 41324.7 7 g 84 /min 98 % 126/80 mm[Hg] Johana Camacho [facility] 4 14:58:43 Date Recorded Body height Body mass index (BMI) Body weight Heart rate Oxygen saturation Systolic And Diastolic Provider Name and Address Organization Details Last Updated DateTime 4 152.4 cm 34.4 kg/m2 52842.2 6 g 84 /min 97 % 124/70 mm[Hg] Reyna Francisco J [facility] 4 09:22:43 Date Recorded Body height Body mass index (BMI) Body weight Heart rate Oxygen saturation Systolic And Diastolic Provider Name and Address Organization Details Last Updated DateTime 5 152.4 cm 34.4 kg/m2 43266.2 6 g 80 /min 99 % 124/80 mm[Hg] Reynaolu Avendanomond [facility] 5 10:47:35 Social History Question Answer Notes LastModified by Organizat ion Details LastModified Time Tobacco Smoking Status Never Smoker Not Available [facility] 04/22/2020 03:36:24 What Was The Date Of Your Most Recent Tobacco Screening? 03/04/2025 [email or web address] Information not available 03/04/2025 Sex: Unknown Functional Status Question Answer Note LastModified by Organization D etails LastModified Time Do you or have you ever used any other forms of tobacco or nicotine? No Information not available 11/26/2022 Mental Status None [...] PF, 0.5 mL 09/22/[address] [facility] 12/02/2020 10:20:35 Past Encounters Encounter ID Performer Location Encounter Start Date Encounter Closed Date Diagnosis/Indication Diagnosis SNOMED-CT Code Diagnosis ICD10 Code Diagnosis IMO Codes Diagnosis Note [id number] Avel Henson [facility] [address] [facility], [place] [address] 04/28/2018 10:16:06 04/28/2018 12:51:08 Adult health examination 735804683 Z00.01 Active or passive immunization 988077419 Z23 Essential hypertension 38507647 I10 Screening procedure 2012 5006 Z13.9 [id number] Avel Henson [facility] [address] [facility], [place] [address] 12/09/2020 09:58:28 12/09/2020 10:49:23 Essential hypertension 62343574 I10 BP elevatedwi ll start on lisinopril and fu in a moalso needs BW done Myasthenia gravis 070120 04 G70.00 stable [id number] Avel Henson [facility] [address] [facility], [facility] [place] [address] 01/07/2021 09:13:49 01/07/2021 09:37:52 Essential hypertension 62691904 I10 BP much improved with lisinopril will continue on the same dose for now and fu in 3 mowill see if it needs to be titrated at that time [id number] Avel Henson DO [facility] [address] [facility],[place] [address] 04/08/2021 08:50:44 04/08/2021 09:31:08 Overweight 607959952 E66.3 will trial phentermin e 15 mg capsulewil l call with an update in a month to tell me her progress Essential hypertension 85501771 I10 BP much improved with lisinopril will continue on the same dose for now and fu in 3 mowill see if it needs to be titrated at that time [id number] Avel Henson DO [facility] [address] [facility],[place] [address] 06/15/2021 10:01:23 06/15/2021 14:50:08 Acute laryngitis 3168081 J04.0 increase fluids, take lozenges Otalgia 49150415 H92.03 possible referred pain Pain in throat 826806757 R07.0 take APAP or ibu PRN for pain relief and inflammati on Acute sinusitis 69453369 J01.01 will treat with abx Cough 38554819 R05.1 will treat cough [id number] MIKHIAL SARKAR [facility] [address] [facility] [place] [address] 02/05/2022 13:31:15 02/05/2022 15:23:44 Overweight 946465203 E66.3 will trial phentermin e 15 mg capsule in combo with 50 mg of topimaxwil l call with an update in a month to tell me her progress Essential hypertension 11424268 I10 BP much improved with lisinopril [id number] Avel Henson DO [facility] [address] [facility],[place] [address] 07/07/2022 09:59:55 07/07/2022 16:04:24 Acute sinusitis 29532433 J01.01 will treat with abx/medrol [id number] Avel Henson [facility] [address] [facility] [address] [address] 11/26/2022 10:46:00 11/26/2022 11:22:06 Myasthenia gravis 62698279 G70.00 stable Adult heal th examination 130383219 Z00.00 agreed to full panel lab workneurol deb wanted it Screening for malignant neoplasm of colon 561932986 Z12.11 will print referral for patient since she didn't go last time Dyspnea 139395711 R06.02 Overweight 682140771 E66 .3 will trial phentermin e 15 mg capsule in combo with 50 mg of topimaxwil l call with an update in a month to tell me her progress Screening mammography 24 736048 Z12.31 agreed to MM; [place] it [id number] Avel Henson [facility] [address] [facility],[place] [address] 05/09/2023 09:27:32 05/09/2023 16:08:27 Acute right otitis media 113650706 H65.04 will start on augmentin and medrol for possible combinatio n ear and sinus infection Acute sinusitis 56501305 J01.01 will treat with abx/medrol comboconti nue on APAP for discomfort as needed [id number] Avel Henson [facility] [address] [facility],[place] [address] 11/01/2023 14:44:12 11/02/2023 08:46:50 Depression screening 403351849 Z13.31 stable Dysuria 69263049 R30.0 will set up with recheck urine Cerebrovas cular accident 046025730 I63.331 doing welldiscus sed side effects to look out for for the new medication s she is on Myasthenia gravis 635438 04 G70.00 stablewill be following with her doctor out in [place] and neuro who works with her doctor [id number] Avel Henson [facility] [address] [facility] [address],[place] [address] 11/30/2023 09:14:12 11/30/2023 14:54:16 Depression screening 953188586 Z13.31 stable Transient cerebral ischemia 156835788 G45.9 stableneed s refill of the atorvastat in Essential hypertension 74983958 I10 BP much improved with lisinopril Pain of left hand 279342 4083 75239 M79.642 will set up with XR's Pain in left arm 9937511 00 M79.602 will set up with XR per PT/OT Myasthenia gravis 886158 04 G70.00 john be following with her doctor out in [place] and neuro who works with her doctor waiting on placard to go through Hyperlipidemia 60963660 E78.5 [id number] Avel Henson [facility] [address] [facility],[place] [address] 09/21/2024 10:00:28 09/21/2024 10:36:53 Pain of multiple joints 79707022 M25.50 ? psoriatic arthritis vs RA Antiphosph olipid syndrome 34611632 D68.61 stable Menopause 375566489 N95. 1 recheck levels Body mass index 30+ - obesity 731078603 Z68.34 trial zepbound Biju hematuria 69738161 5 R31.0 will set up with urine Myasthenia gravis 638932 04 G70.00 john be following with her doctor out in [place] and neuro who works with her doctor waiting on placard to go through Obesity 043697568 E66.9 Transient cerebral ischemia 323000855 G45.9 stableneed s ref[place] the atorvastat in [id number] Avel Henson [facility] [address] [facility],[place] [address] 03/04/2025 10:30:42 03/04/2025 16:16:23 Essential hypertension 81270795 I10 BP much improved with lisinopril restarting Hypertensive urgency 443 752480 I16.0 resolved, BP is stable Antiphosph olipid syndrome 17808271 D68.61 stable Myasthenia gravis 650723 04 G70.00 stable Chronic pansinusitis 888 65731 J32.4 2468 change ENT to [place] per pt Fatigue 28259858 R53.83 0753884 will set up with lab work Health Concerns Section Related Observation LastModified by Organization Detai ls LastModified Time None Recorded Concern Status LastModified by Organization Details LastModified Time None Recorded Advance Directives Directive None Recorded Payers Insurance Date Sequence Insurance Name Policy Number Policy Reed Covered Member ID Reed Member ID Guarantor Name 03/01/2025 1 [place] [id number] Sindi King [id number] Sindi King 09/21/2024 1 [employer] (POS) Sindi King [id number] Sindi King Notes Date Note Type Note Provider Name a nd Address Organization Details Recorded Time 05/09/2023 text/html ROS as noted in the [facility] c/o sick, upper resp infection telemedicine [...] of ear and sinus infection MIKHAIL SARKAR [address] [place] [address], [place], [phone], [facility] 05/09/2023 14:03:27 11/01/2023 [...] doctor wants her to see out in [place] the patient is otherwise doing wellworking with neuro will also send out urine for culturestill has leuks and now blood MIKHAIL SARKAR [address] [place], [phone], [facility] 11/01/2023 16:01:55 11/30/2023 text/html ROS as noted in the HPI 1 mos f/u depression screening 0doing really well TIA/CVA: the patient reports she is doing really well with PTcurrently only using the a cane instead of a walker needs refills PT suggested XRs of her entire left arm otherwise doing really well seeing the stroke specialist in [place] on 12/14/23the patient already had the neuro f/u as well from [place], adjusted some of her meds can continue the ASA and the vitamin Dthe patient breathing is good, suggested melatonin for sleep will send results to the OT MIKHAIL SARKAR [address] [place], [phone], [facility] 11/30/2023 09:52:24 09/21/2024 text/html [...] vs immune arthritis the patient did see weekday babysitter, started her on T gel, recommended hormone screeningthe patient reports that she feels fatigued and more joint pain which can also be symptoms additional from menopause also vit d def, will have pt start 2000 units with calcium will try to see if the zepbound will be covered under obesity, HTN having blood in her urine from [facility]; wanted repeat urine to check for continue hematuria f/u after work up MIKHAIL SARKAR [address] [place], [phone], [facility] 09/21/2024 12:23:55 03/04/2025 text/html [...] already for routine appts MIKHAIL SARKAR [address] [facility], [place], [phone], [facility] 03/04/2025 11:14:06 OBGyn Episode No OBEpisode recorded.
== END 2025-05-20 09:08 | disposition home or self-care (01) ==
LOC: HO.US 09:07
PROVIDERS: PCP Internal Medicine; Visit Provider Nurse Practitioner Family
DX: N39.46 Mixed incontinence (principal); N39.0 Urinary tract infection, site not specified; R39.9 Unspecified symptoms and signs involving the genitourinary system; R31.29 Other microscopic hematuria; Q63.1 Lobulated, fused and horseshoe kidney
CPT/HCPCS: 76770

== ENCOUNTER → 2025-05-20 09:11 | Outpatient (BNV) | payer BC, SELFPAY | PROVIDERS: PCP Internal Medicine; Visit Provider Radiology Diagnostic Radiology | DX: N39.0 Urinary tract infection, site not specified (principal); Q63.1 Lobulated, fused and horseshoe kidney | CPT/HCPCS: 76770 ==

== ENCOUNTER 2025-05-30 15:09 | Outpatient (AMB) | payer BC, SELFPAY ==
--- OUTSIDE RECORDS SUMMARY | 2025-05-26 23:59 | XMS_ITS | Continuity of Care Document ---
Author Organization [facility] Address [address] [place] [address]- Care Team Providers Care Investigations Chief Name Role Phone Avel Henson DO [place] [facility] [phone] Encounter [facility] Date(s): 04/26/25 - 05/26/[address] [address] Encounter Type: Triage Allergies, Adverse Reactions, Alerts No Known Medication Allergies Substance Criticality Severity Reaction Reaction Severity Status aspirin Resolved Medications azaTHIOprine 50 mg oral tablet 150 mg, 3, tablet, By Mouth, Daily, # 90 tablet, Refills 0, Tot. Refills 0, Maintenance, 10/28/23 10:27:00 AM EDT, Route to Pharmacy Electronically, [facility] #[id number], Partial fill upon patient request if the prescription is for a schedule II opioid drug., 155, cm, 10/28/23 7:38:00 EDT, Height, 80.2, kg, 10/08/23 18:24:00 EDT, Dry Weight Start Date: 10/28/23 Status: Ordered Medication Dispense Status: Completed Quantity: 90.0 Unit: tablet Total Allowed Fills: 1 Fills Dispensed: 0 carvedilol 6.25 mg oral tablet 6.25 mg, 1, tablet, By Mouth, 2 times a day, # 60 tablet, Refills 3, Tot. Refills 3, Maintenance, 01/15/25 4:28:00 PM EDT, Route to Pharmacy Electronically, [facility] #[id number], Partial fill upon patient request if the prescription is for a schedule II opioid drug., 155.6, cm, 11/14/24 14:59:00 EDT, Height, 91.5, kg, 09/17/24 10:43:00 EDT, Dry Weight Start Date: 01/15/25 Status: Ordered Medication Dispense Status: Completed Quantity: 60.0 Unit: tablet Total Allowed Fills: 4 Fills Dispensed: 0 cholecalciferol 1000 intl units oral capsule 1 capsule = 25 mcg, By Mouth, Daily, # 30 capsule, 0 Refills, Maintenance, 10/28/23 10:28:00 AM EDT,Capsule, [facility] #[id number], Partial fill upon patient request if the prescription is for a schedule II opioid drug., 155, cm, 10/28/23 7:38:00 EDT, Height, 80.2, kg, 10/08/23 18:24:00 EDT, Dry Weight Start Date: 10/28/23 Stop Date: 11/27/23 Status: Ordered Medication Dispense Status: Completed Quantity: 30.0 Unit: capsule Total Allowed Fills: 1 Fills Dispensed: 0 lisinopril 40 mg oral tablet 1 tablet, By Mouth, Daily, # 30 tablet, 11 Refills, Maintenance, 02/19/25 11:02:00 AM EDT, [facility] #[id number], 153, cm, 02/19/25 7:25:00 EDT, Height, 86, kg, 02/18/25 18:18:00 EDT, Dry Weight Start Date: 02/19/25 Stop Date: 02/14/26 Status: Ordered Medication Dispense Status: Completed Quantity: 30.0 Unit: tablet Total Allowed Fills: 12 Fills Dispensed: 0 pyridostigmine 60 mg oral tablet 60 mg, 1, tablet, By Mouth, Daily in AM, # 30 tablet, Refills 0, Tot. Refills 0, Maintenance, 10/28/23 10:28:00 AM EDT, Route to Pharmacy Electronically, [facility] #[id number], Partial fill uponpatient request if the prescription is for a schedule II opioid drug., 155, cm, 10/28/23 7:38:00 EDT, Height, 80.2, kg, 10/08/23 18:24:00 EDT, Dry Weight Start Date: 10/28/23 Status: Ordered Medication Dispense Status: Completed Quantity: 30.0 Unit: tablet Total Allowed Fills: 1 Fills Dispensed: 0 rosuvastatin 20 mg oral tablet 1 tablet = 20 mg, By Mouth, Daily, # 90 tablet, 3 Refills, Maintenance, 01/15/25 4:28:00 PM EDT, Tablet, [facility] #[id number], Partial fill upon patient request if the prescription is for a schedule II opioid drug., 155.6, cm, 11/14/24 14:59:00 EDT, Height, 91.5, kg, 09/17/24 10:43:00 EDT, Dry Weight Start Date: 01/15/25 Status: Ordered Medication Dispense Status: Completed Quantity: 90.0 Unit: tablet Total Allowed Fills: 4 Fills Dispensed: 0 Vitamin B6, B12 and Folate oral tablet 1 tablet, By Mouth, Daily, 0 Refills, Maintenance, 02/13/24 11:29:00 AM EDT, Partial fill upon patient request if the prescription is for a schedule II opioid drug. Start Date: 02/13/24 Status: Ordered Medication Dispense Status: Completed Total Allowed Fills: 1 Fills Dispensed: 0 warfarin 1 mg oral tablet 1 tablet = 1 mg, By Mouth, Daily, 0 Refills, Maintenance, 05/10/24 7:54:00 AM EST, Partial fill upon patient request if the prescription is for a schedule II opioid drug. Start Date: 05/10/24 Status: Ordered Medication Dispense Status: Completed Total Allowed Fills: 1 Fills Dispensed: 0 Zepbound Pen 5 mg/0.5 mL subcutaneous solution 0 Refills, Maintenance, 11/14/24 2:59:00 PM EDT, Partial fill upon patient request if the prescription is for a schedule II opioid drug. Start Date: 11/14/24 Status: Ordered Medication Dispense Status: Completed Total Allowed Fills: 1 Fills Dispensed: 0 Problem List Condition Confirmation Course Effective Dates Status H ealth Status Informant Antiphospholipid syndrome Confirmed 03/07/24 Active CVA (cerebrovascular accident) Confirmed Active Depression Confirmed Active Hyperlipidemia Confirmed 11/30/23 Active Hypertension Confirmed Active Long-term current use of anticoagulant Confirmed 04/10/24 Active Myasthenia gravis Confirmed Active Panic disorder Confirmed 10/05/23 Active Reduced libido Confirmed Active Severe obesity (BMI 35.0-39.9) with comorbidity Confirmed Active TIA (transient ischemic attack) Confirmed Active Urinary incontinence Confirmed Active Vertigo Confirmed 03/19/24 Active Social History Social History Type Response Smoking Status Never (less than 100 in lifetime) entered on: 10/05/23 Sexual Orientation Self described orien tation: ; Straight or heterosexual Sex Sex Representation Female (finding) Patient Care team information Care Team Personnel Name: Avel Henson DO Position: Reference Physician Member Role: PCP Address: [address] [place] [address] Internal Medicine [place], [place] [address] Telecom: Care Team Related Persons Name: СВЕТЛАНА BERG Name: CATARINA BERG Insurance Providers Guarantor name: ESTHER [facility] Information #: 1 Payer: [employer] CROSS PPO Payer Identifier: NA Member Number: [id number] Group Number: [id number] Subscriber Identifier: NA Relationship to Subscriber: self Coverage Type: NA Coverage Verification Date: NA Telecom: NA Address:
--- NOTE | 2025-05-30 15:38 | MHC.OFFVIS ---
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 Henson. She has a past medical history of cerebrovascular accident, depression, hypertension, MS, obesity, and TIAs. She presents to the office today for follow-up of her mixed urinary incontinence and lower urinary tract symptoms. In discussion with the patient today she reports having recently followed up with Cardiology earlier today in his had medication adjustment due to her ongoing hypertension. We did discuss potential for worsening hypertension in relation to Myrbetriq. We did discuss discontinuation of Myrbetriq at this time. She reports she will be undergoing sleep study for further assessment evaluation of potential sleep apnea. She also discusses having scheduled her initial pelvic floor therapy appointment here at [facility] for June 11. Most recent retroperitoneal ultrasound results reviewed with the patient today 06/13 horseshoe kidneys. No evidence of renal obstruction or renal calculi. No hydronephrosis noted bilaterally. The urinary bladder is unremarkable. She does continue to experience episodes of mixed urinary incontinence. We did review in office urinalysis results. We did discuss proteinuria as well as microscopic hematuria. We discussed previous urine cytology results: Urine Cytology: 07/14 & 03/14 Negative for high-grade urothelial carcinoma. She does have a previous history of 2 vaginal births and having had a partial hysterectomy approximately 20 years ago. She otherwise denies gross/visible hematuria, dysuria, foul smelling urine, changes to urinary stream, flank pain, fever, and or chills. We discussed at length potential causes of lower urinary tract symptoms, mixed urinary incontinence, and microscopic hematuria. We did discussed further treatment options and risks and benefits of these treatment options. She denies any previous history of workplace chemical exposure and or smoking history. She otherwise offers no other issues or concerns at this time. [facility] Medical History CVA (cerebral vascular accident) Depression Hypertension Myasthenia gravis Obesity, class 1 Severe obesity (BMI 35.0-39.9) with comorbidity TIA (transient ischemic attack) Review of Systems Const All systems reviewed & are unremarkable except as noted in HPI and below Physical Exam Const General: cooperative, healthy appearing, comfortable, no acute distress, well developed, alert and awake Orientation/consciousness: oriented to person Limitations: no limitations HEENT Head: Yes normal to inspection, Yes normocephalic and Yes atraumatic Ears: hearing grossly normal bilaterally Eyes General: appearance normal, both eyes and all related structures Neck Neck: Yes normal visual inspection and Yes trachea midline Chest Chest palpation & inspection: normal inspection of the chest Resp Effort & Inspection: normal respiratory effort and able to speak in complete sentences Cardio Rate: regular rate GI Inspection: Yes normal to inspection General: Yes no CVA tenderness Back/Spine/Pelvis Back: no CVA tenderness Skin General skin exam: no rashes or lesions noted Neuro General: oriented to person Extrem General: Yes normal to inspection Psych Appearance: grossly normal and well kempt Mental Status: mental status grossly normal Speech and movement: Clear speech present Affect: normal affect Attitude: cooperative Thought process: Normal thought process present Thought content: Normal thought content present Insight: Fair insight present (Psych) Judgement: Fair judgement present (Psych) Results AMB Urinalysis, Automated UA Leukoctes 0 Rain/uL Last Edit by BRODIE Mata on 05/30/25 16:17 UA Nitrite Negative Last Edit by BRODIE Mata on 05/30/25 16:17 UA Urobilinogen 0.2 mg/dL Last Edit by BRODIE Mtaa on 05/30/25 16:17 UA Protein 100 mg/dL Last Edit by BRODIE Mata on 05/30/25 16:17 UA pH 5.5 Last Edit by BRODIE Mata on 05/30/25 16:17 UA Blood 80 Naif/uL Last Edit by BRODIE Mata on 05/30/25 16:17 UA Specific [place] 1.025 Last Edit by BRODIE Mata on 05/30/25 16:17 UA Ketone Negative Last Edit by BRODIE Mata on 05/30/25 16:17 UA Bilirubin 0 mg/dL Last Edit by BRODIE Mata on 05/30/25 16:17 UA Glucose 0 mg/dL Last Edit by BRODIE Mata on 05/30/25 16:17 Results Reviewed Results Reviewed: Laboratory Last Values Urine pH (Auto) 5.5 05/30/25 16:16 Specific [place] (Auto) 1.025 05/30/25 16:16 Urine Protein (Auto) 100 mg/dL 05/30/25 16:16 Glucose (UA)(Auto) 0 mg/dL 05/30/25 16:16 Urine Ketones (Auto) Negative 05/30/25 16:16 Urine Blood (Auto) 80 Naif/uL 05/30/25 16:16 Urine Nitrite (Auto) Negative 05/30/25 16:16 Urine Bilirubin (Auto) 0 mg/dL 05/30/25 16:16 Urine Urobilinogen (Auto) 0.2 mg/dL 05/30/25 16:16 Leukocyte Esterase (Auto) 0 Rain/uL 05/30/25 16:16 Date of Service: 05/20/25 Procedure(s): US retroperitoneal comp FINDINGS: Horseshoe kidney. Right renal moiety: Cortical medullary differentiation is maintained. Normal color flow by Doppler. No calculus or focal parenchymal abnormality identified. No hydronephrosis. Right moiety size: 13.0 x 4.0 x 5.6 cm Left kidney: Cortical medullary differentiation is maintained. Normal color flow by Doppler. No calculus or focal parenchymal abnormality identified. No hydronephrosis. Left renal moiety: 10.3 x 4.8 x 6.6 cm The urinary bladder is unremarkable. Ureteral jets were visualized bilaterally. Prevoid volume: 172 mL Postvoid volume: 40 mL IMPRESSION: 1. No evidence of renal obstruction. 2. Horseshoe kidney. Assessment & Plan Assessment & Plan (1) Proteinuria: Code(s): R80.9 - Proteinuria, unspecified Category: Medical (2) Microscopic hematuria: Code(s): R31.29 - Other microscopic hematuria Category: Medical (3) Horseshoe kidney: Code(s): Q63.1 - Lobulated, fused and horseshoe kidney Category: Medical (4) Lower urinary tract symptoms: Code(s): R39.9 - Unspecified symptoms and signs involving the genitourinary system Category: Medical (5) Urinary incontinence, mixed: Code(s): N39.46 - Mixed incontinence Category: Medical Plan In office urinalysis results reviewed with the patient today; as noted above; will send for urine cytology. We did review potential causes of mixed urinary incontinence, proteinuria, and microscopic hematuria. Will refer to Nephrology for further assessment evaluation. Stop Myrbetriq. Start VESIcare as discussed and prescribed. Will reassess mixed urinary incontinence status post completion of pelvic floor therapy. Most recent retroperitoneal ultrasound results reviewed with the patient today; as noted above. Will continue with surveillance monitoring at this time. We did discussed potential near future in office cystoscopy and or urodynamics for further assessment evaluation. All questions were answered. Follow-up in 3 months with [facility]; or sooner with any issues, concerns, and or questions. Orders: Orders Urine Cytology Today R31.29 - Other microscopic hematuria AMB Urinalysis Automated Today Z13.9 - Encounter for screening, unspecified Referrals Nephrology Referral R80.9 - Proteinuria, unspecified Medications: New solifenacin (Vesicare) 5 mg PO DAILY 30 tabs 3RF 30 days Discontinued mirabegron ER (Myrbetriq) Discontinued Reason: Doctor's Order 25 mg PO DAILY 30 days 30 tabs 3RF N30.10 - Interstitial cystitis (chronic) without hematuria, N32.81 - Overactive bladder, R35.1 - Nocturia, R39.15 - Urgency of urination Patient Instructions: The patient had an opportunity to ask questions regarding the treatment plan. All questions were answered. Physical exam, labs, and imaging were discussed and reviewed in detail. As well as risks, benefits, and discussion of treatment choices. No major barriers to understanding were identified. The patient expressed understanding and agreement with the above treatment plan. The patient was made aware they should contact our office by phone for worsening of their current condition, the appearance of new symptoms, or with any questions or concerns. Compliance is encouraged with any medications and follow up testing that is ordered. It is a privilege to be allowed the opportunity to participate in? your urological care.? Again, if you have any questions or concerns If you have any questions or concerns please do not hesitate to contact me. The office is [phone]. This note is constructed using voice recognition software. 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 Yours sincerely, ZORAN Perez Coding Level of Care Code Est Pt Level 4 (15928) Diagnoses Proteinuria R80.9 Microscopic hematuria R31.29 Horseshoe kidney Q63.1 Lower urinary tract symptoms R39.9 Urinary incontinence, mixed N39.46
--- OUTSIDE RECORDS SUMMARY | 2025-05-30 22:42 | XMS_ITS | Continuity of Care Document ---
Author Organization [facility], [facility] Address [address] [place] [address] [place] [address] Assessment No assessment recorded. Plan of Treatment Reminders Order Date Submit Date Provider Last Modified By Organization Details Last Modified Time Details Appointments None recorded. Lab CMP, serum or plasma 2024 025 [facility], [address] [place] [address], [id number], 5 12:06:55 CBC w/ auto diff 2024 025 [facility], [address] [place] [address], [address], 5 11:16:15 ESR (erythrocy te sedimentat ion rate), blood 2024 025 [facility], [address] [place] [address], [address], 5 11:16:16 C-reactive protein, quantitati ve, serum or plasma 2024 025 [facility], [address] [place] [address], [address], 5 11:16:15 vitamin D, 25-hydroxy , total, serum 2024 025 [facility], [address] [place] [address], [address], 5 11:16:16 vitamin B12 + folate, serum or blood 2024 025 [facility], [address] [place] [address], [address], 5 11:16:16 iron + TIBC + ferritin, serum 2024 025 [facility], [address] [place] [address], [address], 5 11:16:15 TSH + free T4, serum 2024 025 [facility], [address] [place] [address], [address], 5 11:16:16 hemoglobin A1c, QN, blood 2024 025 [facility], [address] [place] [address], [address], 5 11:16:16 Referral otolaryngo logist referral 2024 025 [facility], [address] [place] [address], [address], 08:52:09 Procedures None recorded. Surgeries None recorded. Imaging None recorded. Medication Orders None recorded. Patient TargetsNo targets recorded. Patient InstructionsNo instructions recorded. 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 [email or web address] [facility] [address], [place], [address], 04/22/2025 10:34:13 05/20/20 25 05/20/2025 [place], stephanie er No observ ation record ed. [facility] (Medical Records) [address] [place], [address], 05/20/2025 15:08:01 Result Notes None recorded. Problems Name Problem SNOMED Code Status Onset Date Resolution Date Notes Provider Name and Address Organization Details Recorded Time Environme ntal allergy 376167062 Active 2017 Evelyn campoverde [facility] 8 16:36:54 Obesity 874128662 Active 2017 Evelyn campoverde [facility] 8 16:37:21 History of human papilloma virus infection 008265341952 102 Active 2017 Evelyn campoverde [facility] 8 16:40:59 Myastheni a gravis 87739182 [facility] 1 09:23:22 COVID-19 863660907 Active 2020 [facility] 1 09:23:33 Overweigh t 438372453 Active 2021 MIKHAIL SARKAR [address] [place], [address], [facility] 2 14:44:17 Essential hypertens ion 57604826 Active 2021 MIKHAIL SARKAR [address] [place], [address], [facility] 2 14:48:07 Acute sinusitis 42526125 Active 2022 MIKHAIL SARKAR [address] [place], [address], [facility] 3 13:35:05 Dyspnea 315554233 Active 2022 MIKHAIL SARKAR [address] [place], [address], [facility] 3 11:01:25 Acute right otitis media 503051801 Active 2022 MIKHAIL SARKAR [address] [place], [address], [facility] 3 13:59:32 Panic disorder 792392823 Active 2023 MIKHAIL SARKAR [address] [place] [address], [address], [facility] 4 10:02:38 Hypertens giselle urgency 637595675 Active 2023 MIKHAIL SARKAR [address] [place] [address], [address], [facility] 4 10:08:53 Dysuria 92308664 Active 2023 MIKHAIL SARKAR [address] [place] [address], [address], [facility] 4 15:24:06 Cerebrova scular accident 335925017 Active 2023 MIKHAIL SARKAR [address] [place] [address], [address], [facility] 4 15:24:28 Transient cerebral ischemia 755931856 Active 2023 MIKHAIL SARKAR [address] [place] [address], [address], [facility] 4 14:27:33 Pain of left hand 997948597119 103 Active 2023 MIKHAIL SARKAR [address] [place] [address], [address], [facility] 4 09:35:48 Pain in left arm 032643706 Active 2023 MIKHAIL SARKAR [address] [place] [address], [address], [facility] 4 09:36:00 Hyperlipi demia 16998780 Active 2023 MIKHAIL SARKAR [address] [place] [address], [address], [facility] 4 09:51:05 Acute urinary tract infection 997623401 Active 2023 MIKHAIL SARAKR [address] [place] [address], [address], [facility] 4 14:36:41 Antiphosp holipid syndrome 10222340 Active 2023 Avel Henson DO [address] [place] [address], [address], [facility] 4 16:48:00 Vertigo 857997677 Active 2023 MIKHAIL SARKAR [address] [place] [address], [address], [facility] 5 14:00:55 Recurrent urinary tract infection 093809838 Active 2023 Avel Henson, DO [address] [place] [address], [address], [facility] 4 20:55:54 Dermoid cyst of head 044250000 Active 2024 MIKHAIL SARKAR [address] [place] [address], [address], [facility] 5 15:50:45 Fatigue 72607394 Active 2024 MIKHAIL SARKAR [address] [place] [address], [address], [facility] 5 11:08:48 Pain of multiple joints 91196660 Active 2024 MIKHAIL SARKAR [address] [place] [address], [address], [facility] 5 10:11:48 Menopause Active 2024 MIKHAIL SARKAR [address] [place] [address], [address], [facility] 5 10:14:36 Biju hematuria 132692645 Active 2024 MIKHAIL SARKAR [address] [place] [address], [address], [facility] 5 10:27:05 Osteoarth ritis of knee 471331726 Active 2024 MIKHAIL SARKAR [address] [place] [address], [address], [facility] 5 10:09:33 Anti-nucl ear factor detected 902217190 Active 2024 MIKHAIL SARKAR [address] [place] [address], [address], [facility] 5 09:25:44 Otalgia of right ear 0618691095 Active 2024 MIKHAIL SARKAR [address] [place] [address], [address], [facility] 5 15:28:16 Chronic pansinusi tis 38462400 Active 2024 MIKHAIL SARKAR [address] [place] [address], [address], [facility] 5 11:07:05 Mixed hyperlipi demia 389132316 Active 2024 MIKHAIL SARKAR [address] [place] [address], [address], [facility] 5 08:31:15 Impaired fasting glycemia 712809493 Active 2024 MIKHAIL SARKAR [address] [place] [address], [address], [facility] 5 15:32:12 Atypical chest pain 357653899 Active 2024 MIKHAIL SARKAR [address] [place] [address], [address], [facility] 5 08:32:15 Pain of right knee joint 578625907835 100 Active 2024 MIKHAIL SARKAR [address] [place], [address], [facility] 12:45:38 Problem Notes None recorded. Procedures Surgical History Date Name Laterality Status Provider Name and Address Organization Details Recorded Time Partial Hysterectomy completed Jessi Rodriguez NP, [address] [place], [address], [facility] 04/28/2018 10:35:33 Imaging Results None [...] Updated DateTime 5 152.4 cm 34.4 kg/m2 68091.2 6 g 80 /min 99 % 124/80 mm[Hg] [facility] 5 10:47:35 Social History Question Answer Notes LastModified by Organizat ion Details LastModified Time Tobacco Smoking Status Never Smoker Not Available [facility] 04/22/2020 03:36:24 What Was The Date Of Your Most Recent Tobacco Screening? 03/04/2025 Information not available 03/04/2025 Sex: Unknown Functional Status Question Answer Note LastModified by Organization D etails LastModified Time Do you or have you ever used any other forms of tobacco or nicotine? No [email or web address] Information not available 11/26/2022 Mental Status None [...] PF, 0.5 mL 09/22/2020 completed Amada Noel [facility] 12/02/2020 10:20:35 Past Encounters Encounter ID Performer Location Encounter Start Date Encounter Closed Date Diagnosis/Indication Diagnosis SNOMED-CT Code Diagnosis ICD10 Code Diagnosis IMO Codes Diagnosis Note [id number] Avel Henson [facility] [address],[place] [address] 03/04/2025 10:30:42 03/04/2025 16:16:23 Essential hypertension 40285858 I10 BP much improved with lisinopril restarting Hypertensive urgency 443 983129 I16.0 resolved, BP is stable Antiphosph olipid syndrome 60829378 D68.61 stable Myasthenia gravis 349822 04 G70.00 stable Chronic pansinusitis 888 20107 J32.4 2468 change ENT to [place] per pt Fatigue 89336523 R53.83 [id number] will set up with lab work Health Concerns Section Related Observation LastModified by Organization Detai ls LastModified Time None Recorded Concern Status LastModified by Organization Details LastModified Time None Recorded Payers Encounter Date Sequence Insurance Name Policy Number Policy Reed Covered Member ID Reed Member ID Guarantor Name 03/04/2025 1 AUGIE (PPO) [id number] Sindi King [id number] Sindi King Notes Date Note Type Note Provider Name a nd Address Organization Details Recorded Time 03/04/2025 text/html ROS as noted in the [facility] hospital d/c the patient with [...] appt already for routine appts MIKHAIL SARKAR [address] [place] [address], [place], [address], [facility] 03/04/2025 11:14:06 OBGyn Episode No OBEpisode recorded.
--- OUTSIDE RECORDS SUMMARY | 2025-05-30 22:42 | XMS_ITS | Encounter Summary ---
Author Organization [facility] Address [address] [place] [address] Phone Care Team Providers Care Patient Transportation Driver Name Role Phone Unknown, Unknown Primary Care Provider Avel Swenson DO Unavailable Mary Pate Primary Care Provider [phone] Ayah Clemente RN Unavailable [phone] Encounter Details Date Type Department Care Team (Late st Contact Info) Description 04/22/2017 Transcribe Orders [facility] Main [address] [place] [address] Forest Guido MD [address] [place] [address] Myasthenia gravis without exacerbation (Primary Dx) [...] 06/07/2025 10:00 AM EST Office Visit [facility]ology [address] [place] [address] Ondina Barbour MD [address], [address] [place], [place] [id number] 06/19/2025 3:15 PM EST Evaluation [facility] Otolaryngology [address] [place] [address] Dianna Dhillon AuD [address] [place] [address] [email or web address] 07/29/2025 1:30 PM EST Office Visit [facility] [address] [place] [address] Mary Mcnally, KATIE [address] [place] [address] [email or web address] Scheduled Procedures Name Priority Associated Diagnoses Date/Ti me COLONOSCOPY Abnormal bowel habits documented as of this encounter Results * LFTs (hepatic panel) (04/22/2017 8:21 AM EDT) ALKALINE PHOSPHATASE 99 39 - 117 U/L [facility] TOTAL BILIRUBIN 0.4 0 - 1.2 mg/dL [facility] DIRECT BILIRUBIN <0.2 0 - 0.3 mg/dL [facility] Bilirubin (Indirect) NOT CALCULATED 0 - 1.5 mg/dL [facility] AST 20 0 - 37 U/L [facility] ALT 28 0 - 40 U/L [facility] TOTAL PROTEIN 6.7 6.5 - 8.0 g/dL [facility] ALBUMIN 4.1 3.9 - 4.8 g/dL [facility] GLOBULIN 2.6 1 - 4.8 g/dL [facility] A/G Ratio 1.58 1.00 - 4.80 RATIO [facility] Blood 04/22/2017 8:21 AM EDT 04/22/2017 1:53 PM EDT us Forest Guido MD LAB BLOOD BKR ORDERABLES E dited Result - Final [facility] [address] [place] [address] * Basic metabolic panel (04/22/2017 8:21 AM EDT) SODIUM 142 133 - 146 mmol/L [facility] CHLORIDE 103 96 - 108 mmol/L [facility] POTASSIUM 4.7 3.3 - 5.1 mmol/L [facility] CO2 30 21 - 35 mmol/L [facility] BUN 15 6 - 19 mg/dL [facility] CREATININE 0.50 0.5 - 1.5 mg/dL [facility] GLUCOSE 92 70 - 99 mg/dL [facility] CALCIUM 9.3 8.4 - 10.3 mg/dL [facility] EGFR >60 60 - 1000 mL/min/1.7 3m2 [facility] Comment:Abnormal if <60. If patient is -[place], multiply the result by 1.21. ANION GAP 14 10 - 20 mmol/L [facility] Blood 04/22/2017 8:21 AM EDT 04/22/2017 1:53 PM EDT us Forest Guido MD LAB BLOOD BKR ORDERABLES F inal Result [facility] [address] [place], [place] [id number] * CBC and differential (04/22/2017 8:21 AM EDT) WBC 4.98 3.40 - 11.20 K/uL [facility] RBC 4.34 3.80 - 4.80 M/uL [facility] HGB 12.2 12.0 - 15.0 g/dL [facility] HCT 36.9 36.0 - 46.0 % [facility] PLT 141 130 - 400 K/uL [facility] MCV 85.0 79.0 - 98.0 fL [facility] MCH 28.1 27.0 - 34.8 pg [facility] MCHC 33.1 31.5 - 36.0 g/dL [facility] RDW 13.9 10.8 - 14.6 % [facility] MPV 11.4 9.4 - 12.4 [facility] NRBC 0.00 /100 WBCs [facility] ABSOLUTE NRBC 0.00 K/uL [facility] DIFF METHOD Auto [facility] NEUTS 66.9 45.30 - 77.70 % [facility] LYMPHS 22.7 12.30 - 39.70 % [facility] MONOS 7.4 4.10 - 12.80 % [facility] EOS 2.0 0 - 7.2 % [facility] BASOS 0.6 0 - 2.80 % [facility] Granulocytes, immature (%) 0.4 0.0 - 0.9 % [facility] ABSOLUTE NEUTS 3.33 1.40 - 7.70 K/uL [facility] ABSOLUTE LYMPHS 1.13 0.60 - 3.20 K/uL [facility] ABSOLUTE MONOS 0.37 0.11 - 0.59 K/uL [facility] ABSOLUTE EOS 0.10 0.01 - 0.50 K/uL [facility] ABSOLUTE BASOS 0.03 0.00 - 0.08 K/uL [facility] Granulocytes, immature 0.02 0.00 - 0.05 K/uL [facility] Blood 04/22/2017 8:21 AM EDT 04/22/2017 1:53 PM EDT us Forest Guido MD LAB BLOOD BKR ORDERABLES F inal Result Performing Organization Address City/State/[facility] Co de Phone Number [facility] [address] [place] [address] documented in this encounter Visit Diagnoses Diagnosis Myasthenia gravis without exacerbation- Primary documented in this encounter Care Teams Patient Transportation Driver Relationship Specialty Start Date End Date Unknown, Unknown, MD PCP - General 04/22/17 12/08/23 Mary Pate PA [address] [place] [address] [place] [address] PCP - General Physician Learning Facilitator 12/09/23 Avel Henson DO [address] [place] [phone] [email or web address] Insurance Assigned Provider 09/24/23 Ayah Clemente RN [address] [place] [address] Registered Nurse 03/19/25 documented as of this encounter Additional Source Comments The information contained in this document represents components of the legal health record. It is not the complete legal health record.[facility]
--- OUTSIDE RECORDS SUMMARY | 2025-05-30 22:42 | XMS_ITS | Data Portability ---
Author Organization [facility], Telehealth Patient Home Address [address] [place] [address] Assessment Encounter Date Assessment Date Assessment LastModified by Organization Details LastModified Time 05/09/2023 05/09/2023 Patient agreed and verbally consents to this audio and video Telehealth appt via a secure platform [email or web address] Not available 05/09/2023 13:59:44 Plan of Treatment Reminders Order Date Submit Date Provider Last Modified By Organization Details Last Modified Time Details Appointments None recorded. Lab CMP, serum or plasma 2024 025 [facility], [address] [place] [address], [address], 5 12:06:55 CBC w/ auto diff 2024 025 [facility], [address] [place] [address], [address], 5 11:16:15 ESR (erythrocy te sedimentat ion rate), blood 2024 025 [facility], [address] [place] [address], [place], [address], 5 11:16:16 C-reactive protein, quantitati ve, serum or plasma 2024 025 [facility], [address] [place] [address], [address], 5 11:16:15 vitamin D, 25-hydroxy , total, serum 2024 025 [facility], [address] [place] [address], [address], 5 11:16:16 vitamin B12 + folate, serum or blood 2024 025 [facility], [address] [place] [address], [address], 5 11:16:16 iron + TIBC + ferritin, serum 2024 025 [facility], [address] [place] [address], [address], 5 11:16:15 TSH + free T4, serum 2024 025 [facility], [address] [place] [address], [address], 5 11:16:16 hemoglobin A1c, QN, blood 2024 025 [facility], [address] [place] [address], [address], 5 11:16:16 urinalysis complete, reflex culture 2024 025 [facility], [place], [address], 5 18:52:05 estradiol, serum 2024 025 [facility], [place], [address], 5 09:44:30 lh + FSH, serum 2024 025 [facility] [employer] [facility], [place], [address], 5 10:22:57 progestero ne, serum 2024 025 [facility], [place], [address], 5 10:22:57 prolactin, serum 2024 [facility], [place], [address], 5 10:22:57 testostero ne, total, serum 2024 [facility], [place], [address], 5 10:22:57 rf (rheumatoi d factor), serum 2024 [facility], [place], [address], 5 10:22:58 ESR (erythrocy te sedimentat ion rate), blood 2024 [facility], [place], [address], 5 10:22:58 JIA (antinucle ar antibodies ) screen, serum 2024 [facility] [employer], [place], [address], 5 16:49:22 C-reactive protein, quantitati ve, serum or plasma 2024 025 [facility], [place], [address], 5 10:22:57 uric acid, serum or plasma 2024 025 [facility], [place], [address], 5 10:22:57 ccp (cyclic citrullina dony peptide) igg, serum 2024 025 [facility], [place], [address], 5 12:08:57 lyme disease igg+igm, serum, reflex western blot 2024 025 [facility], [place], [address], 5 13:44:38 dsDNA Ab, serum 2024 025 [facility], [place], [address], 5 15:51:47 sjogren antibody panel (ssa, ssb, ro, la), serum 2024 025 [facility], [place], [address], 5 14:53:16 lipid panel, serum 2023 024 [facility], [address] [place] [address], [place], [address], 4 09:52:29 urinalysis complete, reflex culture 2023 024 [facility], [address] [place] [address], [place], [address], 4 15:26:55 Referral otolaryngo logist referral [address] [facility], [address] [place] [address], [address], 5 08:52:09 physical therapist referral 2023 024 [facility], [address] [place], [address], 4 09:08:18 Procedures None recorded. Surgeries None recorded. Imaging XR, hip + pelvis, bilateral 2024 025 [facility], [address] [place] [address], [address], 5 10:01:43 XR, ankle, 3 or more view 2024 025 [facility], [address] [place] [address], [address], 5 09:40:40 XR, knee, 3 view 2024 025 [facility], [address] [place] [address], [address], 5 09:56:54 XR, ankle, 3 or more view 2024 025 [facility], [address] [place] [address], [address], 5 09:40:20 XR, hand, 3 or more view 2023 024 [facility], [address] [place], [address], 4 19:51:02 XR, humerus, 2 or more view 2023 024 [facility], [address] [place], [address], 4 16:21:57 XR, shoulder, 2 or more view 2023 024 [facility], [address] [place], [address], 4 08:34:26 Medication Orders Zepbound 2.5 mg/0.5 mL subcutaneo us pen injector 2024 025 [facility], [address] [place] [address], [id number], 5 16:23:45 atorvastat in 80 mg tablet [address] [facility]13765, [address] [place], [place], [id number], 5 10:22:44 lisinopril 10 mg tablet 2023 024 [facility]26690, [address] [place], [place], [id number], 4 13:35:57 Bactrim DS 800 mg-160 mg tablet 2023 024 [facility] #09405, [address] [place], [place], [id number], 5 10:22:47 amoxicilli n 875 mg-potassi um clavulanat e 125 mg tablet 2022 023 [facility] #25780, [address] [place], [place], [id number], 4 10:02:47 Medrol (Krishan) 4 mg tablets in a dose pack 2022 023 [facility] #37392, [address] [place], [place], [id number], 4 10:02:55 Patient TargetsNo targets recorded. Patient InstructionsNo instructions recorded. Reason for Referral Physical Therapist Referral for Myasthenia gravis transfer from at home PT/OT to outpatient PT/OT Referring Physician: Mary Pate, Internal Medicine, Encounter Date: 11/30/2023 Mica Miner Blasting Referral fo r Chronic pansinusitis hx of MG with chronic sinusititis Referring Physician: Mary Pate, Internal Medicine, Encounter Date: 03/04/2025 Results Created Date Observation Date Name Description Value Unit Range Abnormal Flag Note LastModifiedBy Organization Detail LastModifiedTime 06/10/20 23 06/10/2023 MAMMO , scree alan, digit al, bilat eral No observ ation record ed. [facility] [place] [address] [place], [address], 06/10/2023 11:30:35 06/24/19 24 06/24/2023 MAMMO , scree alan, digit al, bilat eral No observ ation record ed. [facility] [place] [address] [place], [address], 06/25/2023 08:54:30 12/02/19 24 12/02/2023 XR, shoul flor, 2 or more view No observ ation record ed. [facility] Internal Medicine [address] [facility] [address], [place], [address], 09/21/2024 10:09:43 12/02/19 24 12/02/2023 XR, humer us, 2 or more view No observ ation record ed. [facility]3] Internal Medicine [address] [facility] [address], [place], [address], 09/21/2024 10:09:43 12/02/19 24 12/02/2023 XR, hand, 3 or more view No observ ation record ed. [facility]3] Internal Medicine [address] [facility] [address], [place], [address], 09/21/2024 10:09:43 12/30/19 24 12/30/2023 MAMMO , scree alan, digit al, bilat eral No observ ation record ed. [facility] [place] [address] [place], [address], 09/21/2024 10:09:43 01/05/20 24 12/30/2023 US, breas t No observ ation record ed. [facility] [address], [place], [address], 09/21/2024 10:09:43 01/05/20 24 01/05/2024 MAMMO , scree alan, digit al, bilat eral No observ ation record ed. [facility]3] Internal Medicine [address] [facility] [address], [place], [address], 09/21/2024 10:09:43 01/05/20 24 01/05/2024 US, brekrzysztof t No observ ation record ed. [facility]3] Internal Medicine [address] [facility] [address], [place], [address], 09/21/2024 10:09:43 01/10/20 24 01/05/2024 biops y of carlos sadler; soumya robles us, needl e core, using imagi ng helen nce (PROC ) No observ ation record ed. [facility]3] Internal Medicine [address] [facility] [address], [place], [address], 09/21/2024 10:09:43 08/09/19 25 08/08/2024 US, retro perit oneum , compl ete No observ ation record ed. [facility] (Medical Records) [address] [facility], [place], [address], 09/21/2024 10:09:42 08/14/19 25 08/14/2024 US, breas t, unila teral , limit ed No observ ation record ed. [facility]3] Internal Medicine [address] [facility] [address], [place], [address], 09/21/2024 10:09:42 08/17/19 25 08/14/2024 MAMMO , scree alan, digit al, bilat eral No observ ation record ed. [facility] Not Available 2024 10:09:42 09/23/19 25 09/21/2024 XR, knee, 3 view No observ ation record ed. [address], [address], 09/24/2024 10:09:04 09/23/19 25 09/21/2024 XR, ankle , 3 or more view No observ ation record ed. [facility] [address] [place], [address], 09/24/2024 10:09:04 09/23/19 25 09/21/2024 XR, ankle , 3 or more view No observ ation record ed. [facility] [address] [place], [address], 09/24/2024 10:09:04 09/23/19 25 09/21/2024 XR, hip + pelvi s, bilat eral No observ ation record ed. [facility] [address] [place], [address], 09/24/2024 10:09:05 04/19/20 25 04/18/2025 CT, heart , w/o contr ast, w/ coron roland calci um score No observ ation record ed. [email or web address] [facility] [address] [facility] [address], [place], [address], 04/22/2025 10:34:13 05/20/20 25 05/20/2025 US, bladd er No observ ation record ed. [facility] (Medical Records) [address] [place], [address], 05/20/2025 15:08:01 Result Notes None recorded. Problems Name Problem SNOMED Code Status Onset Date Resolution Date Notes Provider Name and Address Organization Details Recorded Time Environme ntal allergy 346088054 Active 2017 Evelyn campoverde [place] - [facility] 8 16:36:54 Obesity 029820575 Active 2017 Evelyn campoverde [facility] 8 16:37:21 History of human papilloma virus infection 385813766938 102 Active 2017 Evelyn campoverde [facility] 8 16:40:59 Myastheni a gravis 00529824 Active 2020 Evelyn campoverde [facility] 1 09:23:22 COVID-19 355269125 [facility] 1 09:23:33 Overweigh t 861829163 Active 2021 MIKHAIL SARKAR [address] [place] [address], [address], [facility] 2 14:44:17 Essential hypertens ion 06635220 Active 2021 MIKHAIL SARKAR [address] [place] [address], [address], [facility] 2 14:48:07 Acute sinusitis 26197587 Active 2022 MIKHAIL SARKAR [address] [place] [address], [address], [facility] 3 13:35:05 Dyspnea 148209661 Active 2022 MIKHAIL SARKAR [address] [place] [address], [address], [facility] 3 11:01:25 Acute right otitis media 428052952 Active 2022 MIKHAIL SARKAR [address] [place] [address], [address], [facility] 3 13:59:32 Panic disorder 397096932 Active 2023 MIKHAIL SARKAR [address] [place] [address], [address], [facility] 4 10:02:38 Hypertens giselle urgency 032957564 Active 2023 MIKHAIL SARKAR [address] [place], [address], [facility] 4 10:08:53 Dysuria 22307293 Active 2023 MIKHAIL SARKAR [address] [place], [address], [facility] 4 15:24:06 Cerebrova scular accident 337971460 Active 2023 MIKHAIL SARKAR [address] [place], [address], [facility] 4 15:24:28 Transient cerebral ischemia 093774340 Active 2023 MIKHAIL SARKAR [address] [place] [address], [address], [facility] 4 14:27:33 Pain of left hand 224630054324 103 Active 2023 MIKHAIL SARKAR [address] [place] [address], [address], [facility] 4 09:35:48 Pain in left arm 607878701 Active 2023 MIKHAIL SARKAR [address] [place] [address], [address], [facility] 4 09:36:00 Hyperlipi demia 57632541 Active 2023 MIKHAIL SARKAR [address] [place] [address], [address], [facility] 4 09:51:05 Acute urinary tract infection 794164314 Active 2023 MIKHAIL SARKAR [address] [place] [address], [address], [facility] 4 14:36:41 Antiphosp holipid syndrome 99891997 Active 2023 Avel Henson, [address] [place] [address], [address], [facility] 4 16:48:00 Vertigo 341241813 Active 2023 MIKHAIL SARKAR [address] [place] [address], [address], [facility] 5 14:00:55 Recurrent urinary tract infection 133662334 Active 2023 Avel Henson, DO [address] [place], [address], [facility] 4 20:55:54 Dermoid cyst of head 080055917 Active 2024 MIKHAIL SARKAR [address] [place] [address], [address], [facility] 5 15:50:45 Fatigue 64244246 Active 2024 MIKHAIL SARKAR [address] [place] [address], [address], [facility] 5 11:08:48 Pain of multiple joints 12619018 Active 2024 MIKHAIL SARKAR [address] [place] [address], [address], [facility] 5 10:11:48 Menopause Active 2024 MIKHAIL SARKAR [address] [place] [address], [address], [facility] 5 10:14:36 Biju hematuria 596761089 Active 2024 MIKHAIL SARKAR [address] [place] [address], [address], [facility] 5 10:27:05 Osteoarth ritis of knee 251860589 Active 2024 MIKHAIL SARKAR [address] [place] [address], [address], [facility] 5 10:09:33 Anti-nucl ear factor detected 926900936 Active 2024 MIKHAIL SARKAR [address] [place] [address], [address], [facility] 5 09:25:44 Otalgia of right ear 9787575286 Active 2024 MIKHAIL SARKAR [address] [place] [address], [address], [facility] 5 15:28:16 Chronic pansinusi tis 75787268 Active 2024 MIKHAIL SARKAR [address] [place] [address], [address], [facility] 5 11:07:05 Mixed hyperlipi demia 616729568 Active 2024 MIKHAIL SARKAR [address] [place] [address], [address], [facility] 5 08:31:15 Impaired fasting glycemia 098891455 Active 2024 MIKHAIL SARKAR [address] [place] [address], [address], [facility] 5 15:32:12 Atypical chest pain 171156596 Active 2024 MIKHAIL SARKAR [address] [place] [address], [address], [facility] 5 08:32:15 Pain of right knee joint 158626057026 100 Active 2024 MIKHAIL SARKAR [address] [place] [address], [address], [facility] 5 12:45:38 Problem Notes None recorded. Procedures Surgical History Date Name Laterality Status Provider Name and Address Organization Details Recorded Time Partial Hysterectomy completed Jessi Rodriguez NP, [address] [place] [address], [address], [facility] 04/28/2018 10:35:33 Imaging Results [...] Updated DateTime 09/21/2024 152.4 cm 34.4 kg/m2 11785.26 g Reyna Marx [facility] 09/21/2024 10:07:16 Date Recorded Body height Body mass index (BMI) Body weight Heart rate Oxygen saturation Systolic And Diastolic Provider Name and Address Organization Details Last Updated DateTime 4 152.4 cm 34.5 kg/m2 25387.7 7 g 84 /min 98 % 126/80 mm[Hg] Johana Camacho [facility] 4 14:58:43 Date Recorded Body height Body mass index (BMI) Body weight Heart rate Oxygen saturation Systolic And Diastolic Provider Name and Address Organization Details Last Updated DateTime 4 152.4 cm 34.4 kg/m2 63685.2 6 g 84 /min 97 % 124/70 mm[Hg] Reyna Marx [facility] 4 09:22:43 Date Recorded Body height Body mass index (BMI) Body weight Heart rate Oxygen saturation Systolic And Diastolic Provider Name and Address Organization Details Last Updated DateTime 5 152.4 cm 34.4 kg/m2 91907.2 6 g 80 /min 99 % 124/80 mm[Hg] Reynaolu Avednanomond [facility] 5 10:47:35 Social History Question Answer Notes LastModified by Organizat ion Details LastModified Time Tobacco Smoking Status Never Smoker Not Available [facility] 04/22/2020 03:36:24 What Was The Date Of Your Most Recent Tobacco Screening? 03/04/2025 [email or web address] Information not available 03/04/2025 Sex: Unknown Functional Status Question Answer Note LastModified by Organization D etails LastModified Time Do you or have you ever used any other forms of tobacco or nicotine? No [email or web address] Information not available 11/26/2022 Mental Status None recorded. Family History Relationship Description Onset Age of this Age Resolved Age Notes LastModified by Organization Details LastModified Time Father Hypertensive disorder 49 ? brain aneury robert bedolla Not available 04/28/2018 10:34:54 Mother Hypertensive disorder [...] PF, 0.5 mL 09/22/2020 completed Amada Noel [facility] 12/02/2020 10:20:35 Past Encounters Encounter ID Performer Location Encounter Start Date Encounter Closed Date Diagnosis/Indication Diagnosis SNOMED-CT Code Diagnosis ICD10 Code Diagnosis IMO Codes Diagnosis Note [id number] Avel Henson [facility] [address] [place] [address] 04/28/2018 10:16:06 04/28/2018 12:51:08 Adult health examination 678660307 Z00.01 Active or passive immunization 328567851 Z23 Essential hypertension 83017430 I10 Screening procedure 2012 5006 Z13.9 [id number] Avel Henson [facility] [address] [place] [address] 12/09/2020 09:58:28 12/09/2020 10:49:23 Essential hypertension 05176295 I10 BP elevatedwi ll start on lisinopril and fu in a moalso needs BW done Myasthenia gravis 050498 04 G70.00 stable [id number] Avel Henson [facility] [address] [facility] [address] [address] 01/07/2021 09:13:49 01/07/2021 09:37:52 Essential hypertension 96816670 I10 BP much improved with lisinopril will continue on the same dose for now and fu in 3 mowill see if it needs to be titrated at that time [id number] Avel Henson DO [facility] [address] [facility] [address] [place] [address] 04/08/2021 08:50:44 04/08/2021 09:31:08 Overweight 719249745 E66.3 will trial phentermin e 15 mg capsulewil l call with an update in a month to tell me her progress Essential hypertension 38780079 I10 BP much improved with lisinopril will continue on the same dose for now and fu in 3 mowill see if it needs to be titrated at that time [id number] Avel Henson DO [facility] [address] [facility] [address] [place] [address] 06/15/2021 10:01:23 06/15/2021 14:50:08 Acute laryngitis 5407159 J04.0 increase fluids, take lozenges Otalgia 66931605 H92.03 possible referred pain Pain in throat 583186722 R07.0 take APAP or ibu PRN for pain relief and inflammati on Acute sinusitis 91027584 J01.01 will treat with abx Cough 53264521 R05.1 will treat cough [id number] MIKHAIL SARKAR [facility] [address] [facility] [address] [place] [address] 02/05/2022 13:31:15 02/05/2022 15:23:44 Overweight 320907992 E66.3 will trial phentermin e 15 mg capsule in combo with 50 mg of topimaxwil l call with an update in a month to tell me her progress Essential hypertension 08349269 I10 BP much improved with lisinopril [id number] Avel Henson DO [facility] [address] [facility] [address] [place] [address] 07/07/2022 09:59:55 07/07/2022 16:04:24 Acute sinusitis 31059771 J01.01 will treat with abx/medrol [id number] Avel Henson [facility] [address] [facility] [address] 11/26/2022 10:46:00 11/26/2022 11:22:06 Myasthenia gravis 34968909 G70.00 stable Adult heal th examination 529831935 Z00.00 agreed to full panel lab workneurol deb wanted it Screening for malignant neoplasm of colon 393886551 Z12.11 will print referral for patient since she didn't go last time Dyspnea 067432518 R06.02 Overweight 534364744 E66 .3 will trial phentermin e 15 mg capsule in combo with 50 mg of topimaxwil l call with an update in a month to tell me her progress Screening mammography 24 736685 Z12.31 agreed to MM; due for it [id number] Avel Henson [facility] [address] [facility],[place] [address] 05/09/2023 09:27:32 05/09/2023 16:08:27 Acute right otitis media 254760860 H65.04 will start on augmentin and medrol for possible combinatio n ear and sinus infection Acute sinusitis 39004077 J01.01 will treat with abx/medrol comboconti nue on APAP for discomfort as needed [id number] Avel Henson [facility] [address] [facility] [address] 11/01/2023 14:44:12 11/02/2023 08:46:50 Depression screening 329225637 Z13.31 stable Dysuria 24013410 R30.0 will set up with recheck urine Cerebrovas cular accident 886583027 I63.331 doing welldiscus sed side effects to look out for for the new medication s she is on Myasthenia gravis 029990 04 G70.00 john be following with her doctor out in [place] and neuro who works with her doctor [id number] Avel Henson DO [facility] [address] [facility] [address] [place], [place] [address] 11/30/2023 09:14:12 11/30/2023 14:54:16 Depression screening 910444145 Z13.31 stable Transient cerebral ischemia 148065378 G45.9 stableneed s refill of the atorvastat in Essential hypertension 85631410 I10 BP much improved with lisinopril Pain of left hand 317246 0735 49892 M79.642 will set up with XR's Pain in left arm 5174562 00 M79.602 will set up with XR per PT/OT Myasthenia gravis 359711 04 G70.00 john be following with her doctor out in [place] and neuro who works with her doctor waiting on placard to go through Hyperlipidemia [id number] E78.5 [id number] Avel Henson DO [facility] Internal Medicine [address] [facility] [place], [employer] [place] [address] 09/21/2024 10:00:28 09/21/2024 10:36:53 Pain of multiple joints 99505343 M25.50 ? psoriatic arthritis vs RA Antiphosph olipid syndrome 55980205 D68.61 stable Menopause [id number] N95. 1 recheck levels Body mass index 30+ - obesity 097920600 Z68.34 trial zepbound Biju hematuria [id number] 5 R31.0 will set up with urine Myasthenia gravis 830084 04 G70.00 john be following with her doctor out in [place] and neuro who works with her doctor waiting on placard to go through Obesity [id number] E66.9 Transient cerebral ischemia [id number] G45.9 stableneed s [place] the at[place] in [id number] Avel Henson DO [facility] Internal Medicine [address] [facility] [place], [place] [address] 03/04/2025 10:30:42 03/04/2025 16:16:23 Essential hypertension 48627614 I10 BP much improved with lisinopril restarting Hypertensive urgency 443 160470 I16.0 resolved, BP is stable Antiphosph olipid syndrome 39820159 D68.61 stable Myasthenia gravis 316659 04 G70.00 stable Chronic pansinusitis 888 60340 J32.4 2468 change ENT to [place] per pt Fatigue 00089744 R53.83 [id number] will set up with lab work Health Concerns Section Related Observation LastModified by Organization Detai ls LastModified Time None Recorded Concern Status LastModified by Organization Details LastModified Time None Recorded Advance Directives Directive None Recorded Payers Insurance Date Sequence Insurance Name Policy Number Policy Reed Covered Member ID Reed Member ID Guarantor Name 03/01/2025 1 [place] [id number] Sindi King [id number] Sindi King 09/21/2024 1 [employer] (POS) Sindi King [id number] Sindi King Notes Date Note Type Note Provider Name a nd Address Organization Details Recorded Time 05/09/2023 text/html ROS as noted in the [facility] c/o sick, upper resp infection telemedicine [...] of ear and sinus infection MIKHAIL SARKAR [address] [place] [address], [place], [address], [facility] 05/09/2023 14:03:27 11/01/2023 text/html ROS [...] doctor wants her to see out in [place] the patient is otherwise doing wellworking with neuro will also send out urine for culturestill has leuks and now blood MIKHAIL SARKAR [address] [place], [address], [facility] Internal Medicine 11/01/2023 16:01:55 11/30/2023 text/html ROS as noted in the HPI 1 mos f/u depression screening 0doing really well TIA/CVA: the patient reports she is doing really well with PTcurrently only using the a cane instead of a walker needs refills PT suggested XRs of her entire left arm otherwise doing really well seeing the stroke specialist in [place] on 12/14/23the patient already had the neuro f/u as well from [place], adjusted some of her meds can continue the ASA and the vitamin Dthe patient breathing is good, suggested melatonin for sleep will send results to the OT MIKHAIL SARKAR [address] [place], [address], [facility] Internal Medicine 11/30/2023 09:52:24 09/21/2024 text/html [...] vs immune arthritis the patient did see agriculture inspector, started her on T gel, recommended hormone screeningthe patient reports that she feels fatigued and more joint pain which can also be symptoms additional from menopause also vit d def, will have pt start 2000 units with calcium will try to see if the zepbound will be covered under obesity, HTN having blood in her urine from TRAM OPERATOR; wanted repeat urine to check for continue hematuria f/u after work up MIKHAIL SARKAR [address] [place], [address], [facility] Internal Medicine 09/21/2024 12:23:55 03/04/2025 text/html ROS as noted in the [facility] hospital d/c the patient with hx [...] appt already for routine appts MIKHAIL SARKAR [address] [place] [address], [place], [address], [place] [facility] Internal Medicine 03/04/2025 11:14:06 OBGyn Episode No OBEpisode recorded.
--- OUTSIDE RECORDS SUMMARY | 2025-05-30 22:42 | XMS_ITS | Clinical Summary ---
Author Organization [facility] Address [address] [place] [address] Phone Care Team Providers Care Cartography Supervisor Name Role Phone Avel Henson DO Unavailable Mary Pate Primary Care Provider [phone] Ayah Clemente RN Unavailable [phone] Allergies No known active allergies Medications atorvastatin [...] 1,000 Units by mouth daily. Active lisinopril (PRINIVIL,ZESTRI L) 20 MG tablet Take [...] once per prep instructions 4 tablet 04/19/20 25 Active enoxaparin (LOVENOX) 100 mg/mL Syrg subcutaneous syringe Inject 1 mL (100 mg total) under the skin every 12 (twelve) hours for 7 doses. As directed by [facility] Anticoagulation Management Service. PT/INR is managed by [facility] Anticoagulation Management Services [place] ([facility]) Office hours: Tuesday through Tuesday, 8a-430p. Email: [email or web address] [facility] ([facility]) Office hours: Tuesday through Tue, 830a-5p Email: [email or web address] [facility] ([employer]) Office hours: Tuesday through 8-4 Email [email or web address] For critical PT/INR results after hours please contact the after hours service for @PCP@ 7 mL 05/30/20 25 025 Active Active Problems Problem Noted Date Diagnosed Date longterm (current) use of anticoagulants 2024 Chronic anticoagulation 04/10/2024 TIA (transient ischemic attack) 03/26/2024 Class 1 obesity 03/26/2024 Depression 03/26/2024 Vertigo 03/19/2024 APS (antiphospholipid syndrome) 03/07/2024 Hyperlipidemia 11/30/2023 Transient ischemic attack 11/28/2023 Cerebrovascular accident (CVA) 11/01/2023 Hypertensive urgency 10/05/2023 Panic disorder 10/05/2023 Acute right otitis media 05/09/2023 Acute sinusitis 07/07/2022 Essential hypertension 02/05/2022 COVID-19 07/25/2020 Overview (03/26/2024): 07/22/20 Myasthenia gravis 07/25/2020 Encounters Date Type Department Care Team Description 05/30/2025 Telephone Anticoagulation Clinic [address] [place] [address] Ayah Clemente, RN INR Check; Subtherapeutic INR-unexpected 05/28/2025 Telephone Anticoagulation Clinic [address] [place] [address] Ayah Clemente, RN 05/23/2025 Telephone Anticoagulation Clinic [address] [place] [address] Ayah Clemente, RN 05/02/2025 Documentation Anticoagulation Clinic [address] [place] [address] Ayah Clemente, RN INR Check 05/01/2025 Telephone [facility] [address] [place] [address] [place] [address] Ayah Clemente, RN 04/19/2025 10:00 AM EDT Office Visit [facility] [address] [place] [address] Unknown, Unknown, Mary Wilkinson, KATIE Abnormal bowel habits (Primary Dx); Rectal bleeding; Anticoagulated 04/19/2025 Telephone [facility] [address] [place] [address] Blanca Koch MA Lovenox bridge 04/18/2025 6:55 AM EDT - 04/18/2025 11:59 PM EDT Hospital Encounter [facility]b [address] [address] Mary Pate PA Discharge Disposition: Home or Self Care 04/18/2025 Telephone Anticoagulation Clinic [address] [place] [address] Ayah Clemente, RN INR Check (/) 04/17/2025 Telephone [facility] [address] [place] [address] [place] [address] Ayah Clemente, RN 04/16/2025 Telephone Anticoagulation Clinic [address] [place] [address] Ayah Clemente, RN 03/21/2025 Transcribe Orders Anticoagulation Clinic [address] [place] [address] Ayah Clemente RN CVA (cerebral vascular accident) (Primary Dx); APS (antiphospholipid syndrome); Chronic anticoagulation 03/19/2025 7:21 AM EDT - 03/19/2025 11:59 PM EDT Hospital Encounter [facility] Main [address] [place] [address] Mary Pate PA Discharge Disposition: Home or Self Care 03/19/2025 Telephone Anticoagulation Clinic [address] [place] [address] Ayah Clemente RN INR Check (/) 03/07/2025 7:26 AM EDT - 03/07/2025 11:59 PM EDT Hospital Encounter [facility] Main [address] [place] [address] Mary Pate PA Discharge Disposition: Home or Self Care 03/07/2025 Telephone Anticoagulation Clinic [address] [place] [address] Ayah Clemente RN 03/05/2025 7:24 AM EDT - 03/05/2025 11:59 PM EDT Hospital Encounter [facility] Main [address] [place] [address] Mary Pate PA Discharge Disposition: Home or Self Care 03/05/2025 Telephone Anticoagulation Clinic [address] [place] [address] Ayah Clemente RN INR Check (/) 03/04/2025 Telephone Anticoagulation Clinic [address] [place] [address] Ayah Clemente RN 03/01/2025 8:00 AM EDT Office Visit [facility] [address] [place] [address] Mary Pate PA [place], [place], PT Vertigo (Primary Dx) from Last 3 Months Social [...] Description 06/07/2025 10:00 AM EST Office Visit [facility] Rheumatology [address] [place] [address] Ondina Barbour MD [address] [facility], [address] [place] [address] [email or web address] 06/19/2025 3:15 PM EST Evaluation [facility] Otolaryngology [address] [facility] [place] [address] Dianna Dhillon, Richar [address] [place] [address] [email or web address] 07/29/2025 1:30 PM EST Office Visit [facility] [address] [place] [address] Mary Mcnally CNP 10 [place] [address] [email or web address] Scheduled Procedures Name Priority Associated Diagnoses Date/Ti [...] 09/17/2024, 10/0 01/2019, 08/18/2018, Additional history exists BLOOD PRESSURE [...] Priority Date/Time Associated Diagnosis Comments PT-INR Routine 05/30/2025 7:35 AM EST Cerebrovascular accident (CVA) APS (antiphospholipid syndrome) Chronic anticoagulation PT-INR Routine 05/02/2025 7:09 AM EST Cerebrovascular [...] to Health Maintenance Results * (ABNORMAL) PT-INR (05/30/2025 7:35 AM EST) Only the most recent of6 resultswithin the time period is included. PT 13.5(H) 10.0 - 13.0 sec 05/30/2025 11:44 AM EST [facility] INR 1.1 0.9 - 1.1 05/30/2025 11:44 AM EST [facility] Comment:Therapeutic Range 2. 0 - 3.5 Blood (Blood) Venipuncture / Unknown 05/30/2025 7:35 AM EST 05/30/2025 7:35 AM EST us Mary ELIZONDO LAB BLOOD BKR ORDERABLES Fi nal Result [facility] [address] [place] [address] * (ABNORMAL) Comprehensive metabolic panel (09/17/2024 8:20 AM EDT) SODIUM 141 133 - 146 mmol/L [facility] POTASSIUM 3.9 3.3 - 5.1 mmol/L [facility] CHLORIDE 103 96 - 108 mmol/L [facility] CO2 28 21 - 35 mmol/L [facility] BUN 17 6 - 19 mg/dL [facility] CREATININE 0.60 0.5 - 1.5 mg/dL [facility] GLUCOSE 139(H) 70 - 99 mg/dL [facility] ALBUMIN 4.6 3.9 - 4.8 g/dL [facility] TOTAL PROTEIN 7.8 6.5 - 8.0 g/dL [facility] CALCIUM 9.8 8.4 - 10.3 mg/dL [facility] ALKALINE PHOSPHATASE 99 39 - 117 U/L [facility] TOTAL BILIRUBIN 0.4 0.0 - 1.2 mg/dL [facility] AST 25 0 - 37 U/L [facility] ALT 24 0 - 40 U/L [facility] GLOBULIN 3.2 1 - 4.8 g/dL [facility] EGFR 104 >59 mL/min/1.7 3m2 [facility] Comment:Estimated glomerular filtration rate calculated using the CKD-EPI refit equation. ANION GAP 14 10 - 20 mmol/L [facility] Blood 09/17/2024 8:20 AM EDT 09/17/2024 8:23 AM EDT us Mary ELIZONDO LAB BLOOD BKR ORDERABLES Fi nal Result [facility] [address] [place] [address] from Last 3 Months or Most Recently Relevant to Health Maintenance Insurance [facility] PPO EPO [facility] PPO EPO [facility] PPO EPO [facility] [place] [address] [facility] PPO EPO [facility] PPO [facility]PO [facility] PPO EPO [facility] PPO EPO [facility] PPO EPO Care Teams Cartography Supervisor Relationship Specialty Start Date End Date Mary Pate PA [address] [place] [phone] PCP - General Physician Lead Simulation Modeling Engineer 12/09/23 Avel Henson DO [address] [place] [address] Insurance Assigned Provider 09/24/23 Ayah Clemente, RN [address] [place] [address] Registered Nurse 03/19/25 Additional Source Comments The information contained in this document represents components of the legal health record. It is not the complete legal health record.[facility]
--- OUTSIDE RECORDS SUMMARY | 2025-05-30 22:42 | XMS_ITS | Encounter Summary ---
Author Organization [facility] Address [address] [facility] [address] [place] [address] Phone Care Team Providers Care Mortgage Processor Name Role Phone Avel Henson DO Unavailable Mary Pate Primary Care Provider Ayah Clemente RN Unavailable [phone] Encounter Details Date Type Department Care Team (Late Contact Info) Description 09/21/2024 Transcribe Orders [facility] Ph[facility] Main [address] [place] [address] Mary Pate PA [address] [place], [place] [phone] Social History Tobacco Use Types Packs/Day Years [...] Visit [facility] Rheumatology [address] [place] [address] Ondina Barbour MD 22 [facility], [address] [place] [address] 06/19/2025 3:15 PM EST Evaluation [facility] Otolaryngology [address] [facility] [place] [address] Dianna Dhillon, AuD [address] [place] [address] [email or web address] 07/29/2025 1:30 PM EST Office Visit [facility] Gastroenterology Clinic 10 [place] [address] Mary Mcnally CNP 10 [place] [address] Scheduled Procedures Name Priority Associated Diagnoses Date/Ti me COLONOSCOPY Abnormal bowel habits documented as of this encounter Visit Diagnoses Not on filedocumented in this encounter Care Teams Mortgage Processor Relationship Specialty Start Date End Date Mary Pate PA [address] [place] [address] [place] [address] PCP - General Physician Director Ship 12/09/23 Avel Henson DO [address] [place] [address] [place] [address] Insurance Assigned Provider 09/24/23 Ayah Clemente, RN [address] [place] [address] Registered Nurse 03/19/25 documented as of this encounter Additional Source Comments The information contained in this document represents components of the legal health record. It is not the complete legal health record.[facility]
--- OUTSIDE RECORDS SUMMARY | 2025-05-30 22:42 | XMS_ITS | Encounter Summary ---
Author Organization [facility] Address [address] [place] [address] Phone Care Team Providers Care Therapist Radiation Name Role Phone Avel Henson DO Unavailable Mary Pate Primary Care Provider [phone] Ayah Clemente RN Unavailable [phone] Reason for Visit * Reason Comments INR Check Subtherapeutic INR-unexpected Encounter Details Date Type Department Care Team (Late st Contact Info) Description 05/30/2025 Telephone Anticoagulation Clinic [address] [place] [address] Ayah Clemente RN [address] [place] [address] [email or web address] INR Check; Subtherapeutic INR-unexpected Social History Tobacco Use Types Packs/Day Years Used Date Smoking Tobacco: Never Smokeless Tobacco: Never Education Answer Date Recorded Are you interested [...] on file documented as of this encounter Patient Instructions * Patient Instructions* Margarita Lopez, WHITE SHOE EXAMINER - 05/30/2025 3:17 PM EST Images from the original note were not included. Important INR Result and Next Steps Dear Sindi King, We have received your recent INR test results, which indicate a lower than expected level. Your INRis INR Date Value Ref Range Status 05/30/2025 1.1 0.9 - 1.1 Final Comment: Therapeutic Range 2.0 - 3.5 . Your INR goal is 2.0-3.0 This means your blood is thicker than desired, and we need to adjust your medication. Dosing Instructions: Please begin Lovenox 100 mg every twelve hours this evening. Last dose of Lovenox Tuesday. Please follow Warfarin dosing as outlined in the calendar below. We will need a repeat INR on Tuesday06/03/25. After that period, we will reassess your dosing. We???d like to emphasize the importance of keeping your INR within the target range to reduce the risk of blood clots. When the INR is too low, the blood is more prone to clotting, which can lead to serious health conditions. Below are some guerrero points on why maintaining your target INR is essential: Blood Clots: Low INR levels can increase the risk of developing blood clots in the veins and arteries. Pulmonary Embolism (PE): Clots that form in the legs or other areas can travel to the lungs, causing a potentially life-threatening condition known as a pulmonary embolism. Stroke: If a clot reaches the brain, it can block blood flow, leading to a stroke, which can cause long-term disability or other serious complications. Thromboembolism: Clots can travel through the bloodstream and block blood vessels in critical areas, posing significant health risks. Heart Attack (WA): In certain cases, blood clots in the arteries can lead to a myocardial infarction, or heart attack. Below are situations where seeking immediate medical attention is necessary: Swelling or pain in the legs, especially if it occurs in only one leg (this could be a symptom of deep vein thrombosis). Shortness of breath, chest pain, or a fast heart rate (these may indicate a pulmonary embolism). Sudden or severe headache, difficulty speaking, weakness, or numbness on one side of the body (these are signs of a stroke). If you have any questions or concerns, feel free to reach out. Safety Reminders: Please reply or call our office if you: Have not been taking warfarin as instructed. Start, stop or change how you taking any other medications (including prescription or over the counter). Have any changes in your health including illness, urgent doctor's appointments, visits to the hospital. Have any changes in your daily routines such as diet and how much alcohol you drink. Have any major medical or dental procedures scheduled that require a change in how you take your warfarin. Thank you! Margarita Lopez CNP PT/INR is managed by [facility] Anticoagulation Management Services [place] ([facility]) Office hours: Tuesday through Tuesday, 8a-430p. Email: [email or web address] [facility] ([facility]) Office hours: Tuesday through Tue, 830a-5p Email: [email or web address] [place] ([employer]) Office hours: Tuesday through 8-4 Email For critical PT/INR results after hours please contact the after hours service for Mary Pate PA May 2025 Details Sun Tue Sat 1 2 3 4 5 6 7 8 9 10 11 1.1 7.5 mg See details 12 5 mg 13 5 mg 14 5 mg 15 5 mg 16 17 18 19 20 21 22 23 24 25 26 27 28 29 30 31 Date Details 05/30 This INR check INR: 1.1 Therapeutic Range 2.0 - 3.5 Date of next INR: 06/03/2025 How to take your warfarin dose To take: 5 mg Take 1 of the 5 mg tablets. To take: 7.5 mg Take 1 of the 2.5 mg tablets and 1 of the 5 mg tablets. * Attachments The following attachments cannot be sent through Care Everywhere. * Enoxaparin (Lovenox) ([place]) * How to Give Yourself an Anticoagulant (Blood Thinner) Shot: Video ([place]alian) documented in this encounter Progress Notes * Margarita Lopez CNP - 05/30/2025 2:42 PM EST Indication: CVA, APLS Lab Results Component Value Date PTINR 1.1 05/30/2025 PTINR 2.2 (H) 05/02/2025 PTINR 3.9 (H) 04/18/2025 PTINR 2.7 (H) 03/19/2025 PTINR 2.2 (H) 03/07/2025 Weight History as of 04/19/25 Weight 90.7 kg (200 lb) Lab Results Component Value Date CRE 0.60 09/17/2024 Estimated Creatinine Clearance: 101 mL/min (based on SCr of 0.6 mg/dL). Given indication and how low INR is she should bridge until she become therapeutic again. Lovenox dose will be 100 mg every 12 hours beginning this evening unitl Tuesday evening. She will need to testTuesday morning to see if Lovenox can be discontinued. Margarita Lopez CNP * Ayah Clemente RN - 05/30/2025 12:52 PM EST Venous INR is 1.2. Phone call with Carmen. We could not pinpoint a reason for low INR. She has not missed any doses of warfarin. She has Hx reviewed. Warfarin: 7.5 mg today, 5 mg 05/31/25 (boost) then 2.5 mg every Tue, Tue; 5 mg all other days. Next INR 06/03/25. Chart forwarded to NS AMS COMMUNICATION ANALYST for review. Detailed findings, dosing and next appt date is per AMS flowsheets. All questions were answered. Confirmed instructions with teach back & agrees with plan. Patient has been educated and verbalizes understanding of the following: the indication for anticoagulation the importance of adherence to medication dose, schedule laboratory testing per clinician instruction potential food/medication interactions clotting risks associated with their disease state bleeding risks associated with anticoagulants to call the office or after hours service with any questions or concerns INR Source: [facility] lab Ayah Clemente RN documented in this encounter Plan of Treatment Upcoming Encounters Date Type Department Care Team (Late st Contact Info) Description 06/07/2025 10:00 AM EST Office Visit [facility] Rheumatology [address] [place] [address] Ondina Barbour MD [address] [facility], [address] [place] [address] 06/19/2025 3:[address] [facility] Otolaryngology [address] [place], [place] [address] [place] [address] Dianna Dhillon AuD [address] [place] [address] [email or web address] 07/29/2025 1:30 PM EST Office Visit [facility] [address] [place] [address] Mary Mcnally CNP [address] [place] [address] [email or web address] Scheduled Procedures Name Priority Associated Diagnoses Date/Ti me COLONOSCOPY Abnormal bowel habits documented as of this encounter Visit Diagnoses Diagnosis correction (current) use of anticoagulants- Primary Long-term (current) use of anticoagulants Cerebrovascular accident (CVA) APS (antiphospholipid syndrome) Primary hypercoagulable state documented in this encounter Care Teams Therapist Radiation Relationship Specialty Start Date End Date Mary Pate PA [address] [facility] [place] [address] PCP - General Physician Senior Java Software Developer 12/09/23 Avel Henson DO [address] [facility] [place] [address] [place] [address] [email or web address] Insurance Assigned Provider 09/24/23 Ayah Clemente, RN [address] [place] [address] [email or web address] Registered Nurse 03/19/25 documented as of this encounter Additional Source Comments The information contained in this document represents components of the legal health record. It is not the complete legal health record.[facility]
--- OUTSIDE RECORDS SUMMARY | 2025-05-30 22:42 | XMS_ITS | Encounter Summary ---
Author Organization [facility] Address [address] [place] [address] [place] [address] Phone Care Team Providers Care Oil Dispatcher Name Role Phone Avel Henson DO Unavailable Mary Pate Primary Care Provider [phone] Ayah Clemente RN Unavailable [phone] Encounter Details Date Type Department Care Team (Late st Contact Info) Description 05/28/2025 Telephone Anticoagulation Clinic 30 [place], [place] [phone] Ayah Clemente RN 30 [place] [address] Social History Tobacco Use Types Packs/Day Years [...] of this encounter Progress Notes * Ayah Clemente RN - 05/28/2025 2:45 PM EST Phone call to Carmen reminding her to have INR testing done. Voice message left. documented in this encounter Plan of Treatment Upcoming Encounters Date Type Department Care Team (Late st Contact Info) Description 06/07/2025 10:00 AM EST Office Visit [facility] Rheumatology 22 [place] [address] Ondina Barbour MD 22 [facility], [address] [place] [address] 06/19/2025 3:15 PM EST Evaluation [facility] Otolaryngology 45 [facility]2-2 [place] [address] Dianna Dhillon AuD 75 [place] [address] [email or web address] 07/29/2025 1:30 PM EST Office Visit [facility] Gastroenterology Clinic [address] [place] [address] Mary Mcnally CNP [address] [place] [address] [email or web address] Scheduled Procedures Name Priority Associated Diagnoses Date/Ti me COLONOSCOPY Abnormal bowel habits documented as of this encounter Visit Diagnoses Not on filedocumented in this encounter Care Teams Oil Dispatcher Relationship Specialty Start Date End Date Mary Pate PA [address] [place] [place] [address] [place] [address] PCP - General Physician Surgical Lead 12/09/23 Avel Henson DO [address] [place] [address] [place] [address] [email or web address] Insurance Assigned Provider 09/24/23 Ayah Clemente RN 30 [place] [address] Registered Nurse 03/19/25 documented as of this encounter Additional Source Comments The information contained in this document represents components of the legal health record. It is not the complete legal health record.[facility]
--- OUTSIDE RECORDS SUMMARY | 2025-05-30 22:42 | XMS_ITS | Encounter Summary ---
Author Organization [facility] Address [address] [facility] [address] [place] [address] Phone Care Team Providers Care Information Lead Name Role Phone Unknown, Unknown Primary Care Provider Avel Swenson DO Unavailable Mary Pate Primary Care Provider [phone] Ayah Clemente RN Unavailable [phone] Encounter Details Date Type Department Care Team (Late st Contact Info) Description 06/17/2017 Transcribe Orders [address] [address] Forest Guido MD [address] [place] [id number] Myasthenia gravis without exacerbation (Primary Dx) [...] Visit [facility] Rheumatology [address] [place] [address] Ondina Barbour MD 22 [facility], [address] [place], [place] [phone] 06/19/2025 3:15 PM EST Evaluation [facility] Otolaryngology 45 [facility] ASB2-2 [place] [address] Dianna Dhillon AuD 75 [place] [address] [email or web address] 07/29/2025 1:30 PM EST Office Visit [facility] Gastroenterology Clinic 10 [place] [address] Mary Mcnally, [employer] 10 [place] [address] [email or web address] Scheduled Procedures Name Priority Associated Diagnoses Date/Ti me COLONOSCOPY Abnormal bowel habits documented as of this encounter Results * (ABNORMAL) LFTs (hepatic panel) (06/17/2017 7:51 AM EST) ALKALINE PHOSPHATASE 120(H) 39 - 117 U/L [facility] TOTAL BILIRUBIN 0.4 0 - 1.2 mg/dL [facility] DIRECT BILIRUBIN <0.2 0 - 0.3 mg/dL [facility] Bilirubin (Indirect) NOT CALCULATED 0 - 1.5 mg/dL [facility] AST 22 0 - 37 U/L [facility] ALT 16 0 - 40 U/L [facility] TOTAL PROTEIN 6.6 6.5 - 8.0 g/dL [facility] ALBUMIN 3.7(L) 3.9 - 4.8 g/dL [facility] GLOBULIN 2.9 1 - 4.8 g/dL [facility] A/G Ratio 1.28 1.00 - 4.80 RATIO [facility] Blood 06/17/2017 7:51 AM EST 06/17/2017 8:54 AM EST us Forest Guido MD LAB BLOOD BKR ORDERABLES F inal Result [facility] [address] [place] [address] * Basic metabolic panel (06/17/2017 7:51 AM EST) SODIUM 137 133 - 146 mmol/L [facility] CHLORIDE 101 96 - 108 mmol/L [facility] POTASSIUM 4.7 3.3 - 5.1 mmol/L [facility] CO2 28 21 - 35 mmol/L [facility] BUN 9 6 - 19 mg/dL [facility] CREATININE 0.50 0.5 - 1.5 mg/dL [facility] GLUCOSE 89 70 - 99 mg/dL [facility] CALCIUM 8.6 8.4 - 10.3 mg/dL [facility] EGFR >60 60 - 1000 mL/min/1.7 3m2 [facility] Comment:Abnormal if <60. If patient is -Polish, multiply the result by 1.21. ANION GAP 13 10 - 20 mmol/L [facility] Blood 06/17/2017 7:51 AM EST 06/17/2017 8:54 AM EST us Forest Guido MD LAB BLOOD BKR ORDERABLES F inal Result [facility] [address] [place], [place] [id number] * CBC and differential (06/17/2017 7:51 AM EST) WBC 6.77 3.40 - 11.20 K/uL [facility] RBC 4.32 3.80 - 4.80 M/uL [facility] HGB 12.5 12.0 - 15.0 g/dL [facility] HCT 37.1 36.0 - 46.0 % [facility] PLT 172 130 - 400 K/uL [facility] MCV 85.9 79.0 - 98.0 fL [facility] MCH 28.9 27.0 - 34.8 pg [facility] MCHC 33.7 31.5 - 36.0 g/dL [facility] RDW 14.5 10.8 - 14.6 % [facility] MPV 12.0 9.4 - 12.4 fl [facility] NRBC 0.00 /100 WBCs [facility] ABSOLUTE NRBC 0.00 K/uL [facility] DIFF METHOD Auto [facility] NEUTS 75.5 45.30 - 77.70 % [facility] LYMPHS 16.0 12.30 - 39.70 % [facility] MONOS 6.1 4.10 - 12.80 % [facility] EOS 1.2 0 - 7.2 % [facility] BASOS 0.6 0 - 2.80 % [facility] Granulocytes, immature (%) 0.6 0.0 - 0.9 % [facility] ABSOLUTE NEUTS 5.12 1.40 - 7.70 K/uL [facility] ABSOLUTE LYMPHS 1.08 0.60 - 3.20 K/uL [facility] ABSOLUTE MONOS 0.41 0.11 - 0.59 K/uL [facility] ABSOLUTE EOS 0.08 0.01 - 0.50 K/uL [facility] ABSOLUTE BASOS 0.04 0.00 - 0.08 K/uL [facility] Granulocytes, immature 0.04 0.00 - 0.05 K/uL [facility] Blood 06/17/2017 7:51 AM EST 06/17/2017 8:54 AM EST us Forest Guido MD LAB BLOOD BKR ORDERABLES F inal Result Performing Organization Address City/State/[facility] Co de Phone Number [facility] [address] [place] [address] documented in this encounter Visit Diagnoses Diagnosis Myasthenia gravis without exacerbation- Primary documented in this encounter Care Teams Information Lead Relationship Specialty Start Date End Date Unknown, Unknown, MD PCP - General 04/22/17 12/08/23 Mary Pate PA [address] [place] [address] [place] [address] PCP - General Physician Public Policy Manager 12/09/23 Avel Henson DO [address] [place] [address] [email or web address] Insurance Assigned Provider 09/24/23 Ayah Clemente, RN [address] [place] [address] Registered Nurse 03/19/25 documented as of this encounter Additional Source Comments The information contained in this document represents components of the legal health record. It is not the complete legal health record.[facility]
--- OUTSIDE RECORDS SUMMARY | 2025-05-30 22:42 | XMS_ITS | Encounter Summary ---
Author Organization [facility] Address [address] [facility] [address] [place] [address] Phone Care Team Providers Care Director Of Online Merchandising Name Role Phone Avel Henson DO Unavailable Mary Pate Primary Care Provider Ayah Clemente RN Unavailable [phone] Encounter Details Date Type Department Care Team (Late st Contact Info) Description 09/21/2024 Ancillary Orders [facility], X-Ray - [facility] 30 [place] [address] Mary Pate PA [address] [place], [place] [phone] Pain in joints (Primary Dx); Pain Social [...] Description 06/07/2025 10:00 AM EST Office Visit [facility] Rheumatology [address] [place] [address] Ondina Barbour MD 22 [facility], [address] [place] [address] 06/19/2025 3:15 PM EST Evaluation [facility] Otolaryngology 45 [facility] ASB2-2 [place] [address] MemphisDianna, AuD 75 [place] [address] [email or web address] 07/29/2025 1:30 PM EST Office Visit [facility] Gastroenterology Clinic [address] [place] [address] Mary Mcnally CNP 10 [place] [address] [email or web address] Scheduled Procedures Name Priority Associated [...] clinician's provided indication for this examination in [facility]:Pain REQUESTED INDICATION: Pain COMPARISON: None FINDINGS: PELVIS: [...] clinician's provided indication for this examination in [facility]:Pain COMPARISON: None FINDINGS: RIGHT KNEE: Knee joint [...] sites documented in this encounter Care Teams Director Of Online Merchandising Relationship Specialty Start Date End Date Mary Pate PA [address] [place] [address] [place] [address] PCP - General Physician Top Lifter 12/09/23 Avel Henson DO [address] [place] [address] Insurance Assigned Provider 09/24/23 Ayah Clemente, SONNY [address] [place] [address] Registered Nurse 03/19/25 documented as of this encounter Additional Source Comments The information contained in this document represents components of the legal health record. It is not the complete legal health record.[facility]
== END 2025-05-30 16:28 | disposition home or self-care (01) ==
LOC: HO.HUSH 15:10
PROVIDERS: PCP Internal Medicine; Visit Provider Nurse Practitioner Family
DX: R80.9 Proteinuria, unspecified (principal); R31.29 Other microscopic hematuria; Q63.1 Lobulated, fused and horseshoe kidney; R39.9 Unspecified symptoms and signs involving the genitourinary system; N39.46 Mixed incontinence; Z13.9 Encounter for screening, unspecified
CPT/HCPCS: 99214

== ENCOUNTER 2025-05-30 15:09 | Outpatient (REF) | payer BC, SELFPAY | END 2025-05-30 15:10 | disposition home or self-care (01) | LOC: HO.LAB 15:09 | PROVIDERS: PCP Internal Medicine; Visit Provider Nurse Practitioner Family | DX: R31.29 Other microscopic hematuria (principal); R80.9 Proteinuria, unspecified; Q63.1 Lobulated, fused and horseshoe kidney; R39.9 Unspecified symptoms and signs involving the genitourinary system; N39.46 Mixed incontinence | CPT/HCPCS: 81003; 88112 ==